=== PATIENT | female | born 1955 | race Caucasian/White ===

== ENCOUNTER 2019-04-06 | Outpatient (CLI) | payer SELFPAY | END 2019-04-06 18:04 | disposition EMS.NT ==

== ENCOUNTER 2019-12-12 12:27 | Outpatient (CLI) | payer SELFPAY | END 2019-12-12 12:28 | disposition critical access hospital (66) | LOC: EMS 12:27 | PROVIDERS: ATTEND Surgery | DX: R53.1 Weakness (principal); R19.7 Diarrhea, unspecified; R60.0 Localized edema | CPT/HCPCS: A0425; A0429 ==

== ENCOUNTER 2019-12-12 12:58 | Inpatient (IN) | payer OTHER ==
--- NOTE | 2019-12-12 12:55 | ED Physician Documentation ---
History of Present Illness - Stated complaint Stated Complaint: WEAKNESS - Chief complaint Chief Complaint: Neuro - History obtained from History obtained from: Patient (64 yo F who reports no pmh and no current medication brought in by EMS for weakness. She states she was taking a bath and stood up and felt too weak to stand. She slid back into the tub, but did not fall. She has also noticed some swelling in her lower extremities over the last week or two. She reports she has not been eating well recently and has felt an immense amount of stress due to current divorce proceedings. She denies any cough or URI sx, chest pain, dyspnea, abd pain, n/v/d, fever or chills. No sick contacts. Denies drug use, occasional alcohol, last used last night (1 beer per report). Reports typically "has cocktails, 1 or 2, before dinner." Never had et oh withdrawal. Pt states she has not seen a doctor or been to an ED in "20 years, since I broke my ankle." No known diagnoses.) Review of Systems Constitutional: reports: Fatigue. denies: Fever, Chills, Myalgias, Weight Loss, Sweats Eyes: reports: Reviewed and negative Ears: reports: Reviewed and negative Nose: reports: Reviewed and negative Throat: reports: Reviewed and negative Cardiac: reports: Pedal edema. denies: Chest pain / pressure, Palpitations, Calf pain Respiratory: reports: Reviewed and negative GI: reports: Other (Poor appetite). denies: Abdominal Pain, Abdominal Swelling, Nausea, Vomiting, Constipation, Diarrhea, Hematemesis, Bloody / black stool : denies: Dysuria, Frequency, Hesitancy Skin: reports: Reviewed and negative Musculoskeletal: reports: Extremity swelling. denies: Neck pain, Back pain, Extremity pain, Joint pain, Joint swelling Neurologic: reports: Generalized weakness. denies: Focal weakness, Numbness, Difficulty speaking, Near syncope, Syncope, Seizure, Confused, Altered mental status, Headache, Head injury, LOC Psychiatric: reports: Depressed. denies: Suicidal, Homicidal, Hallucinations, Delusions, Anxiety, Insomnia PD PAST MEDICAL HISTORY - Past Medical History Past Medical History: No Cardiovascular: None Respiratory: None Neuro: None Endocrine/Autoimmune: None GI: None FITNESS LEADER: None - Allergies Allergies/Adverse Reactions: Allergies Allergy/AdvReac Type Severity Reaction Status Date / Time morphine Allergy Hallucinati Verified 12/12/19 13:04 ons PD ED PE NORMAL - Vitals Vital signs reviewed: Yes - General General: Alert and oriented X 3, No acute distress, Well developed/nourished - HEENT HEENT: Atraumatic, PERRL, EOMI, Ears normal, Other (very poor dentition, dry mucous membranes, poor oral care. ) - Neck Neck: Supple, no meningeal sign, No JVD - Cardiac Cardiac: Other (tachycardic, 2/6 systolic murmur ) - Respiratory Respiratory: No respiratory distress, Clear bilaterally - Abdomen Abdomen: Normal bowel sounds, Other (hepatomegaly, abd ascites, soft and non- tender) - Female Female : Deferred - Derm Derm: Warm and dry, No rash, Other (Mild jaudice on face). No: Normal color - Extremities Extremities: No deformity, No tenderness to palpate, Normal ROM s pain, No calf tenderness / cord, Other (1+ non pitting edema bilateral lower legs) - Neuro Neuro: Alert and oriented X 3, No motor deficit, Normal speech Eye Opening: Spontaneous Motor: Obeys Commands Verbal: Oriented GCS Score: 15 - Psych Psych: Normal mood Results - Vitals Vitals: Vital Signs - 24 hr 12/12/19 12/12/19 12/12/19 13:04 13:36 15:00 Temperature 37.4 C Heart Rate 116 H 114 H 117 H Respiratory 14 15 20 Rate Blood Pressure 129/80 116/65 101/68 O2 Saturation 98 99 99 Oxygen O2 Source Room air - Labs Labs: Laboratory Tests 12/12/19 12/12/19 12/12/19 13:20 13:20 13:20 WBC 10.9 H RBC 2.19 L Hgb 8.3 L Hct 25.0 L MCV 114.2 H MCH 37.9 H MCHC 33.2 RDW 15.5 H Plt Count 102 L MPV 11.1 H Neut # (Auto) 8.7 H Lymph # (Auto) 0.5 L Rankin # (Auto) 1.5 H Eos # (Auto) 0.0 Baso # (Auto) 0.0 Absolute Nucleated RBC 0.00 Band Neuts % (Manual) Not Reportable Abnorm Lymph % (Manual) Not Reportable Nucleated RBC % 0.0 Neutrophils # (Manual) Not Reportable Lymphocytes # (Manual) Not Reportable Monocytes # (Manual) Not Reportable Eosinophils # (Manual) Not Reportable Basophils # (Manual) Not Reportable Differential Comment MANUAL=AUTO DIFF Manual Slide Review Indicated WBC Morphology NORMAL APPEARANCE Platelet Estimate DECREASED (<130,000) Platelet Morphology NORMAL APPEARANCE RBC Morph Micro Appear 1+ PAPPENHEIMER BODY PT 18.1 H INR 1.6 H Sodium Potassium Chloride Carbon Dioxide Anion Gap BUN Creatinine Estimated GFR (MDRD) Glucose Calcium Total Bilirubin Direct Bilirubin 5.2 H AST ALT Alkaline Phosphatase Ammonia Troponin I High Sens Total Protein Albumin Globulin Albumin/Globulin Ratio Ethyl Alcohol Slides for Path Review Indicated 12/12/19 12/12/19 12/12/19 13:42 13:42 13:42 WBC RBC Hgb Hct MCV MCH MCHC RDW Plt Count MPV Neut # (Auto) Lymph # (Auto) Rankin # (Auto) Eos # (Auto) Baso # (Auto) Absolute Nucleated RBC Band Neuts % (Manual) Abnorm Lymph % (Manual) Nucleated RBC % Neutrophils # (Manual) Lymphocytes # (Manual) Monocytes # (Manual) Eosinophils # (Manual) Basophils # (Manual) Differential Comment Manual Slide Review WBC Morphology Platelet Estimate Platelet Morphology RBC Morph Micro Appear PT INR Sodium 120 L* Potassium 3.6 Chloride 86 L Carbon Dioxide 20 L Anion Gap 14.0 H BUN 11 Creatinine 0.5 Estimated GFR (MDRD) 125 Glucose 111 H Calcium 7.9 L Total Bilirubin 11.1 H Direct Bilirubin AST 82 H ALT 39 Alkaline Phosphatase 113 Ammonia Troponin I High Sens 11.4 Total Protein 7.1 Albumin 2.1 L Globulin 5.0 H Albumin/Globulin Ratio 0.4 L Ethyl Alcohol < 5.0 Slides for Path Review 12/12/19 16:00 WBC RBC Hgb Hct MCV MCH MCHC RDW Plt Count MPV Neut # (Auto) Lymph # (Auto) Rankin # (Auto) Eos # (Auto) Baso # (Auto) Absolute Nucleated RBC Band Neuts % (Manual) Abnorm Lymph % (Manual) Nucleated RBC % Neutrophils # (Manual) Lymphocytes # (Manual) Monocytes # (Manual) Eosinophils # (Manual) Basophils # (Manual) Differential Comment Manual Slide Review WBC Morphology Platelet Estimate Platelet Morphology RBC Morph Micro Appear PT INR Sodium Potassium Chloride Carbon Dioxide Anion Gap BUN Creatinine Estimated GFR (MDRD) Glucose Calcium Total Bilirubin Direct Bilirubin AST ALT Alkaline Phosphatase Ammonia 29.0 Troponin I High Sens Total Protein Albumin Globulin Albumin/Globulin Ratio Ethyl Alcohol Slides for Path Review PD MEDICAL DECISION MAKING - ED course Complexity details: reviewed results, re-evaluated patient, considered differential, d/w patient ED course: 64 yo F with pmh of etoh use presents with generalized fatigue and weakness. On exam, she is jaundiced w/ hepatomegaly and lower ext edema. Pt denies any past liver dz history, though notes she hasn't seen a physician in 20+ years. She is hyponatremic at 120 and has a MELD score of 29. She has macrocytic anemia and low platelets, all suggestive of chronic etoh use though pt denies a problem. Her abdomen is soft and not painful and I do not suspect intraabdominal infection. She has an elevated tbili and direct bili but alk phos normal and there is no pain or vomiting therefore acute biliary obstruction less likely. I gave her 500ml NS bolus as she appears intravascularly dry and is tachycardic, nl BUN. She is alert and appropriate, no signs of encephalopathy, ammonia 29. She denies withdrawal sx including anxiety, palpitations, hallucinations, tremors. Denies hx/o DTs or etoh withdrawal. I discussed this patient w/ Dr. Arthur and observation admission recommend. Pt kindly accepted by Dr. Puri for obs for symptomatic hyponatremia and new dx liver failure. Departure - Departure Disposition: ED Place in Observation Condition: Good
[2019-12-12 13:32] LABS: BASOPHILS % (AUTO) 0.3 %; EOSINOPHILS % (AUTO) 0.1 %; HGB - HEMOGLOBIN 8.3 g/dL (12.0-16.0); LYMPHOCYTES # (AUTO) 0.5 10^3/uL (1.5-3.5); LYMPHOCYTES % (AUTO) 4.4 %; MEAN CORPUSCULAR HEMOGLOBIN 37.9 pg (27.0-31.0); MEAN CORPUSCULAR HGB CONC 33.2 g/dL (32.0-36.0); MEAN CORPUSCULAR VOLUME 114.2 fL (81.0-99.0); MEAN PLATELET VOLUME 11.1 fL (7.9-10.8); MONOCYTES # (AUTO) 1.5 10^3/uL (0.0-1.0); MONOCYTES % (AUTO) 13.9 %; NEUTROPHILS # (AUTO) 8.7 10^3/uL (1.5-6.6); NEUTROPHILS % (AUTO) 80.1 %; PLT - PLATELET COUNT 102 10^3/uL (130-450); RED BLOOD COUNT 2.19 10^6/uL (4.20-5.40); RED CELL DISTRIBUTION WIDTH 15.5 % (12.0-15.0); WHITE BLOOD COUNT 10.9 x10^3/uL (4.8-10.8)
--- NOTE | 2019-12-12 13:58 | XRAY Report ---
Reason: chest pain Procedure Date: 12/12/2019 Accession Number: [id number] / [id number] Procedure: XR - Chest 1 View X-Ray CPT Code: 27699 Final Report FULL RESULT: EXAM: CHEST RADIOGRAPHY EXAM DATE: 12/12/2019 01:23 PM. CLINICAL HISTORY: Chest pain and weakness. Fatigue. COMPARISON: None. TECHNIQUE: 1 view. FINDINGS: Lungs/Pleura: No focal opacities evident. No pleural effusion. No pneumothorax. Mediastinum: Heart size is normal. Aorta is mildly tortuous. Other: Post traumatic changes involving the right coracoclavicular and right AC joints. IMPRESSION: 1. No acute disease in the chest. RADIA
[2019-12-12 14:12] LABS: PLATELET ESTIMATE, MANUAL DECREASED (<130,000) (NORMAL); PLATELET MORPHOLOGY NORMAL APPEARANCE (NORMAL)
[2019-12-12 14:14] LABS: DIFFERENTIAL COMMENT MANUAL=AUTO DIFF
[2019-12-12 14:38] LABS: ALBUMIN 2.1 g/dL (3.2-5.5); ALBUMIN/GLOBULIN RATIO 0.4 (1.0-2.2); BILIRUBIN,TOTAL 11.1 mg/dL (0.2-1.0); CALCIUM 7.9 mg/dL (8.5-10.3); CREATININE 0.5 mg/dL (0.4-1.0); TOTAL PROTEIN 7.1 g/dL (6.7-8.2)
[2019-12-12] MEDS ORDERED: SODIUM CHLORIDE 0.9% 500 ML IV ONE (14:42)
[2019-12-12 15:14] LABS: INR 1.6 (0.8-1.2); PT - PROTHROMBIN TIME 18.1 secs (9.9-12.6)
[2019-12-12] MEDS ORDERED: ONDANSETRON ODT 4 MG TABLET TL PRN ×2 (17:46→18:09)
[2019-12-12] MEDS ORDERED: IBUPROFEN 400 MG TABLET PO PRN (17:46)
[2019-12-12] MEDS ORDERED: SODIUM CHLORIDE FLUSH 0.9% 10 ML SYRINGE IVP PRN (17:46)
[2019-12-12] MEDS ORDERED: LORazepam 0.5 MG TABLET PO PRN (17:53)
--- NOTE | 2019-12-12 18:01 | HISTORY & PHYSICAL EXAMINATION ---
Chief Complaint - Chief Complaint Chief Complaint: Fatigue History of Present Illness - Admitted From Admitted From:: Emergency department - History Obtained From Records Reviewed: Emergency department records History obtained from: Patient and ED physician Exam Limitations: None - History of Present Illness HPI Comment/Other: Patient is a 64-year-old female who denies any previous medical history who reports that earlier today when she was staying at her friend's house, she went to take a bath and then could not get herself out. When asked for clarification, she describes that she felt too weak to get herself out of the bathtub.Because her friend with whom she is currently staying recently had surgery on her arm, she was unable to assist her so paramedics were called to the house to help her get out of the bathtub. Paramedics arrived to help do this and as evaluated her found her to be profoundly weak and brought her to the emergency room for further evaluation. This prompted a routine evaluation including basic labs demonstrating a significant hyponatremia of 120, along with significantly abnormal LFTs with hyperbilirubinemia of 11 and exam findings consistent with end-stage liver disease. Although the patient was not exhibiting any manifestations of acute liver failure requiring admission, because of the profound weakness and the hyponatremia, patient was placed in observation status overnight for further work-up. History - Past Medical History Cardiovascular: reports: None Respiratory: reports: None Neuro: reports: None Endocrine/Autoimmune: reports: None GI: reports: None BLEACHER LARD: reports: None - Past Surgical History General: reports: Appendectomy - Family & Social History Family History: Father: [place], Sister: Cancer (Ovarian) Living arrangement: Other (Patient is going through a divorce so was homeless but currently living with a friend) Living Situation: Other Social History Notes: Currently going through a difficult divorce - Substance History Abuse: Recurrent use of substance despite neg consequences: Alcohol - POLST Patient has POLST: No POLST Status: Full Code Meds/Allgy - Allergies Allergies/Adverse Reactions: Allergies Allergy/AdvReac Type Severity Reaction Status Date / Time morphine Allergy Hallucinati Verified 12/12/19 13:04 ons Review of Systems - Constitutional Constitutional: reports: Fatigue, Malaise, Weakness, Poor appetite. denies: Fever, Chills - Eyes Eyes: denies: Blurred vision - Ears, Nose & Throat Ears, Nose & Throat: denies: Ear pain, Hearing loss, Hearing aids - Cardiovascular Cariovascular: denies: Irregular heart rate, Palpitations, Chest pain - Gastrointestinal Gastrointestinal: reports: Bloating, Poor appetite, Other (Abdominal distention). denies: Abdominal pain, Change in bowel habits, Nausea, Vomiting - Genitourinary Genitourinary: denies: Dysuria - Neurological Neurological: reports: General weakness. denies: Focal weakness, Headache, Numbness - All Other Systems All Other Systems: reports: Reviewed and negative Prior Level of Functionality: Ambulatory, functionally independent but currently living with a friend Exam - Vital Signs Reviewed Vital Signs: Yes Vital Signs: Vital Signs x48h Temp Pulse Pulse Resp BP BP Pulse Ox 12/12/19 17:33 36.8 C 111 H 18 109/59 L 98 12/12/19 17:00 111 H 18 106/58 L 99 12/12/19 15:00 117 H 20 101/68 99 12/12/19 13:36 114 H 15 116/65 99 12/12/19 13:04 37.4 C 116 H 14 129/80 98 - Physical Exam General Appearance: positive: No acute distress Eyes Bilateral: positive: Other (Bilateral scleral icterus) ENT: positive: Dry mucous membranes Neck: positive: Nml inspection Respiratory: positive: Chest non-tender, No respiratory distress, Breath sounds nml Cardiovascular: positive: Regular rate & rhythm, No murmur, No gallop Peripheral Pulses: positive: 2+ Abdomen: positive: Hepatomegaly, Other (Abdominal distention without fluid wave). negative: Tenderness, Guarding, Rebound, Splenomegaly, Mass Skin: positive: Other (Multiple areas of ecchymosis over the bilateral upper extremities) Extremities: positive: Non-tender, Pedal edema (Bilateral pedal edema extending to the proximal tibias) Neurologic/Psychiatric: positive: Oriented x3, CN's nml (2-12), Motor nml Conclusion/Plan - Problem List (1) Hyponatremia Conclusion/Plan: Likely related to alcoholism, Possibly exacerbated by Intravascular Fluid depletion secondary to liver failure. Received a 500 mL bolus of normal saline in the emergency room, will continue normal saline at 100 mL/h with BMP checks every 4 hours. Pending sodium levels, will try to avoid overcorrection minimizing to about 6 mEq per 24-hour. And DC IV fluids if the rate of correction exceeds this. Otherwise if by tomorrow morning, no significant improvement, consider adding sodium tablets.Could expand work-up to include SIADH, but this is doubtful given the clinical picture of near certainty new diagnosis of end-stage liver disease (2) Elevated transaminase measurement Conclusion/Plan: Given patient's history of alcoholism, likely she has undiagnosed liver cirrhosis.This can primarily be worked up as an outpatient. (3) Jaundice Conclusion/Plan: As above, secondary to likely end-stage liver disease (4) Alcohol abuse Conclusion/Plan: Patient denies any history of withdrawal even when she has quit drinking. She admits to at least 4-6 cocktails per day. We will watch for signs of with drawal, and have added Ativan as needed for anxiety in the meantime.Continue to corporate counselor to quit (5) Macrocytic anemia Conclusion/Plan: Secondary to alcohol abuse, With thrombocytopenia. Monitor for signs of bleeding. - Lab Results Lab results reviewed: Yes Mahin Bones: 12/12/19 13:20 12/12/19 13:42 - Diagnostic Imaging Results Diagnostic Imaging Results: positive: Final report reviewed Core Measures - Anticipated LOS I expect patient to be DC'd or transferred within 96 hours.: Yes - DVT/VTE - Prophylaxis VTE/DVT Device ordered at admit?: Yes VTE/DVT Prophylaxis med ordered at admit?: No Not Ordered - Medical Reason: Contraindicated (Thrombocytopenia)
[2019-12-12] MEDS: PANTOPRAZOLE 40 MG TABLET PO SCH (18:52)
[2019-12-12] MEDS: SODIUM CHLORIDE 0.9% 1,000 ML IV SCH (18:52)
[2019-12-12 21:20] LABS: CALCIUM 7.7 mg/dL (8.5-10.3); CREATININE 0.4 mg/dL (0.4-1.0)
[2019-12-12] MEDS: THIAMINE 100 MG TABLET PO SCH (21:59)
[2019-12-12] MEDS: FOLIC ACID 1 MG TABLET PO SCH (22:00)
[2019-12-12 22:03] LABS: GLUCOSE, URINE (UA) NEGATIVE (NEGATIVE); KETONES,URINE (UA) TRACE mg/dL (NEGATIVE); LEUKOCYTE ESTERASE, URINE MODERATE (NEGATIVE); NITRITE,URINE POSITIVE (NEGATIVE); OCCULT BLOOD,URINE NEGATIVE (NEGATIVE); PH,URINE 5.5 PH (5.0-7.5); PROTEIN,URINE TRACE mg/dL (NEGATIVE); UROBILINOGEN,URINE >=8.0 E.U./dL (NORMAL)
[2019-12-12 22:09] LABS: BILIRUBIN,URINE LARGE (NEGATIVE); CLARITY,URINE HAZY (CLEAR); ICTOTEST,URINE POSITIVE
[2019-12-12 22:13] LABS: RBC,URINE 0-5 /HPF (0-5)
[2019-12-12 22:14] LABS: BACTERIA,URINE Many /HPF (None Seen); MUCUS,URINE Few Strands; SQUAMOUS EPITHELIAL CELL,UR FEW Squamous (<= Few)
[2019-12-13 01:53] LABS: CALCIUM 7.7 mg/dL (8.5-10.3); CREATININE 0.4 mg/dL (0.4-1.0)
[2019-12-13] MEDS: SODIUM CHLORIDE FLUSH 0.9% 10 ML SYRINGE IVP SCH ×4 (03:34→23:32)
[2019-12-13] MEDS: SODIUM CHLORIDE 0.9% 1,000 ML IV SCH ×3 (04:32→23:32)
[2019-12-13 05:49] LABS: HGB - HEMOGLOBIN 8.1 g/dL (12.0-16.0); MEAN CORPUSCULAR HEMOGLOBIN 39.5 pg (27.0-31.0); MEAN CORPUSCULAR HGB CONC 34.9 g/dL (32.0-36.0); MEAN CORPUSCULAR VOLUME 113.2 fL (81.0-99.0); MEAN PLATELET VOLUME 11.1 fL (7.9-10.8); RED BLOOD COUNT 2.05 10^6/uL (4.20-5.40); RED CELL DISTRIBUTION WIDTH 15.6 % (12.0-15.0); WHITE BLOOD COUNT 8.3 x10^3/uL (4.8-10.8)
[2019-12-13 06:06] LABS: ALBUMIN 1.9 g/dL (3.2-5.5); BILIRUBIN,DIRECT 3.9 mg/dL (0.1-0.5); BILIRUBIN,TOTAL 8.2 mg/dL (0.2-1.0); CALCIUM 7.6 mg/dL (8.5-10.3); CREATININE 0.3 mg/dL (0.4-1.0); TOTAL PROTEIN 5.7 g/dL (6.7-8.2)
[2019-12-13] MEDS: PANTOPRAZOLE 40 MG TABLET PO SCH (08:09)
[2019-12-13] MEDS: FOLIC ACID 1 MG TABLET PO SCH (08:09)
[2019-12-13] MEDS: cefTRIAXone 1 GM in SODIUM CHLORIDE 0.9% MINIBAG 100 ML IV SCH (11:55)
[2019-12-13] MEDS ORDERED: cefTRIAXone 1 GM VIAL ONE (11:56)
--- NOTE | 2019-12-13 14:40 | PHARMACY PROGRESS NOTE ---
- Best Possible Medication History Admit Date and Time: 12/12/19 1638 Processed by: Pharmacy Medication History completed: Yes Secondary Source(s): Physician records As the person ultimately responsible for medication therapy, providers are able to order a medication from an existing home medication list in [facility] via the "Reconcile Routine" prior to Confirmation of that medication by academic support director. Such practice is discouraged except when the physician, in their clinical judgment, deems that a medical need exists for a medication without regard to previous use.
--- NOTE | 2019-12-13 15:38 | PROVIDER PROGRESS NOTE ---
Subjective - Prog Note Date Prog Note Date: 12/13/19 Prog Note Time: 15:38 - Subjective Pt reports feeling: Improved Subjective: Patient does feel better, but continues to feel weak. She is not sure that she can get up and walk on her own accord. Current Medications - Current Medications Current Medications: Active Medications Folic Acid () 1 mg PO DAILY [facility] Last Admin: 12/13/19 08:09 Dose: 1 mg Sodium Chloride (Normal Saline 0.9%) 1,000 mls @ 100 mls/hr IV .Q10H [facility] Last Admin: 12/13/19 14:52 Dose: 100 mls/hr Ceftriaxone Sodium 1 gm/ (Sodium Chloride) 100 mls @ 200 mls/hr IV DAILY [facility] Last Infusion: 12/13/19 12:25 Dose: Infused Ibuprofen (Motrin) 400 mg PO Q4HR PRN PRN Reason: Pain 1 to 4 Lorazepam (Ativan) 0.5 mg PO Q6H PRN PRN Reason: Anxiety Ondansetron HCl (Zofran Odt) 4 mg TL BID PRN PRN Reason: Nausea / Vomiting Pantoprazole Sodium (Protonix) 40 mg PO QDAC [facility] Last Admin: 12/13/19 08:09 Dose: 40 mg Sodium Chloride (Normal Saline Flush 0.9%) 10 ml IVP PRN PRN PRN Reason: NEEDED PER PROVIDER ORDERS Sodium Chloride (Normal Saline Flush 0.9%) 10 ml IVP 0100,0900,1700 [facility] Last Admin: 12/13/19 07:59 Dose: Not Given Thiamine HCl (Vitamin B-1) 100 mg PO DAILY [facility] Last Admin: 12/12/19 21:59 Dose: 100 mg No Known Home Medications 12/13/19 Objective - Vital Signs/Intake & Output Reviewed Vital Signs: Yes Vital Signs: Vital Signs x48h Temp Pulse Resp BP Pulse Ox 12/13/19 12:19 36.6 C 110 H 20 113/62 98 Intake & Output: Intake & Output 12/10/19 12/11/19 12/12/19 12/13/19 23:59 23:59 23:59 23:59 Intake Total 500 2286.667 Output Total 250 15 Balance 250 2271.667 - Objective General Appearance: positive: No acute distress, Alert Eyes Bilateral: positive: Normal inspection, PERRL Respiratory: positive: Chest non-tender, No respiratory distress Cardiovascular: positive: Regular rate & rhythm, No murmur, No gallop Abdomen: positive: Non-tender, No organomegaly, Nml bowel sounds Extremities: positive: Pedal edema Neurologic/Psychiatric: positive: Oriented x3, CN's nml (2-12) - Lab Results Fish Bones: 12/13/19 05:22 12/13/19 05:22 Other Labs: Lab Results x24hrs 12/13/19 12/13/19 12/13/19 Range/Units 05:22 05:22 01:30 WBC 8.3 (4.8-10.8) x10^3/uL RBC 2.05 L (4.20-5.40) 10^6/uL Hgb 8.1 L (12.0-16.0) g/dL Hct 23.2 L (37.0-47.0) % MCV 113.2 H (81.0-99.0) fL MCH 39.5 H (27.0-31.0) pg MCHC 34.9 (32.0-36.0) g/dL RDW 15.6 H (12.0-15.0) % Plt Count 101 L (130-450) 10^3/uL MPV 11.1 H (7.9-10.8) fL Sodium 125 L 123 L (135-145) mmol/L Potassium 4.2 3.5 (3.5-5.0) mmol/L Chloride 94 L 90 L (101-111) mmol/L Carbon Dioxide 24 23 (21-32) mmol/L Anion Gap 7.0 10.0 (6-13) BUN 11 12 (6-20) mg/dL Creatinine 0.3 L 0.4 (0.4-1.0) mg/dL Estimated GFR (MDRD) 225 162 (>89) Glucose 97 108 H (70-100) mg/dL Calcium 7.6 L 7.7 L (8.5-10.3) mg/dL Total Bilirubin 8.2 H (0.2-1.0) mg/dL Direct Bilirubin 3.9 H (0.1-0.5) mg/dL AST 84 H (10-42) IU/L ALT 35 (10-60) IU/L Alkaline Phosphatase 93 (42-121) IU/L Ammonia (7-35) umol/L Total Protein 5.7 L (6.7-8.2) g/dL Albumin 1.9 L (3.2-5.5) g/dL Globulin 3.8 (2.1-4.2) g/dL Urine Color Urine Clarity (CLEAR) Urine pH (5.0-7.5) PH Ur Specific Hixson (1.002-1.030) Urine Protein (NEGATIVE) mg/dL Urine Glucose (UA) (NEGATIVE) mg/dL Urine Ketones (NEGATIVE) mg/dL Urine Occult Blood (NEGATIVE) Urine Nitrite (NEGATIVE) Urine Bilirubin (NEGATIVE) Urine Urobilinogen (NORMAL) E.U./dL Ur Leukocyte Esterase (NEGATIVE) Urine RBC (0-5) /HPF Urine WBC (0-5) /HPF Ur Squamous Epith Cells (<= Few) Urine Bacteria (None Seen) /HPF Urine Casts /LPF Urine Mucus Ur Microscopic Review Urine Culture Comments 12/12/19 12/12/19 12/12/19 Range/Units 21:50 21:05 16:00 WBC (4.8-10.8) x10^3/uL RBC (4.20-5.40) 10^6/uL Hgb (12.0-16.0) g/dL Hct (37.0-47.0) % MCV (81.0-99.0) fL MCH (27.0-31.0) pg MCHC (32.0-36.0) g/dL RDW (12.0-15.0) % Plt Count (130-450) 10^3/uL MPV (7.9-10.8) fL Sodium 122 L (135-145) mmol/L Potassium 3.5 (3.5-5.0) mmol/L Chloride 89 L (101-111) mmol/L Carbon Dioxide 24 (21-32) mmol/L Anion Gap 9.0 (6-13) BUN 11 (6-20) mg/dL Creatinine 0.4 (0.4-1.0) mg/dL Estimated GFR (MDRD) 162 (>89) Glucose 112 H (70-100) mg/dL Calcium 7.7 L (8.5-10.3) mg/dL Total Bilirubin (0.2-1.0) mg/dL Direct Bilirubin (0.1-0.5) mg/dL AST (10-42) IU/L ALT (10-60) IU/L Alkaline Phosphatase (42-121) IU/L Ammonia 29.0 (7-35) umol/L Total Protein (6.7-8.2) g/dL Albumin (3.2-5.5) g/dL Globulin (2.1-4.2) g/dL Urine Color BROWN Urine Clarity HAZY (CLEAR) Urine pH 5.5 (5.0-7.5) PH Ur Specific Hixson 1.020 (1.002-1.030) Urine Protein TRACE (NEGATIVE) mg/dL Urine Glucose (UA) NEGATIVE (NEGATIVE) mg/dL Urine Ketones TRACE (NEGATIVE) mg/dL Urine Occult Blood NEGATIVE (NEGATIVE) Urine Nitrite POSITIVE H (NEGATIVE) Urine Bilirubin LARGE H (NEGATIVE) Urine Urobilinogen >=8.0 H (NORMAL) E.U./dL Ur Leukocyte Esterase MODERATE H (NEGATIVE) Urine RBC 0-5 (0-5) /HPF Urine WBC 11-25 H (0-5) /HPF Ur Squamous Epith Cells FEW Squamous (<= Few) Urine Bacteria Many H (None Seen) /HPF Urine Casts 0-2 WBC Casts /LPF Urine Mucus Few Strands Ur Microscopic Review INDICATED Urine Culture Comments INDICATED - Diagnostic Imaging Diagnostic Imaging Results: positive: Final report reviewed Assessment/Plan - Problem List (1) Hyponatremia Impression: Sodium level is much improved, and at this point would consider this consistent with her likely chronic level. We will continue to monitor daily, but no longer need to follow every 4 hours. (2) Elevated transaminase measurement Impression: Some improvement, possibly related to dilutional effect versus improved perfusion to liver given patient's presenting dehydration and intravascular volume depletion. We will continue to monitor closely. No indication for glucocorticoids at this time. (3) Jaundice Impression: Secondary to above, improving somewhat continue to monitor (4) Alcohol abuse Impression: No indication of withdrawal, continue to monitor closely and certified travel counselor to quit. (5) Macrocytic anemia Impression: Stable, labs essentially unchanged.
[2019-12-13] MEDS ORDERED: SODIUM CHLORIDE 0.9% 500 ML IV ONE (22:41)
[2019-12-14 05:39] LABS: HGB - HEMOGLOBIN 8.3 g/dL (12.0-16.0); MEAN CORPUSCULAR HEMOGLOBIN 38.4 pg (27.0-31.0); MEAN CORPUSCULAR HGB CONC 33.3 g/dL (32.0-36.0); MEAN CORPUSCULAR VOLUME 115.3 fL (81.0-99.0); MEAN PLATELET VOLUME 10.2 fL (7.9-10.8); RED BLOOD COUNT 2.16 10^6/uL (4.20-5.40); RED CELL DISTRIBUTION WIDTH 16.5 % (12.0-15.0); WHITE BLOOD COUNT 8.3 x10^3/uL (4.8-10.8)
[2019-12-14 05:44] LABS: CALCIUM 7.6 mg/dL (8.5-10.3); CREATININE 0.5 mg/dL (0.4-1.0)
[2019-12-14] MEDS: PANTOPRAZOLE 40 MG TABLET PO SCH (06:06)
[2019-12-14] MEDS ORDERED: POTASSIUM CHLORIDE 20 MEQ TABLET PO ONE (06:55)
[2019-12-14] MEDS: SODIUM CHLORIDE 0.9% 1,000 ML IV SCH ×2 (09:18→20:15)
[2019-12-14] MEDS: FOLIC ACID 1 MG TABLET PO SCH (09:19)
[2019-12-14] MEDS: cefTRIAXone 1 GM in SODIUM CHLORIDE 0.9% MINIBAG 100 ML IV SCH (09:19)
[2019-12-14] MEDS: THIAMINE 100 MG TABLET PO SCH (09:19)
[2019-12-14] MEDS: SODIUM CHLORIDE FLUSH 0.9% 10 ML SYRINGE IVP SCH ×2 (09:19→16:14)
--- NOTE | 2019-12-14 15:40 | PROVIDER PROGRESS NOTE ---
Subjective - Prog Note Date Prog Note Date: 12/14/19 Prog Note Time: 15:38 - Subjective Pt reports feeling: Improved (Pain is better, but still fealing weak and stomach feels bloated) Current Medications - Current Medications Current Medications: Active Medications Ciprofloxacin (Cipro) 500 mg PO BID [facility] Folic Acid () 1 mg PO DAILY [facility] Last Admin: 12/14/19 09:19 Dose: 1 mg Sodium Chloride (Normal Saline 0.9%) 1,000 mls @ 100 mls/hr IV .Q10H [facility] Last Admin: 12/14/19 09:18 Dose: 100 mls/hr Ibuprofen (Motrin) 400 mg PO Q4HR PRN PRN Reason: Pain 1 to 4 Lorazepam (Ativan) 0.5 mg PO Q6H PRN PRN Reason: Anxiety Mineral Oil (Cavilon) 1 applic TOP PRN PRN PRN Reason: Skin Care Ondansetron HCl (Zofran Odt) 4 mg TL BID PRN PRN Reason: Nausea / Vomiting Pantoprazole Sodium (Protonix) 40 mg PO QDAC [facility] Last Admin: 12/14/19 06:06 Dose: 40 mg Sodium Chloride (Normal Saline Flush 0.9%) 10 ml IVP PRN PRN PRN Reason: NEEDED PER PROVIDER ORDERS Sodium Chloride (Normal Saline Flush 0.9%) 10 ml IVP 0100,0900,1700 [facility] Last Admin: 12/14/19 09:19 Dose: Not Given Thiamine HCl (Vitamin B-1) 100 mg PO DAILY [facility] Last Admin: 12/14/19 09:19 Dose: 100 mg No Known Home Medications 12/13/19 Objective - Vital Signs/Intake & Output Reviewed Vital Signs: Yes Vital Signs: Vital Signs x48h Temp Pulse Pulse Resp BP BP Pulse Ox 12/14/19 15:35 36.9 C 103 H 20 109/61 100 12/14/19 12:19 36.5 C 104 H 20 114/59 L 99 12/14/19 10:15 107 H 110/57 L Intake & Output: Intake & Output 12/11/19 12/12/19 12/13/19 12/14/19 23:59 23:59 23:59 23:59 Intake Total 500 3653.333 1496.667 Output Total 250 190 150 Balance 250 3463.333 1346.667 - Objective General Appearance: positive: No acute distress Eyes Bilateral: positive: Normal inspection ENT: positive: ENT inspection nml Neck: positive: Nml inspection Respiratory: positive: Chest non-tender, No respiratory distress, Breath sounds nml Cardiovascular: positive: Regular rate & rhythm, No murmur, No gallop Abdomen: positive: No organomegaly, Nml bowel sounds (Mild distention, mild generalized tenderness worse in the periumbilical region), Tenderness Skin: positive: Color nml, No rash Extremities: positive: Non-tender, No pedal edema, Pedal edema Neurologic/Psychiatric: positive: Oriented x3, CN's nml (2-12), Motor nml - Lab Results Fish Bones: 12/14/19 05:05 12/14/19 05:05 Other Labs: Lab Results x24hrs 12/14/19 12/14/19 Range/Units 05:05 05:05 WBC 8.3 (4.8-10.8) x10^3/uL RBC 2.16 L (4.20-5.40) 10^6/uL Hgb 8.3 L (12.0-16.0) g/dL Hct 24.9 L (37.0-47.0) % MCV 115.3 H (81.0-99.0) fL MCH 38.4 H (27.0-31.0) pg MCHC 33.3 (32.0-36.0) g/dL RDW 16.5 H (12.0-15.0) % Plt Count 124 L (130-450) 10^3/uL MPV 10.2 (7.9-10.8) fL Sodium 127 L (135-145) mmol/L Potassium 3.3 L (3.5-5.0) mmol/L Chloride 96 L (101-111) mmol/L Carbon Dioxide 22 (21-32) mmol/L Anion Gap 9.0 (6-13) BUN 10 (6-20) mg/dL Creatinine 0.5 (0.4-1.0) mg/dL Estimated GFR (MDRD) 125 (>89) Glucose 107 H (70-100) mg/dL Calcium 7.6 L (8.5-10.3) mg/dL - Diagnostic Imaging Diagnostic Imaging Results: positive: Final report reviewed Assessment/Plan - Problem List (1) Complicated UTI (urinary tract infection) Impression: Culture and sensitivities resulted today confirming E. coli, fortunately which is pansensitive. Will DC Rocephin and transition to oral Cipro today. Given her complex living situation, as of yet undiagnosed and unmanaged liver failure, generalized weakness and recent hyponatremia, will keep patient in-house for 24 hours while transitioning to oral antibiotics to confirm appropriate response and plan for possible discharge on 12/15/2019 (2) Hyponatremia Impression: Improving, Continue to monitor (3) Elevated transaminase measurement Impression: Likely alcoholic liver cirrhosis, patient will need to establish with PCP and GI after discharge (4) Jaundice Impression: Somewhat improved, Secondary to above (5) Alcohol abuse Impression: Counseled to quit (6) Macrocytic anemia Impression: Secondary to above, No signs of bleeding, continue to monitor
[2019-12-14] MEDS: CIPROFLOXACIN 250 MG TABLET PO SCH (20:15)
[2019-12-15] MEDS: SODIUM CHLORIDE FLUSH 0.9% 10 ML SYRINGE IVP SCH ×4 (00:35→23:43)
[2019-12-15 04:56] LABS: HGB - HEMOGLOBIN 8.3 g/dL (12.0-16.0); MEAN CORPUSCULAR HEMOGLOBIN 39.5 pg (27.0-31.0); MEAN CORPUSCULAR HGB CONC 33.6 g/dL (32.0-36.0); MEAN CORPUSCULAR VOLUME 117.6 fL (81.0-99.0); RED BLOOD COUNT 2.1 10^6/uL (4.20-5.40); RED CELL DISTRIBUTION WIDTH 16.9 % (12.0-15.0); WHITE BLOOD COUNT 7.4 x10^3/uL (4.8-10.8)
[2019-12-15 05:10] LABS: ALBUMIN 1.9 g/dL (3.2-5.5); BILIRUBIN,DIRECT 3.1 mg/dL (0.1-0.5); BILIRUBIN,TOTAL 6.6 mg/dL (0.2-1.0); CALCIUM 7.7 mg/dL (8.5-10.3); CREATININE 0.5 mg/dL (0.4-1.0)
[2019-12-15] MEDS: SODIUM CHLORIDE 0.9% 1,000 ML IV SCH ×2 (06:14→15:42)
[2019-12-15] MEDS: PANTOPRAZOLE 40 MG TABLET PO SCH (06:14)
[2019-12-15] MEDS: CIPROFLOXACIN 250 MG TABLET PO SCH ×2 (08:38→20:29)
[2019-12-15] MEDS: THIAMINE 100 MG TABLET PO SCH (08:38)
[2019-12-15] MEDS: FOLIC ACID 1 MG TABLET PO SCH (08:38)
[2019-12-15 09:37] LABS: FOLATE 12.13 ng/mL (5.90 - >24.8)
[2019-12-15] MEDS: CALCIUM CARBONATE CHEW 500 MG TABLET PO SCH ×2 (11:53→20:29)
--- NOTE | 2019-12-15 15:55 | PROVIDER PROGRESS NOTE ---
Subjective - Prog Note Date Prog Note Date: 12/15/19 Prog Note Time: 15:53 - Subjective Pt reports feeling: No change, Worse (Patient complains her abdominal distention is getting worse and she feels more pain with tightness) Current Medications - Current Medications Current Medications: Active Medications Calcium Carbonate/Glycine (Tums) 500 mg PO BID [facility] Last Admin: 12/15/19 11:53 Dose: 500 mg Ciprofloxacin (Cipro) 500 mg PO BID [facility] Last Admin: 12/15/19 08:38 Dose: 500 mg Folic Acid () 1 mg PO DAILY [facility] Last Admin: 12/15/19 08:38 Dose: 1 mg Sodium Chloride (Normal Saline 0.9%) 1,000 mls @ 100 mls/hr IV .Q10H [facility] Last Admin: 12/15/19 15:42 Dose: 100 mls/hr Ibuprofen (Motrin) 400 mg PO Q4HR PRN PRN Reason: Pain 1 to 4 Lorazepam (Ativan) 0.5 mg PO Q6H PRN PRN Reason: Anxiety Mineral Oil (Cavilon) 1 applic TOP PRN PRN PRN Reason: Skin Care Ondansetron HCl (Zofran Odt) 4 mg TL BID PRN PRN Reason: Nausea / Vomiting Pantoprazole Sodium (Protonix) 40 mg PO QDAC [facility] Last Admin: 12/15/19 06:14 Dose: 40 mg Sodium Chloride (Normal Saline Flush 0.9%) 10 ml IVP PRN PRN PRN Reason: NEEDED PER PROVIDER ORDERS Sodium Chloride (Normal Saline Flush 0.9%) 10 ml IVP 0100,0900,1700 [facility] Last Admin: 12/15/19 08:38 Dose: Not Given Thiamine HCl (Vitamin B-1) 100 mg PO DAILY [facility] Last Admin: 12/15/19 08:38 Dose: 100 mg No Known Home Medications 12/13/19 Objective - Vital Signs/Intake & Output Reviewed Vital Signs: Yes Vital Signs: Vital Signs x48h Temp Pulse Resp BP Pulse Ox 12/15/19 15:43 36.7 C 100 18 115/58 L 97 12/15/19 11:42 36.8 C 114 H 18 116/69 100 12/15/19 11:27 118 H 126/85 H 97 Intake & Output: Intake & Output 04/07/12/13/19 12/14/19 12/15/19 23:59 23:59 23:59 23:59 Intake Total 500 3653.333 3371.667 2063.333 Output Total 250 190 450 200 Balance 250 3463.333 2921.667 1863.333 - Objective General Appearance: positive: No acute distress Eyes Bilateral: positive: Normal inspection. negative: No scleral icterus ENT: positive: ENT inspection nml Neck: positive: Nml inspection, Thyroid nml, No JVD Respiratory: positive: Chest non-tender Abdomen: positive: Nml bowel sounds, Tenderness, Other (Distended, probable ascites, moderately tense, Not tympanic). negative: Rebound Skin: positive: Other (Jaundice) Neurologic/Psychiatric: positive: Oriented x3, CN's nml (2-12) - Lab Results Fish Bones: 12/15/19 04:30 12/15/19 04:30 Other Labs: Lab Results x24hrs 12/15/19 12/15/19 12/15/19 Range/Units 04:30 04:30 04:30 WBC 7.4 (4.8-10.8) x10^3/uL RBC 2.10 L (4.20-5.40) 10^6/uL Hgb 8.3 L (12.0-16.0) g/dL Hct 24.7 L (37.0-47.0) % MCV 117.6 H (81.0-99.0) fL MCH 39.5 H (27.0-31.0) pg MCHC 33.6 (32.0-36.0) g/dL RDW 16.9 H (12.0-15.0) % Plt Count 127 L (130-450) 10^3/uL MPV 10.0 (7.9-10.8) fL Hematology Spec Commnt Sodium 131 L (135-145) mmol/L Potassium 3.9 (3.5-5.0) mmol/L Chloride 101 (101-111) mmol/L Carbon Dioxide 23 (21-32) mmol/L Anion Gap 7.0 (6-13) BUN 8 (6-20) mg/dL Creatinine 0.5 (0.4-1.0) mg/dL Estimated GFR (MDRD) 125 (>89) Glucose 112 H (70-100) mg/dL Calcium 7.7 L (8.5-10.3) mg/dL Total Bilirubin 6.6 H (0.2-1.0) mg/dL Direct Bilirubin 3.1 H (0.1-0.5) mg/dL AST 73 H (10-42) IU/L ALT 35 (10-60) IU/L Alkaline Phosphatase 107 (42-121) IU/L Total Protein 6.0 L (6.7-8.2) g/dL Albumin 1.9 L (3.2-5.5) g/dL Globulin 4.1 (2.1-4.2) g/dL Vitamin B12 1039 H (180-914) pg/mL Folate 12.13 (5.90 - >24.8) ng/mL Slides for Path Review 12/12/19 Range/Units 14:15 WBC (4.8-10.8) x10^3/uL RBC (4.20-5.40) 10^6/uL Hgb (12.0-16.0) g/dL Hct (37.0-47.0) % MCV (81.0-99.0) fL MCH (27.0-31.0) pg MCHC (32.0-36.0) g/dL RDW (12.0-15.0) % Plt Count (130-450) 10^3/uL MPV (7.9-10.8) fL Hematology Spec Commnt 12-12-2019/1320 Sodium (135-145) mmol/L Potassium (3.5-5.0) mmol/L Chloride (101-111) mmol/L Carbon Dioxide (21-32) mmol/L Anion Gap (6-13) BUN (6-20) mg/dL Creatinine (0.4-1.0) mg/dL Estimated GFR (MDRD) (>89) Glucose (70-100) mg/dL Calcium (8.5-10.3) mg/dL Total Bilirubin (0.2-1.0) mg/dL Direct Bilirubin (0.1-0.5) mg/dL AST (10-42) IU/L ALT (10-60) IU/L Alkaline Phosphatase (42-121) IU/L Total Protein (6.7-8.2) g/dL Albumin (3.2-5.5) g/dL Globulin (2.1-4.2) g/dL Vitamin B12 (180-914) pg/mL Folate (5.90 - >24.8) ng/mL Slides for Path Review SEE SEPARATE REPORT Assessment/Plan - Problem List (1) Ascites Impression: Patient presents with clinical features consistent with advanced liver disease without a previous diagnosis. Patient's low blood pressure has any hesitant to start patient on spironolactone or other diuresis. Given patient's worsening abdominal distention and pain, will order a diagnostic liver Ultrasound, looking for ascites and for a pocket amenable to paracentesis. Have discussed with general surgery, Dr. Reaves has been kind enough to offer possible paracentesis today or tomorrow based on OR scheduling and ultrasound availability. After discharge, patient will need to establish with primary care and a GI if not hepatology referral.Otherwise, she may ultimately require palliative versus hospice as Qualifiers: Ascites type: due to alcoholic cirrhosis Qualified Code(s): K70.31 - Alcoholic cirrhosis of liver with ascites (2) Complicated UTI (urinary tract infection) Impression: Improved. Tolerating oral abx. No fever. WBC normal. Cont oral abx x 7 days. (3) Hyponatremia Impression: Improved to 131. Cont to monitor. (4) Elevated transaminase measurement Impression: Improved. MELD Score 23 (5) Jaundice Impression: Not changed. See above (6) Alcohol abuse Impression: Counseled to quit. (7) Macrocytic anemia Impression: Stable. 2/2 to above
--- NOTE | 2019-12-15 19:08 | Ultrasound Report ---
Reason: Evaluate for ascites, and liver morphology Procedure Date: 12/15/2019 Accession Number: [id number] / [id number] Procedure: US - Abdomen Limited CPT Code: Addended Final Report FULL RESULT: EXAM: ABDOMEN ULTRASOUND LIMITED, RUQ EXAM DATE: 12/15/2019 04:20 PM. CLINICAL HISTORY: Evaluate for ascites, and liver morphology. COMPARISON: None. TECHNIQUE: Real-time scanning was performed with static images obtained. FINDINGS: Liver: Enlarged, echogenic, nodular capsular surface 20.7 cm. Main portal vein flow: Hepatopetal. Gallbladder: Gallbladder sludge No stones, wall thickening, or sonographic Roberts's sign. Biliary System: CBD measures 5 mm. No intrahepatic or extrahepatic ductal dilatation. Right kidney: 12.9 cm. Unremarkable Other: Moderate ascites in all 4 quadrants. Spleen: Possible splenic varices IMPRESSION: 1. Cirrhotic enlarged liver. 2. Moderate four-quadrant ascites. 3. Possible splenic varices [facility] ADDENDUM: 12/15/19 19:58 Portal vein flow was hepatofugal
[2019-12-16] MEDS: PANTOPRAZOLE 40 MG TABLET PO SCH (06:14)
[2019-12-16] MEDS: THIAMINE 100 MG TABLET PO SCH (08:12)
[2019-12-16] MEDS: CALCIUM CARBONATE CHEW 500 MG TABLET PO SCH ×2 (08:12→20:49)
[2019-12-16] MEDS: SODIUM CHLORIDE FLUSH 0.9% 10 ML SYRINGE IVP SCH ×2 (08:12→16:47)
[2019-12-16] MEDS: CIPROFLOXACIN 250 MG TABLET PO SCH ×2 (08:12→20:49)
[2019-12-16] MEDS: FOLIC ACID 1 MG TABLET PO SCH (08:12)
--- NOTE | 2019-12-16 14:45 | PROVIDER PROGRESS NOTE ---
Subjective - Prog Note Date Prog Note Date: 12/16/19 Prog Note Time: 14:43 - Subjective Pt reports feeling: No change (Pt was woken, denies complaints) Current Medications - Current Medications Current Medications: Active Medications Calcium Carbonate/Glycine (Tums) 500 mg PO BID [facility] Last Admin: 12/16/19 08:12 Dose: 500 mg Ciprofloxacin (Cipro) 500 mg PO BID [facility] Last Admin: 12/16/19 08:12 Dose: 500 mg Folic Acid () 1 mg PO DAILY [facility] Last Admin: 12/16/19 08:12 Dose: 1 mg Ibuprofen (Motrin) 400 mg PO Q4HR PRN PRN Reason: Pain 1 to 4 Lorazepam (Ativan) 0.5 mg PO Q6H PRN PRN Reason: Anxiety Mineral Oil (Cavilon) 1 applic TOP PRN PRN PRN Reason: Skin Care Ondansetron HCl (Zofran Odt) 4 mg TL BID PRN PRN Reason: Nausea / Vomiting Pantoprazole Sodium (Protonix) 40 mg PO QDAC [facility] Last Admin: 12/16/19 06:14 Dose: 40 mg Sodium Chloride (Normal Saline Flush 0.9%) 10 ml IVP PRN PRN PRN Reason: NEEDED PER PROVIDER ORDERS Sodium Chloride (Normal Saline Flush 0.9%) 10 ml IVP 0100,0900,1700 [facility] Last Admin: 12/16/19 08:12 Dose: 10 ml Thiamine HCl (Vitamin B-1) 100 mg PO DAILY [facility] Last Admin: 12/16/19 08:12 Dose: 100 mg No Known Home Medications 12/13/19 Objective - Vital Signs/Intake & Output Vital Signs: Vital Signs x48h Temp Pulse Resp BP BP Pulse Ox 12/16/19 12:00 36.8 C 103 H 20 112/65 99 12/16/19 08:00 36.5 C 103 H 20 109/61 100 Intake & Output: Intake & Output 12/13/19 12/14/19 12/15/19 12/16/19 23:59 23:59 23:59 23:59 Intake Total 3653.333 3371.667 2365.003 180 Output Total 190 450 420 200 Balance 3463.333 2921.667 1945.003 -20 - Objective General Appearance: positive: No acute distress, Other (Sleeping - but awakened easily) Eyes Bilateral: negative: No scleral icterus (Bilateral scleral icterus) Neck: positive: Nml inspection Respiratory: positive: No respiratory distress Abdomen: negative: No distention Skin: positive: Other (Jaundice) Neurologic/Psychiatric: positive: Oriented x3, CN's nml (2-12) - Lab Results Fish Bones: 12/15/19 04:30 12/15/19 04:30 - Diagnostic Imaging Diagnostic Imaging Results: positive: Final report reviewed, Read independently Assessment/Plan - Problem List (1) Ascites Impression: Patient is clinically relatively stable however her abdominal pain and distention does seem to worsen slightly every day. has been kind enough to offer paracentesis for this patient however technical testing engineer not in- house today, and given that patient does not have a great discharge plan today, will keep overnight and when technical testing engineer is in-house tomorrow morning, we will proceed with paracentesis monitor her through the day and anticipate discharge at lunchtime assuming her blood pressure tolerates this time she does not demonstrate any signs of bleeding. Qualifiers: Ascites type: due to alcoholic cirrhosis Qualified Code(s): K70.31 - Alcoholic cirrhosis of liver with ascites (2) Complicated UTI (urinary tract infection) Impression: Doing well on oral antibiotics.Continue Cipro. (3) Hyponatremia Impression: Much improved, currently 131 (4) Elevated transaminase measurement Impression: Trending down, AST now 73, ALT normal at 35. Bilirubin improved from 8.2-6.6 (5) Jaundice Impression: Stable, Secondary to alcoholic cirrhosis likely secondary to alcoholism (6) Alcohol abuse Impression: No signs of withdrawal, continue to monitor Counseled to quit (7) Macrocytic anemia Impression: Secondary to alcoholism, stable, continue to monitor (8) Thrombocytopenia Impression: Secondary to alcoholic liver cirrhosis
[2019-12-16] MEDS: MIN OIL/DIMETHICON/COCONUT OIL 92 GM TUBE TOP PRN (19:36)
[2019-12-17] MEDS: SODIUM CHLORIDE FLUSH 0.9% 10 ML SYRINGE IVP SCH ×4 (00:02→23:44)
[2019-12-17 05:22] LABS: HGB - HEMOGLOBIN 7.9 g/dL (12.0-16.0); MEAN CORPUSCULAR HGB CONC 32.2 g/dL (32.0-36.0); MEAN CORPUSCULAR VOLUME 117.8 fL (81.0-99.0); MEAN PLATELET VOLUME 10.1 fL (7.9-10.8); RED BLOOD COUNT 2.08 10^6/uL (4.20-5.40); RED CELL DISTRIBUTION WIDTH 17.4 % (12.0-15.0)
[2019-12-17 05:28] LABS: INR 1.8 (0.8-1.2); PT - PROTHROMBIN TIME 20.2 secs (9.9-12.6)
[2019-12-17 05:36] LABS: ALBUMIN 1.9 g/dL (3.2-5.5); ALBUMIN/GLOBULIN RATIO 0.5 (1.0-2.2); BILIRUBIN,TOTAL 6.3 mg/dL (0.2-1.0); CALCIUM 7.9 mg/dL (8.5-10.3); CREATININE 0.5 mg/dL (0.4-1.0); TOTAL PROTEIN 5.7 g/dL (6.7-8.2)
[2019-12-17] MEDS: PANTOPRAZOLE 40 MG TABLET PO SCH (05:56)
[2019-12-17] MEDS: THIAMINE 100 MG TABLET PO SCH (10:36)
[2019-12-17] MEDS: polyethylene glycoL 3350 17 GM PACKET PO SCH (10:37)
[2019-12-17] MEDS: CALCIUM CARBONATE CHEW 500 MG TABLET PO SCH ×2 (10:37→21:11)
[2019-12-17] MEDS: FOLIC ACID 1 MG TABLET PO SCH (10:37)
[2019-12-17] MEDS: CIPROFLOXACIN 250 MG TABLET PO SCH ×2 (10:37→21:11)
--- NOTE | 2019-12-17 10:53 | Ultrasound Report ---
Reason: ascites for paracentesis Procedure Date: 12/17/2019 Accession Number: [id number] / [id number] Procedure: US - Abdomen Limited CPT Code: Final Report FULL RESULT: EXAM: ABDOMEN ULTRASOUND LIMITED EXAM DATE: 12/17/2019 10:20 AM. CLINICAL HISTORY: Ascites for paracentesis. COMPARISON: ABDOMEN LIMITED 12/15/2019 3:56 PM. TECHNIQUE: Real-time scanning was performed with static images obtained. IMPRESSION: 1. Large volume 4 quadrant ascites. 2. The technologist indicates that right lower quadrant paracentesis was performed with 4.1 L of straw-colored ascites drained. [facility]
--- NOTE | 2019-12-17 12:06 | OPERATIVE REPORT ---
Operative Report - General Admit Date: 12/16/19 Procedure Date: 12/17/19 Pre-Op Diagnosis: Ascites Procedure Performed: Paracentesis Post Op Diagnosis: same - Procedure Note Primary Surgeon: LEYLA Ling MD Anesthesia Technique: Local Estimated Blood Loss (mL): 0 Indications: 64yo F with cirrhosis and increasing ascites during her stay here. US confirms adequate volume and windows to drain. We reviewed the benefits of the procedure as well as risks and alternatives. She wishes to proceed. Findings: 4.1 L clear yellow fluid drained Complications: none - Other Other Information/Narrative: Patient lays supine on procedure room bed. RLQ was assessed to be the best window with US and marked. Area cleaned with chloroprep and draped. US is used to inject local into site then advance catheter over needle until fluid withdrawn. Needle removed and tubing set to drain into vacuum-sealed containers. Clear yellow fluid drained until no further fluid present, total was 4.1 L. Pt tolerated well. Catheter removed and bandage placed. She tolerated the procedure well and will remain in house for monitoring BP before discharge.
--- NOTE | 2019-12-17 13:47 | Discharge Plan ---
Discharge Plan Problem Reviewed?: Yes Disposition: Home, Self Care Condition: Fair Prescriptions: Ciprofloxacin [Cipro] 500 mg PO BID 5 Days #10 tablet Pantoprazole [Protonix] 40 mg PO QDAC #30 tablet Diet: Regular Activity Restrictions: No Restrictions Shower Restrictions: No Driving Restrictions: Yes Assistance Devices: Walker Instruction Topics: Ciprofloxacin tablets, Hyponatremia Dc Additional Instructions or Follow Up instructions: Please call to establish with a PCP because you'll need some help managing your liver disease. You also will likely have fluid collect in your belly again and can either have that drained, or try to get started on diuretics as long as somone can help you monitor your blood pressure. It is imperitive that you do not drink alcohol. At all. For the rest of your live. Even a little bit can tip your liver over the edge and can cost you your life, or at the very least worsen your quality of life. No Smoking: If you smoke, Please STOP! Call for help. Follow-up with: Thanh Sam MD [Primary Care Provider] -
--- NOTE | 2019-12-17 14:54 | PROVIDER PROGRESS NOTE ---
Subjective - Prog Note Date Prog Note Date: 12/17/19 Prog Note Time: 14:52 - Subjective Pt reports feeling: Improved (After paracentesis, patient reports improvement in abdominal discomfort) Current Medications - Current Medications Current Medications: Active Medications Calcium Carbonate/Glycine (Tums) 500 mg PO BID [facility] Last Admin: 12/17/19 10:37 Dose: 500 mg Ciprofloxacin (Cipro) 500 mg PO BID [facility] Last Admin: 12/17/19 10:37 Dose: 500 mg Folic Acid () 1 mg PO DAILY [facility] Last Admin: 12/17/19 10:37 Dose: 1 mg Ibuprofen (Motrin) 400 mg PO Q4HR PRN PRN Reason: Pain 1 to 4 Lorazepam (Ativan) 0.5 mg PO Q6H PRN PRN Reason: Anxiety Mineral Oil (Cavilon) 1 applic TOP PRN PRN PRN Reason: Skin Care Last Admin: 12/16/19 19:36 Dose: 1 applic Ondansetron HCl (Zofran Odt) 4 mg TL BID PRN PRN Reason: Nausea / Vomiting Pantoprazole Sodium (Protonix) 40 mg PO QDAC [facility] Last Admin: 12/17/19 05:56 Dose: 40 mg Polyethylene Glycol (Miralax) 17 gm PO DAILY [facility] Last Admin: 12/17/19 10:37 Dose: Not Given Sodium Chloride (Normal Saline Flush 0.9%) 10 ml IVP PRN PRN PRN Reason: NEEDED PER PROVIDER ORDERS Sodium Chloride (Normal Saline Flush 0.9%) 10 ml IVP 0100,0900,1700 [facility] Last Admin: 12/17/19 09:00 Dose: Not Given Thiamine HCl (Vitamin B-1) 100 mg PO DAILY [facility] Last Admin: 12/17/19 10:36 Dose: 100 mg Objective - Vital Signs/Intake & Output Reviewed Vital Signs: Yes Vital Signs: Vital Signs x48h Temp Pulse Pulse Resp BP BP Pulse Ox 12/17/19 10:31 104 H 107/52 L 12/17/19 10:18 86 12/17/19 10:04 98 105/51 L 12/17/19 09:52 98 18 102/54 L 12/17/19 07:33 36.7 C 95 16 105/64 98 Pulse Ox 12/17/19 10:31 12/17/19 10:18 93 12/17/19 10:04 12/17/19 09:52 12/17/19 07:33 Intake & Output: Intake & Output 12/14/19 12/15/19 12/16/19 12/17/19 23:59 23:59 23:59 23:59 Intake Total 3371.667 2365.480 667 6854 Output Total 450 067 142 8137 Balance 2921.667 1945.003 80 -3335 - Objective General Appearance: positive: No acute distress Eyes Bilateral: positive: Normal inspection Abdomen: positive: Other (Abdominal distention with ascites, improved after paracentesis) Skin: positive: Other (Jaundice) Extremities: positive: No pedal edema Neurologic/Psychiatric: positive: Oriented x3 - Lab Results Fish Bones: 12/17/19 04:50 12/17/19 04:50 Other Labs: Lab Results x24hrs 12/17/19 12/17/19 12/17/19 Range/Units 04:50 04:50 04:50 WBC 8.0 (4.8-10.8) x10^3/uL RBC 2.08 L (4.20-5.40) 10^6/uL Hgb 7.9 L (12.0-16.0) g/dL Hct 24.5 L (37.0-47.0) % MCV 117.8 H (81.0-99.0) fL MCH 38.0 H (27.0-31.0) pg MCHC 32.2 (32.0-36.0) g/dL RDW 17.4 H (12.0-15.0) % Plt Count 152 (130-450) 10^3/uL MPV 10.1 (7.9-10.8) fL PT 20.2 H (9.9-12.6) secs INR 1.8 H (0.8-1.2) Sodium 130 L (135-145) mmol/L Potassium 3.8 (3.5-5.0) mmol/L Chloride 102 (101-111) mmol/L Carbon Dioxide 22 (21-32) mmol/L Anion Gap 6.0 (6-13) BUN 9 (6-20) mg/dL Creatinine 0.5 (0.4-1.0) mg/dL Estimated GFR (MDRD) 125 (>89) Glucose 101 H (70-100) mg/dL Calcium 7.9 L (8.5-10.3) mg/dL Total Bilirubin 6.3 H (0.2-1.0) mg/dL AST 70 H (10-42) IU/L ALT 34 (10-60) IU/L Alkaline Phosphatase 97 (42-121) IU/L Total Protein 5.7 L (6.7-8.2) g/dL Albumin 1.9 L (3.2-5.5) g/dL Globulin 3.8 (2.1-4.2) g/dL Albumin/Globulin Ratio 0.5 L (1.0-2.2) Assessment/Plan - Problem List (1) Ascites Impression: Patient is status post paracentesis earlier this afternoon, during which 4 L of clear straw-colored fluid was removed. Patient tolerated the procedure well. Appreciate Dr. Reaves consultation and assistance with this case. I did discuss with the patient given her low blood pressure, I am hesitant to discharge her on spironolactone or other diuretics, but would advise follow-up with PCP to consider this as an adjuvant otherwise patient may need to end up getting an outpatient paracentesis again in the next 2 weeks or so. Qualifiers: Ascites type: due to alcoholic cirrhosis Qualified Code(s): K70.31 - Alcoholic cirrhosis of liver with ascites (2) Complicated UTI (urinary tract infection) Impression: Doing well on oral antibiotics (3) Hyponatremia Impression: Resolved (4) Elevated transaminase measurement Impression: Secondary to chronic liver disease, Bilirubin stable at 6.3 (5) Jaundice Impression: Stable, secondary to end-stage liver disease (6) Alcohol abuse Impression: No signs of withdrawal, continue to monitor and advised cessation (7) Macrocytic anemia Impression: Stable (8) Thrombocytopenia Impression: Slightly improved today to 152
[2019-12-17] MEDS: MIN OIL/DIMETHICON/COCONUT OIL 92 GM TUBE TOP PRN (19:03)
[2019-12-18 05:21] LABS: MEAN CORPUSCULAR HEMOGLOBIN 39.4 pg (27.0-31.0); MEAN CORPUSCULAR HGB CONC 32.8 g/dL (32.0-36.0); MEAN CORPUSCULAR VOLUME 120.2 fL (81.0-99.0); RED BLOOD COUNT 2.03 10^6/uL (4.20-5.40); RED CELL DISTRIBUTION WIDTH 17.3 % (12.0-15.0); WHITE BLOOD COUNT 7.9 x10^3/uL (4.8-10.8)
[2019-12-18] MEDS: PANTOPRAZOLE 40 MG TABLET PO SCH (06:04)
[2019-12-18] MEDS: THIAMINE 100 MG TABLET PO SCH (08:49)
[2019-12-18] MEDS: CIPROFLOXACIN 250 MG TABLET PO SCH (08:49)
[2019-12-18] MEDS: CALCIUM CARBONATE CHEW 500 MG TABLET PO SCH (08:49)
[2019-12-18] MEDS: polyethylene glycoL 3350 17 GM PACKET PO SCH (08:50)
[2019-12-18] MEDS: SODIUM CHLORIDE FLUSH 0.9% 10 ML SYRINGE IVP SCH (08:50)
[2019-12-18] MEDS: FOLIC ACID 1 MG TABLET PO SCH (08:50)
--- NOTE | 2019-12-18 11:01 | DISCHARGE SUMMARY ---
"Discharge Summary Admit Date: 12/12/19 Discharge Date: 12/18/19 Discharging Provider: Henry Puri MD Condition at Discharge: Fair Discharge Disposition: 01 Home, Self Care - DIAGNOSES Admission Diagnoses: Hyponatremia Elevated transaminase measurement Jaundice Alcohol abuse Macrocytic anemia Discharge Diagnoses with Status of Each Condition: Ascites - Improved, status post 4 L Paracentesis Complicated UTI - Resolved Hyponatremia - Resolved, sodium levels within chronic hyponatremic range Chronic liver disease - Stable, prognosis is guarded Alcohol abuse - Stable, no signs of withdrawal Macrocytic anemia - Stable Thrombocytopenia - Stable, slowly improved - HPI History of Present Illness: Patient is a 64-year-old female who denies any previous medical history who reports that earlier today when she was staying at her friend's house, she went to take a bath and then could not get herself out. When asked for clarification, she describes that she felt too weak to get herself out of the bathtub.Because her friend with whom she is currently staying recently had surgery on her arm, she was unable to assist her so paramedics were called to the house to help her get out of the bathtub. Paramedics arrived to help do this and as evaluated her found her to be profoundly weak and brought her to the emergency room for further evaluation. This prompted a routine evaluation including basic labs demonstrating a significant hyponatremia of 120, along with significantly abnormal LFTs with hyperbilirubinemia of 11 and exam findings consistent with end-stage liver disease. Although the patient was not exhibiting any manifestations of acute liver failure requiring admission, because of the profound weakness and the hyponatremia, patient was placed in observation status overnight for further work-up. - CONSULTS | PROCEDURES Consultations: Dr. Ling, General surgery Procedures: Paracentesis4 L straw-colored fluid removed successfully without complication - HOSPITAL COURSE Hospital Course: Patient was primarily admitted for symptomatic hyponatremia. This improved with IV fluids, nearing normal levels by 12/15/2019. Also, her urinary tract infection was treated empirically with IV Rocephin, and on 12/14/2019 culture and sensitivity results allowed us to transition this to oral Cipro.In addition to her hyponatremia and UTI, she did present somewhat weak, but was improving and was evaluated by physical therapy and found to be okay to discharge with a front wheeled walker. She did also complain of abdominal discomfort which progressively worsened, consistent with third spacing secondary to hypoalbuminemia secondary to chronic liver disease resulting in ascites. An ultrasound was done showing chronic liver cirrhosis along with moderate amounts of ascites and general surgery was consulted after which a paracentesis was performed withdrawing 4 L of clear straw-colored fluid without evidence of SBP. At this point, patient was deemed to be medically stable for discharge and was discharged home on 12/18/2019. Patient is apparently planning to relocate to [place] within the next 2 weeks. For this reason, in addition to the fact that she had remained hypotensive throughout her hospital stay, was felt best to avoid starting her on diuretics such as Parona lactone or Lasix which would have otherwise helped her with her chronic ascites, but given no one could monitor her blood pressures this was dec ided against, she was advised to seek help with medical attention, perhaps returning to the emergency room if her ascites became debilitating prior to relocating to [place] at which point she may benefit from another therapeutic paracentesis. Also, she was referred to palliative care, but is unclear how much of this will actually occur prior to her relocating. - ALLERGIES Allergies/Adverse Reactions: Allergies Allergy/AdvReac Type Severity Reaction Status Date / Time morphine Allergy Hallucinati Verified 12/12/19 13:04 ons - MEDICATIONS Home Medications: Ambulatory Orders Medication Instructions Recorded Confirmed Calcium Carbonate [Tums (Calcium 500 mg PO BID tablet 12/17/19 Carbonate 500mg)] Ciprofloxacin [Cipro] 500 mg PO BID 5 Days #10 tablet 12/17/19 Folic Acid 1 mg PO DAILY tablet 12/17/19 Pantoprazole [Protonix] 40 mg PO QDAC #30 tablet 12/17/19 - PHYSICAL EXAM AT DISCHARGE General Appearance: positive: No acute distress, Lethargic Eyes Bilateral: negative: No scleral icterus (Bilateral Scleral Icterus) Neck: positive: Nml inspection Respiratory: positive: Chest non-tender, No respiratory distress, Breath sounds nml Cardiovascular: positive: Regular rate & rhythm, No murmur Abdomen: positive: Non-tender, No organomegaly, Nml bowel sounds. negative: No distention Skin: positive: Color nml Extremities: negative: Pedal edema Neurologic/Psychiatric: positive: Oriented x3, CN's nml (2-12) - LABS Result Diagrams: 12/18/19 04:52 12/17/19 04:50 Other Lab Results: Laboratory Results - last 24 hr 12/18/19 04:52 WBC 7.9 RBC 2.03 L Hgb 8.0 L Hct 24.4 L MCV 120.2 H MCH 39.4 H MCHC 32.8 RDW 17.3 H Plt Count 169 MPV 10.0 Laboratory Tests 12/12/19 12/12/19 12/12/19 13:20 13:20 13:20 WBC 10.9 H RBC 2.19 L Hgb 8.3 L Hct 25.0 L MCV 114.2 H MCH 37.9 H MCHC 33.2 RDW 15.5 H Plt Count 102 L MPV 11.1 H Neut # (Auto) 8.7 H Lymph # (Auto) 0.5 L Hill # (Auto) 1.5 H Eos # (Auto) 0.0 Baso # (Auto) 0.0 Absolute Nucleated RBC 0.00 Band Neuts % (Manual) Not Reportable Abnorm Lymph % (Manual) Not Reportable Nucleated RBC % 0.0 Neutrophils # (Manual) Not Reportable Lymphocytes # (Manual) Not Reportable Monocytes # (Manual) Not Reportable Eosinophils # (Manual) Not Reportable Basophils # (Manual) Not Reportable Differential Comment MANUAL=AUTO DIFF Manual Slide Review Indicated WBC Morphology NORMAL APPEARANCE Platelet Estimate DECREASED (<130,000) Platelet Morphology NORMAL APPEARANCE RBC Morph Micro Appear 1+ PAPPENHEIMER BODY Hematology Spec Commnt PT 18.1 H INR 1.6 H Sodium Potassium Chloride Carbon Dioxide Anion Gap BUN Creatinine Estimated GFR (MDRD) Glucose Calcium Total Bilirubin Direct Bilirubin 5.2 H AST ALT Alkaline Phosphatase Ammonia Troponin I High Sens Total Protein Albumin Globulin Albumin/Globulin Ratio Vitamin B12 Folate Urine Color Urine Clarity Urine pH Ur Specific [place] Urine Protein Urine Glucose (UA) Urine Ketones Urine Occult Blood Urine Nitrite Urine Bilirubin Urine Urobilinogen Ur Leukocyte Esterase Urine RBC Urine WBC Ur Squamous Epith Cells Urine Bacteria Urine Casts Urine Mucus Ur Microscopic Review Urine Culture Comments Ethyl Alcohol Slides for Path Review Indicated 12/12/19 12/12/19 12/12/19 13:42 13:42 13:42 WBC RBC Hgb Hct MCV MCH MCHC RDW Plt Count MPV Neut # (Auto) Lymph # (Auto) Hill # (Auto) Eos # (Auto) Baso # (Auto) Absolute Nucleated RBC Band Neuts % (Manual) Abnorm Lymph % (Manual) Nucleated RBC % Neutrophils # (Manual) Lymphocytes # (Manual) Monocytes # (Manual) Eosinophils # (Manual) Basophils # (Manual) Differential Comment Manual Slide Review WBC Morphology Platelet Estimate Platelet Morphology RBC Morph Micro Appear Hematology Spec Commnt PT INR Sodium 120 L* Potassium 3.6 Chloride 86 L Carbon Dioxide 20 L Anion Gap 14.0 H BUN 11 Creatinine 0.5 Estimated GFR (MDRD) 125 Glucose 111 H Calcium 7.9 L Total Bilirubin 11.1 H Direct Bilirubin AST 82 H ALT 39 Alkaline Phosphatase 113 Ammonia Troponin I High Sens 11.4 Total Protein 7.1 Albumin 2.1 L Globulin 5.0 H Albumin/Globulin Ratio 0.4 L Vitamin B12 Folate Urine Color Urine Clarity Urine pH Ur Specific [place] Urine Protein Urine Glucose (UA) Urine Ketones Urine Occult Blood Urine Nitrite Urine Bilirubin Urine Urobilinogen Ur Leukocyte Esterase Urine RBC Urine WBC Ur Squamous Epith Cells Urine Bacteria Urine Casts Urine Mucus Ur Microscopic Review Urine Culture Comments Ethyl Alcohol < 5.0 Slides for Path Review 12/12/19 12/12/19 12/12/19 14:15 16:00 21:05 WBC RBC Hgb Hct MCV MCH MCHC RDW Plt Count MPV Neut # (Auto) Lymph # (Auto) Hill # (Auto) Eos # (Auto) Baso # (Auto) Absolute Nucleated RBC Band Neuts % (Manual) Abnorm Lymph % (Manual) Nucleated RBC % Neutrophils # (Manual) Lymphocytes # (Manual) Monocytes # (Manual) Eosinophils # (Manual) Basophils # (Manual) Differential Comment Manual Slide Review WBC Morphology Platelet Estimate Platelet Morphology RBC Morph Micro Appear Hematology Spec Commnt 12-12-2019 PT INR Sodium 122 L Potassium 3.5 Chloride 89 L Carbon Dioxide 24 Anion Gap 9.0 BUN 11 Creatinine 0.4 Estimated GFR (MDRD) 162 Glucose 112 H Calcium 7.7 L Total Bilirubin Direct Bilirubin AST ALT Alkaline Phosphatase Ammonia 29.0 Troponin I High Sens Total Protein Albumin Globulin Albumin/Globulin Ratio Vitamin B12 Folate Urine Color Urine Clarity Urine pH Ur Specific [place] Urine Protein Urine Glucose (UA) Urine Ketones Urine Occult Blood Urine Nitrite Urine Bilirubin Urine Urobilinogen Ur Leukocyte Esterase Urine RBC Urine WBC Ur Squamous Epith Cells Urine Bacteria Urine Casts Urine Mucus Ur Microscopic Review Urine Culture Comments Ethyl Alcohol Slides for Path Review SEE SEPARATE REPORT 12/12/19 12/13/19 12/13/19 21:50 01:30 05:22 WBC 8.3 RBC 2.05 L Hgb 8.1 L Hct 23.2 L MCV 113.2 H MCH 39.5 H MCHC 34.9 RDW 15.6 H Plt Count 101 L MPV 11.1 H Neut # (Auto) Lymph # (Auto) Hill # (Auto) Eos # (Auto) Baso # (Auto) Absolute Nucleated RBC Band Neuts % (Manual) Abnorm Lymph % (Manual) Nucleated RBC % Neutrophils # (Manual) Lymphocytes # (Manual) Monocytes # (Manual) Eosinophils # (Manual) Basophils # (Manual) Differential Comment Manual Slide Review WBC Morphology Platelet Estimate Platelet Morphology RBC Morph Micro Appear Hematology Spec Commnt PT INR Sodium 123 L Potassium 3.5 Chloride 90 L Carbon Dioxide 23 Anion Gap 10.0 BUN 12 Creatinine 0.4 Estimated GFR (MDRD) 162 Glucose 108 H Calcium 7.7 L Total Bilirubin Direct Bilirubin AST ALT Alkaline Phosphatase Ammonia Troponin I High Sens Total Protein Albumin Globulin Albumin/Globulin Ratio Vitamin B12 Folate Urine Color BROWN Urine Clarity HAZY Urine pH 5.5 Ur Specific [place] 1.020 Urine Protein TRACE Urine Glucose (UA) NEGATIVE Urine Ketones TRACE Urine Occult Blood NEGATIVE Urine Nitrite POSITIVE H Urine Bilirubin LARGE H Urine Urobilinogen >=8.0 H Ur Leukocyte Esterase MODERATE H Urine RBC 0-5 Urine WBC 11-25 H Ur Squamous Epith Cells FEW Squamous Urine Bacteria Many H Urine Casts 0-2 WBC Casts Urine Mucus Few Strands Ur Microscopic Review INDICATED Urine Culture Comments INDICATED Ethyl Alcohol Slides for Path Review 12/13/19 12/14/19 12/14/19 05:22 05:05 05:05 WBC 8.3 RBC 2.16 L Hgb 8.3 L Hct 24.9 L MCV 115.3 H MCH 38.4 H MCHC 33.3 RDW 16.5 H Plt Count 124 L MPV 10.2 Neut # (Auto) Lymph # (Auto) Hill # (Auto) Eos # (Auto) Baso # (Auto) Absolute Nucleated RBC Band Neuts % (Manual) Abnorm Lymph % (Manual) Nucleated RBC % Neutrophils # (Manual) Lymphocytes # (Manual) Monocytes # (Manual) Eosinophils # (Manual) Basophils # (Manual) Differential Comment Manual Slide Review WBC Morphology Platelet Estimate Platelet Morphology RBC Morph Micro Appear Hematology Spec Commnt PT INR Sodium 125 L 127 L Potassium 4.2 3.3 L Chloride 94 L 96 L Carbon Dioxide 24 22 Anion Gap 7.0 9.0 BUN 11 10 Creatinine 0.3 L 0.5 Estimated GFR (MDRD) 225 125 Glucose 97 107 H Calcium 7.6 L 7.6 L Total Bilirubin 8.2 H Direct Bilirubin 3.9 H AST 84 H ALT 35 Alkaline Phosphatase 93 Ammonia Troponin I High Sens Total Protein 5.7 L Albumin 1.9 L Globulin 3.8 Albumin/Globulin Ratio Vitamin B12 Folate Urine Color Urine Clarity Urine pH Ur Specific [place] Urine Protein Urine Glucose (UA) Urine Ketones Urine Occult Blood Urine Nitrite Urine Bilirubin Urine Urobilinogen Ur Leukocyte Esterase Urine RBC Urine WBC Ur Squamous Epith Cells Urine Bacteria Urine Casts Urine Mucus Ur Microscopic Review Urine Culture Comments Ethyl Alcohol Slides for Path Review 12/15/19 12/15/19 12/15/19 04:30 04:30 04:30 WBC 7.4 RBC 2.10 L Hgb 8.3 L Hct 24.7 L MCV 117.6 H MCH 39.5 H MCHC 33.6 RDW 16.9 H Plt Count 127 L MPV 10.0 Neut # (Auto) Lymph # (Auto) Hill # (Auto) Eos # (Auto) Baso # (Auto) Absolute Nucleated RBC Band Neuts % (Manual) Abnorm Lymph % (Manual) Nucleated RBC % Neutrophils # (Manual) Lymphocytes # (Manual) Monocytes # (Manual) Eosinophils # (Manual) Basophils # (Manual) Differential Comment Manual Slide Review WBC Morphology Platelet Estimate Platelet Morphology RBC Morph Micro Appear Hematology Spec Commnt PT INR Sodium 131 L Potassium 3.9 Chloride 101 Carbon Dioxide 23 Anion Gap 7.0 BUN 8 Creatinine 0.5 Estimated GFR (MDRD) 125 Glucose 112 H Calcium 7.7 L Total Bilirubin 6.6 H Direct Bilirubin 3.1 H AST 73 H ALT 35 Alkaline Phosphatase 107 Ammonia Troponin I High Sens Total Protein 6.0 L Albumin 1.9 L Globulin 4.1 Albumin/Globulin Ratio Vitamin B12 1039 H Folate 12.13 Urine Color Urine Clarity Urine pH Ur Specific [place] Urine Protein Urine Glucose (UA) Urine Ketones Urine Occult Blood Urine Nitrite Urine Bilirubin Urine Urobilinogen Ur Leukocyte Esterase Urine RBC Urine WBC Ur Squamous Epith Cells Urine Bacteria Urine Casts Urine Mucus Ur Microscopic Review Urine Culture Comments Ethyl Alcohol Slides for Path Review 12/17/19 12/17/19 12/17/19 04:50 04:50 04:50 WBC 8.0 RBC 2.08 L Hgb 7.9 L Hct 24.5 L MCV 117.8 H MCH 38.0 H MCHC 32.2 RDW 17.4 H Plt Count 152 MPV 10.1 Neut # (Auto) Lymph # (Auto) Hill # (Auto) Eos # (Auto) Baso # (Auto) Absolute Nucleated RBC Band Neuts % (Manual) Abnorm Lymph % (Manual) Nucleated RBC % Neutrophils # (Manual) Lymphocytes # (Manual) Monocytes # (Manual) Eosinophils # (Manual) Basophils # (Manual) Differential Comment Manual Slide Review WBC Morphology Platelet Estimate Platelet Morphology RBC Morph Micro Appear Hematology Spec Commnt PT 20.2 H INR 1.8 H Sodium 130 L Potassium 3.8 Chloride 102 Carbon Dioxide 22 Anion Gap 6.0 BUN 9 Creatinine 0.5 Estimated GFR (MDRD) 125 Glucose 101 H Calcium 7.9 L Total Bilirubin 6.3 H Direct Bilirubin AST 70 H ALT 34 Alkaline Phosphatase 97 Ammonia Troponin I High Sens Total Protein 5.7 L Albumin 1.9 L Globulin 3.8 Albumin/Globulin Ratio 0.5 L Vitamin B12 Folate Urine Color Urine Clarity Urine pH Ur Specific [place] Urine Protein Urine Glucose (UA) Urine Ketones Urine Occult Blood Urine Nitrite Urine Bilirubin Urine Urobilinogen Ur Leukocyte Esterase Urine RBC Urine WBC Ur Squamous Epith Cells Urine Bacteria Urine Casts Urine Mucus Ur Microscopic Review Urine Culture Comments Ethyl Alcohol Slides for Path Review 12/18/19 04:52 WBC 7.9 RBC 2.03 L Hgb 8.0 L Hct 24.4 L MCV 120.2 H MCH 39.4 H MCHC 32.8 RDW 17.3 H Plt Count 169 MPV 10.0 Neut # (Auto) Lymph # (Auto) Hill # (Auto) Eos # (Auto) Baso # (Auto) Absolute Nucleated RBC Band Neuts % (Manual) Abnorm Lymph % (Manual) Nucleated RBC % Neutrophils # (Manual) Lymphocytes # (Manual) Monocytes # (Manual) Eosinophils # (Manual) Basophils # (Manual) Differential Comment Manual Slide Review WBC Morphology Platelet Estimate Platelet Morphology RBC Morph Micro Appear Hematology Spec Commnt PT INR Sodium Potassium Chloride Carbon Dioxide Anion Gap BUN Creatinine Estimated GFR (MDRD) Glucose Calcium Total Bilirubin Direct Bilirubin AST ALT Alkaline Phosphatase Ammonia Troponin I High Sens Total Protein Albumin Globulin Albumin/Globulin Ratio Vitamin B12 Folate Urine Color Urine Clarity Urine pH Ur Specific [place] Urine Protein Urine Glucose (UA) Urine Ketones Urine Occult Blood Urine Nitrite Urine Bilirubin Urine Urobilinogen Ur Leukocyte Esterase Urine RBC Urine WBC Ur Squamous Epith Cells Urine Bacteria Urine Casts Urine Mucus Ur Microscopic Review Urine Culture Comments Ethyl Alcohol Slides for Path Review - FOLLOW UP Follow Up: Establish with PCP, F/U with palliative care - TIME SPENT Time Spent in Discharge (Minutes): 46"
[2019-12-18 15:52] VITALS: BP 110/59
== END 2019-12-18 16:30 | disposition home or self-care (01) | DRG 433 ==
LOC: EDUNIT# → ED 12:58 → MS2 16:38 → OBSVTOIN 12-16 14:32
PROVIDERS: ADMIT Family Medicine Sports Medicine; ATTEND Family Medicine Sports Medicine
PROC: 0W9G3ZZ Drainage of Peritoneal Cavity, Percutaneous Approach (ICD-10-PCS; principal; 2019-12-16)
DX: K70.31 Alcoholic cirrhosis of liver with ascites (principal); N39.0 Urinary tract infection, site not specified; E87.1 Hypo-osmolality and hyponatremia; F10.188 Alcohol abuse with other alcohol-induced disorder; B96.20 Unspecified Escherichia coli [E. coli] as the cause of diseases classified elsewhere; I95.9 Hypotension, unspecified; D69.59 Other secondary thrombocytopenia; D53.9 Nutritional anemia, unspecified; Z63.5 Disruption of family by separation and divorce; Z51.5 Encounter for palliative care
CPT/HCPCS: 36415; 51701; 71045; 76705; 80048; 80053; 80076; 80320; 81001; 82140; 82248; 82607; 82746; 84484; 85025; 85027; 85610; 87086; 87181; 93005; 96361; 96365; 96366; 97161; 97162; 97530; 99284; 99285; A6250; A9270; G0378; 81003

== ENCOUNTER 2020-01-11 13:11 | Outpatient (CLI) | payer MEDICAID | END 2020-01-11 23:59 | disposition critical access hospital (66) | LOC: EMS 13:11 | PROVIDERS: ATTEND Surgery | DX: R53.1 Weakness (principal); R60.0 Localized edema | CPT/HCPCS: A0425; A0427 ==

== ENCOUNTER 2020-01-11 13:35 | Inpatient (IN) | payer MEDICAID ==
[2020-01-11] MEDS ORDERED: FOLIC ACID INJ 1 MG, THIAMINE INJ 100 MG, MAGNESIUM SULFATE 2 GM, MULTIVITAMIN 10 ML in... IV STA ×5 (13:59)
--- NOTE | 2020-01-11 14:03 | ED Physician Documentation ---
History of Present Illness - Stated complaint Stated Complaint: ABD PAIN - Chief complaint Chief Complaint: Abd Pain - History obtained from History obtained from: Patient, EMS - History of Present Illness Timing: Today - Additonal information Additional information: 64-year-old female with recently diagnosed end-stage liver disease from alcohol has been living in a hotel as she is going through a divorce. Today she was in her hotel she slid down out of her bed and was unable to get back up. She called medics to help her get back into bed and they brought her to the hospital concerned with her level of weakness. This is a similar presentation to when she was admitted into the hospital 1 month ago. She spent a week in the hospital then had a paracentesis and had her sodium increased from 120 up to 131. She felt much improved at the time of discharge. She states that she has been mostly alcohol free since her admission. She indicates that she did not know she had liver disease prior to this. She was planning to relocate to [place] in a 2-week timeframe and this did not occur. The patient indicates that this will not happen rapidly. She does not have a primary care on the [place]. She was not started on diuretic at the time of discharge as there was no specific follow-up. Review of Systems Constitutional: reports: Fatigue. denies: Fever Eyes: denies: Decreased vision Ears: denies: Ear pain Nose: denies: Rhinorrhea / runny nose, Congestion Throat: reports: Other (dry lips). denies: Sore throat Cardiac: denies: Chest pain / pressure, Palpitations Respiratory: denies: Dyspnea, Cough GI: reports: Abdominal Pain, Abdominal Swelling. denies: Nausea, Vomiting, Constipation, Diarrhea : denies: Dysuria, Frequency Skin: denies: Rash Neurologic: reports: Generalized weakness. denies: Focal weakness, Numbness PD PAST MEDICAL HISTORY - Past Medical History Cardiovascular: None Respiratory: None Neuro: None Endocrine/Autoimmune: None GI: None MARKETING PROJECT COORDINATOR: None : Incontinence Psych: None Musculoskeletal: None Derm: None - Past Surgical History General: Appendectomy - Present Medications Home Medications: Ambulatory Orders Medication Instructions Recorded Confirmed No Known Home Medications 01/11/20 01/11/20 - Allergies Allergies/Adverse Reactions: Allergies Allergy/AdvReac Type Severity Reaction Status Date / Time morphine Allergy Hallucinati Verified 05/07/20 13:59 ons - Social History Does the pt smoke?: No Smoking Status: Former smoker Does the pt drink ETOH?: Yes Does the pt have substance abuse?: No - POLST Patient has POLST: No POLST Status: Full Code PD ED PE NORMAL - Vitals Vital signs reviewed: Yes (tachy ) - General General: No acute distress, Well developed/nourished, Other (Unkempt 64 y/o female with dry cracked lips and tongue is alert and interactive. She has the oder of hepatic statosis. ) - HEENT HEENT: Atraumatic, PERRL, EOMI, Other (dry/parched lips and tongue) - Neck Neck: Supple, no meningeal sign, No bony TTP - Cardiac Cardiac: No murmur, Other (tachy to 100) - Respiratory Respiratory: No respiratory distress, Other (end insp carckle at Right base) - Abdomen Abdomen: Soft, Non tender, Other (distended consistent with ascites without tenseness to the skin. ) - Back Back: No CVA TTP, No spinal TTP - Derm Derm: Normal color, Warm and dry, No rash - Extremities Extremities: No deformity, Normal ROM s pain, No calf tenderness / cord, Other (bilateral pitting edema ) - Neuro Neuro: hat cutter 2-12 intact, No motor deficit, No sensory deficit, Normal speech Eye Opening: Spontaneous Motor: Obeys Commands Verbal: Oriented GCS Score: 15 - Psych Psych: Normal mood, Other (blunted affect) Results - Vitals Vitals: Vital Signs - 24 hr 01/11/20 01/11/20 13:37 14:35 Temperature 35.8 C L Heart Rate 102 H 97 Respiratory 22 16 Rate Blood Pressure 104/70 105/67 O2 Saturation 95 97 Oxygen O2 Source [] Room air O2 Source Room air - Labs Labs: Laboratory Tests 01/11/20 01/11/20 01/11/20 14:25 14:25 14:25 WBC 14.1 H RBC 2.18 L Hgb 8.5 L Hct 24.7 L MCV 113.3 H MCH 39.0 H MCHC 34.4 RDW 14.8 Plt Count 229 MPV 9.9 Neut # (Auto) 11.7 H Lymph # (Auto) 0.8 L [place] # (Auto) 1.4 H Eos # (Auto) 0.1 Baso # (Auto) 0.0 Absolute Nucleated RBC 0.00 Nucleated RBC % 0.0 Manual Slide Review Indicated Platelet Estimate NORMAL (130-450,000) Platelet Morphology NORMAL APPEARANCE RBC Morph Micro Appear 2+ MACROCYTOSIS PT 17.5 H INR 1.6 H Sodium 118 L* Potassium 4.8 Chloride 88 L Carbon Dioxide 21 Anion Gap 9.0 BUN 17 Creatinine 0.8 Estimated GFR (MDRD) 73 L Glucose 116 H Lactic Acid Calcium 8.2 L Magnesium 2.3 Total Bilirubin 7.3 H AST 63 H ALT 31 Alkaline Phosphatase 98 Ammonia Total Protein 6.5 L Albumin 2.3 L Globulin 4.2 Albumin/Globulin Ratio 0.5 L Lipase 42 Ethyl Alcohol < 5.0 01/11/20 01/11/20 14:25 15:26 WBC RBC Hgb Hct MCV MCH MCHC RDW Plt Count MPV Neut # (Auto) Lymph # (Auto) [place] # (Auto) Eos # (Auto) Baso # (Auto) Absolute Nucleated RBC Nucleated RBC % Manual Slide Review Platelet Estimate Platelet Morphology RBC Morph Micro Appear PT INR Sodium Potassium Chloride Carbon Dioxide Anion Gap BUN Creatinine Estimated GFR (MDRD) Glucose Lactic Acid 1.7 Calcium Magnesium Total Bilirubin AST ALT Alkaline Phosphatase Ammonia 54.1 H Total Protein Albumin Globulin Albumin/Globulin Ratio Lipase Ethyl Alcohol - Rads (name of study) chest Radiology: Prelim report reviewed, EMP read indepedently, See rad report PD MEDICAL DECISION MAKING - ED course Complexity details: reviewed old records, reviewed results, re-evaluated patient, considered differential, d/w patient, d/w 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 Vyas who refers to [facility] for admission) will admit for hyponatremia and weakness. ) ED course: 64-year-old female with history of end-stage liver disease who does not have a primary care doctor and has not started on diuretic for her ascites has presented to the emergency department today again with weakness this is profound and the patient's serum sodium is 118. A banana bag is started at 200 mL's per hour. Patient will need admission to the hospital for continued hydration to improve her sodium and she does not appear to have tense ascites or ascites that is in need of therapeutic paracentesis at this point. Departure - Departure Disposition: [facility] DC/Xfer Clinical Impression: Weakness, Hyponatremia
--- NOTE | 2020-01-11 14:21 | XRAY Report ---
Reason: chest pain Procedure Date: 01/11/2020 Accession Number: [id number] / [id number] Procedure: XR - Chest 1 View X-Ray CPT Code: 32887 Final Report FULL RESULT: EXAM: CHEST RADIOGRAPHY EXAM DATE: 01/11/2020 02:09 PM. CLINICAL HISTORY: Chest pain. COMPARISON: CHEST 1 VIEW 12/12/2019 1:23 PM. TECHNIQUE: 1 view. FINDINGS: Lungs/Pleura: No focal opacities evident. No pleural effusion. No pneumothorax. Mediastinum: Within exam limitations, the cardiomediastinal contour is normal. Other: None. IMPRESSION: Normal single view chest. RADIA
[2020-01-11 14:39] LABS: BASOPHILS % (AUTO) 0.2 %; EOSINOPHILS # (AUTO) 0.1 10^3/uL (0.0-0.7); EOSINOPHILS % (AUTO) 0.4 %; HGB - HEMOGLOBIN 8.5 g/dL (12.0-16.0); LYMPHOCYTES # (AUTO) 0.8 10^3/uL (1.5-3.5); LYMPHOCYTES % (AUTO) 5.5 %; MEAN CORPUSCULAR HGB CONC 34.4 g/dL (32.0-36.0); MEAN CORPUSCULAR VOLUME 113.3 fL (81.0-99.0); MEAN PLATELET VOLUME 9.9 fL (7.9-10.8); MONOCYTES # (AUTO) 1.4 10^3/uL (0.0-1.0); NEUTROPHILS # (AUTO) 11.7 10^3/uL (1.5-6.6); PLT - PLATELET COUNT 229 10^3/uL (130-450); RED BLOOD COUNT 2.18 10^6/uL (4.20-5.40); RED CELL DISTRIBUTION WIDTH 14.8 % (12.0-15.0); WHITE BLOOD COUNT 14.1 x10^3/uL (4.8-10.8)
[2020-01-11 14:44] LABS: INR 1.6 (0.8-1.2); PT - PROTHROMBIN TIME 17.5 secs (9.9-12.6)
[2020-01-11 14:52] LABS: ALBUMIN 2.3 g/dL (3.2-5.5); ALBUMIN/GLOBULIN RATIO 0.5 (1.0-2.2); ALKALINE PHOSPHATASE 98 IU/L (42-121); ALT ALANINE AMINOTRANSFERASE 31 IU/L (10-60); AST ASPARTATE AMINOTRANSFERASE 63 IU/L (10-42); BILIRUBIN,TOTAL 7.3 mg/dL (0.2-1.0); BUN - BLOOD UREA NITROGEN 17 mg/dL (6-20); CALCIUM 8.2 mg/dL (8.5-10.3); CARBON DIOXIDE - CO2 21 mmol/L (21-32); CHLORIDE 88 mmol/L (101-111); CREATININE 0.8 mg/dL (0.4-1.0); GLUCOSE 116 mg/dL (70-100); LIPASE 42 U/L (22-51); MAGNESIUM 2.3 mg/dL (1.7-2.8); TOTAL PROTEIN 6.5 g/dL (6.7-8.2)
[2020-01-11 14:54] LABS: PLATELET ESTIMATE, MANUAL NORMAL (130-450,000) (NORMAL); PLATELET MORPHOLOGY NORMAL APPEARANCE (NORMAL)
[2020-01-11 15:01] LABS: SODIUM 118 mmol/L (135-145)
[2020-01-11] MEDS ORDERED: ONDANSETRON 4 MG/2 ML VIAL IVP PRN (15:56)
--- NOTE | 2020-01-11 16:24 | HISTORY & PHYSICAL EXAMINATION ---
Chief Complaint - Chief Complaint Chief Complaint: weakness History of Present Illness - Admitted From Admitted From:: ER - History of Present Illness HPI Comment/Other: This is a 64-year-old female with a PMH significant for alcoholism with liver failure who was recently d/c from hospital, present ER complain of weakness and fall. she report she did not have injury, her fall was because of her profound weakness. Pt is homeless and has been living in a hotel as she is going through a divorce. she report on today she was in her hotel she slid down out of her bed and was unable to get back up. Then pt was brought to hospital because of her weakness. This is a similar situation as when she was admitted into the hospital about 1 month ago. Pt was found hyponatremia and then she had paracentesis done in the hospital. Today pt was found to have Na at 118 and elevated WBC at 14.1. she denies fever, chill, dysuria, shortness of breath, cough, chest pain. she report mild diffused abdominal pain as his usually. she denies nausea, vomiting or diarrhea, and GI bleeding. pt had Covid 19 in ER. Although the patient was not exhibiting any manifestations of acute liver failure requiring admission, because of the profound weakness and the hyponatremia, patient was placed for further work-up. discussed with pt about the care goal. she request full code now. she state she did not have DPOA. she had one children but she did not have communication with her child. she had a friend name is Dwayne Aleman but she did not have her phone number. History - Past Medical History Cardiovascular: reports: None Respiratory: reports: None Neuro: reports: None Endocrine/Autoimmune: reports: None GI: reports: None CABIN WORKER: reports: None : reports: Incontinence HEENT: reports: None Psych: reports: None Musculoskeletal: reports: None Derm: reports: None - Past Surgical History General: reports: Appendectomy - Family & Social History Family History: Father: [place], Sister: Cancer (Ovarian) Family History Comment/Other: one child but pt has no communication Social History Notes: Currently going through a difficult divorce. she denies cigarette smoking, drug abuse but continue alcohol drinking - POLST Patient has POLST: No POLST Status: Full Code Meds/Allgy - Home Medications Home Medications: Ambulatory Orders Medication Instructions Recorded Confirmed No Known Home Medications 01/11/20 01/11/20 - Allergies Allergies/Adverse Reactions: Allergies Allergy/AdvReac Type Severity Reaction Status Date / Time morphine Allergy Hallucinati Verified 01/11/20 13:59 ons Review of Systems - Constitutional Constitutional: reports: Fatigue, Weakness, Poor appetite. denies: Fever, Chills, Malaise, Diaphoresis, Night sweats - Eyes Eyes: denies: Pain, Irritation, Amaurosis, Blurred vision, Spots in vision, Field loss, Vision loss, Dipolpia - Ears, Nose & Throat Ears, Nose & Throat: denies: Ear pain, Hearing loss, Tinnitus, Vertigo, Nasal pain, Nasal discharge, Nosebleeds, Nasal obstruction, Postnasal drainage, Mouth lesions, Bleeding gums - Cardiovascular Cariovascular: denies: Irregular heart rate, Palpitations, Chest pain, Edema, Lightheadedness, Syncope, Exertional dyspnea, Decr. exercise tolerance - Respiratory Respiratory: denies: Cough, Sputum production, Wheezing, Snoring, Hemoptysis, Orthopnea, SOB at rest, SOB with exertion - Gastrointestinal Gastrointestinal: reports: Abdominal pain. denies: Constipation, Diarrhea, Change in bowel habits, Rectal bleeding, Black stools, Bloody stools, Nausea, Vomiting - Genitourinary Genitourinary: denies: Dysuria, Frequency, Urgency, Hematuria, Incontinence, Flank pain, Nocturia - Musculoskeletal Musculoskeletal: denies: Muscle pain, Back pain, Muscle aches, Stiffness, Limited range of motion, Muscle weakness, Gout - Integumentary Integumentary: denies: Rash, Lesions, Dryness, Lumps, Pigment changes - Neurological Neurological: reports: General weakness. denies: Focal weakness, Headache, Dizziness, Numbness, Memory problems, Pre-existing deficit, Abnormal gait, Seizures, Incoordination, Slurred speech - Psychiatric Psychiatric: denies: Depression, Anxiety, Suicidal, Delusions, Hallucinations, Homicidal - Endocrine Endocrine: denies: Polyuria, Polydypsia, Polyphagia - Hematologic/Lymphatic Hematologic/Lymphatic: reports: Anemia. denies: Bruising, Petechiae, Blood clots, Lymphadenopathy, Bleeding tendencies Exam - Vital Signs Vital Signs: Vital Signs x48h Temp Pulse Resp BP Pulse Ox 01/11/20 16:00 104 H 16 103/65 98 01/11/20 14:35 97 16 105/67 97 01/11/20 13:37 35.8 C L 102 H 22 104/70 95 - Physical Exam General Appearance: positive: Alert, Mild distress. negative: Lethargic Eyes Bilateral: positive: Normal inspection, PERRL, No lid inflammation ENT: positive: ENT inspection nml, Pharynx nml, No signs of dehydration. negative: Purulent nasal drainage Neck: positive: Nml inspection, Thyroid nml, No JVD, Trachea midline. negative: Thyromegaly, Stiff neck, Tracheal deviation Respiratory: positive: Chest non-tender, No respiratory distress. negative: Wheezes, Rales Cardiovascular: positive: Regular rate & rhythm, No murmur, No gallop, Tachycardia. negative: Irregularly irregular, Bradycardia, Systolic murmur, Diastolic murmur Peripheral Pulses: positive: 2+ Abdomen: positive: Non-tender, Nml bowel sounds. negative: Tenderness, Guarding, Rebound Back: positive: Nml inspection. negative: CVA tenderness (R), CVA tenderness (L) Skin: positive: Warm, Dry, Other (jaudice). negative: Cyanosis, Diaphoresis Extremities: positive: Non-tender, Nml appearance. negative: Calf tenderness, Justin's sign/cords Neurologic/Psychiatric: positive: Oriented x3, Sensation nml, Mood/affect nml. negative: Weakness, Sensory loss, Facial droop, Slurred/abnml speech, Depressed mood/affect Conclusion/Plan - Problem List (1) Hyponatremia Conclusion/Plan: Likely related to alcoholism, Possibly exacerbated by Intravascular Fluid depletion secondary to liver failure. pt received banana bag with NS starting in ER. order BMP checks. Pending sodium levels, will try to avoid overcorrection minimizing to about 6 mEq per 24-hour. order Flud restriction. Otherwise if by tomorrow morning, no significant improvement, consider adding sodium tablets. (2) Elevated transaminase measurement and ammonia Conclusion/Plan: Given patient's history of alcoholism, continue alcohol abuse, it is likely secondary to liver failure and cirrhosis. pt is alert and oriented although she had elevated ammonia 54, continue neur check and lab monitor ammonia level, will consider add lactulose to pt if ammonia is not controlled. order albumin IV (3) Jaundice Conclusion/Plan: As above, secondary to likely end-stage liver disease. pt did not present respiratory distress with 100% sat on room air, and she had paracentesis about three weeks, her abdomen show mild to moderate extended but abdominal soft. will continue assess to determine if pt need paracentesis (4)profound weakness. Patient present profound weakness, likely secondary to her hepatic failure, cirrhosis, ascites and hyponatremia. will consult with PT/OT, correct his sodium (5) Alcohol abuse Conclusion/Plan: Patient denies any history of withdrawal even when she has quit drinking. She admits continue drinking peer per everyday. We will add CIWA and watch for signs of withdrawal, and then we added Ativan as needed. Continue to travel counselor to quit (6) Macrocytic anemia Conclusion/Plan: Secondary to alcohol abuse, With thrombocytopenia. Monitor for signs of bleeding, and lab monitor (7)elevated WBC pt's WBC is elevated to 24.1. UA analysis is pending. pt denies fever, chill, and dysuria. lactic acid is normal. abdomen examination did not show rebound, guarding or tenderness. recheck CBC to see if it is reaction, watch UA analysis, closely monitor vital sign. order CXR, followup - Lab Results Fish Bones: 01/11/20 14:25 01/11/20 14:25 Core Measures - Anticipated LOS I expect patient to be DC'd or transferred within 96 hours.: Yes - DVT/VTE - Prophylaxis VTE/DVT Device ordered at admit?: Yes VTE/DVT Prophylaxis med ordered at admit?: Yes
[2020-01-11] MEDS: SODIUM CHLORIDE FLUSH 0.9% 10 ML SYRINGE IVP SCH (17:08)
[2020-01-11] MEDS ORDERED: LORazepam 2 MG/ML VIAL IVP PRN (17:12)
[2020-01-11] MEDS ORDERED: MIN OIL/DIMETHICON/COCONUT OIL 92 GM TUBE TOP PRN (17:15)
[2020-01-11] MEDS ORDERED: ALBUMIN 25% 12.5 GM/50 ML VIAL IV ONE (18:00)
--- NOTE | 2020-01-11 18:07 | PHARMACY PROGRESS NOTE ---
- Best Possible Medication History Admit Date and Time: 01/11/20 1556 Processed by: Nursing Medication History completed: Yes As the person ultimately responsible for medication therapy, providers are able to order a medication from an existing home medication list in [facility] via the "Reconcile Routine" prior to Confirmation of that medication by support services specialist. Such practice is discouraged except when the physician, in their clinical judgment, deems that a medical need exists for a medication without regard to previous use.
[2020-01-11] MEDS ORDERED: FUROSEMIDE 40 MG/4 ML VIAL IVP STA (19:03)
[2020-01-11 19:31] LABS: BASOPHILS % (AUTO) 0.3 %; EOSINOPHILS # (AUTO) 0.1 10^3/uL (0.0-0.7); EOSINOPHILS % (AUTO) 0.6 %; HGB - HEMOGLOBIN 9.3 g/dL (12.0-16.0); LYMPHOCYTES # (AUTO) 1.2 10^3/uL (1.5-3.5); LYMPHOCYTES % (AUTO) 8.9 %; MEAN CORPUSCULAR HEMOGLOBIN 38.6 pg (27.0-31.0); MEAN CORPUSCULAR HGB CONC 33.6 g/dL (32.0-36.0); MEAN CORPUSCULAR VOLUME 114.9 fL (81.0-99.0); MEAN PLATELET VOLUME 9.7 fL (7.9-10.8); MONOCYTES # (AUTO) 1.2 10^3/uL (0.0-1.0); MONOCYTES % (AUTO) 9.3 %; NEUTROPHILS # (AUTO) 10.6 10^3/uL (1.5-6.6); NEUTROPHILS % (AUTO) 79.9 %; PLT - PLATELET COUNT 202 10^3/uL (130-450); RED BLOOD COUNT 2.41 10^6/uL (4.20-5.40); RED CELL DISTRIBUTION WIDTH 14.7 % (12.0-15.0); WHITE BLOOD COUNT 13.3 x10^3/uL (4.8-10.8)
--- NOTE | 2020-01-11 19:38 | XRAY Report ---
Reason: sob Procedure Date: 01/11/2020 Accession Number: [id number] / [id number] Procedure: XR - Chest 1 View X-Ray CPT Code: 65927 Final Report FULL RESULT: EXAM: CHEST RADIOGRAPHY EXAM DATE: 01/11/2020 06:52 PM. CLINICAL HISTORY: Shortness of breath COMPARISON: CHEST 1 VIEW 01/11/2020 1:51 PM. TECHNIQUE: 1 view. FINDINGS: The mediastinal and cardiac silhouettes are normal. Linear atelectasis has developed in the right lower lobe. The lungs are otherwise clear. There is no pleural effusion or pneumothorax. There is a chronic right AC joint separation and degenerative changes at the right coracoid. IMPRESSION: No focal consolidation. Right basilar atelectasis. RADIA
[2020-01-11 19:40] LABS: CALCIUM 8.4 mg/dL (8.5-10.3); CREATININE 0.8 mg/dL (0.4-1.0)
[2020-01-11 19:43] LABS: PLATELET ESTIMATE, MANUAL NORMAL (130-450,000) (NORMAL); PLATELET MORPHOLOGY NORMAL APPEARANCE (NORMAL)
[2020-01-11 19:44] LABS: RBC MORPHOLOGY (MULTIPLE) 3+ MACROCYTOSIS (NORMAL)
[2020-01-11] MEDS ORDERED: CIPROFLOXACIN 250 MG TABLET PO SCH (21:00)
[2020-01-11 23:10] LABS: MUDS CUTOFF CONCENTRATIONS CUTOFF CONC BELOW:
[2020-01-11 23:11] LABS: GLUCOSE, URINE (UA) NEGATIVE (NEGATIVE); KETONES,URINE (UA) TRACE mg/dL (NEGATIVE); LEUKOCYTE ESTERASE, URINE NEGATIVE (NEGATIVE); NITRITE,URINE NEGATIVE (NEGATIVE); OCCULT BLOOD,URINE NEGATIVE (NEGATIVE); PROTEIN,URINE TRACE mg/dL (NEGATIVE); UROBILINOGEN,URINE 4 E.U./dL (NORMAL)
[2020-01-11 23:12] LABS: BILIRUBIN,URINE NEGATIVE (NEGATIVE); CLARITY,URINE CLEAR (CLEAR); ICTOTEST,URINE NEGATIVE
[2020-01-11 23:25] LABS: AMPHETAMINE SCREEN,URINE NEGATIVE (NEGATIVE); BENZODIAZEPINES SCREEN, URINE NEGATIVE (NEGATIVE); COCAINE SCREEN URINE NEGATIVE (NEGATIVE); METHADONE SCREEN, URINE NEGATIVE (NEGATIVE); METHAMPHETAMINES SCREEN, URINE NEGATIVE (NEGATIVE); OPIATE SCREEN, URINE NEGATIVE (NEGATIVE); OXYCODONE SCREEN, URINE NEGATIVE (NEGATIVE); PROPOXYPHENE SCREEN, URINE NEGATIVE (NEGATIVE); TRICYCLIC ANTIDEPRESSANT,URINE NEGATIVE (NEGATIVE)
[2020-01-12] MEDS: SODIUM CHLORIDE FLUSH 0.9% 10 ML SYRINGE IVP SCH ×3 (04:10→17:37)
[2020-01-12 05:25] LABS: BASOPHILS % (AUTO) 0.3 %; EOSINOPHILS # (AUTO) 0.2 10^3/uL (0.0-0.7); EOSINOPHILS % (AUTO) 1.4 %; HGB - HEMOGLOBIN 7.6 g/dL (12.0-16.0); LYMPHOCYTES # (AUTO) 1.6 10^3/uL (1.5-3.5); LYMPHOCYTES % (AUTO) 12.7 %; MEAN CORPUSCULAR HEMOGLOBIN 37.6 pg (27.0-31.0); MEAN CORPUSCULAR HGB CONC 33.2 g/dL (32.0-36.0); MEAN CORPUSCULAR VOLUME 113.4 fL (81.0-99.0); MEAN PLATELET VOLUME 9.9 fL (7.9-10.8); MONOCYTES # (AUTO) 1.4 10^3/uL (0.0-1.0); MONOCYTES % (AUTO) 10.9 %; NEUTROPHILS # (AUTO) 9.2 10^3/uL (1.5-6.6); NEUTROPHILS % (AUTO) 73.8 %; PLT - PLATELET COUNT 193 10^3/uL (130-450); RED BLOOD COUNT 2.02 10^6/uL (4.20-5.40); RED CELL DISTRIBUTION WIDTH 14.8 % (12.0-15.0); WHITE BLOOD COUNT 12.5 x10^3/uL (4.8-10.8)
[2020-01-12 05:40] LABS: ALBUMIN 2.1 g/dL (3.2-5.5); ALBUMIN/GLOBULIN RATIO 0.6 (1.0-2.2); CALCIUM 7.9 mg/dL (8.5-10.3); CREATININE 0.9 mg/dL (0.4-1.0); TOTAL PROTEIN 5.7 g/dL (6.7-8.2)
[2020-01-12 05:46] LABS: PLATELET ESTIMATE, MANUAL NORMAL (130-450,000) (NORMAL); PLATELET MORPHOLOGY NORMAL APPEARANCE (NORMAL); RBC MORPHOLOGY (MULTIPLE) 3+ MACROCYTOSIS (NORMAL)
[2020-01-12] MEDS: PANTOPRAZOLE 40 MG TABLET PO SCH (06:58)
[2020-01-12] MEDS ORDERED: ALBUMIN 25% 12.5 GM/50 ML VIAL IV ONE (08:00)
[2020-01-12] MEDS: SODIUM CHLORIDE 0.9% 500 ML IV PRN (08:44)
[2020-01-12] MEDS ORDERED: FOLIC ACID INJ 1 MG, THIAMINE INJ 100 MG, MAGNESIUM SULFATE 2 GM, MULTIVITAMIN 10 ML in... IV ONE ×5 (09:00)
--- NOTE | 2020-01-12 09:47 | ANESTHESIA PROCEDURE NOTE ---
Anesth Central Line Template - Central Line Central Line Preparation: Consent Obtained, Time out completed, Ultrasound used, Sterile prep and drape Central line location: Right IJ Central line type: Triple lumen Central line catheter tip site resides: Atrium, right Central line aftercare: Chlorhexidine disc placed, Secured, Placement confirmed, No pneumothorax, No complications, Bundle checklist complete, Pt tolerated well, Other
--- NOTE | 2020-01-12 09:50 | PROCEDURE REPORT ---
Hospitalist Procedure Note - Procedure Note Procedure Note: central line placement requested by the Dr Pinzon. Tripple lumen 7 gabonese catheter placed. US guidance used. Sterile prep/sterility maintained throughout the procedure. Benefits and risks explained and informed consent obtained from the patient. Time out checklist completed/followed. About 18 cm in 2cm at the skin. Patient tolerated the procedure well. Sutured in, biopatch placed and secured with tegaderm.
--- NOTE | 2020-01-12 10:47 | XRAY Report ---
Reason: central line placement Procedure Date: 01/12/2020 Accession Number: [id number] / [id number] Procedure: XR - Chest for Line Placement CPT Code: Final Report FULL RESULT: EXAM: CHEST RADIOGRAPHY EXAM DATE: 01/12/2020 10:04 AM. CLINICAL HISTORY: Central line placement. COMPARISON: CHEST 1 VIEW 01/11/2020 6:30 PM. TECHNIQUE: 1 view. FINDINGS: Lungs/Pleura: Lung volumes are low. Right basilar opacity. No pneumothorax. Mediastinum: Heart size and mediastinal contour are stable. Other: New right IJ catheter with the tip in the lower SVC by the cavoatrial junction . IMPRESSION: 1. New right IJ catheter with the tip in the lower SVC by the cavoatrial junction. 2. No pneumothorax. RADIA
[2020-01-12] MEDS: FUROSEMIDE 20 MG/2 ML VIAL IVP SCH ×2 (12:37→16:37)
[2020-01-12 13:27] LABS: MAGNESIUM 2.5 mg/dL (1.7-2.8); PHOSPHORUS 3.9 mg/dL (2.5-4.6)
--- NOTE | 2020-01-12 16:48 | PROVIDER PROGRESS NOTE ---
Assessment/Plan - Problem List (1) Hypotension Assessment/Plan: This is likely related to diuresis, and third spacing of fluid into the abdomen with her ascites from liver failure. She was transferred into the ICU early this a.m. for Levophed IV support for syst BP of 70, ordered by the Credit Risk Management Director, and needed a central line placed for this which was done by mid-day. She currently has blood pressure of 97/55 with a MAP of 70 on 6 mCG/kilogram of Levophed. Will try to wean the Levophed to off keeping MAP 60. Her intravascular volume status appears normal currently and she does not have a lot of leg edema, only non-tense ascites fluid, therefore rapid diuresis is not necessary. Thereforew, will change iv bid Laix to to p.o. Lasix and continue p.o. Spironolactone for this. (2) Hyponatremia Assessment/Plan: Likely related to alcoholism, Possibly exacerbated by intravascular fluid depletion secondary to ascites. Pt received banana bag with NS starting in ER. Continue free water restriction. Follow BMP daily, will try to avoid overcorrection minimizing to about 6 mEq per 24-hour. (3) Ascites Qualifiers: Ascites type: due to alcoholic cirrhosis Qualified Code(s): K70.31 - Alcoh olic cirrhosis of liver with ascites Assessment/Plan: As in #1 (4) Alcohol abuse Assessment/Plan: SW consulted. The patient agreed to go to inpatient alcohol rehab when ready for [facility] from here. Patient denies any history of withdrawal even when she has quit drinking. She admits she continued drinking beer everyday. Continue CIWA and watch for signs of withdrawal, and Ativan iv as needed. Also vitamins, Thiamine ordered. (5) Macrocytic anemia Assessment/Plan: Secondary to alcohol abuse, she has anemia with thrombocytopenia and elevated INR from poor synthesis. Monitor for signs of bleeding, and daily CMP, CBC, ammonia and INR. (6) Elevated transaminase measurement Assessment/Plan: Given patient's history of alcoholism, continued alcohol abuse, it is likely secondary to liver failure and cirrhosis. She is alert and oriented although she had elevated ammonia 54 then 62. Will start Lactulose. Continue neuro check and monitor daily CMP, CBC, INR and ammonia level (7) Weakness Assessment/Plan: Patient's presentation was c/o profound weakness, likely secondary to her low BP, hepatic failure, cirrhosis, ascites and hyponatremia. PT/OT was ordered but will be cancelled while she is hypotensive in the ICU on pressors. (8) Elevated WBC count Assessment/Plan: Her WBC was elevated at 14.1. She denied fever, chill, and dysuria, pain. lactic acid is normal. abdomen examination did not show rebound, guarding or tenderness. Blood cx neg to date and U/.A was unremarkable. The daily WBC has dropped 13>> 12 without empiric antibx. Therefore suspect it was demargination. Follow CBC daily - Current Meds Current Meds: Current Medications Generic Name Dose Route Start Last Admin Trade Name Freq PRN Reason Stop Dose Admin Folic Acid 1 mg/ Thiamine HCl 1,015.2 mls @ 100 mls/hr 01/12/20 09:00 01/12/20 16:10 100 mg/ Magnesium Sulfate 2 gm IV 01/12/20 19:09 100 mls/hr / Multivitamins 10 ml/ Sodium ONCE ONE Infusion Chloride Norepinephrine Bitartrate 8 mg 250 mls @ 15 mls/hr 01/12/20 08:00 01/12/20 16:35 / Dextrose IV 4 mcg/min .[id number] TANO 7.5 mls/hr Titration Protocol 8 MCG/MIN Sodium Chloride 500 mls @ 0 mls/hr 01/12/20 08:09 01/12/20 09:44 Normal Saline 0.9% IV 0 mls/hr Q24H PRN Infusion TKO RATE TKO Pantoprazole Sodium 40 mg 01/12/20 07:00 01/12/20 06:58 Protonix PO 40 mg QDAC TANO Administration Sodium Chloride 10 ml 01/11/20 17:00 01/12/20 10:56 Normal Saline Flush 0.9% IVP 10 ml 0100,0900,1700 TANO Administration - Lab Result Fish Bone Diagrams: 01/12/20 04:45 01/12/20 04:45 - Additional Planning My Orders: My Active Orders 01/12/20 08:15 Ortiz Insertion [RC] QSHIFT 01/12/20 11:03 Miscellaenous Nursing Order [RC] QSHIFT 01/12/20 16:36 Miscellaenous Nursing Order [RC] ONCE 01/13/20 09:00 FUROSEMIDE INJ 20mg VIAL [LASIX INJ 20mg VIAL] 20 mg IVP DAILY Subjective - Subjective Patient Reports: Feeling Better, Other ("I feel tired") Objective Vital Signs: Vital Signs - 24 hr 01/11/20 01/11/20 01/11/20 19:39 20:02 20:29 Temperature 36.3 C L Heart Rate Heart Rate [ Monitoring electrodes] Heart Rate [ 101 H Radial] Respiratory 17 Rate Blood Pressure 93/57 L 95/57 L 95/50 L [Right Brachial artery] O2 Saturation 99 01/12/20 01/12/20 01/12/20 00:27 04:10 08:02 Temperature 36.5 C 36.5 C 36.9 C Heart Rate Heart Rate [ 102 H Monitoring electrodes] Heart Rate [ 103 H 103 H Radial] Respiratory 16 16 17 Rate Blood Pressure 96/50 L 90/47 L 87/48 L [Right Brachial artery] O2 Saturation 97 97 98 01/12/20 01/12/20 01/12/20 08:33 09:00 10:00 Temperature 36.7 C Heart Rate Heart Rate [ 102 H 101 H 107 H Monitoring electrodes] Heart Rate [ Radial] Respiratory 16 18 19 Rate Blood Pressure 86/50 L 97/53 L 99/60 [Right Brachial artery] O2 Saturation 100 100 100 01/12/20 01/12/20 01/12/20 10:48 12:40 12:45 Temperature 36.9 C Heart Rate 102 H Heart Rate [ 100 99 Monitoring electrodes] Heart Rate [ Radial] Respiratory 20 Rate Blood Pressure 100/60 101/61 [Right Brachial artery] O2 Saturation 100 01/12/20 01/12/20 01/12/20 13:00 13:15 13:30 Temperature 36.7 C Heart Rate Heart Rate [ 99 99 99 Monitoring electrodes] Heart Rate [ Radial] Respiratory 12 Rate Blood Pressure 105/64 98/65 108/58 L [Right Brachial artery] O2 Saturation 99 01/12/20 01/12/20 01/12/20 14:00 15:00 15:43 Temperature 36.6 C 36.6 C 37 C Heart Rate Heart Rate [ 99 99 Monitoring electrodes] Heart Rate [ Radial] Respiratory 13 13 Rate Blood Pressure 98/64 94/52 L [Right Brachial artery] O2 Saturation 98 98 01/12/20 16:00 Temperature 37 C Heart Rate Heart Rate [ 101 H Monitoring electrodes] Heart Rate [ Radial] Respiratory 15 Rate Blood Pressure 99/55 L [Right Brachial artery] O2 Saturation 100 Oxygen O2 Source [With Activity] Room air O2 Source Room air I&O (Last 24 Hrs): Intake and Output Totals x24h 01/10/20 01/11/20 01/12/20 23:59 23:59 23:59 Intake Total 1065.2 953.626 Output Total 80 265 Balance 985.2 688.626 General: Alert, Oriented x3 HEENT: Other (Dry oral mucosa, Icteric, Temporal wasting.) Neck: Supple Neuro: Alert, Other (Somewhat slowed speech, no tremor.) Cardiovascular: Regular rate Respiratory: No respiratory distress Abdomen: Other (Distended) Extremities: Other (1+ edema) Skin: No rashes (Icteric) - Results Results: Laboratory Results WBC 12.5 x10^3/uL (4.8-10.8) H 01/12/20 04:45 RBC 2.02 10^6/uL (4.20-5.40) L 01/12/20 04:45 Hgb 7.6 g/dL (12.0-16.0) L 01/12/20 04:45 Hct 22.9 % (37.0-47.0) L 01/12/20 04:45 MCV 113.4 fL (81.0-99.0) H 01/12/20 04:45 MCH 37.6 pg (27.0-31.0) H 01/12/20 04:45 MCHC 33.2 g/dL (32.0-36.0) 01/12/20 04:45 RDW 14.8 % (12.0-15.0) 01/12/20 04:45 Plt Count 193 10^3/uL (130-450) 01/12/20 04:45 MPV 9.9 fL (7.9-10.8) 01/12/20 04:45 Neut # (Auto) 9.2 10^3/uL (1.5-6.6) H 01/12/20 04:45 Lymph # (Auto) 1.6 10^3/uL (1.5-3.5) 01/12/20 04:45 Mer[place]ether # (Auto) 1.4 10^3/uL (0.0-1.0) H 01/12/20 04:45 Eos # (Auto) 0.2 10^3/uL (0.0-0.7) 01/12/20 04:45 Baso # (Auto) 0.0 10^3/uL (0.0-0.1) 01/12/20 04:45 Absolute Nucleated RBC 0.00 x10^3/uL 01/12/20 04:45 Nucleated RBC % 0.0 /100WBC 01/12/20 04:45 Manual Slide Review Indicated 01/12/20 04:45 WBC Morphology NORMAL APPEARANCE (NORMAL) 01/11/20 19:25 Platelet Estimate NORMAL (130-450,000) (NORMAL) 01/12/20 04:45 Platelet Morphology NORMAL APPEARANCE (NORMAL) 01/12/20 04:45 RBC Morph Micro Appear 2+ HYPOCHROMASIA (NORMAL) 1+ POLYCHROMASIA (NORMAL) 2+ MACROCYTOSIS (NORMAL) 01/11/20 14:25 RBC Morph Micro Appear 3+ MACROCYTOSIS (NORMAL) 01/11/20 19:25 RBC Morph Micro Appear 3+ MACROCYTOSIS (NORMAL) 01/12/20 04:45 PT 17.5 secs (9.9-12.6) H 01/11/20 14:25 INR 1.6 (0.8-1.2) H 01/11/20 14:25 Sodium 119 mmol/L (135-145) L* 01/12/20 04:45 Potassium 4.5 mmol/L (3.5-5.0) 01/12/20 04:45 Chloride 90 mmol/L (101-111) L 01/12/20 04:45 Carbon Dioxide 19 mmol/L (21-32) L 01/12/20 04:45 Anion Gap 10.0 (6-13) 01/12/20 04:45 BUN 19 mg/dL (6-20) 01/12/20 04:45 Creatinine 0.9 mg/dL (0.4-1.0) 01/12/20 04:45 Estimated GFR (MDRD) 63 (>89) L 01/12/20 04:45 Glucose 125 mg/dL (70-100) H 01/12/20 04:45 Lactic Acid 1.7 mmol/L (0.5-2.2) 01/11/20 14:25 Calcium 7.9 mg/dL (8.5-10.3) L 01/12/20 04:45 Phosphorus 3.9 mg/dL (2.5-4.6) 01/12/20 04:45 Magnesium 2.5 mg/dL (1.7-2.8) 01/12/20 04:45 Total Bilirubin 6.0 mg/dL (0.2-1.0) H 01/12/20 04:45 AST 57 IU/L (10-42) H 01/12/20 04:45 ALT 28 IU/L (10-60) 01/12/20 04:45 Alkaline Phosphatase 97 IU/L (42-121) 01/12/20 04:45 Ammonia 62.5 umol/L (7-35) H 01/12/20 04:45 Total Protein 5.7 g/dL (6.7-8.2) L 01/12/20 04:45 Albumin 2.1 g/dL (3.2-5.5) L 01/12/20 04:45 Globulin 3.6 g/dL (2.1-4.2) 01/12/20 04:45 Albumin/Globulin Ratio 0.6 (1.0-2.2) L 01/12/20 04:45 Lipase 42 U/L (22-51) 01/11/20 14:25 Urine Color ORANGE 01/11/20 23:00 Urine Clarity CLEAR (CLEAR) 01/11/20 23:00 Urine pH 5.0 PH (5.0-7.5) 01/11/20 23:00 Ur Specific [place] 1.025 (1.002-1.030) 01/11/20 23:00 Urine Protein TRACE mg/dL (NEGATIVE) 01/11/20 23:00 Urine Glucose (UA) NEGATIVE mg/dL (NEGATIVE) 01/11/20 23:00 Urine Ketones TRACE mg/dL (NEGATIVE) 01/11/20 23:00 Urine Occult Blood NEGATIVE (NEGATIVE) 01/11/20 23:00 Urine Nitrite NEGATIVE (NEGATIVE) 01/11/20 23:00 Urine Bilirubin NEGATIVE (NEGATIVE) 01/11/20 23:00 Urine Urobilinogen 4 E.U./dL (NORMAL) H 01/11/20 23:00 Ur Leukocyte Esterase NEGATIVE (NEGATIVE) 01/11/20 23:00 Ur Microscopic Review NOT INDICATED 01/11/20 23:00 Urine Culture Comments NOT INDICATED 01/11/20 23:00 Nasal Screen MRSA (PCR) NEGATIVE (NEGATIVE) 01/12/20 08:15 Urine Opiates Screen NEGATIVE (NEGATIVE) 01/11/20 23:00 Ur Oxycodone Screen NEGATIVE (NEGATIVE) 01/11/20 23:00 Urine Methadone Screen NEGATIVE (NEGATIVE) 01/11/20 23:00 Ur Propoxyphene Screen NEGATIVE (NEGATIVE) 01/11/20 23:00 Ur Barbiturates Screen NEGATIVE (NEGATIVE) 01/11/20 23:00 Ur Tricyclics Screen NEGATIVE (NEGATIVE) 01/11/20 23:00 Ur Phencyclidine Scrn NEGATIVE (NEGATIVE) 01/11/20 23:00 Ur Amphetamine Screen NEGATIVE (NEGATIVE) 01/11/20 23:00 U Methamphetamines Scrn NEGATIVE (NEGATIVE) 01/11/20 23:00 U Benzodiazepines Scrn NEGATIVE (NEGATIVE) 01/11/20 23:00 Urine Cocaine Screen NEGATIVE (NEGATIVE) 01/11/20 23:00 U Cannabinoids Screen NEGATIVE (NEGATIVE) 01/11/20 23:00 Ethyl Alcohol < 5.0 mg/dL 01/11/20 14:25 Coronavirus (PCR) NEGATIVE 01/11/20 14:45 - Procedures Procedures: Procedures DRAINAGE OF PERITONEAL CAVITY, PERCUTANEOUS APPROACH (12/16/19)
[2020-01-12] MEDS ORDERED: LORazepam 1 MG TABLET PO PRN (17:09)
[2020-01-12] MEDS: cefTRIAXone 2 GM in SODIUM CHLORIDE 0.9% MINIBAG 100 ML IV SCH (22:29)
[2020-01-13] MEDS: SODIUM CHLORIDE FLUSH 0.9% 10 ML SYRINGE IVP SCH ×4 (02:03→19:48)
[2020-01-13] MEDS: ACETAMINOPHEN 325 MG TABLET PO PRN (04:13)
[2020-01-13] MEDS: SODIUM CHLORIDE FLUSH 0.9% 10 ML SYRINGE IVP PRN ×3 (04:31→20:34)
[2020-01-13 05:17] LABS: BASOPHILS % (AUTO) 0.2 %; EOSINOPHILS # (AUTO) 0.2 10^3/uL (0.0-0.7); EOSINOPHILS % (AUTO) 1.4 %; HGB - HEMOGLOBIN 7.2 g/dL (12.0-16.0); LYMPHOCYTES # (AUTO) 1.7 10^3/uL (1.5-3.5); LYMPHOCYTES % (AUTO) 14.4 %; MEAN CORPUSCULAR HEMOGLOBIN 37.7 pg (27.0-31.0); MEAN CORPUSCULAR HGB CONC 34.1 g/dL (32.0-36.0); MEAN CORPUSCULAR VOLUME 110.5 fL (81.0-99.0); MEAN PLATELET VOLUME 9.5 fL (7.9-10.8); MONOCYTES # (AUTO) 1.3 10^3/uL (0.0-1.0); MONOCYTES % (AUTO) 10.9 %; NEUTROPHILS # (AUTO) 8.7 10^3/uL (1.5-6.6); NEUTROPHILS % (AUTO) 72.5 %; PLT - PLATELET COUNT 185 10^3/uL (130-450); RED BLOOD COUNT 1.91 10^6/uL (4.20-5.40)
[2020-01-13 05:29] LABS: ALBUMIN 2.1 g/dL (3.2-5.5); ALBUMIN/GLOBULIN RATIO 0.6 (1.0-2.2); BILIRUBIN,TOTAL 6.1 mg/dL (0.2-1.0); CREATININE 1.2 mg/dL (0.4-1.0); TOTAL PROTEIN 5.6 g/dL (6.7-8.2)
[2020-01-13 05:30] LABS: INR 1.6 (0.8-1.2); PT - PROTHROMBIN TIME 17.3 secs (9.9-12.6)
[2020-01-13 05:44] LABS: PLATELET ESTIMATE, MANUAL NORMAL (130-450,000) (NORMAL); PLATELET MORPHOLOGY NORMAL APPEARANCE (NORMAL)
[2020-01-13] MEDS: PANTOPRAZOLE 40 MG TABLET PO SCH (06:29)
[2020-01-13] MEDS: ALBUMIN 25% 12.5 GM/50 ML VIAL IV SCH ×3 (08:10→19:48)
[2020-01-13] MEDS: cefTRIAXone 2 GM in SODIUM CHLORIDE 0.9% MINIBAG 100 ML IV SCH (09:00)
[2020-01-13] MEDS: FUROSEMIDE 20 MG/2 ML VIAL IVP SCH (09:01)
--- NOTE | 2020-01-13 16:20 | PROVIDER PROGRESS NOTE ---
Assessment/Plan - Problem List (1) Hypotension Assessment/Plan: She remains on Levophed, the dose was decreased when she had V. tach when it was for started. Continue with gentle saline plus she had some albumin IV and fusions this admission. (2) Hyponatremia Assessment/Plan: Continue with gentle IV saline replacement. She cannot get aggressive replacement because of third spacing into her ascites (3) Ascites Qualifiers: Ascites type: due to alcoholic cirrhosis Qualified Code(s): K70.31 - A lcoholic cirrhosis of liver with ascites Assessment/Plan: Continue with her diuretic for daily management. (4) Alcohol abuse Assessment/Plan: Patient is interested in transfer to inpatient alcohol rehab when medically stable, SW following (5) Macrocytic anemia Assessment/Plan: Related to alcohol abuse. Thiamine and vitamins ordered. Follow CBC daily. (6) Elevated transaminase measurement Assessment/Plan: Related to alcohol abuse. There slowly improving since admission (7) Weakness Assessment/Plan: Limit alcohol abuse and weakness from being bedbound in the ICU. T cannot be started yet because of her significant hypotension, requiring a Levophed drip. (8) Elevated WBC count Assessment/Plan: There are no signs of infection, no fever, or signs of SBP. - Current Meds Current Meds: Current Medications Generic Name Dose Route Start Last Admin Trade Name Freq PRN Reason Stop Dose Admin Acetaminophen 650 mg 01/11/20 15:56 01/13/20 04:13 Tylenol PO 650 mg Q4HR PRN Administration Pain 1 to 4 Furosemide 20 mg 01/13/20 09:00 01/13/20 09:01 Lasix Inj 20mg Vial IVP 20 mg DAILY TANO Administration Ceftriaxone Sodium 2 gm/ 100 mls @ 200 mls/hr 01/12/20 22:48 01/13/20 09:30 Sodium Chloride IV Infused DAILY TANO Infusion Norepinephrine Bitartrate 8 mg 250 mls @ 15 mls/hr 01/12/20 08:00 01/13/20 16:00 / Dextrose IV 2 mcg/min .[id number] TANO 3.75 mls/hr Titration Protocol 8 MCG/MIN Sodium Chloride 500 mls @ 0 mls/hr 01/12/20 08:09 01/13/20 16:00 Normal Saline 0.9% IV 10 mls/hr Q24H PRN Infusion TKO RATE TKO Albumin Human 12.5 gm in 50 mls @ 50 mls/hr 01/13/20 08:00 01/13/20 14:40 Albuminar-25 IV 01/14/20 02:59 Infused Q6H TANO Infusion Pantoprazole Sodium 40 mg 01/12/20 07:00 01/13/20 06:29 Protonix PO 40 mg QDAC TANO Administration Sodium Chloride 10 ml 01/11/20 15:56 01/13/20 04:31 Normal Saline Flush 0.9% IVP 10 ml PRN PRN Administration NEEDED PER PROVIDER ORDERS Sodium Chloride 10 ml 01/11/20 17:00 01/13/20 09:01 Normal Saline Flush 0.9% IVP 10 ml [id number] TANO Administration Sodium Chloride 20 ml 01/13/20 04:03 01/13/20 04:31 Normal Saline Flush 0.9% IVP 20 ml PRN PRN Administration After Blood Draw - Lab Result Fish Bone Diagrams: 01/15/20 05:05 01/15/20 05:05 - Additional Planning My Orders: My Active Orders 01/12/20 16:36 Miscellaenous Nursing Order [RC] ONCE 01/12/20 17:09 CIWA - AR Score Card [RC] Q4H Q4H Neuro Check [RC] QSHIFT QSHIFT LORazepam [Ativan] 0.5 mg PO Q3H PRN 01/13/20 04:03 Heparin Flush 30 - 50 unit IVP PRN PRN Sodium Chloride Flush 0.9% [Normal Saline Flush 0.9%] 20 ml IVP PRN PRN 01/13/20 09:00 FUROSEMIDE INJ 20mg VIAL [LASIX INJ 20mg VIAL] 20 mg IVP DAILY 01/14/20 05:00 PT WITH INR [COAG] DAILYLAB 01/14/20 09:00 INR [WHOLE BLOOD PT/INR] [COAG] DAILY 01/15/20 05:00 PT WITH INR [COAG] DAILYLAB 01/15/20 09:00 INR [WHOLE BLOOD PT/INR] [COAG] DAILY 01/16/20 09:00 INR [WHOLE BLOOD PT/INR] [COAG] DAILY Subjective - Subjective Patient Reports: No Complaints (Has good appetite. Feels overall fatigued and weak) Objective Vital Signs: Vital Signs - 24 hr 01/12/20 01/12/20 01/12/20 16:50 17:00 17:15 Temperature Heart Rate [ 100 99 99 Monitoring electrodes] Respiratory Rate Blood Pressure 93/70 97/62 117/76 [Right Brachial artery] O2 Saturation 01/12/20 01/12/20 01/12/20 17:30 17:45 18:00 Temperature Heart Rate [ 99 96 97 Monitoring electrodes] Respiratory 17 Rate Blood Pressure 106/80 94/60 105/46 L [Right Brachial artery] O2 Saturation 99 01/12/20 01/12/20 01/12/20 18:15 18:30 18:45 Temperature Heart Rate [ 96 94 94 Monitoring electrodes] Respiratory Rate Blood Pressure 92/59 L 96/71 91/60 [Right Brachial artery] O2 Saturation 01/12/20 01/12/20 01/12/20 19:00 20:00 21:00 Temperature 36.6 C Heart Rate [ 93 95 97 Monitoring electrodes] Respiratory 18 12 17 Rate Blood Pressure 93/55 L 93/60 93/63 [Right Brachial artery] O2 Saturation 100 99 100 01/12/20 01/12/20 01/13/20 22:00 23:00 00:00 Temperature 36.6 C Heart Rate [ 100 98 93 Monitoring electrodes] Respiratory 15 15 12 Rate Blood Pressure 90/53 L 100/58 L 100/59 L [Right Brachial artery] O2 Saturation 100 99 99 01/13/20 01/13/20 01/13/20 01:00 02:00 03:05 Temperature Heart Rate [ 98 103 H 95 Monitoring electrodes] Respiratory 16 13 12 Rate Blood Pressure 104/64 91/56 L 92/55 L [Right Brachial artery] O2 Saturation 100 99 99 01/13/20 01/13/20 01/13/20 04:00 05:00 06:00 Temperature 98.3 C H 97.4 C H Heart Rate [ 99 97 95 Monitoring electrodes] Respiratory 15 16 13 Rate Blood Pressure 99/60 87/54 L 97/64 [Right Brachial artery] O2 Saturation 98 99 99 01/13/20 01/13/20 01/13/20 07:02 08:00 09:00 Temperature 36.6 C 36.6 C Heart Rate [ 92 98 96 Monitoring electrodes] Respiratory 12 15 16 Rate Blood Pressure 92/58 L 91/58 L 85/57 L [Right Brachial artery] O2 Saturation 100 100 100 01/13/20 01/13/20 01/13/20 10:00 11:00 12:00 Temperature Heart Rate [ 93 95 88 Monitoring electrodes] Respiratory 14 12 10 L Rate Blood Pressure 93/50 L 86/58 L 88/59 L [Right Brachial artery] O2 Saturation 100 99 98 01/13/20 01/13/20 01/13/20 13:00 14:00 15:00 Temperature Heart Rate [ 93 90 98 Monitoring electrodes] Respiratory 19 12 18 Rate Blood Pressure 87/49 L 104/62 [Right Brachial artery] O2 Saturation 99 99 100 01/13/20 01/13/20 15:50 16:00 Temperature 36.4 C L 36.4 C L Heart Rate [ 94 99 Monitoring electrodes] Respiratory 11 L 22 Rate Blood Pressure 88/52 L 102/63 [Right Brachial artery] O2 Saturation 99 100 Oxygen O2 Source [With Activity] Room air O2 Source Room air I&O (Last 24 Hrs): Intake and Output Totals x24h 01/11/20 01/12/20 01/13/20 23:59 23:59 23:59 Intake Total 1065.2 1621.784 747.50 Output Total 80 375 355 Balance 985.2 1246.784 392.50 General: Alert, Oriented x3 HEENT: Mucous membr. moist/pink, Other (Poor dental hygiene) Neck: Supple Neuro: Alert, Non Focal Cardiovascular: Regular rate, No murmurs Respiratory: No respiratory distress, Breath sounds nml Abdomen: Other (Distended with ascites but soft and nontender, no good) Extremities: No edema (Trace leg edema) - Results Results: Laboratory Results WBC 12.0 x10^3/uL (4.8-10.8) H 01/13/20 04:27 RBC 1.91 10^6/uL (4.20-5.40) L 01/13/20 04:27 Hgb 7.2 g/dL (12.0-16.0) L 01/13/20 04:27 Hct 21.1 % (37.0-47.0) L 01/13/20 04:27 MCV 110.5 fL (81.0-99.0) H 01/13/20 04:27 MCH 37.7 pg (27.0-31.0) H 01/13/20 04:27 MCHC 34.1 g/dL (32.0-36.0) 01/13/20 04: RDW 15.0 % (12.0-15.0) 01/13/20 04:27 Plt Count 185 10^3/uL (130-450) 01/13/20 04:27 MPV 9.5 fL (7.9-10.8) 01/13/20 04:27 Neut # (Auto) 8.7 10^3/uL (1.5-6.6) H 01/13/20 04:27 Lymph # (Auto) 1.7 10^3/uL (1.5-3.5) 01/13/20 04:27 [place] # (Auto) 1.3 10^3/uL (0.0-1.0) H 01/13/20 04:27 Eos # (Auto) 0.2 10^3/uL (0.0-0.7) 01/13/20 04:27 Baso # (Auto) 0.0 10^3/uL (0.0-0.1) 01/13/20 04:27 Absolute Nucleated RBC 0.00 x10^3/uL 01/13/20 04: Nucleated RBC % 0.0 /100WBC 01/13/20 04:27 Manual Slide Review Indicated 01/13/20 04:27 WBC Morphology NORMAL APPEARANCE (NORMAL) 01/13/20 04:27 Platelet Estimate NORMAL (130-450,000) (NORMAL) 01/13/20 04:27 Platelet Morphology NORMAL APPEARANCE (NORMAL) 01/13/20 04:27 RBC Morph Micro Appear 3+ MACROCYTOSIS (NORMAL) 01/11/20 19:25 RBC Morph Micro Appear 3+ MACROCYTOSIS (NORMAL) 01/12/20 04:45 RBC Morph Micro Appear 1+ HYPOCHROMASIA (NORMAL) 3+ MACROCYTOSIS (NORMAL) 01/13/20 04:27 RBC Morph Micro Appear 1+ HYPOCHROMASIA (NORMAL) 3+ MACROCYTOSIS (NORMAL) 01/13/20 04:27 PT 17.3 secs (9.9-12.6) H 01/13/20 04:27 INR 1.6 (0.8-1.2) H 01/13/20 04:27 Whole Blood INR 1.4 (0.8-1.2) H 01/13/20 09:24 Sodium 120 mmol/L (135-145) L* 01/13/20 04:27 Potassium 4.6 mmol/L (3.5-5.0) 01/13/20 04:27 Chloride 92 mmol/L (101-111) L 01/13/20 04:27 Carbon Dioxide 19 mmol/L (21-32) L 01/13/20 04:27 Anion Gap 9.0 (6-13) 01/13/20 04:27 BUN 22 mg/dL (6-20) H 01/13/20 04:27 Creatinine 1.2 mg/dL (0.4-1.0) H 01/13/20 04:27 Estimated GFR (MDRD) 46 (>89) L 01/13/20 04:27 Glucose 116 mg/dL (70-100) H 01/13/20 04:27 Lactic Acid 1.7 mmol/L (0.5-2.2) 01/11/20 14:25 Calcium 8.0 mg/dL (8.5-10.3) L 01/13/20 04:27 Phosphorus 3.9 mg/dL (2.5-4.6) 01/12/20 04:45 Magnesium 2.5 mg/dL (1.7-2.8) 01/12/20 04:45 Total Bilirubin 6.1 mg/dL (0.2-1.0) H 01/13/20 04:27 AST 56 IU/L (10-42) H 01/13/20 04:27 ALT 28 IU/L (10-60) 01/13/20 04:27 Alkaline Phosphatase 87 IU/L (42-121) 01/13/20 04:27 Ammonia 46.1 umol/L (7-35) H 01/13/20 04:27 Total Protein 5.6 g/dL (6.7-8.2) L 01/13/20 04:27 Albumin 2.1 g/dL (3.2-5.5) L 01/13/20 04:27 Globulin 3.5 g/dL (2.1-4.2) 01/13/20 04:27 Albumin/Globulin Ratio 0.6 (1.0-2.2) L 01/13/20 04:27 Lipase 42 U/L (22-51) 01/11/20 14:25 Urine Color ORANGE 01/11/20 23:00 Urine Clarity CLEAR (CLEAR) 01/11/20 23:00 Urine pH 5.0 PH (5.0-7.5) 01/11/20 23:00 Ur Specific [place] 1.025 (1.002-1.030) 01/11/20 23:00 Urine Protein TRACE mg/dL (NEGATIVE) 01/11/20 23:00 Urine Glucose (UA) NEGATIVE mg/dL (NEGATIVE) 01/11/20 23:00 Urine Ketones TRACE mg/dL (NEGATIVE) 01/11/20 23:00 Urine Occult Blood NEGATIVE (NEGATIVE) 01/11/20 23:00 Urine Nitrite NEGATIVE (NEGATIVE) 01/11/20 23:00 Urine Bilirubin NEGATIVE (NEGATIVE) 01/11/20 23:00 Urine Urobilinogen 4 E.U./dL (NORMAL) H 01/11/20 23:00 Ur Leukocyte Esterase NEGATIVE (NEGATIVE) 01/11/20 23:00 Ur Microscopic Review NOT INDICATED 01/11/20 23:00 Urine Culture Comments NOT INDICATED 01/11/20 23:00 Nasal Screen MRSA (PCR) NEGATIVE (NEGATIVE) 01/12/20 08:15 Urine Opiates Screen NEGATIVE (NEGATIVE) 01/11/20 23:00 Ur Oxycodone Screen NEGATIVE (NEGATIVE) 01/11/20 23:00 Urine Methadone Screen NEGATIVE (NEGATIVE) 01/11/20 23:00 Ur Propoxyphene Screen NEGATIVE (NEGATIVE) 01/11/20 23:00 Ur Barbiturates Screen NEGATIVE (NEGATIVE) 01/11/20 23:00 Ur Tricyclics Screen NEGATIVE (NEGATIVE) 01/11/20 23:00 Ur Phencyclidine Scrn NEGATIVE (NEGATIVE) 01/11/20 23:00 Ur Amphetamine Screen NEGATIVE (NEGATIVE) 01/11/20 23:00 U Methamphetamines Scrn NEGATIVE (NEGATIVE) 01/11/20 23:00 U Benzodiazepines Scrn NEGATIVE (NEGATIVE) 01/11/20 23:00 Urine Cocaine Screen NEGATIVE (NEGATIVE) 01/11/20 23:00 U Cannabinoids Screen NEGATIVE (NEGATIVE) 01/11/20 23:00 Ethyl Alcohol < 5.0 mg/dL 01/11/20 14:25 Coronavirus (PCR) NEGATIVE 01/11/20 14:45 - Procedures Procedures: Procedures DRAINAGE OF PERITONEAL CAVITY, PERCUTANEOUS APPROACH (12/16/19)
[2020-01-14] MEDS: ALBUMIN 25% 12.5 GM/50 ML VIAL IV SCH (01:48)
[2020-01-14] MEDS: SODIUM CHLORIDE FLUSH 0.9% 10 ML SYRINGE IVP PRN ×4 (01:48→17:29)
[2020-01-14 05:50] LABS: BASOPHILS % (AUTO) 0.4 %; EOSINOPHILS # (AUTO) 0.2 10^3/uL (0.0-0.7); LYMPHOCYTES # (AUTO) 1.1 10^3/uL (1.5-3.5); LYMPHOCYTES % (AUTO) 10.1 %; MEAN CORPUSCULAR HEMOGLOBIN 38.3 pg (27.0-31.0); MEAN CORPUSCULAR HGB CONC 34.3 g/dL (32.0-36.0); MEAN CORPUSCULAR VOLUME 111.5 fL (81.0-99.0); MEAN PLATELET VOLUME 9.5 fL (7.9-10.8); MONOCYTES # (AUTO) 1.4 10^3/uL (0.0-1.0); NEUTROPHILS % (AUTO) 73.9 %; PLT - PLATELET COUNT 161 10^3/uL (130-450); RED BLOOD COUNT 1.83 10^6/uL (4.20-5.40); WHITE BLOOD COUNT 10.8 x10^3/uL (4.8-10.8)
[2020-01-14 05:52] LABS: ALBUMIN 2.8 g/dL (3.2-5.5); ALBUMIN/GLOBULIN RATIO 0.9 (1.0-2.2); CALCIUM 8.3 mg/dL (8.5-10.3); CREATININE 1.2 mg/dL (0.4-1.0); TOTAL PROTEIN 5.9 g/dL (6.7-8.2)
[2020-01-14 05:53] LABS: INR 1.7 (0.8-1.2); PT - PROTHROMBIN TIME 18.4 secs (9.9-12.6)
[2020-01-14] MEDS: PANTOPRAZOLE 40 MG TABLET PO SCH (06:23)
[2020-01-14 06:44] LABS: PLATELET ESTIMATE, MANUAL NORMAL (130-450,000) (NORMAL); PLATELET MORPHOLOGY NORMAL APPEARANCE (NORMAL)
[2020-01-14] MEDS: ACETAMINOPHEN 325 MG TABLET PO PRN (07:39)
[2020-01-14] MEDS ORDERED: traMADol 50 MG TABLET PO SCH (07:42)
[2020-01-14] MEDS ORDERED: HYDROCORTISONE SUCCINATE 100 MG/2 ML VIAL IVP SCH (08:00)
[2020-01-14] MEDS: cefTRIAXone 2 GM in SODIUM CHLORIDE 0.9% MINIBAG 100 ML IV SCH (09:00)
[2020-01-14] MEDS: SODIUM CHLORIDE FLUSH 0.9% 10 ML SYRINGE IVP SCH ×2 (09:01→17:01)
[2020-01-14] MEDS: FUROSEMIDE 20 MG/2 ML VIAL IVP SCH (09:01)
[2020-01-14] MEDS: HYDROCORTISONE SUCCINATE 100 MG/2 ML VIAL IVP SCH ×3 (11:21→22:28)
[2020-01-14] MEDS: MIDODRINE 2.5 MG TABLET PO SCH ×2 (13:55→22:28)
[2020-01-14] MEDS: SODIUM CHLORIDE 0.9% 500 ML IV PRN (14:20)
--- NOTE | 2020-01-14 15:46 | PROVIDER PROGRESS NOTE ---
Assessment/Plan - Problem List (1) Hypotension Assessment/Plan: She does not appear septic, euvolemic, this is not cardiogenic shock or septic shock. I suspect this is hypotension from liver failure, and then circulating metabolites like nitrous oxide that her liver cannot clear, are causing prolonged hypotension. Will empirically start Midodrin for blood pressure support and also give stress dose steroids with hydrocortisone 50 mg IV every 6 hours. This may help taper the Levophed to off. She would then be able to come out of the ICU. (2) Hyponatremia Assessment/Plan: She has slow improvement daily on very gentle IV saline. Cannot give aggressive saline replacement because she will get third spacing into her ascites (3) Ascites Qualifiers: Ascites type: due to alcoholic cirrhosis Qualified Code(s): K70.31 - Alcoholic cirrhosis of liver with ascites Assessment/Plan: Continue her diuretic for management, pain meds prn (4) Alcohol abuse Assessment/Plan: As per Hx. She did not go through alcohol withdrawal. SW is following (5) Macrocytic anemia Assessment/Plan: Related to alcohol abuse. Follow CBC daily (6) Elevated transaminase measurement Assessment/Plan: Slow improvement in LFTs since admission, related to alcohol abstinence (7) Weakness Assessment/Plan: Related to her alcohol abuse, poor nutrition and bedbound status in the ICU due to low BP. Not start physical therapy yet because of that low blood pressure (8) Elevated WBC count Assessment/Plan: This appears to be stable at a chronically elevated number. No signs of infection, no fever. - Current Meds Current Meds: Current Medications Generic Name Dose Route Start Last Admin Trade Name Ajq PRN Reason Stop Dose Admin Acetaminophen 650 mg 01/11/20 15:56 01/14/20 07:39 Tylenol PO 650 mg Q4HR PRN Administration Pain 1 to 4 Furosemide 20 mg 01/13/20 09:00 01/14/20 09:01 Lasix Inj 20mg Vial IVP 20 mg DAILY TANO Administration Hydrocortisone Sodium Succinate 50 mg 01/14/20 11:00 01/14/20 11:21 Solu-Cortef IVP 50 mg Q6H TANO Administration Ceftriaxone Sodium 2 gm/ 100 mls @ 200 mls/hr 01/12/20 22:48 01/14/20 09:30 Sodium Chloride IV Infused DAILY TANO Infusion Norepinephrine Bitartrate 8 mg 250 mls @ 15 mls/hr 01/12/20 08:00 01/14/20 15:00 / Dextrose IV 2 mcg/min .[id number] TANO 3.75 mls/hr Titration Protocol 8 MCG/MIN Sodium Chloride 500 mls @ 0 mls/hr 01/12/20 08:09 01/14/20 15:00 Normal Saline 0.9% IV 10 mls/hr Q24H PRN Infusion TKO RATE TKO Midodrine 5 mg 01/14/20 14:00 01/14/20 13:55 PO 5 mg TID TANO Administration Pantoprazole Sodium 40 mg 01/12/20 07:00 01/14/20 06:23 Protonix PO 40 mg QDAC TANO Administration Sodium Chloride 10 ml 01/11/20 15:56 01/14/20 04:23 Normal Saline Flush 0.9% IVP 10 ml PRN PRN Administration NEEDED PER PROVIDER ORDERS Sodium Chloride 10 ml 01/11/20 17:00 01/14/20 09:01 Normal Saline Flush 0.9% IVP 10 ml 0100,0900,1700 TANO Administration Sodium Chloride 20 ml 01/13/20 04:03 01/14/20 04:23 Normal Saline Flush 0.9% IVP 20 ml PRN PRN Administration After Blood Draw - Lab Result Fish Bone Diagrams: 01/15/20 05:05 01/15/20 05:05 - Additional Planning My Orders: My Active Orders 01/14/20 11:00 Hydrocortisone Succinate [Solu-CORTEF] 50 mg IVP Q6H 01/15/20 05:00 PT WITH INR [COAG] DAILYLAB 01/15/20 09:00 INR [WHOLE BLOOD PT/INR] [COAG] DAILY 01/16/20 09:00 INR [WHOLE BLOOD PT/INR] [COAG] DAILY Subjective - Subjective Patient Reports: No Complaints (She is in good spirits, cooperative, has good appetite. No pain complaints today), Pain (Having pain in both lower legs, like a cramp, improved by getting a dose of narcotics by the ICU nurse.) Objective Vital Signs: Vital Signs - 24 hr 01/13/20 01/13/20 01/13/20 15:50 16:00 16:50 Temperature 36.4 C L 36.4 C L Heart Rate [ 94 99 100 Monitoring electrodes] Respiratory 11 L 22 14 Rate Blood Pressure 88/52 L 102/63 91/52 L [Right Brachial artery] O2 Saturation 99 100 94 01/13/20 01/13/20 01/13/20 18:00 18:59 20:00 Temperature 36.6 C Heart Rate [ 101 H 100 102 H Monitoring electrodes] Respiratory 14 12 14 Rate Blood Pressure 95/64 97/64 92/52 L [Right Brachial artery] O2 Saturation 99 94 98 01/13/20 01/13/20 01/13/20 21:00 22:00 23:00 Temperature 36.4 C L Heart Rate [ 100 102 H 102 H Monitoring electrodes] Respiratory 11 L 14 16 Rate Blood Pressure 95/63 94/52 L 101/61 [Right Brachial artery] O2 Saturation 96 96 98 01/14/20 01/14/20 01/14/20 00:00 01:00 02:00 Temperature 36.6 C 36.6 C Heart Rate [ 98 107 H 103 H Monitoring electrodes] Respiratory 12 16 17 Rate Blood Pressure 99/54 L 107/64 89/61 L [Right Brachial artery] O2 Saturation 100 96 96 01/14/20 01/14/20 01/14/20 03:00 04:00 05:00 Temperature 36.9 C Heart Rate [ 103 H 100 96 Monitoring electrodes] Respiratory 14 11 L 14 Rate Blood Pressure 100/58 L 97/58 L 94/57 L [Right Brachial artery] O2 Saturation 96 96 96 01/14/20 01/14/20 01/14/20 06:00 07:00 08:00 Temperature 36.7 C 36.4 C L Heart Rate [ 104 H 98 103 H Monitoring electrodes] Respiratory 16 17 16 Rate Blood Pressure 100/55 L 95/53 L 96/60 [Right Brachial artery] O2 Saturation 95 97 95 01/14/20 01/14/20 01/14/20 09:00 10:00 11:00 Temperature Heart Rate [ 101 H 95 93 Monitoring electrodes] Respiratory 16 12 10 L Rate Blood Pressure 93/54 L 95/56 L 99/59 L [Right Brachial artery] O2 Saturation 96 01/14/20 01/14/20 01/14/20 12:00 13:00 14:00 Temperature 36.6 C Heart Rate [ 96 93 95 Monitoring electrodes] Respiratory 16 12 12 Rate Blood Pressure 97/67 90/58 L 89/60 L [Right Brachial artery] O2 Saturation 94 96 01/14/20 15:00 Temperature Heart Rate [ 98 Monitoring electrodes] Respiratory 14 Rate Blood Pressure 91/63 [Right Brachial artery] O2 Saturation 96 Oxygen O2 Source [With Activity] Room air O2 Source Room air I&O (Last 24 Hrs): Intake and Output Totals x24h 01/12/20 01/13/20 01/14/20 23:59 23:59 23:59 Intake Total 3921.756 9737.00 1054.584 Output Total 375 522 546 Balance 1246.784 628.00 508.584 General: Alert, Oriented x3 HEENT: Mucous membr. moist/pink, Other (Cachectic) Neck: Supple Neuro: Alert, Non Focal Cardiovascular: No murmurs Respiratory: No respiratory distress Abdomen: Other (Distended) Extremities: Other (trace edema) - Results Results: Laboratory Results WBC 10.8 x10^3/uL (4.8-10.8) 01/14/20 04:15 RBC 1.83 10^6/uL (4.20-5.40) L 01/14/20 04:15 Hgb 7.0 g/dL (12.0-16.0) L* 01/14/20 04:15 Hct 20.4 % (37.0-47.0) L 01/14/20 04:15 MCV 111.5 fL (81.0-99.0) H 01/14/20 04:15 MCH 38.3 pg (27.0-31.0) H 01/14/20 04:15 MCHC 34.3 g/dL (32.0-36.0) 01/14/20 04:15 RDW 15.0 % (12.0-15.0) 01/14/20 04:15 Plt Count 161 10^3/uL (130-450) 01/14/20 04:15 MPV 9.5 fL (7.9-10.8) 01/14/20 04:15 Neut # (Auto) 8.0 10^3/uL (1.5-6.6) H 01/14/20 04:15 Lymph # (Auto) 1.1 10^3/uL (1.5-3.5) L 01/14/20 04:15 [place] # (Auto) 1.4 10^3/uL (0.0-1.0) H 01/14/20 04:15 Eos # (Auto) 0.2 10^3/uL (0.0-0.7) 01/14/20 04:15 Baso # (Auto) 0.0 10^3/uL (0.0-0.1) 01/14/20 04:15 Absolute Nucleated RBC 0.00 x10^3/uL 01/14/20 04:15 Nucleated RBC % 0.0 /100WBC 01/14/20 04:15 Manual Slide Review Indicated 01/14/20 04:15 WBC Morphology NORMAL APPEARANCE (NORMAL) 01/14/20 04:15 Platelet Estimate NORMAL (130-450,000) (NORMAL) 01/14/20 04:15 Platelet Morphology NORMAL APPEARANCE (NORMAL) 01/14/20 04:15 RBC Morph Micro Appear 3+ MACROCYTOSIS (NORMAL) 01/12/20 04:45 RBC Morph Micro Appear 1+ HYPOCHROMASIA (NORMAL) 3+ MACROCYTOSIS (NORMAL) 01/13/20 04:27 RBC Morph Micro Appear 1+ HYPOCHROMASIA (NORMAL) 3+ MACROCYTOSIS (NORMAL) 01/13/20 04:27 RBC Morph Micro Appear 1+ HYPOCHROMASIA (NORMAL) 2+ MACROCYTOSIS (NORMAL) 01/14/20 04:15 RBC Morph Micro Appear 1+ HYPOCHROMASIA (NORMAL) 2+ MACROCYTOSIS (NORMAL) 01/14/20 04:15 PT 18.4 secs (9.9-12.6) H 01/14/20 04:15 INR 1.7 (0.8-1.2) H 01/14/20 04:15 Whole Blood INR 1.4 (0.8-1.2) H 01/14/20 09:06 Sodium 123 mmol/L (135-145) L 01/14/20 04:15 Potassium 4.4 mmol/L (3.5-5.0) 01/14/20 04:15 Chloride 94 mmol/L (101-111) L 01/14/20 04:15 Carbon Dioxide 18 mmol/L (21-32) L 01/14/20 04:15 Anion Gap 11.0 (6-13) 01/14/20 04:15 BUN 24 mg/dL (6-20) H 01/14/20 04:15 Creatinine 1.2 mg/dL (0.4-1.0) H 01/14/20 04:15 Estimated GFR (MDRD) 46 (>89) L 01/14/20 04:15 Glucose 117 mg/dL (70-100) H 01/14/20 04:15 Lactic Acid 1.7 mmol/L (0.5-2.2) 01/11/20 14:25 Calcium 8.3 mg/dL (8.5-10.3) L 01/14/20 04:15 Phosphorus 3.9 mg/dL (2.5-4.6) 01/12/20 04:45 Magnesium 2.7 mg/dL (1.7-2.8) 01/14/20 04:15 Total Bilirubin 5.0 mg/dL (0.2-1.0) H 01/14/20 04:15 AST 46 IU/L (10-42) H 01/14/20 04:15 ALT 24 IU/L (10-60) 01/14/20 04:15 Alkaline Phosphatase 89 IU/L (42-121) 01/14/20 04:15 Ammonia 46.1 umol/L (7-35) H 01/13/20 04:27 Total Protein 5.9 g/dL (6.7-8.2) L 01/14/20 04:15 Albumin 2.8 g/dL (3.2-5.5) L 01/14/20 04:15 Globulin 3.1 g/dL (2.1-4.2) 01/14/20 04:15 Albumin/Globulin Ratio 0.9 (1.0-2.2) L 01/14/20 04:15 Lipase 42 U/L (22-51) 01/11/20 14:25 Urine Color ORANGE 01/11/20 23:00 Urine Clarity CLEAR (CLEAR) 01/11/20 23:00 Urine pH 5.0 PH (5.0-7.5) 01/11/20 23:00 Ur Specific [place] 1.025 (1.002-1.030) 01/11/20 23:00 Urine Protein TRACE mg/dL (NEGATIVE) 01/11/20 23:00 Urine Glucose (UA) NEGATIVE mg/dL (NEGATIVE) 01/11/20 23:00 Urine Ketones TRACE mg/dL (NEGATIVE) 01/11/20 23:00 Urine Occult Blood NEGATIVE (NEGATIVE) 01/11/20 23:00 Urine Nitrite NEGATIVE (NEGATIVE) 01/11/20 23:00 Urine Bilirubin NEGATIVE (NEGATIVE) 01/11/20 23:00 Urine Urobilinogen 4 E.U./dL (NORMAL) H 01/11/20 23:00 Ur Leukocyte Esterase NEGATIVE (NEGATIVE) 01/11/20 23:00 Ur Microscopic Review NOT INDICATED 01/11/20 23:00 Urine Culture Comments NOT INDICATED 01/11/20 23:00 Nasal Screen MRSA (PCR) NEGATIVE (NEGATIVE) 01/12/20 08:15 Urine Opiates Screen NEGATIVE (NEGATIVE) 01/11/20 23:00 Ur Oxycodone Screen NEGATIVE (NEGATIVE) 01/11/20 23:00 Urine Methadone Screen NEGATIVE (NEGATIVE) 01/11/20 23:00 Ur Propoxyphene Screen NEGATIVE (NEGATIVE) 01/11/20 23:00 Ur Barbiturates Screen NEGATIVE (NEGATIVE) 01/11/20 23:00 Ur Tricyclics Screen NEGATIVE (NEGATIVE) 01/11/20 23:00 Ur Phencyclidine Scrn NEGATIVE (NEGATIVE) 01/11/20 23:00 Ur Amphetamine Screen NEGATIVE (NEGATIVE) 01/11/20 23:00 U Methamphetamines Scrn NEGATIVE (NEGATIVE) 01/11/20 23:00 U Benzodiazepines Scrn NEGATIVE (NEGATIVE) 01/11/20 23:00 Urine Cocaine Screen NEGATIVE (NEGATIVE) 01/11/20 23:00 U Cannabinoids Screen NEGATIVE (NEGATIVE) 01/11/20 23:00 Ethyl Alcohol < 5.0 mg/dL 01/11/20 14:25 Coronavirus (PCR) NEGATIVE 01/11/20 14:45 - Procedures Procedures: Procedures DRAINAGE OF PERITONEAL CAVITY, PERCUTANEOUS APPROACH (12/16/19)
[2020-01-15] MEDS: SODIUM CHLORIDE FLUSH 0.9% 10 ML SYRINGE IVP SCH ×3 (00:15→17:25)
[2020-01-15] MEDS: HYDROCORTISONE SUCCINATE 100 MG/2 ML VIAL IVP SCH ×4 (05:08→22:45)
[2020-01-15] MEDS: SODIUM CHLORIDE FLUSH 0.9% 10 ML SYRINGE IVP PRN ×4 (05:08→22:45)
[2020-01-15 05:39] LABS: BASOPHILS % (AUTO) 0.1 %; HGB - HEMOGLOBIN 7.1 g/dL (12.0-16.0); LYMPHOCYTES # (AUTO) 0.8 10^3/uL (1.5-3.5); MEAN CORPUSCULAR HEMOGLOBIN 37.2 pg (27.0-31.0); MEAN CORPUSCULAR HGB CONC 33.5 g/dL (32.0-36.0); MEAN PLATELET VOLUME 9.6 fL (7.9-10.8); MONOCYTES # (AUTO) 0.8 10^3/uL (0.0-1.0); MONOCYTES % (AUTO) 6.6 %; NEUTROPHILS # (AUTO) 9.8 10^3/uL (1.5-6.6); NEUTROPHILS % (AUTO) 85.8 %; PLT - PLATELET COUNT 158 10^3/uL (130-450); RED BLOOD COUNT 1.91 10^6/uL (4.20-5.40); RED CELL DISTRIBUTION WIDTH 14.7 % (12.0-15.0); WHITE BLOOD COUNT 11.4 x10^3/uL (4.8-10.8)
[2020-01-15 05:43] LABS: INR 1.6 (0.8-1.2); PT - PROTHROMBIN TIME 17.5 secs (9.9-12.6)
[2020-01-15 05:50] LABS: ALBUMIN 2.5 g/dL (3.2-5.5); ALBUMIN/GLOBULIN RATIO 0.7 (1.0-2.2); BILIRUBIN,TOTAL 3.9 mg/dL (0.2-1.0); CALCIUM 8.3 mg/dL (8.5-10.3); CREATININE 1.3 mg/dL (0.4-1.0); MAGNESIUM 2.4 mg/dL (1.7-2.8); PHOSPHORUS 4.5 mg/dL (2.5-4.6); TOTAL PROTEIN 6.1 g/dL (6.7-8.2)
[2020-01-15 06:00] LABS: PLATELET ESTIMATE, MANUAL NORMAL (130-450,000) (NORMAL); PLATELET MORPHOLOGY NORMAL APPEARANCE (NORMAL)
[2020-01-15] MEDS: MIDODRINE 2.5 MG TABLET PO SCH ×3 (06:37→21:01)
[2020-01-15] MEDS: PANTOPRAZOLE 40 MG TABLET PO SCH (06:37)
[2020-01-15] MEDS: cefTRIAXone 2 GM in SODIUM CHLORIDE 0.9% MINIBAG 100 ML IV SCH (09:08)
[2020-01-15] MEDS: polyethylene glycoL 3350 17 GM PACKET PO SCH (09:10)
[2020-01-15] MEDS: FUROSEMIDE 20 MG/2 ML VIAL IVP SCH (09:10)
[2020-01-15] MEDS: PRENATAL VITAMIN TABLET PO SCH (11:29)
[2020-01-15] MEDS: THIAMINE 100 MG TABLET PO SCH (11:29)
--- NOTE | 2020-01-15 20:18 | PROVIDER PROGRESS NOTE ---
Assessment/Plan - Problem List (1) Hypotension Assessment/Plan: She required several days of Levophed in the ICU, was then transition to getting Midrin plus started on empiric stress dose steroids with hydrocodone disown 50 mg IV every 6 hours. The Levophed has been off since midnight. We will transfer her out of the ICU and continue the other management, she will need to taper down off the steroid. (2) Hyponatremia Assessment/Plan: She has very slow improvement daily, this is because excessive saline infusion cannot be used in her due to her ascites. Continue with free water restriction and some iv hydration if needed. (3) Ascites Qualifiers: Ascites type: due to alcoholic cirrhosis Qualified Code(s): K70.31 - Alcoholic cirrhosis of liver with ascites Assessment/Plan: She did receive IV infusion of albumen and saline this admission, this is likely added to her ascites. Continue diuretics. Try to increase her mobilization. (4) Alcohol abuse Assessment/Plan: Patient admitted to [facility] and is interested in attending inpatient alcohol rehab when she is medically cleared. Social work is following along (5) Macrocytic anemia Assessment/Plan: Related to alcohol. Thiamine and vitamins are ordered. Follow H/H daily. Transfuse if Hgb <7. (6) Elevated transaminase measurement Assessment/Plan: Alcohol-related transaminitis. These values have decreased since she has had no alcohol intake since admission. (7) Weakness Assessment/Plan: Will start physical therapy and OT today. Prior to this her severe hypotension precluded ordering PT. (8) Elevated WBC count Assessment/Plan: She runs a white blood count of 10.5-12.5. There is been no fever. There are no signs of SBP. - Current Meds Current Meds: Current Medications Generic Name Dose Route Start Last Admin Trade Name Freq PRN Reason Stop Dose Admin Acetaminophen 650 mg 01/11/20 15:56 01/14/20 07:39 Tylenol PO 650 mg Q4HR PRN Administration Pain 1 to 4 Furosemide 20 mg 01/13/20 09:00 01/15/20 09:10 Lasix Inj 20mg Vial IVP 20 mg DAILY TANO Administration Hydrocortisone Sodium Succinate 50 mg 01/14/20 11:00 01/15/20 17:25 Solu-Cortef IVP 50 mg Q6H TANO Administration Ceftriaxone Sodium 2 gm/ 100 mls @ 200 mls/hr 01/12/20 22:48 01/15/20 09:38 Sodium Chloride IV Infused DAILY TANO Infusion Norepinephrine Bitartrate 8 mg 250 mls @ 15 mls/hr 01/12/20 08:00 01/15/20 05:13 / Dextrose IV Not Given .[id number] TANO Protocol 8 MCG/MIN Sodium Chloride 500 mls @ 0 mls/hr 01/12/20 08:09 01/14/20 19:00 Normal Saline 0.9% IV 10 mls/hr Q24H PRN Infusion TKO RATE TKO Midodrine 5 mg 01/14/20 14:00 01/15/20 14:35 PO 5 mg TID TANO Administration Pantoprazole Sodium 40 mg 01/12/20 07:00 01/15/20 06:37 Protonix PO 40 mg QDAC TANO Administration Polyethylene Glycol 17 gm 01/15/20 09:00 01/15/20 09:10 Miralax PO Not Given DAILY TANO Multivit/Folic Acid/Iron 1 tab 01/15/20 10:00 01/15/20 11:29 Trinatal Rx 1 PO 1 tab DAILYWM TANO Administration Sodium Chloride 10 ml 01/11/20 15:56 01/15/20 09:10 Normal Saline Flush 0.9% IVP 10 ml PRN PRN Administration NEEDED PER PROVIDER ORDERS Sodium Chloride 10 ml 01/11/20 17:00 01/15/20 17:25 Normal Saline Flush 0.9% IVP 10 ml 0100,0900,1700 TANO Administration Sodium Chloride 20 ml 01/13/20 04:03 01/15/20 05:08 Normal Saline Flush 0.9% IVP 20 ml PRN PRN Administration After Blood Draw Thiamine HCl 100 mg 01/15/20 10:00 01/15/20 11:29 Vitamin B-1 PO 100 mg DAILY TANO Administration - Lab Result Fish Bone Diagrams: 01/15/20 05:05 01/15/20 05:05 - Additional Planning My Orders: My Active Orders 01/15/20 Evaluate and Treat OT [OT] Routine Evaluate and Treat PT [PT] Routine 01/15/20 09:00 polyethylene glycoL 3350 [Miralax] 17 gm PO DAILY 01/15/20 10:00 Vitamin [Trinatal Rx 1] 1 tab PO DAILYWM Thiamine [Vitamin B-1] 100 mg PO DAILY 01/15/20 Dinner Soft Mechanical Diet [DIET] 01/16/20 05:00 MAGNESIUM [CHEM] DAILYLAB PHOSPHORUS [CHEM] DAILYLAB 01/16/20 09:00 INR [WHOLE BLOOD PT/INR] [COAG] DAILY 01/17/20 05:00 MAGNESIUM [CHEM] DAILYLAB PHOSPHORUS [CHEM] DAILYLAB Subjective - Subjective Patient Reports: Feeling Better (Some right lateral abdominal pain and she feels that her ascites is more tense today but she is in very good spirits, has an appetite, is happy to be getting out of the ICU and starting physical therapy.) Objective Vital Signs: Vital Signs - 24 hr 01/14/20 01/14/20 01/14/20 21:00 22:00 23:00 Temperature Heart Rate [ Brachial] Heart Rate [ 94 99 100 Monitoring electrodes] Heart Rate [ Supine] Respiratory 15 14 15 Rate Blood Pressure 100/68 113/73 96/61 [Right Brachial artery] Blood Pressure [Supine] O2 Saturation 94 97 O2 Saturation [ Supine] 01/15/20 01/15/20 01/15/20 00:00 01:00 02:00 Temperature 98.1 C H Heart Rate [ Brachial] Heart Rate [ 94 95 92 Monitoring electrodes] Heart Rate [ Supine] Respiratory 8 L 9 L 9 L Rate Blood Pressure 93/60 94/61 91/59 L [Right Brachial artery] Blood Pressure [Supine] O2 Saturation 95 94 94 O2 Saturation [ Supine] 01/15/20 01/15/20 01/15/20 03:00 04:00 05:00 Temperature 36.6 C Heart Rate [ Brachial] Heart Rate [ 95 96 93 Monitoring electrodes] Heart Rate [ Supine] Respiratory 13 15 14 Rate Blood Pressure 103/62 108/64 95/63 [Right Brachial artery] Blood Pressure [Supine] O2 Saturation 94 95 96 O2 Saturation [ Supine] 01/15/20 01/15/20 01/15/20 06:00 07:00 08:00 Temperature 36.2 C L Heart Rate [ Brachial] Heart Rate [ 92 94 91 Monitoring electrodes] Heart Rate [ Supine] Respiratory 11 L 9 L 9 L Rate Blood Pressure 95/62 96/62 97/65 [Right Brachial artery] Blood Pressure [Supine] O2 Saturation 96 96 96 O2 Saturation [ Supine] 01/15/20 01/15/20 01/15/20 09:00 11:45 12:00 Temperature Heart Rate [ Brachial] Heart Rate [ 95 102 H Monitoring electrodes] Heart Rate [ 93 Supine] Respiratory 13 17 Rate Blood Pressure 100/73 108/65 [Right Brachial artery] Blood Pressure 109/63 [Supine] O2 Saturation 94 96 O2 Saturation [ Supine] 01/15/20 01/15/20 01/15/20 14:30 15:51 19:49 Temperature 36.4 C L 36.4 C L Heart Rate [ 92 Brachial] Heart Rate [ 92 Monitoring electrodes] Heart Rate [ 98 Supine] Respiratory 17 16 Rate Blood Pressure 100/60 96/63 [Right Brachial artery] Blood Pressure 114/82 H [Supine] O2 Saturation 99 98 O2 Saturation [ 98 Supine] Oxygen O2 Source [With Activity] Room air O2 Source Room air I&O (Last 24 Hrs): Intake and Output Totals x24h 01/13/20 01/14/20 01/15/20 23:59 23:59 23:59 Intake Total 1150.00 1323.020 800.353 Output Total 486 689 5831 Balance 628.00 450.020 -356.647 General: Alert, Oriented x3 HEENT: Mucous membr. moist/pink, Other (Very poor dental hygiene) Neck: Supple Neuro: Alert, Non Focal Cardiovascular: Regular rate, No murmurs Respiratory: No respiratory distress, Breath sounds nml Abdomen: Other (Very distended with tense ascites) Extremities: Other (1+ leg edema) - Results Results: Laboratory Results WBC 11.4 x10^3/uL (4.8-10.8) H 01/15/20 05:05 RBC 1.91 10^6/uL (4.20-5.40) L 01/15/20 05:05 Hgb 7.1 g/dL (12.0-16.0) L 01/15/20 05:05 Hct 21.2 % (37.0-47.0) L 01/15/20 05:05 MCV 111.0 fL (81.0-99.0) H 01/15/20 05:05 MCH 37.2 pg (27.0-31.0) H 01/15/20 05:05 MCHC 33.5 g/dL (32.0-36.0) 01/15/20 05:05 RDW 14.7 % (12.0-15.0) 01/15/20 05:05 Plt Count 158 10^3/uL (130-450) 01/15/20 05:05 MPV 9.6 fL (7.9-10.8) 01/15/20 05:05 Neut # (Auto) 9.8 10^3/uL (1.5-6.6) H 01/15/20 05:05 Lymph # (Auto) 0.8 10^3/uL (1.5-3.5) L 01/15/20 05:05 [place] # (Auto) 0.8 10^3/uL (0.0-1.0) 01/15/20 05:05 Eos # (Auto) 0.0 10^3/uL (0.0-0.7) 01/15/20 05:05 Baso # (Auto) 0.0 10^3/uL (0.0-0.1) 01/15/20 05:05 Absolute Nucleated RBC 0.00 x10^3/uL 01/15/20 05:05 Nucleated RBC % 0.0 /100WBC 01/15/20 05:05 Manual Slide Review Indicated 01/15/20 05:05 WBC Morphology NORMAL APPEARANCE (NORMAL) 01/14/20 04:15 Platelet Estimate NORMAL (130-450,000) (NORMAL) 01/15/20 05:05 Platelet Morphology NORMAL APPEARANCE (NORMAL) 01/15/20 05:05 RBC Morph Micro Appear 1+ HYPOCHROMASIA (NORMAL) 3+ MACROCYTOSIS (NORMAL) 01/13/20 04:27 RBC Morph Micro Appear 1+ HYPOCHROMASIA (NORMAL) 3+ MACROCYTOSIS (NORMAL) 01/13/20 04:27 RBC Morph Micro Appear 1+ HYPOCHROMASIA (NORMAL) 2+ MACROCYTOSIS (NORMAL) 01/14/20 04:15 RBC Morph Micro Appear 1+ HYPOCHROMASIA (NORMAL) 2+ MACROCYTOSIS (NORMAL) 01/14/20 04:15 RBC Morph Micro Appear 2+ MACROCYTOSIS (NORMAL) 1+ HYPOCHROMASIA (NORMAL) 01/15/20 05:05 RBC Morph Micro Appear 2+ MACROCYTOSIS (NORMAL) 1+ HYPOCHROMASIA (NORMAL) 01/15/20 05:05 PT 17.5 secs (9.9-12.6) H 01/15/20 05:05 INR 1.6 (0.8-1.2) H 01/15/20 05:05 Whole Blood INR 1.3 (0.8-1.2) H 01/15/20 09:05 Sodium 123 mmol/L (135-145) L 01/15/20 05:05 Potassium 4.2 mmol/L (3.5-5.0) 01/15/20 05:05 Chloride 94 mmol/L (101-111) L 01/15/20 05:05 Carbon Dioxide 19 mmol/L (21-32) L 01/15/20 05:05 Anion Gap 10.0 (6-13) 01/15/20 05:05 BUN 27 mg/dL (6-20) H 01/15/20 05:05 Creatinine 1.3 mg/dL (0.4-1.0) H 01/15/20 05:05 Estimated GFR (MDRD) 42 (>89) L 01/15/20 05:05 Glucose 160 mg/dL (70-100) H 01/15/20 05:05 Lactic Acid 1.7 mmol/L (0.5-2.2) 01/11/20 14:25 Calcium 8.3 mg/dL (8.5-10.3) L 01/15/20 05:05 Phosphorus 4.5 mg/dL (2.5-4.6) 01/15/20 05:05 Magnesium 2.4 mg/dL (1.7-2.8) 01/15/20 05:05 Total Bilirubin 3.9 mg/dL (0.2-1.0) H 01/15/20 05:05 AST 40 IU/L (10-42) 01/15/20 05:05 ALT 25 IU/L (10-60) 01/15/20 05:05 Alkaline Phosphatase 88 IU/L (42-121) 01/15/20 05:05 Ammonia 46.1 umol/L (7-35) H 01/13/20 04:27 Total Protein 6.1 g/dL (6.7-8.2) L 01/15/20 05:05 Albumin 2.5 g/dL (3.2-5.5) L 01/15/20 05:05 Globulin 3.6 g/dL (2.1-4.2) 01/15/20 05:05 Albumin/Globulin Ratio 0.7 (1.0-2.2) L 01/15/20 05:05 Lipase 42 U/L (22-51) 01/11/20 14:25 Urine Color ORANGE 01/11/20 23:00 Urine Clarity CLEAR (CLEAR) 01/11/20 23:00 Urine pH 5.0 PH (5.0-7.5) 01/11/20 23:00 Ur Specific [place] 1.025 (1.002-1.030) 01/11/20 23:00 Urine Protein TRACE mg/dL (NEGATIVE) 01/11/20 23:00 Urine Glucose (UA) NEGATIVE mg/dL (NEGATIVE) 01/11/20 23:00 Urine Ketones TRACE mg/dL (NEGATIVE) 01/11/20 23:00 Urine Occult Blood NEGATIVE (NEGATIVE) 01/11/20 23:00 Urine Nitrite NEGATIVE (NEGATIVE) 01/11/20 23:00 Urine Bilirubin NEGATIVE (NEGATIVE) 01/11/20 23:00 Urine Urobilinogen 4 E.U./dL (NORMAL) H 01/11/20 23:00 Ur Leukocyte Esterase NEGATIVE (NEGATIVE) 01/11/20 23:00 Ur Microscopic Review NOT INDICATED 01/11/20 23:00 Urine Culture Comments NOT INDICATED 01/11/20 23:00 Nasal Screen MRSA (PCR) NEGATIVE (NEGATIVE) 01/12/20 08:15 Urine Opiates Screen NEGATIVE (NEGATIVE) 01/11/20 23:00 Ur Oxycodone Screen NEGATIVE (NEGATIVE) 01/11/20 23:00 Urine Methadone Screen NEGATIVE (NEGATIVE) 01/11/20 23:00 Ur Propoxyphene Screen NEGATIVE (NEGATIVE) 01/11/20 23:00 Ur Barbiturates Screen NEGATIVE (NEGATIVE) 01/11/20 23:00 Ur Tricyclics Screen NEGATIVE (NEGATIVE) 01/11/20 23:00 Ur Phencyclidine Scrn NEGATIVE (NEGATIVE) 01/11/20 23:00 Ur Amphetamine Screen NEGATIVE (NEGATIVE) 01/11/20 23:00 U Methamphetamines Scrn NEGATIVE (NEGATIVE) 01/11/20 23:00 U Benzodiazepines Scrn NEGATIVE (NEGATIVE) 01/11/20 23:00 Urine Cocaine Screen NEGATIVE (NEGATIVE) 01/11/20 23:00 U Cannabinoids Screen NEGATIVE (NEGATIVE) 01/11/20 23:00 Ethyl Alcohol < 5.0 mg/dL 01/11/20 14:25 Coronavirus (PCR) NEGATIVE 01/11/20 14:45 - Procedures Procedures: Procedures DRAINAGE OF PERITONEAL CAVITY, PERCUTANEOUS APPROACH (12/16/19)
[2020-01-16 05:53] LABS: BASOPHILS % (AUTO) 0.2 %; HGB - HEMOGLOBIN 7.5 g/dL (12.0-16.0); LYMPHOCYTES # (AUTO) 0.8 10^3/uL (1.5-3.5); LYMPHOCYTES % (AUTO) 5.9 %; MEAN CORPUSCULAR HEMOGLOBIN 38.5 pg (27.0-31.0); MEAN CORPUSCULAR HGB CONC 34.4 g/dL (32.0-36.0); MEAN CORPUSCULAR VOLUME 111.8 fL (81.0-99.0); MEAN PLATELET VOLUME 9.7 fL (7.9-10.8); MONOCYTES # (AUTO) 1.3 10^3/uL (0.0-1.0); NEUTROPHILS # (AUTO) 10.8 10^3/uL (1.5-6.6); PLT - PLATELET COUNT 163 10^3/uL (130-450); RED BLOOD COUNT 1.95 10^6/uL (4.20-5.40); RED CELL DISTRIBUTION WIDTH 14.6 % (12.0-15.0); WHITE BLOOD COUNT 12.9 x10^3/uL (4.8-10.8)
[2020-01-16 06:07] LABS: ALBUMIN 2.3 g/dL (3.2-5.5); ALBUMIN/GLOBULIN RATIO 0.6 (1.0-2.2); BILIRUBIN,TOTAL 3.2 mg/dL (0.2-1.0); CALCIUM 8.7 mg/dL (8.5-10.3); CREATININE 1.1 mg/dL (0.4-1.0); MAGNESIUM 2.2 mg/dL (1.7-2.8)
[2020-01-16] MEDS: MIDODRINE 2.5 MG TABLET PO SCH ×3 (06:09→21:53)
[2020-01-16] MEDS: SODIUM CHLORIDE FLUSH 0.9% 10 ML SYRINGE IVP SCH ×3 (06:09→17:18)
[2020-01-16] MEDS: PANTOPRAZOLE 40 MG TABLET PO SCH (06:09)
[2020-01-16] MEDS: SODIUM CHLORIDE FLUSH 0.9% 10 ML SYRINGE IVP PRN ×2 (06:10)
[2020-01-16] MEDS: HYDROCORTISONE SUCCINATE 100 MG/2 ML VIAL IVP SCH ×2 (06:15→17:18)
[2020-01-16 06:20] LABS: PLATELET ESTIMATE, MANUAL NORMAL (130-450,000) (NORMAL); PLATELET MORPHOLOGY NORMAL APPEARANCE (NORMAL)
--- NOTE | 2020-01-16 08:32 | PROVIDER PROGRESS NOTE ---
Subjective - Prog Note Date Prog Note Date: 01/16/20 - Subjective Subjective: She reports feeling better today. Still has occasional right-sided abdominal pain. She is able to tolerate a diet. Reports no nausea or vomiting. Denies any chest pain or dyspnea. Current Medications - Current Medications Current Medications: Active Medications Acetaminophen (Tylenol) 650 mg PO Q4HR PRN PRN Reason: Pain 1 to 4 Last Admin: 01/14/20 07:39 Dose: 650 mg Heparin Sodium (Beef Lung) () 30 - 50 unit IVP PRN PRN PRN Reason: Central Line Protocol (<24 hr) Last Admin: 01/16/20 06:10 Dose: 50 unit Hydrocortisone Sodium Succinate (Solu-Cortef) 50 mg IVP Q12H [facility] Ceftriaxone Sodium 2 gm/ (Sodium Chloride) 100 mls @ 200 mls/hr IV DAILY [facility] Last Infusion: 01/16/20 09:21 Dose: Infused Lorazepam (Ativan) 0.5 mg PO Q3H PRN; Protocol PRN Reason: CIWA > 8 Midodrine () 5 mg PO TID [facility] Last Admin: 01/16/20 13:29 Dose: 5 mg Mineral Oil (Cavilon) 1 applic TOP PRN PRN PRN Reason: Skin Care Ondansetron HCl (Zofran Inj) 4 mg IVP Q6HR PRN PRN Reason: Nausea / Vomiting Pantoprazole Sodium (Protonix) 40 mg PO QDAC [facility] Last Admin: 01/16/20 06:09 Dose: 40 mg Polyethylene Glycol (Miralax) 17 gm PO DAILY [facility] Last Admin: 01/16/20 08:52 Dose: 17 gm Multivit/Folic Acid/Iron (Trinatal Rx 1) 1 tab PO DAILYWM [facility] Last Admin: 01/16/20 09:00 Dose: 1 tab Sodium Chloride (Normal Saline Flush 0.9%) 10 ml IVP PRN PRN PRN Reason: NEEDED PER PROVIDER ORDERS Last Admin: 01/16/20 06:10 Dose: 10 ml Sodium Chloride (Normal Saline Flush 0.9%) 10 ml IVP 0100,0900,1700 [facility] Last Admin: 01/16/20 09:00 Dose: 10 ml Sodium Chloride (Normal Saline Flush 0.9%) 20 ml IVP PRN PRN PRN Reason: After Blood Draw Last Admin: 01/16/20 06:10 Dose: 20 ml Thiamine HCl (Vitamin B-1) 100 mg PO DAILY TANO Last Admin: 01/16/20 08:59 Dose: 100 mg No Known Home Medications 01/11/20 Objective - Vital Signs/Intake & Output Reviewed Vital Signs: Yes Vital Signs: Vital Signs x48h Temp Pulse Resp BP Pulse Ox 01/16/20 03:02 36.3 C L 95 16 105/58 L 99 Intake & Output: Intake & Output 01/13/20 01/14/20 01/15/20 01/16/20 23:59 23:59 23:59 23:59 Intake Total 1150.00 0343.269 7453.353 50 Output Total 030 204 2326 350 Balance 628.00 450.020 -336.647 -300 - Objective General Appearance: positive: No acute distress, Alert, Mild distress ENT: positive: ENT inspection nml Neck: positive: Nml inspection Respiratory: positive: No respiratory distress. negative: Wheezes, Rales, Rhonchi Cardiovascular: positive: Regular rate & rhythm, No murmur. negative: Tachycardia Abdomen: positive: Non-tender, Nml bowel sounds, Other (Her abdomen is distended.). negative: No organomegaly, No distention, Tenderness, Guarding, Rebound Skin: positive: Warm, Dry Extremities: positive: Pedal edema (She has trace to +1 pitting edema in her bilateral lower extremities) Neurologic/Psychiatric: positive: Oriented x3, Other (She has no focal motor deficits.) - Lab Results Fish Bones: 01/16/20 05:01/16/20 05:20 Other Labs: Lab Results x24hrs 01/16/20 01/16/20 01/15/20 Range/Units 05: 05:20 09:05 WBC 12.9 H (4.8-10.8) x10^3/uL RBC 1.95 L (4.20-5.40) 10^6/uL Hgb 7.5 L (12.0-16.0) g/dL Hct 21.8 L (37.0-47.0) % MCV 111.8 H (81.0-99.0) fL MCH 38.5 H (27.0-31.0) pg MCHC 34.4 (32.0-36.0) g/dL RDW 14.6 (12.0-15.0) % Plt Count 163 (130-450) 10^3/uL MPV 9.7 (7.9-10.8) fL Neut # (Auto) 10.8 H (1.5-6.6) 10^3/uL Lymph # (Auto) 0.8 L (1.5-3.5) 10^3/uL [place] # (Auto) 1.3 H (0.0-1.0) 10^3/uL Eos # (Auto) 0.0 (0.0-0.7) 10^3/uL Baso # (Auto) 0.0 (0.0-0.1) 10^3/uL Absolute Nucleated RBC 0.00 x10^3/uL Nucleated RBC % 0.0 /100WBC Manual Slide Review Indicated WBC Morphology NORMAL APPEARANCE (NORMAL) Platelet Estimate NORMAL (130-450,000) (NORMAL) Platelet Morphology NORMAL APPEARANCE (NORMAL) RBC Morph Micro Appear 1+ MICROCYTOSIS (NORMAL) Whole Blood INR 1.3 H (0.8-1.2) Sodium 126 L (135-145) mmol/L Potassium 4.4 (3.5-5.0) mmol/L Chloride 95 L (101-111) mmol/L Carbon Dioxide 22 (21-32) mmol/L Anion Gap 9.0 (6-13) BUN 30 H (6-20) mg/dL Creatinine 1.1 H (0.4-1.0) mg/dL Estimated GFR (MDRD) 50 L (>89) Glucose 127 H (70-100) mg/dL Calcium 8.7 (8.5-10.3) mg/dL Phosphorus 4.0 (2.5-4.6) mg/dL Magnesium 2.2 (1.7-2.8) mg/dL Total Bilirubin 3.2 H (0.2-1.0) mg/dL AST 44 H (10-42) IU/L ALT 28 (10-60) IU/L Alkaline Phosphatase 98 (42-121) IU/L Total Protein 6.0 L (6.7-8.2) g/dL Albumin 2.3 L (3.2-5.5) g/dL Globulin 3.7 (2.1-4.2) g/dL Albumin/Globulin Ratio 0.6 L (1.0-2.2) Assessment/Plan - Problem List (1) Hypotension Impression: She was hypotensive requiring norepinephrine in the intensive care unit. It was felt that this may be secondary to decreased clearance of vasodilators given her cirrhosis. She has been started on midodrine and stress dose steroids. Her blood pressure has remained stable today with systolic in the 100's. We will wean his stress dose steroids 50 mg every 12 today and hope to discontinue tomorrow. We will continue with midodrine and decrease the dose as tolerated. (2) Hyponatremia Impression: Sodium was decreased at 118 on admission is improved to 126 today. This is likely hypervolemic hyponatremia secondary to her cirrhosis. Continue with oral diuretics. (3) Alcohol abuse Impression: She has not gone through withdrawal during this hospitalization. Continue thiamine and folate. She is open to rehab on discharge and social work has been consulted for (4) Elevated WBC count Impression: Her white count has been elevated during this hospitalization and I suspect this may be due to hemoconcentration as her platelet count is also elevated compared to baseline. She received IV fluids but due to her cirrhosis, she has third spacing. She has been on ceftriaxone empirically for SBP prophylaxis but clinically there is no signs of SBP. We will continue to trend her white count but given her anemia, she may also need to be transfused 1 unit of packed red blood cells and this may be a colloid she requires to maintain intravascular volume. We will continue to monitor for signs of infection (5) Liver cirrhosis, alcoholic Impression: Secondary to alcohol use. Her LFTs are improving. She does have ascites on exam but I do not believe paracentesis is warranted at the moment. We will continue to trend her LFTs. She would benefit from gastroenterology follow-up on discharge. Qualifiers: Ascites presence: with ascites Qualified Code(s): K70.31 - Alcoholic c irrhosis of liver with ascites (6) Weakness Impression: Likely multifactorial and secondary to anemia and deconditioning. He has been consulted and appreciate their recommendations. We will continue to trend her hemoglobin and she may ultimately need to be transfused which may improve her weakness. (7) Macrocytic anemia Impression: Secondary to her alcohol use. Hemoglobin was as low as 7.0 but she has not requ ired transfusion. Today it is 7.5. We will obtain a type and screen and continue to monitor her hemoglobin. She may ultimately need 1 unit of packed red blood cells this anemia is likely contributing to her weakness and she may benefit from colloid as she appears intravascularly depleted given the hemoconcentration.
[2020-01-16] MEDS: cefTRIAXone 2 GM in SODIUM CHLORIDE 0.9% MINIBAG 100 ML IV SCH (08:51)
[2020-01-16] MEDS: polyethylene glycoL 3350 17 GM PACKET PO SCH (08:52)
[2020-01-16] MEDS: THIAMINE 100 MG TABLET PO SCH (08:59)
[2020-01-16] MEDS: PRENATAL VITAMIN TABLET PO SCH (09:00)
[2020-01-16] MEDS ORDERED: SENNA 8.6 MG TABLET PO PRN (21:37)
[2020-01-17] MEDS: SODIUM CHLORIDE FLUSH 0.9% 10 ML SYRINGE IVP SCH ×3 (01:47→19:03)
[2020-01-17] MEDS: HYDROCORTISONE SUCCINATE 100 MG/2 ML VIAL IVP SCH ×2 (05:50→18:07)
[2020-01-17] MEDS: MIDODRINE 2.5 MG TABLET PO SCH ×3 (05:51→22:21)
[2020-01-17] MEDS: PANTOPRAZOLE 40 MG TABLET PO SCH (05:51)
[2020-01-17] MEDS: SODIUM CHLORIDE FLUSH 0.9% 10 ML SYRINGE IVP PRN (05:52)
[2020-01-17 06:01] LABS: BASOPHILS % (AUTO) 0.2 %; HGB - HEMOGLOBIN 7.6 g/dL (12.0-16.0); LYMPHOCYTES % (AUTO) 10.9 %; MEAN CORPUSCULAR HEMOGLOBIN 36.9 pg (27.0-31.0); MEAN CORPUSCULAR HGB CONC 33.5 g/dL (32.0-36.0); MEAN CORPUSCULAR VOLUME 110.2 fL (81.0-99.0); MEAN PLATELET VOLUME 9.9 fL (7.9-10.8); MONOCYTES % (AUTO) 14.3 %; NEUTROPHILS % (AUTO) 73.8 %; PLT - PLATELET COUNT 173 10^3/uL (130-450); RED BLOOD COUNT 2.06 10^6/uL (4.20-5.40); RED CELL DISTRIBUTION WIDTH 14.5 % (12.0-15.0); WHITE BLOOD COUNT 12.3 x10^3/uL (4.8-10.8)
[2020-01-17 06:09] LABS: ALBUMIN 2.3 g/dL (3.2-5.5); ALBUMIN/GLOBULIN RATIO 0.6 (1.0-2.2); BILIRUBIN,TOTAL 3.4 mg/dL (0.2-1.0); CREATININE 1.1 mg/dL (0.4-1.0); MAGNESIUM 2.1 mg/dL (1.7-2.8); PHOSPHORUS 3.7 mg/dL (2.5-4.6); TOTAL PROTEIN 5.9 g/dL (6.7-8.2)
[2020-01-17 06:29] LABS: ABNORMAL LYMPHS % (MANUAL) 0 %
[2020-01-17 06:58] LABS: BAND NEUTROPHILS % (MANUAL) 1 %; LYMPHOCYTES # (MANUAL) 1.5 10^3/uL (1.5-3.5); LYMPHOCYTES % (MANUAL) 5 %; MONOCYTES # (MANUAL) 0.7 10^3/uL (0.0-1.0); RBC MORPHOLOGY (MULTIPLE) 1+ ANISOCYTOSIS (NORMAL)
[2020-01-17 06:59] LABS: DIFFERENTIAL COMMENT MANUAL DIFFERENTIAL
[2020-01-17] MEDS ORDERED: FUROSEMIDE 40 MG TABLET PO SCH (09:00)
[2020-01-17] MEDS: THIAMINE 100 MG TABLET PO SCH (10:14)
[2020-01-17] MEDS: DOCUSATE SODIUM 250 MG CAPSULE PO SCH (10:14)
[2020-01-17] MEDS: PRENATAL VITAMIN TABLET PO SCH (10:14)
[2020-01-17] MEDS: SENNA 8.6 MG TABLET PO SCH (10:15)
[2020-01-17] MEDS: polyethylene glycoL 3350 17 GM PACKET PO SCH (10:15)
--- NOTE | 2020-01-17 13:37 | PROVIDER PROGRESS NOTE ---
Subjective - Prog Note Date Prog Note Date: 01/17/20 - Subjective Subjective: She continues to report feeling weak and fatigued. She states her abdomen is distended. She has occasional abdominal pain. She was able to work a physical therapy today and get out of bed into a chair. Current Medications - Current Medications Current Medications: Active Medications Acetaminophen (Tylenol) 650 mg PO Q4HR PRN PRN Reason: Pain 1 to 4 Last Admin: 01/14/20 07:39 Dose: 650 mg Docusate Sodium (Colace 250mg Capsule) 250 - 500 mg PO DAILY [facility] Last Admin: 01/17/20 10:14 Dose: 500 mg Heparin Sodium (Beef Lung) () 30 - 50 unit IVP PRN PRN PRN Reason: Central Line Protocol (<24 hr) Last Admin: 01/16/20 06:10 Dose: 50 unit Hydrocortisone Sodium Succinate (Solu-Cortef) 50 mg IVP Q12H [facility] Last Admin: 01/17/20 05:50 Dose: 50 mg Lorazepam (Ativan) 0.5 mg PO Q3H PRN; Protocol PRN Reason: CIWA > 8 Midodrine () 5 mg PO TID [facility] Last Admin: 01/17/20 05:51 Dose: 5 mg Mineral Oil (Cavilon) 1 applic TOP PRN PRN PRN Reason: Skin Care Ondansetron HCl (Zofran Inj) 4 mg IVP Q6HR PRN PRN Reason: Nausea / Vomiting Pantoprazole Sodium (Protonix) 40 mg PO QDAC [facility] Last Admin: 01/17/20 05:51 Dose: 40 mg Polyethylene Glycol (Miralax) 17 gm PO DAILY [facility] Last Admin: 01/17/20 10:15 Dose: 17 gm Multivit/Folic Acid/Iron (Trinatal Rx 1) 1 tab PO DAILYWM [facility] Last Admin: 01/17/20 10:14 Dose: 1 tab Senna (Senokot) 8.6 mg PO DAILY PRN PRN Reason: Constipation Last Admin: 01/16/20 21:53 Dose: 8.6 mg Senna (Senokot) 8.6 - 17.2 mg PO DAILY [facility] Last Admin: 01/17/20 10:15 Dose: 17.2 mg Sodium Chloride (Normal Saline Flush 0.9%) 10 ml IVP PRN PRN PRN Reason: NEEDED PER PROVIDER ORDERS Last Admin: 01/17/20 05:52 Dose: 10 ml Sodium Chloride (Normal Saline Flush 0.9%) 10 ml IVP 0100,0900,1700 [facility] Last Admin: 01/17/20 10:15 Dose: 10 ml Sodium Chloride (Normal Saline Flush 0.9%) 20 ml IVP PRN PRN PRN Reason: After Blood Draw Last Admin: 01/16/20 06:10 Dose: 20 ml Thiamine HCl (Vitamin B-1) 100 mg PO DAILY [facility] Last Admin: 01/17/20 10:14 Dose: 100 mg No Known Home Medications 01/11/20 Objective - Vital Signs/Intake & Output Reviewed Vital Signs: Yes Vital Signs: Vital Signs x48h Temp Pulse Pulse Resp BP BP Pulse Ox 01/17/20 12:29 36.5 C 105 H 16 114/73 01/17/20 12:00 36.5 C 107 H 16 112/75 01/17/20 09:00 36.4 C L 93 18 97/55 L 100 Intake & Output: Intake & Output 01/14/20 01/15/20 01/16/20 01/17/20 23:59 23:59 23:59 23:59 Intake Total 5078.309 0530.353 9853.584 3436 Output Total 873 1457 350 425 Balance 450.020 -336.647 743.333 575 - Objective General Appearance: positive: Alert Eyes Bilateral: positive: Normal inspection ENT: positive: ENT inspection nml Neck: positive: Nml inspection Respiratory: positive: No respiratory distress. negative: Wheezes, Rales Cardiovascular: positive: No murmur, Tachycardia. negative: Irregularly irregular, Systolic murmur Abdomen: positive: Nml bowel sounds, Tenderness (Diffusely tender). negative: No distention Skin: positive: Warm, Dry, Pallor Extremities: positive: Pedal edema (+1 edema in bilateral lower extremities) Neurologic/Psychiatric: positive: Oriented x3. negative: Disoriented to person, Disoriented to place, Disoriented to time - Lab Results Fish Bones: 01/17/20 05:40 01/17/20 05:40 Other Labs: Lab Results x24hrs 01/17/20 01/17/20 01/17/20 Range/Units 05:40 05:40 05:40 WBC 12.3 H (4.8-10.8) x10^3/uL RBC 2.06 L (4.20-5.40) 10^6/uL Hgb 7.6 L (12.0-16.0) g/dL Hct 22.7 L (37.0-47.0) % MCV 110.2 H (81.0-99.0) fL MCH 36.9 H (27.0-31.0) pg MCHC 33.5 (32.0-36.0) g/dL RDW 14.5 (12.0-15.0) % Plt Count 173 (130-450) 10^3/uL MPV 9.9 (7.9-10.8) fL Neut # (Auto) Not Reportable Lymph # (Auto) Not Reportable [place] # (Auto) Not Reportable Eos # (Auto) Not Reportable Baso # (Auto) Not Reportable Absolute Nucleated RBC Not Reportable Total Counted 100 Band Neuts % (Manual) 1 (0 - 10) % Reactive Lymphs % (Man) 7 % Abnorm Lymph % (Manual) 0 % Nucleated RBC % Not Reportable Neutrophils # (Manual) 10.1 H (1.5-6.6) 10^3/uL Lymphocytes # (Manual) 1.5 (1.5-3.5) 10^3/uL Monocytes # (Manual) 0.7 (0.0-1.0) 10^3/uL Eosinophils # (Manual) 0.0 (0-0.7) 10^3/uL Basophils # (Manual) 0.0 (0-0.1) 10^3/uL Differential Comment MANUAL DIFFERENTIAL RBC Morph Micro Appear 1+ ANISOCYTOSIS (NORMAL) Sodium 126 L (135-145) mmol/L Potassium 4.7 (3.5-5.0) mmol/L Chloride 96 L (101-111) mmol/L Carbon Dioxide 23 (21-32) mmol/L Anion Gap 7.0 (6-13) BUN 31 H (6-20) mg/dL Creatinine 1.1 H (0.4-1.0) mg/dL Estimated GFR (MDRD) 50 L (>89) Glucose 119 H (70-100) mg/dL Calcium 9.0 (8.5-10.3) mg/dL Phosphorus 3.7 (2.5-4.6) mg/dL Magnesium 2.1 (1.7-2.8) mg/dL Total Bilirubin 3.4 H (0.2-1.0) mg/dL AST 56 H (10-42) IU/L ALT 34 (10-60) IU/L Alkaline Phosphatase 108 (42-121) IU/L Total Protein 5.9 L (6.7-8.2) g/dL Albumin 2.3 L (3.2-5.5) g/dL Globulin 3.6 (2.1-4.2) g/dL Albumin/Globulin Ratio 0.6 L (1.0-2.2) Blood Type A NEGATIVE Antibody Screen NEGATIVE Crossmatch IS Only See Detail Assessment/Plan - Problem List (1) Hypotension Impression: This was believed to be secondary to her liver cirrhosis and poor clearance of the vasodilators. She required norepinephrine and midodrine. She was also started on stress dose steroids have since been weaned off with today being the first day off of steroids. We will continue her on midodrine and monitor her blood pressure off of steroids which has been stable with systolics ranging from the high 90s to 110s. Shee has not shown signs of hypoperfusion. (2) Elevated WBC count Impression: Suspect have a white count is secondary to intravascular depletion and hemoconcentration rather than infection. She has received 5 days of ceftriaxone empirically for SBP prophylaxis and this has been discontinued. She has remained afebrile and there are no obvious signs of infection this time. We will monitor her white blood count after transfusion of 1 packed red blood cell. (3) Hyponatremia Impression: This is secondary to her liver disease. Her sodium was 118 on admission is improved to 126 but has been stable now for 2 days. We will continue with fluid restriction. We will hold diuretics given her hypotension and that she is requiring midodrine. (4) Weakness Impression: This is likely multifactorial due to her being deconditioned and her anemia. She is in working with physical therapy is now out of bed into a chair today. Given her anemia, we will transfuse her 1 packed unit of red blood cells. (5) Macrocytic anemia Impression: Likely secondary to her alcohol use and acute illness. Although hemoglobin has been slowly increasing. I suspect she is intravascularly depleted and her hemoglobin is falsely elevated due to hemoconcentration as her white count and platelets are also elevated compared to baseline. We will give her 1 unit of packed red blood cells today and recheck a hemoglobin in the morning. We will check her stool for occult blood. (6) Liver cirrhosis, alcoholic Impression: Secondary to alcohol use and her LFTs are stable. Qualifiers: Ascites presence: with ascites Qualified Code(s): K70.31 - Alcoholic cirrhosis of liver with ascites (7) Alcohol abuse Impression: She did not go through withdrawal during this hospitalization. (8) Ascites Impression: Is likely the cause of her diffuse abdominal pain. She did have a paracentesis during her last admission. Given her abdominal distention, will obtain an u ltrasound and if there is enough fluid for paracentesis then will consult surgery. Qualifiers: Ascites type: due to alcoholic cirrhosis Qualified Code(s): K70.31 - Alcoholic cirrhosis of liver with ascites
[2020-01-17] MEDS: ACETAMINOPHEN 325 MG TABLET PO PRN (13:55)
--- NOTE | 2020-01-17 18:28 | Ultrasound Report ---
Reason: Cirrhosis, distention. Eval for ascites. Procedure Date: 01/17/2020 Accession Number: [id number] / [id number] Procedure: US - Abdomen Limited CPT Code: Final Report FULL RESULT: EXAM: ABDOMEN ULTRASOUND LIMITED, RUQ EXAM DATE: 01/17/2020 04:44 PM. CLINICAL HISTORY: Cirrhosis, distention. Eval for ascites. COMPARISON: ABDOMEN LIMITED 12/17/2019 9:25 AM. TECHNIQUE: Real-time scanning was performed with static images obtained. FINDINGS: There is large amount of ascites in all 4 quadrants of the abdomen. Cirrhotic liver. IMPRESSION: Large amount of ascites. RADIA
[2020-01-17] MEDS ORDERED: LIDOCAINE 2% URO-JET 5 ML SYRINGE UR ONE (21:54)
[2020-01-18] MEDS: SODIUM CHLORIDE FLUSH 0.9% 10 ML SYRINGE IVP PRN ×3 (00:59→18:01)
[2020-01-18] MEDS: SODIUM CHLORIDE FLUSH 0.9% 10 ML SYRINGE IVP SCH ×3 (00:59→16:04)
[2020-01-18 05:55] LABS: EOSINOPHILS % (AUTO) 0.3 %; HGB - HEMOGLOBIN 8.5 g/dL (12.0-16.0); LYMPHOCYTES % (AUTO) 14.5 %; MEAN CORPUSCULAR HEMOGLOBIN 36.6 pg (27.0-31.0); MEAN CORPUSCULAR HGB CONC 33.9 g/dL (32.0-36.0); MEAN CORPUSCULAR VOLUME 108.2 fL (81.0-99.0); MEAN PLATELET VOLUME 10.1 fL (7.9-10.8); NEUTROPHILS % (AUTO) 67.3 %; PLT - PLATELET COUNT 168 10^3/uL (130-450); RED BLOOD COUNT 2.32 10^6/uL (4.20-5.40); RED CELL DISTRIBUTION WIDTH 17.4 % (12.0-15.0); WHITE BLOOD COUNT 10.6 x10^3/uL (4.8-10.8)
[2020-01-18 06:00] LABS: ABNORMAL LYMPHS % (MANUAL) 0 %; BAND NEUTROPHILS % (MANUAL) 0 %
[2020-01-18 06:05] LABS: CALCIUM 9.1 mg/dL (8.5-10.3); MAGNESIUM 2.1 mg/dL (1.7-2.8); PHOSPHORUS 3.5 mg/dL (2.5-4.6)
[2020-01-18 06:14] LABS: DIFFERENTIAL COMMENT MANUAL DIFFERENTIAL; LYMPHOCYTES # (MANUAL) 1.1 10^3/uL (1.5-3.5); LYMPHOCYTES % (MANUAL) 10 %; METAMYELOCYTES % (MANUAL) 2 %; MONOCYTES # (MANUAL) 0.8 10^3/uL (0.0-1.0); MYELOCYTES % (MANUAL) 1 %; PLATELET ESTIMATE, MANUAL NORMAL (130-450,000) (NORMAL); RBC MORPHOLOGY (MULTIPLE) NORMAL APPEARANCE (NORMAL)
[2020-01-18 06:15] LABS: INR 1.7 (0.8-1.2); PT - PROTHROMBIN TIME 18.4 secs (9.9-12.6)
[2020-01-18] MEDS: MIDODRINE 2.5 MG TABLET PO SCH ×3 (06:17→21:20)
[2020-01-18] MEDS: PANTOPRAZOLE 40 MG TABLET PO SCH (06:17)
[2020-01-18] MEDS: PRENATAL VITAMIN TABLET PO SCH (08:24)
[2020-01-18] MEDS: SENNA 8.6 MG TABLET PO SCH (08:24)
[2020-01-18] MEDS: DOCUSATE SODIUM 250 MG CAPSULE PO SCH (08:24)
[2020-01-18] MEDS: polyethylene glycoL 3350 17 GM PACKET PO SCH (08:24)
[2020-01-18] MEDS: THIAMINE 100 MG TABLET PO SCH (08:24)
--- NOTE | 2020-01-18 13:43 | PROVIDER PROGRESS NOTE ---
Subjective - Prog Note Date Prog Note Date: 01/18/20 - Subjective Subjective: She reports no abdominal pain today but complains of abdominal distention. Still complains of generalized weakness. She received 1 unit of packed red blood cell yesterday. Reports no chest pain or dyspnea. Current Medications - Current Medications Current Medications: Active Medications Acetaminophen (Tylenol) 650 mg PO Q4HR PRN PRN Reason: Pain 1 to 4 Last Admin: 01/17/20 13:55 Dose: 650 mg Docusate Sodium (Colace 250mg Capsule) 250 - 500 mg PO DAILY [facility] Last Admin: 01/18/20 08:24 Dose: Not Given Heparin Sodium (Beef Lung) () 30 - 50 unit IVP PRN PRN PRN Reason: Central Line Protocol (<24 hr) Last Admin: 01/17/20 18:46 Dose: 90 unit Midodrine () 5 mg PO TID [facility] Last Admin: 01/18/20 06:17 Dose: 5 mg Mineral Oil (Cavilon) 1 applic TOP PRN PRN PRN Reason: Skin Care Ondansetron HCl (Zofran Inj) 4 mg IVP Q6HR PRN PRN Reason: Nausea / Vomiting Pantoprazole Sodium (Protonix) 40 mg PO QDAC [facility] Last Admin: 01/18/20 06:17 Dose: 40 mg Polyethylene Glycol (Miralax) 17 gm PO DAILY [facility] Last Admin: 01/18/20 08:24 Dose: Not Given Multivit/Folic Acid/Iron (Trinatal Rx 1) 1 tab PO DAILYWM [facility] Last Admin: 01/18/20 08:24 Dose: 1 tab Senna (Senokot) 8.6 mg PO DAILY PRN PRN Reason: Constipation Last Admin: 01/16/20 21:53 Dose: 8.6 mg Senna (Senokot) 8.6 - 17.2 mg PO DAILY [facility] Last Admin: 01/18/20 08:24 Dose: Not Given Sodium Chloride (Normal Saline Flush 0.9%) 10 ml IVP PRN PRN PRN Reason: NEEDED PER PROVIDER ORDERS Last Admin: 01/18/20 01:06 Dose: 10 ml Sodium Chloride (Normal Saline Flush 0.9%) 10 ml IVP 0100,0900,1700 [facility] Last Admin: 01/18/20 08:24 Dose: 10 ml Sodium Chloride (Normal Saline Flush 0.9%) 20 ml IVP PRN PRN PRN Reason: After Blood Draw Last Admin: 01/16/20 06:10 Dose: 20 ml Thiamine HCl (Vitamin B-1) 100 mg PO DAILY [facility] Last Admin: 01/18/20 08:24 Dose: 100 mg No Known Home Medications 01/11/20 Objective - Vital Signs/Intake & Output Reviewed Vital Signs: Yes Vital Signs: Vital Signs x48h Temp Pulse Resp BP Pulse Ox 01/18/20 13:00 36.7 C 104 H 18 104/60 97 01/18/20 07:40 36.6 C 96 20 112/61 97 01/18/20 06:16 98 102/55 L Intake & Output: Intake & Output 01/15/20 01/16/20 01/17/20 01/18/20 23:59 23:59 23:59 23:59 Intake Total 7308.395 1017.333 1432 320 Output Total 1457 350 779 650 Balance -336.647 743.333 653 -330 - Objective General Appearance: positive: No acute distress, Alert Eyes Bilateral: positive: Normal inspection ENT: positive: ENT inspection nml Neck: positive: Nml inspection Respiratory: positive: No respiratory distress. negative: Wheezes, Rales Cardiovascular: positive: No murmur, Tachycardia. negative: Irregularly irregular, Bradycardia, Systolic murmur Abdomen: positive: Nml bowel sounds, Other (Her abdomen is distended with a fluid shift noted.). negative: Non-tender, No distention, Tenderness, Guarding, Rebound Skin: positive: Warm, Dry Extremities: positive: Pedal edema (+1 pitting edema in the bilateral lower extremities.) Neurologic/Psychiatric: positive: Oriented x3. negative: Disoriented to person, Disoriented to place, Disoriented to time - Lab Results Fish Bones: 01/18/20 05:35 01/18/20 05:35 Other Labs: Lab Results x24hrs 01/18/20 01/18/20 01/18/20 Range/Units 05:35 05:35 05:35 WBC 10.6 (4.8-10.8) x10^3/uL RBC 2.32 L (4.20-5.40) 10^6/uL Hgb 8.5 L (12.0-16.0) g/dL Hct 25.1 L (37.0-47.0) % MCV 108.2 H (81.0-99.0) fL MCH 36.6 H (27.0-31.0) pg MCHC 33.9 (32.0-36.0) g/dL RDW 17.4 H (12.0-15.0) % Plt Count 168 (130-450) 10^3/uL MPV 10.1 (7.9-10.8) fL Neut # (Auto) Not Reportable Lymph # (Auto) Not Reportable [place] # (Auto) Not Reportable Eos # (Auto) Not Reportable Baso # (Auto) Not Reportable Absolute Nucleated RBC Not Reportable Total Counted 100 Band Neuts % (Manual) 0 (0 - 10) % Abnorm Lymph % (Manual) 0 % Metamyelocytes % 2 H ( - 0) % Myelocytes % 1 H ( - 0) % Nucleated RBC % Not Reportable Neutrophils # (Manual) 8.4 H (1.5-6.6) 10^3/uL Lymphocytes # (Manual) 1.1 L (1.5-3.5) 10^3/uL Monocytes # (Manual) 0.8 (0.0-1.0) 10^3/uL Eosinophils # (Manual) 0.0 (0-0.7) 10^3/uL Basophils # (Manual) 0.0 (0-0.1) 10^3/uL Differential Comment MANUAL DIFFERENTIAL Platelet Estimate NORMAL (130-450,000) (NORMAL) RBC Morph Micro Appear NORMAL APPEARANCE (NORMAL) PT 18.4 H (9.9-12.6) secs INR 1.7 H (0.8-1.2) Sodium 127 L (135-145) mmol/L Potassium 4.8 (3.5-5.0) mmol/L Chloride 97 L (101-111) mmol/L Carbon Dioxide 25 (21-32) mmol/L Anion Gap 5.0 L (6-13) BUN 37 H (6-20) mg/dL Creatinine 1.0 (0.4-1.0) mg/dL Estimated GFR (MDRD) 56 L (>89) Glucose 103 H (70-100) mg/dL Calcium 9.1 (8.5-10.3) mg/dL Phosphorus 3.5 (2.5-4.6) mg/dL Magnesium 2.1 (1.7-2.8) mg/dL Blood Type Antibody Screen Crossmatch IS Only 01/17/20 Range/Units 05:40 WBC (4.8-10.8) x10^3/uL RBC (4.20-5.40) 10^6/uL Hgb (12.0-16.0) g/dL Hct (37.0-47.0) % MCV (81.0-99.0) fL MCH (27.0-31.0) pg MCHC (32.0-36.0) g/dL RDW (12.0-15.0) % Plt Count (130-450) 10^3/uL MPV (7.9-10.8) fL Neut # (Auto) Lymph # (Auto) [place] # (Auto) Eos # (Auto) Baso # (Auto) Absolute Nucleated RBC Total Counted Band Neuts % (Manual) (0 - 10) % Abnorm Lymph % (Manual) % Metamyelocytes % ( - 0) % Myelocytes % ( - 0) % Nucleated RBC % Neutrophils # (Manual) (1.5-6.6) 10^3/uL Lymphocytes # (Manual) (1.5-3.5) 10^3/uL Monocytes # (Manual) (0.0-1.0) 10^3/uL Eosinophils # (Manual) (0-0.7) 10^3/uL Basophils # (Manual) (0-0.1) 10^3/uL Differential Comment Platelet Estimate (NORMAL) RBC Morph Micro Appear (NORMAL) PT (9.9-12.6) secs INR (0.8-1.2) Sodium (135-145) mmol/L Potassium (3.5-5.0) mmol/L Chloride (101-111) mmol/L Carbon Dioxide (21-32) mmol/L Anion Gap (6-13) BUN (6-20) mg/dL Creatinine (0.4-1.0) mg/dL Estimated GFR (MDRD) (>89) Glucose (70-100) mg/dL Calcium (8.5-10.3) mg/dL Phosphorus (2.5-4.6) mg/dL Magnesium (1.7-2.8) mg/dL Blood Type A NEGATIVE Antibody Screen NEGATIVE Crossmatch IS Only See Detail ABX Reporting Has patient been on IV antibiotics over the past 48 hours?: No Assessment/Plan - Problem List (1) Hypotension Impression: Her blood pressure has been stable on 5 mg of Midodrine 3 times daily and off of stress dose steroids. It is felt her hypotension is related due to poor clearance of vasodilator metabolites by the liver. She will need midodrine on discharge. Unfortunately, given her hypotension will not be able to diurese her with furosemide or Aldactone which she would benefit from given her cirrhosis and ascites. We will monitor her blood pressure after her paracentesis this afternoon and will hope to discharge her tomorrow. (2) Elevated WBC count Impression: Her white count is normal today. Currently no signs of infection and she has remained afebrile and she received 5 days of ceftriaxone for SBP prophylaxis. (3) Hyponatremia Impression: This is likely secondary to her cirrhosis. Her sodium has been slowly increasing each day and is now at 127. She would benefit from further diuresis but this is limited given her hypotension. Her sodium is just about at baseline. (4) Weakness Impression: This is secondary to physical deconditioning. It was thought that her anemia may be contributing factor and she was transfused 1 unit of packed red blood cells yesterday. She has been able to work with physical therapy and will need a fpc facility on discharge. (5) Macrocytic anemia Impression: This is secondary to her alcohol use. She was transfused 1 unit of packed red blood cell yesterday and she had an appropriate response. Her hemoglobin today is 8.5. There is no evidence of bleeding at this time. Her baseline hemoglobin appears to be approximately 8-8.5. (6) Liver cirrhosis, alcoholic Impression: She has liver cirrhosis secondary to alcohol use. Her meld score is 25 and her estimated 3-month mortality is 20%. I did discuss this with her today and she would like to be a full code. Her goal is to live as long as possible. She will need referral to gastroenterology. Qualifiers: Ascites presence: with ascites Qualified Code(s): K70.31 - Alcoholic cirrhosis of liver with ascites (7) Ascites Impression: This is secondary to her liver cirrhosis. She has a large amount of ascites on ultrasound yesterday. Given she has quite a distended abdomen, will perform a paracentesis today. I have consulted general surgery and this will be performed in the afternoon. She will likely require albumin depending on the volume of th e paracentesis. Given her hypotension, we will monitor her overnight and plan to discharge her tomorrow. We will send the ascitic fluid for studies. Qualifiers: Ascites type: due to alcoholic cirrhosis Qualified Code(s): K70.31 - Alcoholic cirrhosis of liver with ascites (8) Alcohol abuse Impression: She did not go through alcohol withdrawal during this hospitalization. We did discuss the importance of alcohol cessation given her cirrhosis.
--- NOTE | 2020-01-18 15:05 | OPERATIVE REPORT ---
Operative Report - General Admit Date: 01/11/20 Procedure Date: 01/18/20 Planned Procedure: Therapeutic, large volume, paracentesis Pre-Op Diagnosis: Cirrhosis with symptomatic ascites Procedure Performed: Therapeutic, large volume, paracentesis Post Op Diagnosis: Cirrhosis with symptomatic ascites - Procedure Note Primary Surgeon: Selam Anesthesia Technique: Local Estimated Blood Loss (mL): 1 Findings: Aspiration of 4200 mls of clear yellow peritoneal fluid Complications: None apparent - Other Other Information/Narrative: After obtaining informed consent, the patient was brought to the ultrasound suit e and placed in the supine position on the examination table. Verbal and written consent were obtained for the procedure. The ultrasound was used to identify a clear window of opportunity in the right lower quadrant for placement of a paracentesis catheter. This area was marked. Using the provided kit, the area over the torrey was prepped and draped in the standard surgical fashion. The skin was anesthetized with 8 mL of 1% lidocaine. A 2 mm jaymie was created in the skin over the abdominal wall at this site. The catheter was directed into the abdominal wall while aspirating to detect entrance into the peritoneal cavity. The catheter was then advanced without the needle and the needle was completely removed. The port catheter was then hooked to vacuum bottles. Clear to straw- colored fluid was then aspirated from the peritoneal cavity. In all, 84.2 L of clear fluid was removed. Once there was no longer free flow of fluid, the patient coughed and we were able to get slightly more change of position provided another 250 mL or so of additional fluid. The catheter was then disconnected from suction, it was removed under direct vision. The wound was cleaned once again. A pressure dressing was applied. All sponge, needle, and instrument counts were correct at the conclusion of the case. The patient tolerated the procedure very well.
[2020-01-18] MEDS ORDERED: ALBUMIN 25% 12.5 GM/50 ML VIAL IV STA (15:29)
[2020-01-18 15:42] LABS: CC,BF RBC 1000 /mm^3
[2020-01-18 15:43] LABS: BF CLARITY CLEAR; BF COLOR YELLOW; BF SOURCE PERITONEAL
[2020-01-19] MEDS: SODIUM CHLORIDE FLUSH 0.9% 10 ML SYRINGE IVP SCH ×3 (00:32→21:36)
[2020-01-19] MEDS: SODIUM CHLORIDE FLUSH 0.9% 10 ML SYRINGE IVP PRN (00:32)
[2020-01-19 06:09] LABS: BASOPHILS % (AUTO) 0.1 %; EOSINOPHILS # (AUTO) 0.1 10^3/uL (0.0-0.7); HGB - HEMOGLOBIN 8.2 g/dL (12.0-16.0); LYMPHOCYTES # (AUTO) 1.3 10^3/uL (1.5-3.5); MEAN CORPUSCULAR HEMOGLOBIN 35.2 pg (27.0-31.0); MEAN CORPUSCULAR HGB CONC 32.5 g/dL (32.0-36.0); MEAN CORPUSCULAR VOLUME 108.2 fL (81.0-99.0); MEAN PLATELET VOLUME 9.8 fL (7.9-10.8); MONOCYTES # (AUTO) 1.2 10^3/uL (0.0-1.0); MONOCYTES % (AUTO) 12.3 %; NEUTROPHILS # (AUTO) 7.3 10^3/uL (1.5-6.6); NEUTROPHILS % (AUTO) 72.9 %; PLT - PLATELET COUNT 159 10^3/uL (130-450); RED BLOOD COUNT 2.33 10^6/uL (4.20-5.40); RED CELL DISTRIBUTION WIDTH 17.2 % (12.0-15.0)
[2020-01-19] MEDS: MIDODRINE 2.5 MG TABLET PO SCH (06:09)
[2020-01-19] MEDS: PANTOPRAZOLE 40 MG TABLET PO SCH (06:10)
[2020-01-19 06:22] LABS: MAGNESIUM 2.1 mg/dL (1.7-2.8); PHOSPHORUS 3.4 mg/dL (2.5-4.6)
--- NOTE | 2020-01-19 09:30 | PROVIDER PROGRESS NOTE ---
Subjective - Prog Note Date Prog Note Date: 01/19/20 - Subjective Subjective: She currently complains of no pain. She continues to report feeling weak.She denies chest pain or dyspnea. Current Medications - Current Medications Current Medications: Active Medications Acetaminophen (Tylenol) 650 mg PO Q4HR PRN PRN Reason: Pain 1 to 4 Last Admin: 01/17/20 13:55 Dose: 650 mg Docusate Sodium (Colace 250mg Capsule) 250 - 500 mg PO DAILY [facility] Last Admin: 01/19/20 09:46 Dose: Not Given Heparin Sodium (Beef Lung) () 30 - 50 unit IVP PRN PRN PRN Reason: Central Line Protocol (<24 hr) Last Admin: 01/19/20 00:34 Dose: 50 unit Midodrine () 5 mg PO TID [facility] Last Admin: 01/19/20 06:09 Dose: 5 mg Mineral Oil (Cavilon) 1 applic TOP PRN PRN PRN Reason: Skin Care Ondansetron HCl (Zofran Inj) 4 mg IVP Q6HR PRN PRN Reason: Nausea / Vomiting Pantoprazole Sodium (Protonix) 40 mg PO QDAC [facility] Last Admin: 01/19/20 06:10 Dose: 40 mg Polyethylene Glycol (Miralax) 17 gm PO DAILY [facility] Last Admin: 01/19/20 09:46 Dose: Not Given Multivit/Folic Acid/Iron (Trinatal Rx 1) 1 tab PO DAILYWM [facility] Last Admin: 01/19/20 09:46 Dose: 1 tab Senna (Senokot) 8.6 mg PO DAILY PRN PRN Reason: Constipation Last Admin: 01/16/20 21:53 Dose: 8.6 mg Senna (Senokot) 8.6 - 17.2 mg PO DAILY [facility] Last Admin: 01/19/20 09:46 Dose: Not Given Sodium Chloride (Normal Saline Flush 0.9%) 10 ml IVP PRN PRN PRN Reason: NEEDED PER PROVIDER ORDERS Last Admin: 01/18/20 18:01 Dose: 10 ml Sodium Chloride (Normal Saline Flush 0.9%) 10 ml IVP 0100,0900,1700 [facility] Last Admin: 01/19/20 09:46 Dose: 10 ml Sodium Chloride (Normal Saline Flush 0.9%) 20 ml IVP PRN PRN PRN Reason: After Blood Draw Last Admin: 01/19/20 00:32 Dose: 20 ml Thiamine HCl (Vitamin B-1) 100 mg PO DAILY [facility] Last Admin: 01/19/20 09:46 Dose: 100 mg No Known Home Medications 01/11/20 Objective - Vital Signs/Intake & Output Reviewed Vital Signs: Yes Vital Signs: Vital Signs x48h Temp Pulse Resp BP Pulse Ox 01/19/20 07:58 36.7 C 102 H 16 107/64 98 01/19/20 06:08 104 H 106/56 L 01/19/20 04:00 36.7 C 103 H 16 106/58 L 97 Intake & Output: Intake & Output 01/16/20 01/17/20 01/18/20 01/19/20 23:59 23:59 23:59 23:59 Intake Total 9942.570 9480 690 240 Output Total 007 522 4225 Balance 743.333 653 -420 240 - Objective General Appearance: positive: No acute distress Eyes Bilateral: positive: Normal inspection Respiratory: positive: No respiratory distress Cardiovascular: positive: No murmur, Tachycardia. negative: Bradycardia Abdomen: positive: Non-tender, Other (Abdomen is less distended.). negative: Tenderness (3) Skin: positive: Warm, Dry, Other (Areas of ecchymoses.) Extremities: positive: Pedal edema (She has +2 pitting edema in her bilateral lower extremities.) Neurologic/Psychiatric: positive: Oriented x3 - Lab Results Fish Bones: 01/19/20 05:01/19/20 11:35 Other Labs: Lab Results x24hrs 01/19/20 01/19/20 01/18/20 Range/Units 05: 05: 15:00 WBC 10.0 (4.8-10.8) x10^3/uL RBC 2.33 L (4.20-5.40) 10^6/uL Hgb 8.2 L (12.0-16.0) g/dL Hct 25.2 L (37.0-47.0) % MCV 108.2 H (81.0-99.0) fL MCH 35.2 H (27.0-31.0) pg MCHC 32.5 (32.0-36.0) g/dL RDW 17.2 H (12.0-15.0) % Plt Count 159 (130-450) 10^3/uL MPV 9.8 (7.9-10.8) fL Neut # (Auto) 7.3 H (1.5-6.6) 10^3/uL Lymph # (Auto) 1.3 L (1.5-3.5) 10^3/uL [place] # (Auto) 1.2 H (0.0-1.0) 10^3/uL Eos # (Auto) 0.1 (0.0-0.7) 10^3/uL Baso # (Auto) 0.0 (0.0-0.1) 10^3/uL Absolute Nucleated RBC 0.00 x10^3/uL Nucleated RBC % 0.0 /100WBC Sodium 128 L (135-145) mmol/L Potassium 5.1 H (3.5-5.0) mmol/L Chloride 97 L (101-111) mmol/L Carbon Dioxide 25 (21-32) mmol/L Anion Gap 6.0 (6-13) BUN 36 H (6-20) mg/dL Creatinine 1.0 (0.4-1.0) mg/dL Estimated GFR (MDRD) 56 L (>89) Glucose 107 H (70-100) mg/dL Calcium 9.0 (8.5-10.3) mg/dL Phosphorus 3.4 (2.5-4.6) mg/dL Magnesium 2.1 (1.7-2.8) mg/dL Lactate Dehydrogenase (91-225) IU/L Total Protein 6.0 L (6.7-8.2) g/dL Fluid Source Fluid Color Fluid Clarity Fluid WBC /mm^3 Fluid RBC /mm^3 Fluid Neutrophils % % Fluid Lymphocytes % % Fluid Monocytes % % Fluid Macrophages % % Fld Mesothelial Cell % % 01/18/20 01/18/20 Range/Units 15:00 14:45 WBC (4.8-10.8) x10^3/uL RBC (4.20-5.40) 10^6/uL Hgb (12.0-16.0) g/dL Hct (37.0-47.0) % MCV (81.0-99.0) fL MCH (27.0-31.0) pg MCHC (32.0-36.0) g/dL RDW (12.0-15.0) % Plt Count (130-450) 10^3/uL MPV (7.9-10.8) fL Neut # (Auto) (1.5-6.6) 10^3/uL Lymph # (Auto) (1.5-3.5) 10^3/uL [place] # (Auto) (0.0-1.0) 10^3/uL Eos # (Auto) (0.0-0.7) 10^3/uL Baso # (Auto) (0.0-0.1) 10^3/uL Absolute Nucleated RBC x10^3/uL Nucleated RBC % /100WBC Sodium (135-145) mmol/L Potassium (3.5-5.0) mmol/L Chloride (101-111) mmol/L Carbon Dioxide (21-32) mmol/L Anion Gap (6-13) BUN (6-20) mg/dL Creatinine (0.4-1.0) mg/dL Estimated GFR (MDRD) (>89) Glucose (70-100) mg/dL Calcium (8.5-10.3) mg/dL Phosphorus (2.5-4.6) mg/dL Magnesium (1.7-2.8) mg/dL Lactate Dehydrogenase 89 L (91-225) IU/L Total Protein (6.7-8.2) g/dL Fluid Source PERITONEAL Fluid Color YELLOW Fluid Clarity CLEAR Fluid WBC 47 /mm^3 Fluid RBC 1000 /mm^3 Fluid Neutrophils % 17.0 % Fluid Lymphocytes % 35.0 % Fluid Monocytes % 15.0 % Fluid Macrophages % 29.0 % Fld Mesothelial Cell % 4.0 % ABX Reporting Has patient been on IV antibiotics over the past 48 hours?: No Assessment/Plan - Problem List (1) Hypotension Impression: Her blood pressure has been stable with systolics in the 100s to 110s. We will trial her off of midodrine and see if her blood pressure tolerates it. If she comes hypotensive again and she will need midodrine. (2) Weakness Impression: This is likely multifactorial from her deconditioning and underlying liver cirrhosis. Will require a alf facility on discharge and is pending placement. She will continue to work with physical therapy while hospitalized. (3) Liver cirrhosis, alcoholic Impression: Her meld score is 25 she is a 20% 3-month mortality risk. We did discuss her poor prognosis but she would like to be a full code. I will ask palliative care to meet with her today. Qualifiers: Ascites presence: with ascites Qualified Code(s): K70.31 - Alcoholic cirrhosis of liver with ascites (4) MJ (acute kidney injury) Impression: Creatinine is elevated at 1.0 and review of records show during her last hospitalization her creatinine was 0.5. There may be a component of hepatorenal syndrome. Urinalysis on admission did not show any granular casts. Her creatinine has been stable during his hospitalization. We will check a urine sodium checked and she benefit from albumin but given her liver cirrhosis, she is at risk for kidney failure due to hepatorenal syndrome. (5) Tachycardia Impression: She has been persistently tachycardic during this hospitalization with heart rates in the 90s to low 100s. Review of prior hospitalization, showed she was also tachycardic at that time. Suspect this is likely due to her deconditioning. We will check an echocardiogram. We will also check a TSH. (6) Hyponatremia Impression: This is secondary to her liver cirrhosis and has been slowly improving. Her serum is 128 today. She would ideally be diuresed but given her hypotension, this has been difficult. (7) Ascites Impression: She had paracentesis yesterday and 4.2 L were removed. Stain showed no organisms and her WBC count was 47 with only 17% neutrophils. She had already received 5 days of ceftriaxone for SBP prophylaxis. She will likely need at least monthly paracentesis on outpatient basis given her cirrhosis and ascites. Qualifiers: Ascites type: due to alcoholic cirrhosis Qualified Code(s): K70.31 - Alcoholic cirrhosis of liver with ascites (8) Macrocytic anemia Impression: Secondary to alcohol abuse. Hemoglobin stable in the eights. She did receive 1 unit of packed red blood cells during this hospitalization. No evidence of bleeding at this time. (9) Alcohol abuse Impression: Do not go through withdrawal during this hospitalization. We discussed the importance of alcohol cessation given her cirrhosis.
[2020-01-19] MEDS: DOCUSATE SODIUM 250 MG CAPSULE PO SCH (09:46)
[2020-01-19] MEDS: polyethylene glycoL 3350 17 GM PACKET PO SCH (09:46)
[2020-01-19] MEDS: THIAMINE 100 MG TABLET PO SCH (09:46)
[2020-01-19] MEDS: PRENATAL VITAMIN TABLET PO SCH (09:46)
[2020-01-19] MEDS: SENNA 8.6 MG TABLET PO SCH (09:46)
--- NOTE | 2020-01-19 11:38 | ADVANCE CARE PLANNING NOTE ---
Advance Care Planning - Planning Encounter Date: 01/19/20 Time: 11:15 Purpose: Clarify goals of care. Parties in Attendance: Myself and the patient. Decisional Capacity of the Patient: The patient has the capacity to make her own medical decisions. - Diagnosis for Encounter (1) Liver cirrhosis, alcoholic Qualifiers: Ascites presence: with ascites Qualified Code(s): K70.31 - Alcoholic cirrhosis of liver with ascites Summary: She has liver cirrhosis secondary to alcohol abuse. She was drinking alcohol up to this admission. Meld score 25 which puts her at 3-month mortality risk of 20%. She has ascites secondary to cirrhosis and has required 2 paracentesis. Se has also had elevated ammonia levels. She is hyponatremic and has an elevated INR. She also has microcytic anemia secondary to her liver use. - Encounter Subjective/Patient's Story: Patient reports that she moved around a lot when she was a child as her father is in the . She lived in many different states. She has been 3 times. The first time was at the age of 19 and the second time was at the age of 20. He a third time at the age of 25. Her 's name was Ruben and they were for 30 years. The patient states she had her son, Madi, when she was not . He lives in [place] and is and recently had a child. [place] 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 She from [facility] after 30 years of marriage as he had an affair. She has not kept in touch with him. She also has not kept in touch very much with her son, Madi. She states she has not seen him in quite a few years and has not talked to him recently. She states she has a brother in [place] and a sister in [place] who she has not keep in touch with as they were never very close. She states that she has been living in a hotel prior to this admission. She reports that she had been drinking alcohol since it was legal to do so. She drank a lot of beer in the past and lately has been drinking wine. 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 Objective/Medical Story: Patient has been admitted twice now for generalized weakness and found to be hyponatremic. She was diagnosed with cirrhosis during hospitalization last month. Her cirrhosis secondary to her alcohol use. Her meld score is 25. She understands her prognosis is poor and that she may from this. She understands the complications from liver failure including ascites which she has and has required paracentesis for. She also understands she may develop esophageal varices and gastrointestinal bleeding. We also discussed that liver failure may also lead to kidney failure and her kidney numbers are slightly increased compared to her baseline from just last month. He understands the only treatment is transplant and unfortunately due to her alcohol use, she would not be a candidate at this time. Goals of Care: When I asked her what the most important thing to her is, she states that her son, Madi is the most important thing. When I asked her what the most important thing to her regarding her health is, she stated that it is to get better. She wants to do everything she can to get better and to live as long as possible. She understands that she may from her liver disease but she wants CPR. 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 I asked if she would be interested in meeting palliative care and she said absolutely. Plan: At this time, patient has made it clear that she would like to be a full code and continue with aggressive medical therapy. She is agreeable to going to a skilled nurse facility to increase her strength. She is agreeable to seeing palliative care, we will place a consult. She will need outpatient follow-up with gastroenterology on discharge. Code Status: Attempt Resuscitation Time spent on advance care plannin
[2020-01-19 11:51] LABS: CALCIUM 8.8 mg/dL (8.5-10.3)
[2020-01-20] MEDS: SODIUM CHLORIDE FLUSH 0.9% 10 ML SYRINGE IVP SCH ×3 (01:51→16:37)
[2020-01-20] MEDS: PANTOPRAZOLE 40 MG TABLET PO SCH (06:03)
[2020-01-20 07:11] LABS: BASOPHILS % (AUTO) 0.1 %; EOSINOPHILS # (AUTO) 0.1 10^3/uL (0.0-0.7); EOSINOPHILS % (AUTO) 1.5 %; HGB - HEMOGLOBIN 7.7 g/dL (12.0-16.0); LYMPHOCYTES # (AUTO) 1.4 10^3/uL (1.5-3.5); LYMPHOCYTES % (AUTO) 14.6 %; MEAN CORPUSCULAR HGB CONC 32.5 g/dL (32.0-36.0); MEAN CORPUSCULAR VOLUME 107.7 fL (81.0-99.0); MEAN PLATELET VOLUME 9.6 fL (7.9-10.8); MONOCYTES # (AUTO) 1.2 10^3/uL (0.0-1.0); MONOCYTES % (AUTO) 12.4 %; NEUTROPHILS # (AUTO) 6.7 10^3/uL (1.5-6.6); NEUTROPHILS % (AUTO) 70.9 %; PLT - PLATELET COUNT 160 10^3/uL (130-450); WHITE BLOOD COUNT 9.5 x10^3/uL (4.8-10.8)
[2020-01-20 07:23] LABS: CALCIUM 8.9 mg/dL (8.5-10.3); CREATININE 0.9 mg/dL (0.4-1.0); MAGNESIUM 2.1 mg/dL (1.7-2.8); PHOSPHORUS 3.9 mg/dL (2.5-4.6)
[2020-01-20] MEDS: THIAMINE 100 MG TABLET PO SCH (08:07)
[2020-01-20] MEDS: PRENATAL VITAMIN TABLET PO SCH (08:07)
[2020-01-20] MEDS: polyethylene glycoL 3350 17 GM PACKET PO SCH (08:09)
[2020-01-20] MEDS: DOCUSATE SODIUM 250 MG CAPSULE PO SCH (08:09)
[2020-01-20] MEDS: SENNA 8.6 MG TABLET PO SCH (08:09)
[2020-01-20] MEDS ORDERED: LACTATED RINGERS 500 ML IV ONE (11:28)
[2020-01-20 12:20] LABS: HEPATITIS A IGM NON-REACTIVE (NON-REACTIVE); HEPATITIS B SURFACE ANTIGEN NON-REACTIVE (NON-REACTIVE); HEPATITIS C ANTIBODY NON-REACTIVE (NON-REACTIVE)
--- NOTE | 2020-01-20 16:28 | PROVIDER PROGRESS NOTE ---
Subjective - Prog Note Date Prog Note Date: 01/20/20 - Subjective Subjective: Currently denies any pain. She has been trying to stay hydrated. She was able to work with physical therapy today and get to the side of the bed. Current Medications - Current Medications Current Medications: Active Medications Acetaminophen (Tylenol) 650 mg PO Q4HR PRN PRN Reason: Pain 1 to 4 Last Admin: 01/17/20 13:55 Dose: 650 mg Docusate Sodium (Colace 250mg Capsule) 250 - 500 mg PO DAILY [facility] Last Admin: 01/20/20 08:09 Dose: Not Given Heparin Sodium (Beef Lung) () 30 - 50 unit IVP PRN PRN PRN Reason: Central Line Protocol (<24 hr) Last Admin: 01/19/20 00:34 Dose: 50 unit Heparin Sodium (Porcine) () 5,000 unit SUBQ BID [facility] Mineral Oil (Cavilon) 1 applic TOP PRN PRN PRN Reason: Skin Care Ondansetron HCl (Zofran Inj) 4 mg IVP Q6HR PRN PRN Reason: Nausea / Vomiting Pantoprazole Sodium (Protonix) 40 mg PO QDAC [facility] Last Admin: 01/20/20 06:03 Dose: 40 mg Polyethylene Glycol (Miralax) 17 gm PO DAILY [facility] Last Admin: 01/20/20 08:09 Dose: Not Given Multivit/Folic Acid/Iron (Trinatal Rx 1) 1 tab PO DAILYWM [facility] Last Admin: 01/20/20 08:07 Dose: 1 tab Senna (Senokot) 8.6 mg PO DAILY PRN PRN Reason: Constipation Last Admin: 01/16/20 21:53 Dose: 8.6 mg Senna (Senokot) 8.6 - 17.2 mg PO DAILY [facility] Last Admin: 01/20/20 08:09 Dose: Not Given Sodium Chloride (Normal Saline Flush 0.9%) 10 ml IVP PRN PRN PRN Reason: NEEDED PER PROVIDER ORDERS Last Admin: 01/18/20 18:01 Dose: 10 ml Sodium Chloride (Normal Saline Flush 0.9%) 10 ml IVP 0100,0900,1700 [facility] Last Admin: 01/20/20 08:09 Dose: 10 ml Sodium Chloride (Normal Saline Flush 0.9%) 20 ml IVP PRN PRN PRN Reason: After Blood Draw Last Admin: 01/19/20 00:32 Dose: 20 ml Thiamine HCl (Vitamin B-1) 100 mg PO DAILY [facility] Last Admin: 01/20/20 08:07 Dose: 100 mg No Known Home Medications 01/11/20 Objective - Vital Signs/Intake & Output Reviewed Vital Signs: Yes Vital Signs: Vital Signs x48h Temp Pulse Resp BP Pulse Ox 01/20/20 15:54 37.1 C 110 H 16 112/65 98 01/20/20 12:04 37.0 C 110 H 17 110/63 98 01/20/20 10:00 36.7 C 105 H 16 110/63 96 01/20/20 08:40 37.1 C 111 H 16 111/64 97 Intake & Output: Intake & Output 01/17/20 01/18/20 01/19/20 01/20/20 23:59 23:59 23:59 23:59 Intake Total 1432 568 917 0268 Output Total 779 1110 100 Balance 653 -420 490 940 - Objective General Appearance: positive: No acute distress, Alert, Other (Appears comfortable in bed.) Eyes Bilateral: positive: Normal inspection ENT: positive: ENT inspection nml Neck: positive: Nml inspection Cardiovascular: positive: Tachycardia Neurologic/Psychiatric: positive: Oriented x3. negative: Disoriented to person, Disoriented to place, Disoriented to time - Lab Results Fish Bones: 01/20/20 06:48 01/20/20 06:48 Other Labs: Lab Results x24hrs 01/20/20 01/20/20 01/20/20 Range/Units 06:48 06:48 06:48 WBC 9.5 (4.8-10.8) x10^3/uL RBC 2.20 L (4.20-5.40) 10^6/uL Hgb 7.7 L (12.0-16.0) g/dL Hct 23.7 L (37.0-47.0) % MCV 107.7 H (81.0-99.0) fL MCH 35.0 H (27.0-31.0) pg MCHC 32.5 (32.0-36.0) g/dL RDW 17.0 H (12.0-15.0) % Plt Count 160 (130-450) 10^3/uL MPV 9.6 (7.9-10.8) fL Neut # (Auto) 6.7 H (1.5-6.6) 10^3/uL Lymph # (Auto) 1.4 L (1.5-3.5) 10^3/uL [place] # (Auto) 1.2 H (0.0-1.0) 10^3/uL Eos # (Auto) 0.1 (0.0-0.7) 10^3/uL Baso # (Auto) 0.0 (0.0-0.1) 10^3/uL Absolute Nucleated RBC 0.00 x10^3/uL Nucleated RBC % 0.0 /100WBC Sodium 131 L (135-145) mmol/L Potassium 5.0 (3.5-5.0) mmol/L Chloride 99 L (101-111) mmol/L Carbon Dioxide 26 (21-32) mmol/L Anion Gap 6.0 (6-13) BUN 33 H (6-20) mg/dL Creatinine 0.9 (0.4-1.0) mg/dL Estimated GFR (MDRD) 63 L (>89) Glucose 98 (70-100) mg/dL Calcium 8.9 (8.5-10.3) mg/dL Phosphorus 3.9 (2.5-4.6) mg/dL Magnesium 2.1 (1.7-2.8) mg/dL TSH 3.96 (0.34-5.60) uIU/mL Hepatitis A IgM Ab (NON-REACTIVE) Hep Bs Antigen (NON-REACTIVE) Hep B Core IgM Ab (NON-REACTIVE) Hepatitis C Antibody (NON-REACTIVE) Hep C Ab Signal/Cutoff (<1.00) Ref Lab Test Result 01/19/20 01/18/20 01/18/20 Range/Units 05:29 14:45 14:45 WBC (4.8-10.8) x10^3/uL RBC (4.20-5.40) 10^6/uL Hgb (12.0-16.0) g/dL Hct (37.0-47.0) % MCV (81.0-99.0) fL MCH (27.0-31.0) pg MCHC (32.0-36.0) g/dL RDW (12.0-15.0) % Plt Count (130-450) 10^3/uL MPV (7.9-10.8) fL Neut # (Auto) (1.5-6.6) 10^3/uL Lymph # (Auto) (1.5-3.5) 10^3/uL [place] # (Auto) (0.0-1.0) 10^3/uL Eos # (Auto) (0.0-0.7) 10^3/uL Baso # (Auto) (0.0-0.1) 10^3/uL Absolute Nucleated RBC x10^3/uL Nucleated RBC % /100WBC Sodium (135-145) mmol/L Potassium (3.5-5.0) mmol/L Chloride (101-111) mmol/L Carbon Dioxide (21-32) mmol/L Anion Gap (6-13) BUN (6-20) mg/dL Creatinine (0.4-1.0) mg/dL Estimated GFR (MDRD) (>89) Glucose (70-100) mg/dL Calcium (8.5-10.3) mg/dL Phosphorus (2.5-4.6) mg/dL Magnesium (1.7-2.8) mg/dL TSH (0.34-5.60) uIU/mL Hepatitis A IgM Ab NON-REACTIVE (NON-REACTIVE) Hep Bs Antigen NON-REACTIVE (NON-REACTIVE) Hep B Core IgM Ab NON-REACTIVE (NON-REACTIVE) Hepatitis C Antibody NON-REACTIVE (NON-REACTIVE) Hep C Ab Signal/Cutoff 0.00 (<1.00) Ref Lab Test Result REPORT REPORT 01/18/20 Range/Units 14:45 WBC (4.8-10.8) x10^3/uL RBC (4.20-5.40) 10^6/uL Hgb (12.0-16.0) g/dL Hct (37.0-47.0) % MCV (81.0-99.0) fL MCH (27.0-31.0) pg MCHC (32.0-36.0) g/dL RDW (12.0-15.0) % Plt Count (130-450) 10^3/uL MPV (7.9-10.8) fL Neut # (Auto) (1.5-6.6) 10^3/uL Lymph # (Auto) (1.5-3.5) 10^3/uL [place] # (Auto) (0.0-1.0) 10^3/uL Eos # (Auto) (0.0-0.7) 10^3/uL Baso # (Auto) (0.0-0.1) 10^3/uL Absolute Nucleated RBC x10^3/uL Nucleated RBC % /100WBC Sodium (135-145) mmol/L Potassium (3.5-5.0) mmol/L Chloride (101-111) mmol/L Carbon Dioxide (21-32) mmol/L Anion Gap (6-13) BUN (6-20) mg/dL Creatinine (0.4-1.0) mg/dL Estimated GFR (MDRD) (>89) Glucose (70-100) mg/dL Calcium (8.5-10.3) mg/dL Phosphorus (2.5-4.6) mg/dL Magnesium (1.7-2.8) mg/dL TSH (0.34-5.60) uIU/mL Hepatitis A IgM Ab (NON-REACTIVE) Hep Bs Antigen (NON-REACTIVE) Hep B Core IgM Ab (NON-REACTIVE) Hepatitis C Antibody (NON-REACTIVE) Hep C Ab Signal/Cutoff (<1.00) Ref Lab Test Result REPORT ABX Reporting Has patient been on IV antibiotics over the past 48 hours?: No Assessment/Plan - Problem List (1) Hypotension Impression: Blood pressures remained stable with systolic in the 110s off of midodrine. Echocardiogram yesterday showed that she is likely intravascularly depleted as her EF is greater than 75%. Although she is edematous on exam. We will trial 500 cc bolus of lactated Ringer's over 2 hours. (2) Weakness Impression: She is pending placement to a [facility] facility. (3) Liver cirrhosis, alcoholic Impression: Secondary to her alcohol abuse. She has required paracentesis during this admission. Her meld score is 25. Qualifiers: Ascites presence: with ascites Qualified Code(s): K70.31 - Alcoholic cirrhosis of liver with ascites (4) MJ (acute kidney injury) Impression: Renal function has been stable with a creatinine of 0.9-1. Her baseline creatinine 0.5. We will give her a small bolus today. Monitor her renal function. (5) Tachycardia Impression: She remains tachycardic and suspect this may be due to intravascular depletion. We will give her a small bolus today over 2 hours and reassess her heart rate. Her TSH within normal limits. Her echocardiogram showed hyperdynamic EF >75%. (6) Hyponatremia Impression: Secondary to her liver cirrhosis. Has improved to 131 today. We will continue to monitor. (7) Ascites Impression: She has required a pracentesis during this hospitalization. Qualifiers: Ascites type: due to alcoholic cirrhosis Qualified Code(s): K70.31 - Alcoholic cirrhosis of liver with ascites (8) Macrocytic anemia Impression: Secondary to her alcohol abuse. Her hemoglobin is slowly trending down. We will continue to monitor. She has received 1 unit of packed red blood cells d uring this hospitalization (9) Alcohol abuse Impression: She is willing to quit. Social work has been consulted to assist with this.
[2020-01-20] MEDS: HEPARIN 5,000 UNIT/ML VIAL SUBQ SCH (21:01)
[2020-01-21] MEDS: ACETAMINOPHEN 325 MG TABLET PO PRN ×2 (00:59→05:37)
[2020-01-21] MEDS: SODIUM CHLORIDE FLUSH 0.9% 10 ML SYRINGE IVP PRN (01:04)
[2020-01-21] MEDS: SODIUM CHLORIDE FLUSH 0.9% 10 ML SYRINGE IVP SCH ×3 (01:04→20:19)
[2020-01-21] MEDS: PANTOPRAZOLE 40 MG TABLET PO SCH (05:37)
[2020-01-21] MEDS: THIAMINE 100 MG TABLET PO SCH (08:16)
[2020-01-21] MEDS: HEPARIN 5,000 UNIT/ML VIAL SUBQ SCH ×2 (08:16→20:19)
[2020-01-21] MEDS: PRENATAL VITAMIN TABLET PO SCH (08:16)
[2020-01-21] MEDS: SENNA 8.6 MG TABLET PO SCH (08:21)
[2020-01-21] MEDS: polyethylene glycoL 3350 17 GM PACKET PO SCH (08:21)
[2020-01-21] MEDS: DOCUSATE SODIUM 250 MG CAPSULE PO SCH (08:21)
--- NOTE | 2020-01-21 09:30 | PROVIDER PROGRESS NOTE ---
Subjective - Prog Note Date Prog Note Date: 01/21/20 - Subjective Subjective: Does complain of occasional right-sided abdominal pain but otherwise reports feeling well. Reports no dyspnea or chest pain. Current Medications - Current Medications Current Medications: Active Medications Acetaminophen (Tylenol) 650 mg PO Q4HR PRN PRN Reason: Pain 1 to 4 Last Admin: 01/21/20 05:37 Dose: 650 mg Docusate Sodium (Colace 250mg Capsule) 250 - 500 mg PO DAILY [facility] Last Admin: 01/21/20 08:21 Dose: Not Given Heparin Sodium (Beef Lung) () 30 - 50 unit IVP PRN PRN PRN Reason: Central Line Protocol (<24 hr) Last Admin: 01/21/20 08:19 Dose: 50 unit Heparin Sodium (Porcine) () 5,000 unit SUBQ BID [facility] Last Admin: 01/21/20 08:16 Dose: 5,000 unit Mineral Oil (Cavilon) 1 applic TOP PRN PRN PRN Reason: Skin Care Ondansetron HCl (Zofran Inj) 4 mg IVP Q6HR PRN PRN Reason: Nausea / Vomiting Oxycodone HCl (Roxicodone) 5 mg PO Q4HR PRN PRN Reason: PAIN Pantoprazole Sodium (Protonix) 40 mg PO QDAC [facility] Last Admin: 01/21/20 05:37 Dose: 40 mg Polyethylene Glycol (Miralax) 17 gm PO DAILY [facility] Last Admin: 01/21/20 08:21 Dose: Not Given Multivit/Folic Acid/Iron (Trinatal Rx 1) 1 tab PO DAILYWM [facility] Last Admin: 01/21/20 08:16 Dose: 1 tab Senna (Senokot) 8.6 mg PO DAILY PRN PRN Reason: Constipation Last Admin: 01/16/20 21:53 Dose: 8.6 mg Senna (Senokot) 8.6 - 17.2 mg PO DAILY [facility] Last Admin: 01/21/20 08:21 Dose: Not Given Sodium Chloride (Normal Saline Flush 0.9%) 10 ml IVP PRN PRN PRN Reason: NEEDED PER PROVIDER ORDERS Last Admin: 01/21/20 01:04 Dose: 10 ml Sodium Chloride (Normal Saline Flush 0.9%) 10 ml IVP 0100,0900,1700 [facility] Last Admin: 01/21/20 08:19 Dose: 10 ml Sodium Chloride (Normal Saline Flush 0.9%) 20 ml IVP PRN PRN PRN Reason: After Blood Draw Last Admin: 01/19/20 00:32 Dose: 20 ml Thiamine HCl (Vitamin B-1) 100 mg PO DAILY [facility] Last Admin: 01/21/20 08:16 Dose: 100 mg No Known Home Medications 01/11/20 Objective - Vital Signs/Intake & Output Reviewed Vital Signs: Yes Vital Signs: Vital Signs x48h Temp Pulse Resp BP Pulse Ox 01/21/20 07:20 36.5 C 96 16 103/50 L 97 01/21/20 05:00 36.5 C 98 16 105/61 99 Intake & Output: Intake & Output 01/18/20 01/19/20 01/20/20 01/21/20 23:59 23:59 23:59 23:59 Intake Total 006 289 1628 200 Output Total 1110 400 100 Balance -420 490 860 100 - Objective General Appearance: positive: No acute distress, Alert Eyes Bilateral: positive: Normal inspection ENT: positive: ENT inspection nml Neck: positive: Nml inspection Respiratory: positive: No respiratory distress Cardiovascular: positive: No murmur, Tachycardia. negative: Bradycardia, Systolic murmur Abdomen: positive: Tenderness (Mild tenderness in the right side.), Other (Distended abdomen.). negative: Non-tender, No distention Skin: positive: Warm, Dry Neurologic/Psychiatric: positive: Oriented x3. negative: Disoriented to person, Disoriented to place, Disoriented to time - Lab Results Fish Bones: 01/21/20 09:27 01/21/20 09:27 Other Labs: Lab Results x24hrs 01/19/20 01/18/20 01/18/20 Range/Units 05:29 14:45 14:45 Hepatitis A IgM Ab NON-REACTIVE (NON-REACTIVE) Hep Bs Antigen NON-REACTIVE (NON-REACTIVE) Hep B Core IgM Ab NON-REACTIVE (NON-REACTIVE) Hepatitis C Antibody NON-REACTIVE (NON-REACTIVE) Hep C Ab Signal/Cutoff 0.00 (<1.00) Ref Lab Test Result REPORT REPORT 01/18/20 01/18/20 Range/Units 14:45 14:45 Hepatitis A IgM Ab (NON-REACTIVE) Hep Bs Antigen (NON-REACTIVE) Hep B Core IgM Ab (NON-REACTIVE) Hepatitis C Antibody (NON-REACTIVE) Hep C Ab Signal/Cutoff (<1.00) Ref Lab Test Result REPORT REPORT Assessment/Plan - Problem List (1) Hypotension Impression: Blood pressure remains stable off of midodrine. She appeared to responded well yesterday to a small bolus and so we will administer another 500 cc bolus today. (2) Weakness Impression: Multifactorial and predominantly due to deconditioning and her underlying liver disease. She continues to work with physical therapy and is pending placement to a skilled nurse facility. (3) Liver cirrhosis, alcoholic Impression: Stable. Her meld score is 25. Palliative care has been consulted and will evaluate the patient tomorrow if she remains hospitalized. Qualifiers: Ascites presence: with ascites Qualified Code(s): K70.31 - Alcoholic cirrhosis of liver with ascites (4) MJ (acute kidney injury) Impression: No function is slightly improved with a creatinine of 0.9 today. This is likely her new baseline. Given she responded well to IV fluids, will administer a 500 cc bolus and monitor her renal function. She is at risk for hepatorenal syndrome given her cirrhosis. (5) Tachycardia Impression: Her heart rate is down to the 90s today and suspect is likely due to the fluid she received as her echocardiogram showed she was intravascular depleted. We will give her another small bolus today and monitor her heart rate. (6) Hyponatremia Impression: Her hyponatremia stable with a sodium of 131. This is secondary to her cirrhosis. (7) Ascites Impression: We will need to monitor her for worsening ascites given we are giving her small amounts of IV fluids. She may require another paracentesis Qualifiers: Ascites type: due to alcoholic cirrhosis Qualified Code(s): K70.31 - Alcoholic cirrhosis of liver with ascites (8) Macrocytic anemia Impression: Hemoglobin is stable and this is secondary to her liver disease. Continue to monitor. Stool occult was negative. (9) Alcohol abuse Impression: Did not go through withdrawal during his hospitalization. Continue thiamine and folate.
[2020-01-21 09:35] LABS: HGB - HEMOGLOBIN 8.2 g/dL (12.0-16.0); MEAN CORPUSCULAR HEMOGLOBIN 36.4 pg (27.0-31.0); MEAN CORPUSCULAR HGB CONC 32.4 g/dL (32.0-36.0); MEAN CORPUSCULAR VOLUME 112.4 fL (81.0-99.0); MEAN PLATELET VOLUME 9.1 fL (7.9-10.8); RED BLOOD COUNT 2.25 10^6/uL (4.20-5.40); RED CELL DISTRIBUTION WIDTH 16.8 % (12.0-15.0); WHITE BLOOD COUNT 8.3 x10^3/uL (4.8-10.8)
[2020-01-21 09:43] LABS: CALCIUM 8.5 mg/dL (8.5-10.3); CREATININE 0.9 mg/dL (0.4-1.0)
[2020-01-21] MEDS ORDERED: LACTATED RINGERS 500 ML IV ONE (12:02)
[2020-01-22] MEDS: SODIUM CHLORIDE FLUSH 0.9% 10 ML SYRINGE IVP SCH ×3 (03:59→16:44)
[2020-01-22] MEDS: SODIUM CHLORIDE FLUSH 0.9% 10 ML SYRINGE IVP PRN ×3 (04:00→05:21)
[2020-01-22] MEDS: PANTOPRAZOLE 40 MG TABLET PO SCH (05:24)
[2020-01-22 05:34] LABS: HGB - HEMOGLOBIN 7.7 g/dL (12.0-16.0); MEAN CORPUSCULAR HEMOGLOBIN 35.2 pg (27.0-31.0); MEAN CORPUSCULAR HGB CONC 31.8 g/dL (32.0-36.0); MEAN CORPUSCULAR VOLUME 110.5 fL (81.0-99.0); MEAN PLATELET VOLUME 9.3 fL (7.9-10.8); RED BLOOD COUNT 2.19 10^6/uL (4.20-5.40); RED CELL DISTRIBUTION WIDTH 16.7 % (12.0-15.0); WHITE BLOOD COUNT 8.7 x10^3/uL (4.8-10.8)
[2020-01-22 05:42] LABS: CALCIUM 8.4 mg/dL (8.5-10.3); CREATININE 0.9 mg/dL (0.4-1.0)
[2020-01-22] MEDS: SENNA 8.6 MG TABLET PO SCH (09:01)
[2020-01-22] MEDS: PRENATAL VITAMIN TABLET PO SCH (09:01)
[2020-01-22] MEDS: HEPARIN 5,000 UNIT/ML VIAL SUBQ SCH ×2 (09:02→20:39)
[2020-01-22] MEDS: THIAMINE 100 MG TABLET PO SCH (09:02)
[2020-01-22] MEDS: DOCUSATE SODIUM 250 MG CAPSULE PO SCH (09:02)
--- NOTE | 2020-01-22 09:40 | PROVIDER PROGRESS NOTE ---
Subjective - Prog Note Date Prog Note Date: 01/22/20 - Subjective Subjective: She is sitting in a chair and watching TV. Denies chest pain or dyspnea. She does complain of occasional abdominal pain. Current Medications - Current Medications Current Medications: Active Medications Acetaminophen (Tylenol) 650 mg PO Q4HR PRN PRN Reason: Pain 1 to 4 Last Admin: 01/21/20 05:37 Dose: 650 mg Docusate Sodium (Colace 250mg Capsule) 250 - 500 mg PO DAILY [facility] Last Admin: 01/22/20 09:02 Dose: 250 mg Heparin Sodium (Beef Lung) () 30 - 50 unit IVP PRN PRN PRN Reason: Central Line Protocol (<24 hr) Last Admin: 01/21/20 08:19 Dose: 50 unit Heparin Sodium (Porcine) () 5,000 unit SUBQ BID [facility] Last Admin: 01/22/20 09:02 Dose: 5,000 unit Mineral Oil (Cavilon) 1 applic TOP PRN PRN PRN Reason: Skin Care Ondansetron HCl (Zofran Inj) 4 mg IVP Q6HR PRN PRN Reason: Nausea / Vomiting Last Admin: 01/22/20 03:59 Dose: 4 mg Oxycodone HCl (Roxicodone) 5 mg PO Q4HR PRN PRN Reason: PAIN Last Admin: 01/22/20 11:51 Dose: 5 mg Pantoprazole Sodium (Protonix) 40 mg PO QDAC [facility] Last Admin: 01/22/20 05:24 Dose: 40 mg Polyethylene Glycol (Miralax) 17 gm PO DAILY [facility] Last Admin: 01/22/20 10:11 Dose: Not Given Multivit/Folic Acid/Iron (Trinatal Rx 1) 1 tab PO DAILYWM [facility] Last Admin: 01/22/20 09:01 Dose: 1 tab Senna (Senokot) 8.6 mg PO DAILY PRN PRN Reason: Constipation Last Admin: 01/16/20 21:53 Dose: 8.6 mg Senna (Senokot) 8.6 - 17.2 mg PO DAILY [facility] Last Admin: 01/22/20 09:01 Dose: 8.6 mg Sodium Chloride (Normal Saline Flush 0.9%) 10 ml IVP PRN PRN PRN Reason: NEEDED PER PROVIDER ORDERS Last Admin: 01/22/20 05:21 Dose: 10 ml Sodium Chloride (Normal Saline Flush 0.9%) 10 ml IVP 0100,0900,1700 [facility] Last Admin: 01/22/20 10:11 Dose: 10 ml Sodium Chloride (Normal Saline Flush 0.9%) 20 ml IVP PRN PRN PRN Reason: After Blood Draw Last Admin: 01/22/20 05:21 Dose: 20 ml Thiamine HCl (Vitamin B-1) 100 mg PO DAILY [facility] Last Admin: 01/22/20 09:02 Dose: 100 mg No Known Home Medications 01/11/20 Objective - Vital Signs/Intake & Output Reviewed Vital Signs: Yes Vital Signs: Vital Signs x48h Temp Pulse Resp BP Pulse Ox 01/22/20 08:18 36.8 C 96 14 112/66 98 01/22/20 04:44 36.7 C 100 18 106/70 100 Intake & Output: Intake & Output 01/19/20 01/20/20 01/21/20 01/22/20 23:59 23:59 23:59 23:59 Intake Total 490 1260 1690 110 Output Total 400 400 200 Balance 628 755 0606 -90 - Objective General Appearance: positive: No acute distress, Alert Eyes Bilateral: positive: Normal inspection ENT: positive: ENT inspection nml Neck: positive: Nml inspection Respiratory: positive: No respiratory distress Cardiovascular: positive: Tachycardia Skin: positive: Warm, Dry Extremities: positive: Pedal edema (She has +1 to +2 pitting edema in her calfs. No edema in her ankles) - Lab Results Fish Bones: 01/22/20 05:15 01/22/20 05:15 Other Labs: Lab Results x24hrs 01/22/20 01/22/20 01/21/20 Range/Units 05:15 05:15 09:27 WBC 8.7 (4.8-10.8) x10^3/uL RBC 2.19 L (4.20-5.40) 10^6/uL Hgb 7.7 L (12.0-16.0) g/dL Hct 24.2 L (37.0-47.0) % MCV 110.5 H (81.0-99.0) fL MCH 35.2 H (27.0-31.0) pg MCHC 31.8 L (32.0-36.0) g/dL RDW 16.7 H (12.0-15.0) % Plt Count 182 (130-450) 10^3/uL MPV 9.3 (7.9-10.8) fL Sodium 130 L 131 L (135-145) mmol/L Potassium 4.8 4.6 (3.5-5.0) mmol/L Chloride 98 L 99 L (101-111) mmol/L Carbon Dioxide 25 28 (21-32) mmol/L Anion Gap 7.0 4.0 L (6-13) BUN 25 H 27 H (6-20) mg/dL Creatinine 0.9 0.9 (0.4-1.0) mg/dL Estimated GFR (MDRD) 63 L 63 L (>89) Glucose 121 H 132 H (70-100) mg/dL Calcium 8.4 L 8.5 (8.5-10.3) mg/dL ABX Reporting Has patient been on IV antibiotics over the past 48 hours?: No Assessment/Plan - Problem List (1) Weakness Impression: This likely multifactorial due to her deconditioning and underlying liver cirrhosis as well as anemia. Continue with physical therapy while she is hospitalized. She is pending placement to a senior living facility. (2) Liver cirrhosis, alcoholic Impression: She has cirrhosis secondary to alcohol use. Her meld score is approximately 25. We did discuss goals of care and she wants to be a full code. Palliative care has been consulted to assist with goals of care. Qualifiers: Ascites presence: with ascites Qualified Code(s): K70.31 - Alcoholic cirrhosis of liver with ascites (3) MJ (acute kidney injury) Impression: Stable. Her creatinine remains at 0.9. Her baseline during her last hospitalization was 0.5. Continue to monitor. (4) Tachycardia Impression: This has improved slightly and her heart rates have varied from the 80's to 90's. This is likely due to intravascular depletion and she responded well to IV fluids. We will continue to monitor. (5) Hyponatremia Impression: Secondary to liver cirrhosis and this is stable. (6) Ascites Impression: This secondary to her alcoholic liver cirrhosis. She has required paracentesis during his hospitalization. Her abdomen remains distended but I am not sure she would benefit from paresthesias at this time. We will continue to monitor closely. Qualifiers: Ascites type: due to alcoholic cirrhosis Qualified Code(s): K70.31 - Alcoholic cirrhosis of liver with ascites (7) Macrocytic anemia Impression: Stable and secondary to her alcohol abuse. Stool occult was negative for bleeding. Continue to monitor. (8) Alcohol abuse Impression: She has not gone through withdrawal during his hospitalization. Continue thiamine and folate.
[2020-01-22] MEDS: polyethylene glycoL 3350 17 GM PACKET PO SCH (10:11)
[2020-01-22] MEDS: oxyCODONE 5 MG TABLET PO PRN ×2 (11:51→20:38)
--- NOTE | 2020-01-22 15:33 | CONSULTATION NOTE ---
Palliative Care Consultation - Referral Referring Provider: Matthew Horvath MD Time of Visit: 8028-1536 Referral setting: Hospitalized patient Referral Reason: Liver Failure/Goals of Care - Information Sources Records reviewed: Previous records reviewed History/Review of Systems obtained from: Patient, Other Exam limitations: Clinical condition (concern with patient's recall/accuracy of information; Patient has provided many different versions of information to providers) - History of Present Illness Brief History of Present Illness: This is a 64-year-old woman who presents as a result of weakness and fall. She has known cirrhotic liver failure, with ascites, and continues to drink after last hospitalization. Patient reports she does understand the seriousness of her illness, that she is at high risk for ongoing continued decline, she reports this is not consistent with her goals. She reports she is never been this sick before, and she does feel like she can improve as she is "just stubborn". She perceived this as a shanae to get over, she does understand she "did it to myself", she is pleased to be feeling better. She does understand the goal, and reports this aligns with her wishes, which is to discharge to a SNF to further progress her activities, and improve her functional status so she can manage more independently. Patient presents today with high symptom burden, increasing abdominal ascites and pressure, resulting in breathlessness, increased pain and discomfort, decreased intake with early satiety, and recurrent nausea. She has dark brown urine, poor activity tolerance, and states her goals are to live with her sister in a [place] for more assistance, but has difficulty identifying the steps to get there, aware will need to work hard and stop drinking if to improve. Medical/Surgical History - Past Medical History Cardiovascular: reports: None Respiratory: reports: Shortness of breath Neuro: Fainting Endocrine/Autoimmune: reports: None GI: reports: Cirrhosis (with ascites) CHASSIS ENGINEER: reports: None : reports: Incontinence HEENT: reports: Chronic vision loss Psych: reports: Depression, Anxiety Musculoskeletal: reports: Fatigue Derm: reports: None MRSA Hx?: No - Past Surgical History General: reports: Appendectomy Social History - Living Situation Living arrangement: Homeless Support System: Patient does not provide a very good timeline for what she is been doing, she has most recently been living in a hotel on discharge from hospital 12/17. She reports her friend Ana has been bringing her food and money, that she has access to her bank account. She is very defensive, saying that she is waiting for her brother and sister to come pick her up, and they are planning to provide her assistance. She shared that her divorce was over 5 years ago, and they are no longer in touch, but that he does have their dog. She reports she has not seen her son for over 2 years, and he lives in [facility] and works for [employer] 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 She has not seen her for couple years, but reports has talked to her in the last couple days. She shares she has a brother Madi, who also works in a [employer], and would be willing to come get her, he is supposed to be calling [employer] as well. She reports her dad was in the [employer], they moved all over, he when she was in high school. She was very close to her mother Josie, whom she shares of breast cancer. It sounds like she lived with her as she 2 years ago and they "took care of each other". She reports her older sister of cancer shortly after of this but did not know of what kind. She is very vague, as far as what she has been doing, she has not been working, but does have access to some money her mother left her. She is clear that she is continued to drink, and at this point in time is planning to stop Family History - Family History Family History: Mother: , Cancer (breast), Father: , Sister: , Cancer Medications/Allergies - Medications Active Medication List: Active Medications Acetaminophen (Tylenol) 650 mg PO Q4HR PRN PRN Reason: Pain 1 to 4 Last Admin: 01/21/20 05:37 Dose: 650 mg Docusate Sodium (Colace 250mg Capsule) 250 - 500 mg PO DAILY [facility] Last Admin: 01/22/20 09:02 Dose: 250 mg Heparin Sodium (Beef Lung) () 30 - 50 unit IVP PRN PRN PRN Reason: Central Line Protocol (<24 hr) Last Admin: 01/21/20 08:19 Dose: 50 unit Heparin Sodium (Porcine) () 5,000 unit SUBQ BID [facility] Last Admin: 01/22/20 09:02 Dose: 5,000 unit Mineral Oil (Cavilon) 1 applic TOP PRN PRN PRN Reason: Skin Care Ondansetron HCl (Zofran Inj) 4 mg IVP Q6HR PRN PRN Reason: Nausea / Vomiting Last Admin: 01/22/20 03:59 Dose: 4 mg Oxycodone HCl (Roxicodone) 5 mg PO Q4HR PRN PRN Reason: PAIN Last Admin: 01/22/20 11:51 Dose: 5 mg Pantoprazole Sodium (Protonix) 40 mg PO QDAC [facility] Last Admin: 01/22/20 05:24 Dose: 40 mg Polyethylene Glycol (Miralax) 17 gm PO DAILY [facility] Last Admin: 01/22/20 10:11 Dose: Not Given Multivit/Folic Acid/Iron (Trinatal Rx 1) 1 tab PO DAILYWM [facility] Last Admin: 01/22/20 09:01 Dose: 1 tab Senna (Senokot) 8.6 mg PO DAILY PRN PRN Reason: Constipation Last Admin: 01/16/20 21:53 Dose: 8.6 mg Senna (Senokot) 8.6 - 17.2 mg PO DAILY [facility] Last Admin: 01/22/20 09:01 Dose: 8.6 mg Sodium Chloride (Normal Saline Flush 0.9%) 10 ml IVP PRN PRN PRN Reason: NEEDED PER PROVIDER ORDERS Last Admin: 01/22/20 05:21 Dose: 10 ml Sodium Chloride (Normal Saline Flush 0.9%) 10 ml IVP 0100,0900,1700 [facility] Last Admin: 01/22/20 10:11 Dose: 10 ml Sodium Chloride (Normal Saline Flush 0.9%) 20 ml IVP PRN PRN PRN Reason: After Blood Draw Last Admin: 01/22/20 05:21 Dose: 20 ml Thiamine HCl (Vitamin B-1) 100 mg PO DAILY [facility] Last Admin: 01/22/20 09:02 Dose: 100 mg No Known Home Medications 01/11/20 - Allergies Allergies/Adverse Reactions: Allergies Allergy/AdvReac Type Severity Reaction Status Date / Time morphine Allergy Hallucinati Verified 01/11/20 13:59 ons Review of Systems - Constitutional Constitutional: reports: Fatigue (worsening), Weakness (mostly bedbound; has been working with PT), Poor appetite - Eyes Eyes: reports: Vision loss, Corrective lenses - Ears, Nose & Throat Ears, Nose & Throat: reports: Dental decay - Cardiovascular Cardiovascular: reports: Lightheadedness, Exertional dyspnea, Decr. exercise tolerance - Respiratory Respiratory: reports: SOB with exertion - Gastrointestinal Gastrointestinal: reports: Abdominal distention, Diarrhea (improved), Nausea, Vomiting (intermittent), Bloating, Poor appetite, Early satiety - Genitourinary Genitourinary: reports: Other (has WICK; brown urine collecting) - Musculoskeletal Musculoskeletal: reports: Back pain, Muscle aches, Stiffness, Limited range of motion, Muscle weakness, Transfer issues (sit to stand lift for chair at this time) - Integumentary Integumentary: reports: Dryness - Neurological Neurological: reports: General weakness, Numbness, Memory problems - Psychiatric Psychiatric: reports: Depression, Anxiety - Hematologic/Lymphatic Hematologic/Lymphatic: reports: Anemia (worsening 7.7) - All Other Systems All Other Systems: reports: Reviewed and negative Physical Exam - Vital Signs Vital Signs: Vital Signs x48h Temp Pulse Resp BP Pulse Ox 01/22/20 08:18 36.8 C 96 14 112/66 98 - Physical Exam General Appearance: positive: Mild distress, Lethargic Eyes Bilateral: positive: No scleral icterus ENT: positive: Dry mucous membranes, Other (poor dentition) Neck: positive: Trachea midline Cardiovascular: positive: Tachycardia Respiratory: positive: Diminished in bases, Other (increase respiratory effort; ascites making difficult to take a deep breath) Abdomen: positive: Tenderness, Distended, Taut Skin: positive: Pallor, Dryness Extremities: positive: No pedal edema Neurologic/Psychiatric: positive: Disoriented to time, Weakness, Depressed mood/affect, Flat affect Palliative Care - POLST Patient has POLST: No POLST Status: Full Code (reconfirmed see PC discussion) Pain: Pain worsening, Location (low back and abdominal pressure) Tiredness/Fatigue: Severe (7-10) Drowsiness/Sedation: Severe (7-10) Nausea: Moderate (4-6), With vomiting Anorexia: Severe (7-10) Dyspnea: Moderate (4-6) Depression: Severe (7-10) Anxiety: Severe (7-10) Feelings of wellbeing/Perceived Quality of Life: Poor, Worsening Sleep: Variable sleep pattern Performance Status: Patient reports she was ambulatory and able to manage in a small room at the hotel. She is unable to recall our illicit her previous level of functioning was prior to her first hospitalization. Notes have her living with her friend Madeleine, whom she does speak of finally.She was able to participate some in PT today, did do a transfer the chair and was up for an hour. She seemed somewhat surprised, at her lack of ability to sustain any activity. 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 - Palliative Care Discussion: Patient does appear to have some insight though not realistic view of her current situation as far as her liver failure. 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 She reports "I do not worry about myself". We did discuss the seriousness of her illness that could lead to an end-of-life event, and she took this somewhat in stride. She did become quite tearful when talking about her mother who 2 years ago, she "was her rock" and they took care of each other. We revisited the question about what was realistic if she were to have end-of-life event, to stop breathing and her heart, she would want CPR. She does understand that this would most likely be of little effectiveness, and is quite nonchalant saying "than the get some practice". Her short-term goals are to quit drinking, and to participate in therapy and does understand the goal is to transition her to a SNF. She is in agreement at this point with that plan We did discuss in the context of it is more important we knew who her Ramsey HERNANDEZ was going to be, social work worked on this some and she identified and I have reconfirmed she wants her sister Janette Hernandez [phone] to be primary. She thought she had signed some paperwork, but on follow-up it appears they were waiting to confirm this with her sister, who has not called back. I have called and left a message as well. 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 She also asked me to update her friend Madeleine Aleman, the phone number I have is [phone], which shows multiple times on her phone, I tried multiple times through the day with no one picking up. Results - Lab Results Lab results reviewed: Yes Fish Bones: 01/22/20 05:15 01/22/20 05:15 Lab and Imaging Results: Lab Results x24hrs 01/22/20 01/22/20 Range/Units 05:15 05:15 WBC 8.7 (4.8-10.8) x10^3/uL RBC 2.19 L (4.20-5.40) 10^6/uL Hgb 7.7 L (12.0-16.0) g/dL Hct 24.2 L (37.0-47.0) % MCV 110.5 H (81.0-99.0) fL MCH 35.2 H (27.0-31.0) pg MCHC 31.8 L (32.0-36.0) g/dL RDW 16.7 H (12.0-15.0) % Plt Count 182 (130-450) 10^3/uL MPV 9.3 (7.9-10.8) fL Sodium 130 L (135-145) mmol/L Potassium 4.8 (3.5-5.0) mmol/L Chloride 98 L (101-111) mmol/L Carbon Dioxide 25 (21-32) mmol/L Anion Gap 7.0 (6-13) BUN 25 H (6-20) mg/dL Creatinine 0.9 (0.4-1.0) mg/dL Estimated GFR (MDRD) 63 L (>89) Glucose 121 H (70-100) mg/dL Calcium 8.4 L (8.5-10.3) mg/dL Impression and Recommendations - Palliative Care Impression: This is a 64-year-old woman who has had now her second admission for weakness, and hyponatremia. She has known cirrhotic liver failure with ascites, and is continued with functional decline, and high symptom burden. It is difficult to get a clear picture of what her underlying social support is or is not, patient does not appear to have much insight into the seriousness of her condition and the implications for her future wellbeing. Palliative care will continue to provide support, and work with patient's ongoing short-term and long-term goals as well as provide anticipatory guidance. Recommendations/Counseling Done: 1. Cirrhosis of liver with ascites. Patient is reaccumulating fluid, her abdomen is somewhat taut, she reports this does influence shortness of breath and her ability to eat. She may need a paracentesis prior to discharge or transition. She denies any acute pain, and is unable to really share what the threshold has been for interventions. Patient's current MELD NA score is 23, which puts her at 7 to 10% 90 day mortality. Her child Aguilar score is 13, which puts her life expectancy at 1 to 3 years. Of note the patient continues to deteriorate, she presents with high symptom burden, and no improvement in her functional status looking at a PPS, she most likely has days to weeks. Patient is expressing wishes to stop drinking, and to focus on improving her underlying functional status. 2. Advanced care planning. Patient has very little insight into the severity of her illness, though she does understand she is at high risk for an end-of-life event. Did work counselor and confirm patient still wants attempted resuscitation status, we did discuss in the context of this though I am concerned she needs a D POA. The social science analyst had started that process this weekend, was unable to confirm or make contact with sister from whom she has picked as her primary D POA. At this point in time it would default to her son, which we do not have contact information for other than his name is Madi. She is not very forthcoming unclear if this is patient's hesitancy to involve family, or if she does not have contact numbers. She did ask I contact Ana her friend and give her an update, unfortunately she does not answer the phone. She also gave me permission to have a conversation with her sister regarding her current status and the seriousness of her illness.Message left for call back. Time Spent: 90 minutes with greater than 50% of this done in counseling, establishing r apport, coordination of care with hospital team. We will continue work with patient, hopefully make contact with family, and continue provide anticipatory guidance.
[2020-01-23] MEDS: SODIUM CHLORIDE FLUSH 0.9% 10 ML SYRINGE IVP SCH ×3 (00:24→22:43)
[2020-01-23] MEDS: PANTOPRAZOLE 40 MG TABLET PO SCH (05:52)
[2020-01-23] MEDS: THIAMINE 100 MG TABLET PO SCH (08:29)
[2020-01-23] MEDS: PRENATAL VITAMIN TABLET PO SCH (08:29)
[2020-01-23] MEDS: HEPARIN 5,000 UNIT/ML VIAL SUBQ SCH ×2 (08:29→22:44)
[2020-01-23] MEDS: polyethylene glycoL 3350 17 GM PACKET PO SCH (08:34)
[2020-01-23] MEDS: DOCUSATE SODIUM 250 MG CAPSULE PO SCH (08:34)
[2020-01-23] MEDS: SENNA 8.6 MG TABLET PO SCH (08:35)
--- NOTE | 2020-01-23 13:08 | PROVIDER PROGRESS NOTE ---
Assessment/Plan - Problem List (1) Weakness Assessment/Plan: He is extremely deconditioned, secondary to being in the ICU and bed ridden, secondary to her alcohol abuse and minimal activity. She is participating with PT, cooperates, is making slow progress. A discharge to SNF is planned however after that there has to be a final disposition (before this she was in a hotel room). (2) Tachycardia Assessment/Plan: She is tachy with activity, related to deconditioning and low intravascular volume resulting from hypoalbuminemia. Will recheck serum Alb, last was done 01/16. Will DC the CVP line after the Alb resulted, if no iv Albumen dosing will be needed (3) Liver cirrhosis, alcoholic Assessment/Plan: Related to alcohol abuse. (4) Hyponatremia Assessment/Plan: Chronic and related to her alcoholic liver cirrhosis. She is on a 2000 cc/d total, fluid restriction order Follow BMP intermittently. (5) Ascites Qualifiers: Ascites type: due to alcoholic cirrhosis Qualified Code(s): K70.31 - Alcoholic cirrhosis of liver with ascites Assessment/Plan: From liver cirrhosis and malnutrition with hypoalbuminemia She needed paracentesis several days ago. Since being more awake and having p.o. intake, her ascites is more tense however she is not uncomfortable with it, not dyspneic. Will hold off on another paracentesis now. (6) Macrocytic anemia Assessment/Plan: Related to alcohol abuse and associated low vitamin levels. She is on replacements. (7) Alcohol abuse Assessment/Plan: At admission she admitted to abusing alcohol and stated whenever she stopped she did not go through withdrawal, and in fact she did not have withdrawal during this admission (8) Hypotension Assessment/Plan: Resolved and Midodrine weaned to off - Current Meds Current Meds: Current Medications Generic Name Dose Route Start Last Admin Trade Name Freq PRN Reason Stop Dose Admin Acetaminophen 650 mg 01/11/20 15:56 01/21/20 05:37 Tylenol PO 650 mg Q4HR PRN Administration Pain 1 to 4 Docusate Sodium 250 - 500 mg 01/17/20 09:00 01/23/20 08:34 Colace 250mg Capsule PO Not Given DAILY TANO Heparin Sodium (Beef Lung) 30 - 50 unit 01/13/20 04:03 01/21/20 08:19 IVP 50 unit PRN PRN Administration Central Line Protocol (<24 hr) Heparin Sodium (Porcine) 5,000 unit 01/20/20 21:00 01/23/20 08:29 SUBQ 5,000 unit BID TANO Administration Ondansetron HCl 4 mg 01/11/20 15:56 01/22/20 03:59 Zofran Inj IVP 4 mg Q6HR PRN Administration Nausea / Vomiting Oxycodone HCl 5 mg 01/21/20 11:22 01/22/20 20:38 Roxicodone PO 5 mg Q4HR PRN Administration PAIN Pantoprazole Sodium 40 mg 01/12/20 07:00 01/23/20 05:52 Protonix PO 40 mg QDAC TANO Administration Polyethylene Glycol 17 gm 01/15/20 09:00 01/23/20 08:34 Miralax PO 17 gm DAILY TANO Administration Multivit/Folic Acid/Iron 1 tab 01/15/20 10:00 01/23/20 08:29 Trinatal Rx 1 PO 1 tab DAILYWM TANO Administration Senna 8.6 mg 01/16/20 21:37 01/16/20 21:53 Senokot PO 8.6 mg DAILY PRN Administration Constipation Senna 8.6 - 17.2 mg 01/17/20 09:00 01/23/20 08:35 Senokot PO Not Given DAILY TANO Sodium Chloride 10 ml 01/11/20 15:56 01/22/20 05:21 Normal Saline Flush 0.9% IVP 10 ml PRN PRN Administration NEEDED PER PROVIDER ORDERS Sodium Chloride 10 ml 01/11/20 17:00 01/23/20 08:35 Normal Saline Flush 0.9% IVP 10 ml 0100,0900,1700 TANO Administration Sodium Chloride 20 ml 01/13/20 04:03 01/22/20 05:21 Normal Saline Flush 0.9% IVP 20 ml PRN PRN Administration After Blood Draw Thiamine HCl 100 mg 01/15/20 10:00 01/23/20 08:29 Vitamin B-1 PO 100 mg DAILY TANO Administration - Lab Result Fish Bone Diagrams: 01/22/20 05:15 01/22/20 05:15 - Additional Planning My Orders: My Active Orders 01/24/20 05:00 BMP - BASIC METABOLIC PANEL [CHEM] DAILYLAB CBC - COMP BLD CT W/AUTO DIFF [HEME] DAILYLAB Subjective - Subjective Patient Reports: Other ("I'm trying as hard as I can to get stronger". She did take a few steps OOB to chair) Objective Vital Signs: Vital Signs - 24 hr 01/22/20 01/23/20 01/23/20 16:15 00:21 05:22 Temperature 36.7 C 36.9 C 37 C Heart Rate [ 86 100 97 Brachial] Respiratory 16 20 16 Rate Blood Pressure 115/68 104/62 103/53 L [Right Brachial artery] O2 Saturation 97 97 99 01/23/20 07:20 Temperature 36.9 C Heart Rate [ 103 H Brachial] Respiratory 16 Rate Blood Pressure 103/56 L [Right Brachial artery] O2 Saturation 97 Oxygen O2 Source [With Activity] Room air O2 Source Room air I&O (Last 24 Hrs): Intake and Output Totals x24h 01/21/20 01/22/20 01/23/20 23:59 23:59 23:59 Intake Total 1690 1530 220 Output Total 400 1100 150 Balance 1290 430 70 General: Alert, Oriented x3 HEENT: Mucous membr. moist/pink, Other (Poor dentition) Neck: Supple, No JVD Neuro: Alert, Non Focal Cardiovascular: Regular rate Respiratory: No respiratory distress Abdomen: Other (Distended, tense ascites, non-tender, very faint bpwel sounds) Extremities: Other (1+ ankle edema) - Results Results: Laboratory Results WBC 8.7 x10^3/uL (4.8-10.8) 01/22/20 05:15 RBC 2.19 10^6/uL (4.20-5.40) L 01/22/20 05:15 Hgb 7.7 g/dL (12.0-16.0) L 01/22/20 05:15 Hct 24.2 % (37.0-47.0) L 01/22/20 05:15 MCV 110.5 fL (81.0-99.0) H 01/22/20 05:15 MCH 35.2 pg (27.0-31.0) H 01/22/20 05:15 MCHC 31.8 g/dL (32.0-36.0) L 01/22/20 05:15 RDW 16.7 % (12.0-15.0) H 01/22/20 05:15 Plt Count 182 10^3/uL (130-450) 01/22/20 05:15 MPV 9.3 fL (7.9-10.8) 01/22/20 05:15 Neut # (Auto) 6.7 10^3/uL (1.5-6.6) H 01/20/20 06:48 Lymph # (Auto) 1.4 10^3/uL (1.5-3.5) L 01/20/20 06:48 Davie # (Auto) 1.2 10^3/uL (0.0-1.0) H 01/20/20 06:48 Eos # (Auto) 0.1 10^3/uL (0.0-0.7) 01/20/20 06:48 Baso # (Auto) 0.0 10^3/uL (0.0-0.1) 01/20/20 06:48 Absolute Nucleated RBC 0.00 x10^3/uL 01/20/20 06:48 Total Counted 100 01/18/20 05:35 Band Neuts % (Manual) 0 % (0-10) 01/18/20 05:35 Reactive Lymphs % (Man) 7 % 01/17/20 05:40 Abnorm Lymph % (Manual) 0 % 01/18/20 05:35 Metamyelocytes % 2 % (-0) H 01/18/20 05:35 Myelocytes % 1 % (-0) H 01/18/20 05:35 Nucleated RBC % 0.0 /100WBC 01/20/20 06:48 Neutrophils # (Manual) 8.4 10^3/uL (1.5-6.6) H 01/18/20 05:35 Lymphocytes # (Manual) 1.1 10^3/uL (1.5-3.5) L 01/18/20 05:35 Monocytes # (Manual) 0.8 10^3/uL (0.0-1.0) 01/18/20 05:35 Eosinophils # (Manual) 0.0 10^3/uL (0-0.7) 01/18/20 05:35 Basophils # (Manual) 0.0 10^3/uL (0-0.1) 01/18/20 05:35 Differential Comment MANUAL DIFFERENTIAL 01/18/20 05:35 Manual Slide Review Indicated 01/16/20 05:20 WBC Morphology NORMAL APPEARANCE (NORMAL) 01/16/20 05:20 Platelet Estimate NORMAL (130-450,000) (NORMAL) 01/18/20 05:35 Platelet Morphology NORMAL APPEARANCE (NORMAL) 01/16/20 05:20 RBC Morph Micro Appear 1+ HYPOCHROMASIA (NORMAL) 2+ MACROCYTOSIS (NORMAL) 01/14/20 04:15 RBC Morph Micro Appear 2+ MACROCYTOSIS (NORMAL) 1+ HYPOCHROMASIA (NORMAL) 01/15/20 05:05 RBC Morph Micro Appear 2+ MACROCYTOSIS (NORMAL) 1+ HYPOCHROMASIA (NORMAL) 01/15/20 05:05 RBC Morph Micro Appear 2+ HYPOCHROMASIA (NORMAL) 1+ MICROCYTOSIS (NORMAL) 01/16/20 05:20 RBC Morph Micro Appear 2+ HYPOCHROMASIA (NORMAL) 1+ MICROCYTOSIS (NORMAL) 01/16/20 05:20 RBC Morph Micro Appear 1+ ANISOCYTOSIS (NORMAL) 01/17/20 05:40 RBC Morph Micro Appear NORMAL APPEARANCE (NORMAL) 01/18/20 05:35 PT 18.4 secs (9.9-12.6) H 01/18/20 05:35 INR 1.7 (0.8-1.2) H 01/18/20 05:35 Whole Blood INR 1.4 (0.8-1.2) H 01/16/20 09:25 Sodium 130 mmol/L (135-145) L 01/22/20 05:15 Potassium 4.8 mmol/L (3.5-5.0) 01/22/20 05:15 Chloride 98 mmol/L (101-111) L 01/22/20 05:15 Carbon Dioxide 25 mmol/L (21-32) 01/22/20 05:15 Anion Gap 7.0 (6-13) 01/22/20 05:15 BUN 25 mg/dL (6-20) H 01/22/20 05:15 Creatinine 0.9 mg/dL (0.4-1.0) 01/22/20 05:15 Estimated GFR (MDRD) 63 (>89) L 01/22/20 05:15 Glucose 121 mg/dL (70-100) H 01/22/20 05:15 Lactic Acid 1.7 mmol/L (0.5-2.2) 01/11/20 14:25 Calcium 8.4 mg/dL (8.5-10.3) L 01/22/20 05:15 Phosphorus 3.9 mg/dL (2.5-4.6) 01/20/20 06:48 Magnesium 2.1 mg/dL (1.7-2.8) 01/20/20 06:48 Total Bilirubin 3.4 mg/dL (0.2-1.0) H 01/17/20 05:40 AST 56 IU/L (10-42) H 01/17/20 05:40 ALT 34 IU/L (10-60) 01/17/20 05:40 Alkaline Phosphatase 108 IU/L (42-121) 01/17/20 05:40 Ammonia 39.2 umol/L (7-35) H 01/19/20 11:35 Lactate Dehydrogenase 89 IU/L (91-225) L 01/18/20 15:00 Total Protein 6.0 g/dL (6.7-8.2) L 01/18/20 15:00 Albumin 2.3 g/dL (3.2-5.5) L 01/17/20 05:40 Globulin 3.6 g/dL (2.1-4.2) 01/17/20 05:40 Albumin/Globulin Ratio 0.6 (1.0-2.2) L 01/17/20 05:40 Lipase 42 U/L (22-51) 01/11/20 14:25 TSH 3.96 uIU/mL (0.34-5.60) 01/20/20 06:48 Urine Color ORANGE 01/11/20 23:00 Urine Clarity CLEAR (CLEAR) 01/11/20 23:00 Urine pH 5.0 PH (5.0-7.5) 01/11/20 23:00 Ur Specific Lowber 1.025 (1.002-1.030) 01/11/20 23:00 Urine Protein TRACE mg/dL (NEGATIVE) 01/11/20 23:00 Urine Glucose (UA) NEGATIVE mg/dL (NEGATIVE) 01/11/20 23:00 Urine Ketones TRACE mg/dL (NEGATIVE) 01/11/20 23:00 Urine Occult Blood NEGATIVE (NEGATIVE) 01/11/20 23:00 Urine Nitrite NEGATIVE (NEGATIVE) 01/11/20 23:00 Urine Bilirubin NEGATIVE (NEGATIVE) 01/11/20 23:00 Urine Urobilinogen 4 E.U./dL (NORMAL) H 01/11/20 23:00 Ur Leukocyte Esterase NEGATIVE (NEGATIVE) 01/11/20 23:00 Ur Microscopic Review NOT INDICATED 01/11/20 23:00 Urine Culture Comments NOT INDICATED 01/11/20 23:00 Fluid Source PERITONEAL 01/18/20 14:45 Fluid Color YELLOW 01/18/20 14:45 Fluid Clarity CLEAR 01/18/20 14:45 Fluid WBC 47 /mm^3 01/18/20 14:45 Fluid RBC 1000 /mm^3 01/18/20 14:45 Fluid Neutrophils % 17.0 % 01/18/20 14:45 Fluid Lymphocytes % 35.0 % 01/18/20 14:45 Fluid Monocytes % 15.0 % 01/18/20 14:45 Fluid Macrophages % 29.0 % 01/18/20 14:45 Fld Mesothelial Cell % 4.0 % 01/18/20 14:45 Nasal Screen MRSA (PCR) NEGATIVE (NEGATIVE) 01/12/20 08:15 Urine Opiates Screen NEGATIVE (NEGATIVE) 01/11/20 23:00 Ur Oxycodone Screen NEGATIVE (NEGATIVE) 01/11/20 23:00 Urine Methadone Screen NEGATIVE (NEGATIVE) 01/11/20 23:00 Ur Propoxyphene Screen NEGATIVE (NEGATIVE) 01/11/20 23:00 Ur Barbiturates Screen NEGATIVE (NEGATIVE) 01/11/20 23:00 Ur Tricyclics Screen NEGATIVE (NEGATIVE) 01/11/20 23:00 Ur Phencyclidine Scrn NEGATIVE (NEGATIVE) 01/11/20 23:00 Ur Amphetamine Screen NEGATIVE (NEGATIVE) 01/11/20 23:00 U Methamphetamines Scrn NEGATIVE (NEGATIVE) 01/11/20 23:00 U Benzodiazepines Scrn NEGATIVE (NEGATIVE) 01/11/20 23:00 Urine Cocaine Screen NEGATIVE (NEGATIVE) 01/11/20 23:00 U Cannabinoids Screen NEGATIVE (NEGATIVE) 01/11/20 23:00 Ethyl Alcohol < 5.0 mg/dL 01/11/20 14:25 Coronavirus (PCR) NEGATIVE 01/11/20 14:45 Hepatitis A IgM Ab NON-REACTIVE (NON-REACTIVE) 01/19/20 05:29 Hep Bs Antigen NON-REACTIVE (NON-REACTIVE) 01/19/20 05:29 Hep B Core IgM Ab NON-REACTIVE (NON-REACTIVE) 01/19/20 05:29 Hepatitis C Antibody NON-REACTIVE (NON-REACTIVE) 01/19/20 05:29 Hep C Ab Signal/Cutoff 0.00 (<1.00) 01/19/20 05:29 Ref Lab Test Result REPORT 01/18/20 14:45 Blood Type A NEGATIVE 01/17/20 05:40 Antibody Screen NEGATIVE 01/17/20 05:40 Crossmatch IS Only See Detail 01/17/20 05:40 - Procedures Procedures: Procedures DRAINAGE OF PERITONEAL CAVITY, PERCUTANEOUS APPROACH (12/16/19)
--- NOTE | 2020-01-23 17:01 | CONSULTATION NOTE ---
Palliative Care Follow Up - Referral Referring Provider: Matthew Horvath MD Time of Visit: [id number] Referral setting: Assisted living (patient with mild confusion/more alert and participatory today) Referral Reason: Cirrhosis of the liver/goals of care - Information Sources Records reviewed: Previous records reviewed History/Review of Systems obtained from: Patient, Family (spoke with sister Janette) Exam limitations: Clinical condition - History of Present Illness Update Brief HPI Update: Please see HPI from palliative care visit 01/21 for more complete history. This is a 64-year-old woman who has known cirrhotic liver failure with ascites, deconditioning, and failure to thrive. Was able to speak with her sister today, Janette, She has been very worried, she reports she heard from her a couple days ago. Patient had given me permission to talk to her about her condition, and transition planning. Gave her update on patient's tenuous situation, goal for safe discharge plan, and need for long-term planning and support. She reports patient has been doing poorly for couple years, since her mother had , and her divorce was actually within the last year. She had planned to take her home last year, but patient had declined last-minute. This was confirmed when I spoke to the patient, she reports she was very fearful of airplanes and flying. She is somewhat more resolute today, recognizing she does need to be closer to family when she and I met after conversation with her sister.She says that she herself the sister, had a stroke and would not be able to take on her care, she will reach out to her brother and see if there is any other support family might be able to provide. She does confirm though that she would be more than willing to be D POA, she does understand patient's poor insi ght into the seriousness of her illness, Janette is a RN, and aware of implications of patient's decline. When I met with patient, added to VIT spoken to her sister, and need to complete the POA paperwork. She was quite pleased that there have been made contact, she will try and call her after her phone is charged today. She does recognize the limitations as far as what her family might be able to provide, but does feel at some point with her goal to get stronger, she would like to be closer to them for long-term support. When asked how she was doing without drinking, she feels like she is doing okay. She is having trouble piecing together the last year, as we were trying to discuss about her belongings, and accessing her for things to be able to transition to another setting. She is quite tearful, she does admit to some difficulty remembering, and most likely feeling quite overwhelmed by the whole situation. Patient is up sitting in the chair, she is got rapid respirations, about 20-24 unlabored. This remained fairly consistent through our conversation, though she blamed it on the effort of getting to the chair. She is trying very hard, she does recognize that she is going to have to participate and is wanting to get stronger. Her short-term goal is to be able to travel and be able to transition closer to family though this may be more of a long-term goal. She is quite tacky, she denies any pain, her belly is much more firm today, she may need paracentesis prior to transitioning to next setting. She reports she has early satiety, continues with nausea, but this is improving. She denies any diarrhea, but does have escalating anxiety, and mild persistent symptoms of depression. Social History - Living Situation Living arrangement: Homeless Support System: Patient does have her friend Madeleine whom she identifies as someone of support, though she herself has a difficult life. Sister did express concerns that Madeleine had access to patient's bank account, as patient did have a settlement from her divorce. She is worried that that may have been taken advantage of. Will follow up with social work if warrants APS referral. Medications/Allergies - Medications Active Medication List: Active Medications Acetaminophen (Tylenol) 650 mg PO Q4HR PRN PRN Reason: Pain 1 to 4 Last Admin: 01/21/20 05:37 Dose: 650 mg Docusate Sodium (Colace 250mg Capsule) 250 - 500 mg PO DAILY [facility] Last Admin: 01/23/20 08:34 Dose: Not Given Heparin Sodium (Beef Lung) () 30 - 50 unit IVP PRN PRN PRN Reason: Central Line Protocol (<24 hr) Last Admin: 01/21/20 08:19 Dose: 50 unit Heparin Sodium (Porcine) () 5,000 unit SUBQ BID TANO Last Admin: 01/23/20 08:29 Dose: 5,000 unit Mineral Oil (Cavilon) 1 applic TOP PRN PRN PRN Reason: Skin Care Ondansetron HCl (Zofran Inj) 4 mg IVP Q6HR PRN PRN Reason: Nausea / Vomiting Last Admin: 01/22/20 03:59 Dose: 4 mg Oxycodone HCl (Roxicodone) 5 mg PO Q4HR PRN PRN Reason: PAIN Last Admin: 01/22/20 20:38 Dose: 5 mg Pantoprazole Sodium (Protonix) 40 mg PO QDAC [facility] Last Admin: 01/23/20 05:52 Dose: 40 mg Polyethylene Glycol (Miralax) 17 gm PO DAILY [facility] Last Admin: 01/23/20 08:34 Dose: 17 gm Multivit/Folic Acid/Iron (Trinatal Rx 1) 1 tab PO DAILYWM [facility] Last Admin: 01/23/20 08:29 Dose: 1 tab Senna (Senokot) 8.6 mg PO DAILY PRN PRN Reason: Constipation Last Admin: 01/16/20 21:53 Dose: 8.6 mg Senna (Senokot) 8.6 - 17.2 mg PO DAILY [facility] Last Admin: 01/23/20 08:35 Dose: Not Given Sodium Chloride (Normal Saline Flush 0.9%) 10 ml IVP PRN PRN PRN Reason: NEEDED PER PROVIDER ORDERS Last Admin: 01/22/20 05:21 Dose: 10 ml Sodium Chloride (Normal Saline Flush 0.9%) 10 ml IVP 0100,0900,1700 [facility] Last Admin: 01/23/20 08:35 Dose: 10 ml Sodium Chloride (Normal Saline Flush 0.9%) 20 ml IVP PRN PRN PRN Reason: After Blood Draw Last Admin: 01/22/20 05:21 Dose: 20 ml Thiamine HCl (Vitamin B-1) 100 mg PO DAILY [facility] Last Admin: 01/23/20 08:29 Dose: 100 mg No Known Home Medications 01/11/20 - Allergies Allergies/Adverse Reactions: Allergies Allergy/AdvReac Type Severity Reaction Status Date / Time morphine Allergy Hallucinati Verified 01/11/20 13:59 ons Review of Systems - Constitutional Constitutional: reports: Fatigue, Weakness, Poor appetite. denies: Fever, Chill s - Eyes Eyes: reports: Vision loss, Corrective lenses - Ears, Nose & Throat Ears, Nose & Throat: reports: Dental decay, Dry mouth - Cardiovascular Cardiovascular: reports: Exertional dyspnea, Decr. exercise tolerance - Respiratory Respiratory: reports: SOB at rest, SOB with exertion. denies: Cough - Gastrointestinal Gastrointestinal: reports: Abdominal distention, Nausea, Bloating, Early satiety. denies: Vomiting, Reflux/heartburn - Musculoskeletal Musculoskeletal: reports: Back pain, Muscle aches, Stiffness, Limited range of motion, Muscle weakness, Other (working with PT) - Integumentary Integumentary: reports: Pruritis, Dryness - Neurological Neurological: reports: General weakness, Numbness, Memory problems - Psychiatric Psychiatric: reports: Depression, Anxiety - Hematologic/Lymphatic Hematologic/Lymphatic: reports: Anemia - All Other Systems All Other Systems: reports: Reviewed and negative Physical Exam - Vital Signs Vital Signs: Vital Signs x48h Temp Pulse Resp BP Pulse Ox 01/23/20 15:41 36.9 C 107 H 18 106/67 99 - Physical Exam General Appearance: positive: Alert, Mild distress Eyes Bilateral: positive: Normal inspection, No scleral icterus ENT: positive: Dry mucous membranes, Other (poor dentition) Neck: positive: Trachea midline Cardiovascular: positive: Tachycardia Respiratory: positive: Other (respiratory effort with any conversation or activity) Abdomen: positive: Tenderness, Distended, Taut Skin: positive: Dryness Extremities: positive: Pedal edema Neurologic/Psychiatric: positive: Oriented x3, Weakness, Depressed mood/affect, Flat affect, Other (more alert and engaged though tearful with conversation) Palliative Care - POLST Patient has POLST: No POLST Status: Full Code Pain: Pain unchanged, Location (abdominal dull pressure only) Tiredness/Fatigue: Moderate (4-6) Drowsiness/Sedation: Moderate (4-6) Nausea: Moderate (4-6) Anorexia: Moderate (4-6) Dyspnea: Moderate (4-6) Depression: Moderate (4-6) Anxiety: Moderate (4-6) Feelings of wellbeing/Perceived Quality of Life: Poor, Improved Sleep: Variable sleep pattern - Palliative Care Discussion: Met with patient, she continues to express regrets that her decline, and started to feel more distressed about transitioning. She is somewhat confused in the context of the last few weeks to months, does not feel at this point in time she is having difficulty not drinking. She does admit to feeling overwhelmed though and with high anxiety. Reviewed D DAVID, with her sister as first and brother is second, she feels comfortable with both of them making decisions for her. She continues to recognize the seriousness of her illness, but is hoping to get better and move closer to family. Long extensive discussion with Janette, Guarding the fragility of her situation. We also discussed patient currently has chosen to be full code, she does understand that this is most likely not a good decision if she were to continue to decline. We did discuss in the context of this, her prognosis is limited, and she will continue to worsen if she returns to drinking, she is in a tenuous situation. She does understand that patient may not have decision-making capacity if she continues to deteriorate or with her immunocompromise, presents with the sequela of an infection. She is at a place that she does feel she could speak for her on her behalf, and is willing to be a decision maker for her. She is able to share just the extent of trauma and significant family dysfunction that has impacted Humberto over the last several years and in her life story. Results - Lab Results Lab results reviewed: Yes Fish Bones: 01/22/20 05:15 01/22/20 05:15 Impression and Recommendations - Palliative Care Impression: This a 64-year-old woman who has known cirrhotic liver failure with ascites, severely deconditioned, and high symptom burden. She has a complex social si tuation, but her short-term goals are to improve her underlying health status, and long-term goals to move closer to her family. Palliative care providing support for goals of care and psychosocial support regarding symptom management. Recommendations/Counseling Done: 1. Deconditioning. This is multifactorial, this acute on chronic. Patient expressing short-term goals to want to get stronger, and regain some independence. She is quite weak, and is going to need SNF support to make progress. 2. Cirrhotic liver disease with ascites. Patient remains quite fragile, her ascites is worsening, may need paracentesis prior to transitioning to new setting for symptom management. Patient is expressing commitment to stop drinking, she may need ongoing support regarding this an alternative setting. Patient does express understanding regarding the seriousness of her illness, she is quite fragile and at high risk for decline. She will benefit from a more supportive environment, with abstinence from alcohol, and focus on wellbeing. Would recommend if transition to [place], to continue with palliative care support. 3. Advance care planning. D POA form filled out with appropriate addresses numbers, reviewed with patient in agreement. Counseling provided to Janette her sister, for decision making if patient presents without decision-making capacity in the near future. Anticipatory guidance was provided as well as concerns for prognostic indicators. Did provide form to [employer], to follow-up with cornelius. Time Spent: 60 minutes with greater than 50% of this done in counseling regarding anticipatory guidance with patient and sister separately, coordination of care with hospital team for transition planning.
[2020-01-23] MEDS: oxyCODONE 5 MG TABLET PO PRN (20:56)
[2020-01-24] MEDS: SODIUM CHLORIDE FLUSH 0.9% 10 ML SYRINGE IVP PRN ×2 (05:14→05:15)
[2020-01-24] MEDS: SODIUM CHLORIDE FLUSH 0.9% 10 ML SYRINGE IVP SCH ×4 (05:15→23:31)
[2020-01-24 05:23] LABS: BASOPHILS % (AUTO) 0.2 %; EOSINOPHILS # (AUTO) 0.3 10^3/uL (0.0-0.7); EOSINOPHILS % (AUTO) 2.8 %; HGB - HEMOGLOBIN 7.5 g/dL (12.0-16.0); LYMPHOCYTES # (AUTO) 1.6 10^3/uL (1.5-3.5); LYMPHOCYTES % (AUTO) 17.3 %; MEAN CORPUSCULAR HGB CONC 31.9 g/dL (32.0-36.0); MEAN CORPUSCULAR VOLUME 109.8 fL (81.0-99.0); MEAN PLATELET VOLUME 9.4 fL (7.9-10.8); MONOCYTES # (AUTO) 1.2 10^3/uL (0.0-1.0); MONOCYTES % (AUTO) 13.2 %; NEUTROPHILS # (AUTO) 6.2 10^3/uL (1.5-6.6); NEUTROPHILS % (AUTO) 65.9 %; PLT - PLATELET COUNT 202 10^3/uL (130-450); RED BLOOD COUNT 2.14 10^6/uL (4.20-5.40); RED CELL DISTRIBUTION WIDTH 16.2 % (12.0-15.0); WHITE BLOOD COUNT 9.4 x10^3/uL (4.8-10.8)
[2020-01-24 05:38] LABS: ALBUMIN 2.3 g/dL (3.2-5.5); BILIRUBIN,DIRECT 1.3 mg/dL (0.1-0.5); BILIRUBIN,TOTAL 3.8 mg/dL (0.2-1.0); CALCIUM 8.3 mg/dL (8.5-10.3); CREATININE 0.8 mg/dL (0.4-1.0); TOTAL PROTEIN 5.8 g/dL (6.7-8.2)
[2020-01-24] MEDS: PANTOPRAZOLE 40 MG TABLET PO SCH (06:09)
[2020-01-24] MEDS: polyethylene glycoL 3350 17 GM PACKET PO SCH (10:04)
[2020-01-24] MEDS: THIAMINE 100 MG TABLET PO SCH (10:05)
[2020-01-24] MEDS: PRENATAL VITAMIN TABLET PO SCH (10:05)
[2020-01-24] MEDS: DOCUSATE SODIUM 250 MG CAPSULE PO SCH (10:05)
[2020-01-24] MEDS: SENNA 8.6 MG TABLET PO SCH (10:05)
[2020-01-24] MEDS: HEPARIN 5,000 UNIT/ML VIAL SUBQ SCH ×2 (10:06→20:37)
[2020-01-24] MEDS: ACETAMINOPHEN 325 MG TABLET PO PRN (18:08)
--- NOTE | 2020-01-24 18:10 | PROVIDER PROGRESS NOTE ---
Assessment/Plan - Problem List (1) Weakness Assessment/Plan: Continue with PT, slow progress being made (2) Liver cirrhosis, alcoholic Qualifiers: Ascites presence: with ascites Qualified Code(s): K70.31 - Alcoholic cirrhosis of liver with ascites Assessment/Plan: Continue to follow weight, I's and Os and intermittent diuretic (3) Hyponatremia Assessment/Plan: Chronic and stable (4) Ascites Qualifiers: Ascites type: due to alcoholic cirrhosis Qualified Code(s): K70.31 - Alcoholic cirrhosis of liver with ascites Assessment/Plan: Continue to follow weight and I's and O's Paracentesis repeat if SOB or tender from abd wall being tense (5) Macrocytic anemia Assessment/Plan: Chronic (6) Alcohol abuse Assessment/Plan: Hx of this, none since here 13 days. (7) Hypotension Assessment/Plan: She now runs a "soft" BP but Midodrine was weaned to off. - Current Meds Current Meds: Current Medications Generic Name Dose Route Start Last Admin Trade Name Freq PRN Reason Stop Dose Admin Acetaminophen 650 mg 01/11/20 15:56 01/21/20 05:37 Tylenol PO 650 mg Q4HR PRN Administration Pain 1 to 4 Docusate Sodium 250 - 500 mg 01/17/20 09:00 01/24/20 10:05 Colace 250mg Capsule PO 250 mg DAILY TANO Administration Heparin Sodium (Beef Lung) 30 - 50 unit 01/13/20 04:03 01/21/20 08:19 IVP 50 unit PRN PRN Administration Central Line Protocol (<24 hr) Heparin Sodium (Porcine) 5,000 unit 01/20/20 21:00 01/24/20 10:06 SUBQ 5,000 unit BID TANO Administration Ondansetron HCl 4 mg 01/11/20 15:56 01/22/20 03:59 Zofran Inj IVP 4 mg Q6HR PRN Administration Nausea / Vomiting Oxycodone HCl 5 mg 01/21/20 11:22 01/23/20 20:56 Roxicodone PO 5 mg Q4HR PRN Administration PAIN Pantoprazole Sodium 40 mg 01/12/20 07:00 01/24/20 06:09 Protonix PO 40 mg QDAC TANO Administration Polyethylene Glycol 17 gm 01/15/20 09:00 01/24/20 10:04 Miralax PO 17 gm DAILY TANO Administration Multivit/Folic Acid/Iron 1 tab 01/15/20 10:00 01/24/20 10:05 Trinatal Rx 1 PO 1 tab DAILYWM TANO Administration Senna 8.6 mg 01/16/20 21:37 01/16/20 21:53 Senokot PO 8.6 mg DAILY PRN Administration Constipation Senna 8.6 - 17.2 mg 01/17/20 09:00 01/24/20 10:05 Senokot PO 8.6 mg DAILY TANO Administration Sodium Chloride 10 ml 01/11/20 15:56 01/24/20 05:15 Normal Saline Flush 0.9% IVP 10 ml PRN PRN Administration NEEDED PER PROVIDER ORDERS Sodium Chloride 10 ml 01/11/20 17:00 01/24/20 16:38 Normal Saline Flush 0.9% IVP Not Given 0100,0900,1700 TANO Sodium Chloride 20 ml 01/13/20 04:03 01/24/20 05:14 Normal Saline Flush 0.9% IVP 20 ml PRN PRN Administration After Blood Draw Thiamine HCl 100 mg 01/15/20 10:00 01/24/20 10:05 Vitamin B-1 PO 100 mg DAILY TANO Administration - Lab Result Fish Bone Diagrams: 01/24/20 05:05 01/24/20 05:05 - Additional Planning My Orders: My Active Orders 01/25/20 05:00 BMP - BASIC METABOLIC PANEL [CHEM] DAILYLAB 01/25/20 09:00 HEMOGLOBIN AND HEMATOCRIT [HEME] DAILY Subjective - Subjective Patient Reports: Other (WEak, but cooperating with PT.) Objective Vital Signs: Vital Signs - 24 hr 01/23/20 01/24/20 01/24/20 23:37 07:41 18:00 Temperature 36.9 C 36.8 C 37.1 C Heart Rate [ 102 H 102 H 101 H Brachial] Respiratory 18 16 18 Rate Blood Pressure 101/59 L 99/62 102/59 L [Right Brachial artery] O2 Saturation 97 96 100 Oxygen O2 Source [With Activity] Room air O2 Source Room air I&O (Last 24 Hrs): Intake and Output Totals x24h 01/22/20 01/23/20 01/24/20 23:59 23:59 23:59 Intake Total 1530 590 400 Output Total 1100 200 350 Balance 430 390 50 General: Alert HEENT: Mucous membr. moist/pink, Other (Icteric, unchanged) Neck: Supple Neuro: Non Focal Cardiovascular: Regular rate Respiratory: No respiratory distress Abdomen: Other (Distended and tense) Extremities: Other (Trace ankle edema) - Results Results: Laboratory Results WBC 9.4 x10^3/uL (4.8-10.8) 01/24/20 05:05 RBC 2.14 10^6/uL (4.20-5.40) L 01/24/20 05:05 Hgb 7.5 g/dL (12.0-16.0) L 01/24/20 05:05 Hct 23.5 % (37.0-47.0) L 01/24/20 05:05 MCV 109.8 fL (81.0-99.0) H 01/24/20 05:05 MCH 35.0 pg (27.0-31.0) H 01/24/20 05:05 MCHC 31.9 g/dL (32.0-36.0) L 01/24/20 05:05 RDW 16.2 % (12.0-15.0) H 01/24/20 05:05 Plt Count 202 10^3/uL (130-450) 01/24/20 05:05 MPV 9.4 fL (7.9-10.8) 01/24/20 05:05 Neut # (Auto) 6.2 10^3/uL (1.5-6.6) 01/24/20 05:05 Lymph # (Auto) 1.6 10^3/uL (1.5-3.5) 01/24/20 05:05 [place] # (Auto) 1.2 10^3/uL (0.0-1.0) H 01/24/20 05:05 Eos # (Auto) 0.3 10^3/uL (0.0-0.7) 01/24/20 05:05 Baso # (Auto) 0.0 10^3/uL (0.0-0.1) 01/24/20 05:05 Absolute Nucleated RBC 0.00 x10^3/uL 01/24/20 05:05 Total Counted 100 01/18/20 05:35 Band Neuts % (Manual) 0 % (0-10) 01/18/20 05:35 Reactive Lymphs % (Man) 7 % 01/17/20 05:40 Abnorm Lymph % (Manual) 0 % 01/18/20 05:35 Metamyelocytes % 2 % (-0) H 01/18/20 05:35 Myelocytes % 1 % (-0) H 01/18/20 05:35 Nucleated RBC % 0.0 /100WBC 01/24/20 05:05 Neutrophils # (Manual) 8.4 10^3/uL (1.5-6.6) H 01/18/20 05:35 Lymphocytes # (Manual) 1.1 10^3/uL (1.5-3.5) L 01/18/20 05:35 Monocytes # (Manual) 0.8 10^3/uL (0.0-1.0) 01/18/20 05:35 Eosinophils # (Manual) 0.0 10^3/uL (0-0.7) 01/18/20 05:35 Basophils # (Manual) 0.0 10^3/uL (0-0.1) 01/18/20 05:35 Differential Comment MANUAL DIFFERENTIAL 01/18/20 05:35 Manual Slide Review Indicated 01/16/20 05:20 WBC Morphology NORMAL APPEARANCE (NORMAL) 01/16/20 05:20 Platelet Estimate NORMAL (130-450,000) (NORMAL) 01/18/20 05:35 Platelet Morphology NORMAL APPEARANCE (NORMAL) 01/16/20 05:20 RBC Morph Micro Appear 1+ HYPOCHROMASIA (NORMAL) 2+ MACROCYTOSIS (NORMAL) 01/14/20 04:15 RBC Morph Micro Appear 2+ MACROCYTOSIS (NORMAL) 1+ HYPOCHROMASIA (NORMAL) 01/15/20 05:05 RBC Morph Micro Appear 2+ MACROCYTOSIS (NORMAL) 1+ HYPOCHROMASIA (NORMAL) 01/15/20 05:05 RBC Morph Micro Appear 2+ HYPOCHROMASIA (NORMAL) 1+ MICROCYTOSIS (NORMAL) 01/16/20 05:20 RBC Morph Micro Appear 2+ HYPOCHROMASIA (NORMAL) 1+ MICROCYTOSIS (NORMAL) 01/16/20 05:20 RBC Morph Micro Appear 1+ ANISOCYTOSIS (NORMAL) 01/17/20 05:40 RBC Morph Micro Appear NORMAL APPEARANCE (NORMAL) 01/18/20 05:35 PT 18.4 secs (9.9-12.6) H 01/18/20 05:35 INR 1.7 (0.8-1.2) H 01/18/20 05:35 Whole Blood INR 1.4 (0.8-1.2) H 01/16/20 09:25 Sodium 130 mmol/L (135-145) L 01/24/20 05:05 Potassium 5.3 mmol/L (3.5-5.0) H 01/24/20 05:05 Chloride 98 mmol/L (101-111) L 01/24/20 05:05 Carbon Dioxide 26 mmol/L (21-32) 01/24/20 05:05 Anion Gap 6.0 (6-13) 01/24/20 05:05 BUN 23 mg/dL (6-20) H 01/24/20 05:05 Creatinine 0.8 mg/dL (0.4-1.0) 01/24/20 05:05 Estimated GFR (MDRD) 73 (>89) L 01/24/20 05:05 Glucose 95 mg/dL (70-100) 01/24/20 05:05 Lactic Acid 1.7 mmol/L (0.5-2.2) 01/11/20 14:25 Calcium 8.3 mg/dL (8.5-10.3) L 01/24/20 05:05 Phosphorus 3.9 mg/dL (2.5-4.6) 01/20/20 06:48 Magnesium 2.1 mg/dL (1.7-2.8) 01/20/20 06:48 Total Bilirubin 3.8 mg/dL (0.2-1.0) H 01/24/20 05:05 Direct Bilirubin 1.3 mg/dL (0.1-0.5) H 01/24/20 05:05 AST 37 IU/L (10-42) 01/24/20 05:05 ALT 26 IU/L (10-60) 01/24/20 05:05 Alkaline Phosphatase 102 IU/L (42-121) 01/24/20 05:05 Ammonia 39.2 umol/L (7-35) H 01/19/20 11:35 Lactate Dehydrogenase 89 IU/L (91-225) L 01/18/20 15:00 Total Protein 5.8 g/dL (6.7-8.2) L 01/24/20 05:05 Albumin 2.3 g/dL (3.2-5.5) L 01/24/20 05:05 Globulin 3.5 g/dL (2.1-4.2) 01/24/20 05:05 Albumin/Globulin Ratio 0.6 (1.0-2.2) L 01/17/20 05:40 Lipase 42 U/L (22-51) 01/11/20 14:25 TSH 3.96 uIU/mL (0.34-5.60) 01/20/20 06:48 Urine Color ORANGE 01/11/20 23:00 Urine Clarity CLEAR (CLEAR) 01/11/20 23:00 Urine pH 5.0 PH (5.0-7.5) 01/11/20 23:00 Ur Specific [place] 1.025 (1.002-1.030) 01/11/20 23:00 Urine Protein TRACE mg/dL (NEGATIVE) 01/11/20 23:00 Urine Glucose (UA) NEGATIVE mg/dL (NEGATIVE) 01/11/20 23:00 Urine Ketones TRACE mg/dL (NEGATIVE) 01/11/20 23:00 Urine Occult Blood NEGATIVE (NEGATIVE) 01/11/20 23:00 Urine Nitrite NEGATIVE (NEGATIVE) 01/11/20 23:00 Urine Bilirubin NEGATIVE (NEGATIVE) 01/11/20 23:00 Urine Urobilinogen 4 E.U./dL (NORMAL) H 01/11/20 23:00 Ur Leukocyte Esterase NEGATIVE (NEGATIVE) 01/11/20 23:00 Ur Microscopic Review NOT INDICATED 01/11/20 23:00 Urine Culture Comments NOT INDICATED 01/11/20 23:00 Fluid Source PERITONEAL 01/18/20 14:45 Fluid Color YELLOW 01/18/20 14:45 Fluid Clarity CLEAR 01/18/20 14:45 Fluid WBC 47 /mm^3 01/18/20 14:45 Fluid RBC 1000 /mm^3 01/18/20 14:45 Fluid Neutrophils % 17.0 % 01/18/20 14:45 Fluid Lymphocytes % 35.0 % 01/18/20 14:45 Fluid Monocytes % 15.0 % 01/18/20 14:45 Fluid Macrophages % 29.0 % 01/18/20 14:45 Fld Mesothelial Cell % 4.0 % 01/18/20 14:45 Nasal Screen MRSA (PCR) NEGATIVE (NEGATIVE) 01/12/20 08:15 Urine Opiates Screen NEGATIVE (NEGATIVE) 01/11/20 23:00 Ur Oxycodone Screen NEGATIVE (NEGATIVE) 01/11/20 23:00 Urine Methadone Screen NEGATIVE (NEGATIVE) 01/11/20 23:00 Ur Propoxyphene Screen NEGATIVE (NEGATIVE) 01/11/20 23:00 Ur Barbiturates Screen NEGATIVE (NEGATIVE) 01/11/20 23:00 Ur Tricyclics Screen NEGATIVE (NEGATIVE) 01/11/20 23:00 Ur Phencyclidine Scrn NEGATIVE (NEGATIVE) 01/11/20 23:00 Ur Amphetamine Screen NEGATIVE (NEGATIVE) 01/11/20 23:00 U Methamphetamines Scrn NEGATIVE (NEGATIVE) 01/11/20 23:00 U Benzodiazepines Scrn NEGATIVE (NEGATIVE) 01/11/20 23:00 Urine Cocaine Screen NEGATIVE (NEGATIVE) 01/11/20 23:00 U Cannabinoids Screen NEGATIVE (NEGATIVE) 01/11/20 23:00 Ethyl Alcohol < 5.0 mg/dL 01/11/20 14:25 Coronavirus (PCR) NEGATIVE 01/11/20 14:45 Hepatitis A IgM Ab NON-REACTIVE (NON-REACTIVE) 01/19/20 05:29 Hep Bs Antigen NON-REACTIVE (NON-REACTIVE) 01/19/20 05:29 Hep B Core IgM Ab NON-REACTIVE (NON-REACTIVE) 01/19/20 05:29 Hepatitis C Antibody NON-REACTIVE (NON-REACTIVE) 01/19/20 05:29 Hep C Ab Signal/Cutoff 0.00 (<1.00) 01/19/20 05:29 Ref Lab Test Result REPORT 01/18/20 14:45 Blood Type A NEGATIVE 01/17/20 05:40 Antibody Screen NEGATIVE 01/17/20 05:40 Crossmatch IS Only See Detail 01/17/20 05:40 - Procedures Procedures: Procedures DRAINAGE OF PERITONEAL CAVITY, PERCUTANEOUS APPROACH (12/16/19)
[2020-01-24] MEDS: oxyCODONE 5 MG TABLET PO PRN (20:36)
[2020-01-25 05:34] LABS: CALCIUM 8.2 mg/dL (8.5-10.3); CREATININE 0.9 mg/dL (0.4-1.0)
[2020-01-25] MEDS: PANTOPRAZOLE 40 MG TABLET PO SCH (06:31)
[2020-01-25] MEDS: PRENATAL VITAMIN TABLET PO SCH (11:20)
[2020-01-25] MEDS: THIAMINE 100 MG TABLET PO SCH (11:20)
[2020-01-25] MEDS: HEPARIN 5,000 UNIT/ML VIAL SUBQ SCH ×2 (11:20→21:51)
[2020-01-25] MEDS: SODIUM CHLORIDE FLUSH 0.9% 10 ML SYRINGE IVP SCH ×2 (11:21→16:41)
[2020-01-25] MEDS: SENNA 8.6 MG TABLET PO SCH (11:21)
[2020-01-25] MEDS: polyethylene glycoL 3350 17 GM PACKET PO SCH (11:21)
[2020-01-25] MEDS: DOCUSATE SODIUM 250 MG CAPSULE PO SCH (11:21)
--- NOTE | 2020-01-25 12:12 | PROVIDER PROGRESS NOTE ---
Assessment/Plan - Problem List (1) Weakness Assessment/Plan: She is working and making slow progress with PT and OT. The plan is to go to a SNF, but after that she has no safe disposition (because she was homeless and living in a hotel, before this admission). (2) Liver cirrhosis, alcoholic Qualifiers: Ascites presence: with ascites Qualified Code(s): K70.31 - Alcoholic cirrhosis of liver with ascites Assessment/Plan: As per Hx. Her prognosis is poor. Despite that, the pt wants to be a full code. Diamond Berry NP of Palliative Care is involved. (3) Hyponatremia Assessment/Plan: She has a slow drop in serum sodium. Will give a dose of Lasix today, continue total daily free water and fluid restrictions. Follow BMP daily (4) Ascites Qualifiers: Ascites type: due to alcoholic cirrhosis Qualified Code(s): K70.31 - Alcoholic cirrhosis of liver with ascites Assessment/Plan: She is more uncomfortable today. Will give a Lasix dose x1 today. Will also start low dose of daily Spironolactone. (5) Macrocytic anemia Assessment/Plan: Due to liver cirrhosis and alcohol abuse. Following CBC often but not daily. Will transfuse if Hgb <7, so she can have some energy to participate in PT at a SNF. (6) Alcohol abuse Assessment/Plan: As per Hx (7) Hypotension Assessment/Plan: She runs a "soft" BP, thus Lasix is not dosed daily. - Current Meds Current Meds: Current Medications Generic Name Dose Route Start Last Admin Trade Name Freq PRN Reason Stop Dose Admin Acetaminophen 650 mg 01/11/20 15:56 01/24/20 18:08 Tylenol PO 650 mg Q4HR PRN Administration Pain 1 to 4 Docusate Sodium 250 - 500 mg 01/17/20 09:00 01/25/20 11:21 Colace 250mg Capsule PO Not Given DAILY TANO Heparin Sodium (Beef Lung) 30 - 50 unit 01/13/20 04:03 01/21/20 08:19 IVP 50 unit PRN PRN Administration Central Line Protocol (<24 hr) Heparin Sodium (Porcine) 5,000 unit 01/20/20 21:00 01/25/20 11:20 SUBQ 5,000 unit BID TANO Administration Ondansetron HCl 4 mg 01/11/20 15:56 01/22/20 03:59 Zofran Inj IVP 4 mg Q6HR PRN Administration Nausea / Vomiting Oxycodone HCl 5 mg 01/21/20 11:22 01/24/20 20:36 Roxicodone PO 5 mg Q4HR PRN Administration PAIN Pantoprazole Sodium 40 mg 01/12/20 07:00 01/25/20 06:31 Protonix PO 40 mg QDAC TANO Administration Polyethylene Glycol 17 gm 01/15/20 09:00 01/25/20 11:21 Miralax PO Not Given DAILY TANO Multivit/Folic Acid/Iron 1 tab 01/15/20 10:00 01/25/20 11:20 Trinatal Rx 1 PO 1 tab DAILYWM TANO Administration Senna 8.6 mg 01/16/20 21:37 01/16/20 21:53 Senokot PO 8.6 mg DAILY PRN Administration Constipation Senna 8.6 - 17.2 mg 01/17/20 09:00 01/25/20 11:21 Senokot PO Not Given DAILY TANO Sodium Chloride 10 ml 01/11/20 15:56 01/24/20 05:15 Normal Saline Flush 0.9% IVP 10 ml PRN PRN Administration NEEDED PER PROVIDER ORDERS Sodium Chloride 10 ml 01/11/20 17:00 01/25/20 11:21 Normal Saline Flush 0.9% IVP Not Given 0100,0900,1700 TANO Sodium Chloride 20 ml 01/13/20 04:03 01/24/20 05:14 Normal Saline Flush 0.9% IVP 20 ml PRN PRN Administration After Blood Draw Thiamine HCl 100 mg 01/15/20 10:00 01/25/20 11:20 Vitamin B-1 PO 100 mg DAILY TANO Administration - Lab Result Fish Bone Diagrams: 01/24/20 05:05 01/25/20 05:00 - Additional Planning My Orders: My Active Orders 01/26/20 05:00 BMP - BASIC METABOLIC PANEL [CHEM] DAILYLAB HEMOGLOBIN AND HEMATOCRIT [HEME] Routine Subjective - Subjective Patient Reports: Other (Has epigastric pain when seated too much forward, with hiccups.) Objective Vital Signs: Vital Signs - 24 hr 01/24/20 01/25/20 01/25/20 18:00 00:55 07:57 Temperature 37.1 C 36.8 C 36.7 C Heart Rate [ 101 H 98 100 Brachial] Respiratory 18 18 16 Rate Blood Pressure 102/59 L 99/53 L 103/65 [Right Brachial artery] O2 Saturation 100 97 100 Oxygen O2 Source [With Activity] Room air O2 Source Room air I&O (Last 24 Hrs): Intake and Output Totals x24h 01/23/20 01/24/20 01/25/20 23:59 23:59 23:59 Intake Total 590 950 100 Output Total 200 550 Balance 390 400 100 General: Alert, Oriented x3 HEENT: Mucous membr. moist/pink, Other (Poor dentition. Icteric.) Neck: Supple Neuro: Alert, Non Focal Cardiovascular: Regular rate Respiratory: No respiratory distress Abdomen: Other (Distended and medium tense) Extremities: Other (2+ edema) - Results Results: Laboratory Results WBC 9.4 x10^3/uL (4.8-10.8) 01/24/20 05:05 RBC 2.14 10^6/uL (4.20-5.40) L 01/24/20 05:05 Hgb 7.5 g/dL (12.0-16.0) L 01/24/20 05:05 Hct 23.5 % (37.0-47.0) L 01/24/20 05:05 MCV 109.8 fL (81.0-99.0) H 01/24/20 05:05 MCH 35.0 pg (27.0-31.0) H 01/24/20 05:05 MCHC 31.9 g/dL (32.0-36.0) L 01/24/20 05:05 RDW 16.2 % (12.0-15.0) H 01/24/20 05:05 Plt Count 202 10^3/uL (130-450) 01/24/20 05:05 MPV 9.4 fL (7.9-10.8) 01/24/20 05:05 Neut # (Auto) 6.2 10^3/uL (1.5-6.6) 01/24/20 05:05 Lymph # (Auto) 1.6 10^3/uL (1.5-3.5) 01/24/20 05:05 [place] # (Auto) 1.2 10^3/uL (0.0-1.0) H 01/24/20 05:05 Eos # (Auto) 0.3 10^3/uL (0.0-0.7) 01/24/20 05:05 Baso # (Auto) 0.0 10^3/uL (0.0-0.1) 01/24/20 05:05 Absolute Nucleated RBC 0.00 x10^3/uL 01/24/20 05:05 Total Counted 100 01/18/20 05:35 Band Neuts % (Manual) 0 % (0-10) 01/18/20 05:35 Reactive Lymphs % (Man) 7 % 01/17/20 05:40 Abnorm Lymph % (Manual) 0 % 01/18/20 05:35 Metamyelocytes % 2 % (-0) H 01/18/20 05:35 Myelocytes % 1 % (-0) H 01/18/20 05:35 Nucleated RBC % 0.0 /100WBC 01/24/20 05:05 Neutrophils # (Manual) 8.4 10^3/uL (1.5-6.6) H 01/18/20 05:35 Lymphocytes # (Manual) 1.1 10^3/uL (1.5-3.5) L 01/18/20 05:35 Monocytes # (Manual) 0.8 10^3/uL (0.0-1.0) 01/18/20 05:35 Eosinophils # (Manual) 0.0 10^3/uL (0-0.7) 01/18/20 05:35 Basophils # (Manual) 0.0 10^3/uL (0-0.1) 01/18/20 05:35 Differential Comment MANUAL DIFFERENTIAL 01/18/20 05:35 Manual Slide Review Indicated 01/16/20 05:20 WBC Morphology NORMAL APPEARANCE (NORMAL) 01/16/20 05:20 Platelet Estimate NORMAL (130-450,000) (NORMAL) 01/18/20 05:35 Platelet Morphology NORMAL APPEARANCE (NORMAL) 01/16/20 05:20 RBC Morph Micro Appear 1+ HYPOCHROMASIA (NORMAL) 2+ MACROCYTOSIS (NORMAL) 01/14/20 04:15 RBC Morph Micro Appear 2+ MACROCYTOSIS (NORMAL) 1+ HYPOCHROMASIA (NORMAL) 01/15/20 05:05 RBC Morph Micro Appear 2+ MACROCYTOSIS (NORMAL) 1+ HYPOCHROMASIA (NORMAL) 01/15/20 05:05 RBC Morph Micro Appear 2+ HYPOCHROMASIA (NORMAL) 1+ MICROCYTOSIS (NORMAL) 01/16/20 05:20 RBC Morph Micro Appear 2+ HYPOCHROMASIA (NORMAL) 1+ MICROCYTOSIS (NORMAL) 01/16/20 05:20 RBC Morph Micro Appear 1+ ANISOCYTOSIS (NORMAL) 01/17/20 05:40 RBC Morph Micro Appear NORMAL APPEARANCE (NORMAL) 01/18/20 05:35 PT 18.4 secs (9.9-12.6) H 01/18/20 05:35 INR 1.7 (0.8-1.2) H 01/18/20 05:35 Whole Blood INR 1.4 (0.8-1.2) H 01/16/20 09:25 Sodium 128 mmol/L (135-145) L 01/25/20 05:00 Potassium 4.9 mmol/L (3.5-5.0) 01/25/20 05:00 Chloride 96 mmol/L (101-111) L 01/25/20 05:00 Carbon Dioxide 26 mmol/L (21-32) 01/25/20 05:00 Anion Gap 6.0 (6-13) 01/25/20 05:00 BUN 21 mg/dL (6-20) H 01/25/20 05:00 Creatinine 0.9 mg/dL (0.4-1.0) 01/25/20 05:00 Estimated GFR (MDRD) 63 (>89) L 01/25/20 05:00 Glucose 113 mg/dL (70-100) H 01/25/20 05:00 Lactic Acid 1.7 mmol/L (0.5-2.2) 01/11/20 14:25 Calcium 8.2 mg/dL (8.5-10.3) L 01/25/20 05:00 Phosphorus 3.9 mg/dL (2.5-4.6) 01/20/20 06:48 Magnesium 2.1 mg/dL (1.7-2.8) 01/20/20 06:48 Total Bilirubin 3.8 mg/dL (0.2-1.0) H 01/24/20 05:05 Direct Bilirubin 1.3 mg/dL (0.1-0.5) H 01/24/20 05:05 AST 37 IU/L (10-42) 01/24/20 05:05 ALT 26 IU/L (10-60) 01/24/20 05:05 Alkaline Phosphatase 102 IU/L (42-121) 01/24/20 05:05 Ammonia 39.2 umol/L (7-35) H 01/19/20 11:35 Lactate Dehydrogenase 89 IU/L (91-225) L 01/18/20 15:00 Total Protein 5.8 g/dL (6.7-8.2) L 01/24/20 05:05 Albumin 2.3 g/dL (3.2-5.5) L 01/24/20 05:05 Globulin 3.5 g/dL (2.1-4.2) 01/24/20 05:05 Albumin/Globulin Ratio 0.6 (1.0-2.2) L 01/17/20 05:40 Lipase 42 U/L (22-51) 01/11/20 14:25 TSH 3.96 uIU/mL (0.34-5.60) 01/20/20 06:48 Urine Color ORANGE 01/11/20 23:00 Urine Clarity CLEAR (CLEAR) 01/11/20 23:00 Urine pH 5.0 PH (5.0-7.5) 01/11/20 23:00 Ur Specific [place] 1.025 (1.002-1.030) 01/11/20 23:00 Urine Protein TRACE mg/dL (NEGATIVE) 01/11/20 23:00 Urine Glucose (UA) NEGATIVE mg/dL (NEGATIVE) 01/11/20 23:00 Urine Ketones TRACE mg/dL (NEGATIVE) 01/11/20 23:00 Urine Occult Blood NEGATIVE (NEGATIVE) 01/11/20 23:00 Urine Nitrite NEGATIVE (NEGATIVE) 01/11/20 23:00 Urine Bilirubin NEGATIVE (NEGATIVE) 01/11/20 23:00 Urine Urobilinogen 4 E.U./dL (NORMAL) H 01/11/20 23:00 Ur Leukocyte Esterase NEGATIVE (NEGATIVE) 01/11/20 23:00 Ur Microscopic Review NOT INDICATED 01/11/20 23:00 Urine Culture Comments NOT INDICATED 01/11/20 23:00 Fluid Source PERITONEAL 01/18/20 14:45 Fluid Color YELLOW 01/18/20 14:45 Fluid Clarity CLEAR 01/18/20 14:45 Fluid WBC 47 /mm^3 01/18/20 14:45 Fluid RBC 1000 /mm^3 01/18/20 14:45 Fluid Neutrophils % 17.0 % 01/18/20 14:45 Fluid Lymphocytes % 35.0 % 01/18/20 14:45 Fluid Monocytes % 15.0 % 01/18/20 14:45 Fluid Macrophages % 29.0 % 01/18/20 14:45 Fld Mesothelial Cell % 4.0 % 01/18/20 14:45 Nasal Screen MRSA (PCR) NEGATIVE (NEGATIVE) 01/12/20 08:15 Urine Opiates Screen NEGATIVE (NEGATIVE) 01/11/20 23:00 Ur Oxycodone Screen NEGATIVE (NEGATIVE) 01/11/20 23:00 Urine Methadone Screen NEGATIVE (NEGATIVE) 01/11/20 23:00 Ur Propoxyphene Screen NEGATIVE (NEGATIVE) 01/11/20 23:00 Ur Barbiturates Screen NEGATIVE (NEGATIVE) 01/11/20 23:00 Ur Tricyclics Screen NEGATIVE (NEGATIVE) 01/11/20 23:00 Ur Phencyclidine Scrn NEGATIVE (NEGATIVE) 01/11/20 23:00 Ur Amphetamine Screen NEGATIVE (NEGATIVE) 01/11/20 23:00 U Methamphetamines Scrn NEGATIVE (NEGATIVE) 01/11/20 23:00 U Benzodiazepines Scrn NEGATIVE (NEGATIVE) 01/11/20 23:00 Urine Cocaine Screen NEGATIVE (NEGATIVE) 01/11/20 23:00 U Cannabinoids Screen NEGATIVE (NEGATIVE) 01/11/20 23:00 Ethyl Alcohol < 5.0 mg/dL 01/11/20 14:25 Coronavirus (PCR) NEGATIVE 01/11/20 14:45 Hepatitis A IgM Ab NON-REACTIVE (NON-REACTIVE) 01/19/20 05: Hep Bs Antigen NON-REACTIVE (NON-REACTIVE) 01/19/20 05: Hep B Core IgM Ab NON-REACTIVE (NON-REACTIVE) 01/19/20 05: Hepatitis C Antibody NON-REACTIVE (NON-REACTIVE) 01/19/20 05: Hep C Ab Signal/Cutoff 0.00 (<1.00) 01/19/20 05: Ref Lab Test Result REPORT 01/18/20 14:45 Blood Type A NEGATIVE 01/17/20 05:40 Antibody Screen NEGATIVE 01/17/20 05:40 Crossmatch IS Only See Detail 01/17/20 05:40 - Procedures Procedures: Procedures DRAINAGE OF PERITONEAL CAVITY, PERCUTANEOUS APPROACH (12/16/19)
[2020-01-25] MEDS ORDERED: FUROSEMIDE 20 MG TABLET PO SCH (12:18)
[2020-01-25] MEDS: oxyCODONE 5 MG TABLET PO PRN (19:03)
[2020-01-26] MEDS: SODIUM CHLORIDE FLUSH 0.9% 10 ML SYRINGE IVP SCH ×3 (01:32→15:37)
[2020-01-26 05:29] LABS: CALCIUM 8.5 mg/dL (8.5-10.3); CREATININE 0.8 mg/dL (0.4-1.0)
[2020-01-26] MEDS: PANTOPRAZOLE 40 MG TABLET PO SCH (06:33)
[2020-01-26] MEDS: SENNA 8.6 MG TABLET PO SCH (09:16)
[2020-01-26] MEDS: polyethylene glycoL 3350 17 GM PACKET PO SCH (09:16)
[2020-01-26] MEDS: THIAMINE 100 MG TABLET PO SCH (09:17)
[2020-01-26] MEDS: PRENATAL VITAMIN TABLET PO SCH (09:17)
[2020-01-26] MEDS: SPIRONOLACTONE 25 MG TABLET PO SCH (09:17)
[2020-01-26] MEDS: DOCUSATE SODIUM 250 MG CAPSULE PO SCH (09:17)
[2020-01-26] MEDS: HEPARIN 5,000 UNIT/ML VIAL SUBQ SCH ×2 (09:18→22:21)
[2020-01-26] MEDS ORDERED: LACTULOSE 10 GM /15 ML UDC PO PRN (09:57)
--- NOTE | 2020-01-26 12:40 | PROVIDER PROGRESS NOTE ---
Assessment/Plan - Problem List (1) Weakness Assessment/Plan: She continues to make slow strides in progress with PT and OT. The plan is for SNF placement, the final disposition is not yet known. (2) Liver cirrhosis, alcoholic Qualifiers: Ascites presence: with ascites Qualified Code(s): K70.31 - Alcoholic cirrhosis of liver with ascites Assessment/Plan: as per Hx. Spironolactone started today. (3) Hyponatremia Assessment/Plan: She has plateaued at serum sodium of 128. Will check BMP intermittently only. (4) Ascites Qualifiers: Ascites type: due to alcoholic cirrhosis Qualified Code(s): K70.31 - Alcoholic cirrhosis of liver with ascites Assessment/Plan: Yesterday she received Lasix. Today spironolactone daily has begun. Her BUN/creatinine have normalized indicating better intravascular fluid status therefore the diuretics were started. (5) Macrocytic anemia Assessment/Plan: Due to alcohol use. She is on vitamins and supplements. Hgb up to 8 today, without a transfusion. [place] H/H intermittently. Transfuse if Hgb 7 or lower, to give her ability to participate in rehab at SNF. (6) Alcohol abuse Assessment/Plan: As per Hx (7) Hypotension Assessment/Plan: Resolved - Current Meds Current Meds: Current Medications Generic Name Dose Route Start Last Admin Trade Name Freq PRN Reason Stop Dose Admin Acetaminophen 650 mg 01/11/20 15:56 01/24/20 18:08 Tylenol PO 650 mg Q4HR PRN Administration Pain 1 to 4 Docusate Sodium 250 - 500 mg 01/17/20 09:00 01/26/20 09:17 Colace 250mg Capsule PO 250 mg DAILY TANO Administration Heparin Sodium (Beef Lung) 30 - 50 unit 01/13/20 04:03 01/21/20 08:19 IVP 50 unit PRN PRN Administration Central Line Protocol (<24 hr) Heparin Sodium (Porcine) 5,000 unit 01/20/20 21:00 01/26/20 09:18 SUBQ 5,000 unit BID TANO Administration Ondansetron HCl 4 mg 01/11/20 15:56 01/22/20 03:59 Zofran Inj IVP 4 mg Q6HR PRN Administration Nausea / Vomiting Oxycodone HCl 5 mg 01/21/20 11:22 01/25/20 19:03 Roxicodone PO 5 mg Q4HR PRN Administration PAIN Pantoprazole Sodium 40 mg 01/12/20 07:00 01/26/20 06:33 Protonix PO 40 mg QDAC TANO Administration Polyethylene Glycol 17 gm 01/15/20 09:00 01/26/20 09:16 Miralax PO 17 gm DAILY TANO Administration Multivit/Folic Acid/Iron 1 tab 01/15/20 10:00 01/26/20 09:17 Trinatal Rx 1 PO 1 tab DAILYWM TANO Administration Senna 8.6 mg 01/16/20 21:37 01/16/20 21:53 Senokot PO 8.6 mg DAILY PRN Administration Constipation Senna 8.6 - 17.2 mg 01/17/20 09:00 01/26/20 09:16 Senokot PO 8.6 mg DAILY TANO Administration Sodium Chloride 10 ml 01/11/20 15:56 01/24/20 05:15 Normal Saline Flush 0.9% IVP 10 ml PRN PRN Administration NEEDED PER PROVIDER ORDERS Sodium Chloride 10 ml 01/11/20 17:00 01/26/20 09:17 Normal Saline Flush 0.9% IVP Not Given 0100,0900,1700 TANO Sodium Chloride 20 ml 01/13/20 04:03 01/24/20 05:14 Normal Saline Flush 0.9% IVP 20 ml PRN PRN Administration After Blood Draw Spironolactone 25 mg 01/26/20 09:00 01/26/20 09:17 Aldactone PO 25 mg DAILY TANO Administration Thiamine HCl 100 mg 01/15/20 10:00 01/26/20 09:17 Vitamin B-1 PO 100 mg DAILY TANO Administration - Lab Result Fish Bone Diagrams: 01/26/20 04:35 01/26/20 04:35 - Additional Planning My Orders: My Active Orders 01/26/20 09:00 Spironolactone [Aldactone] 25 mg PO DAILY 01/26/20 09:57 Lactulose [Enulose] 10 gm PO DAILY PRN 01/26/20 11:50 Miscellaenous Nursing Order [RC] QSHIFT Subjective - Subjective Patient Reports: Other (No new complaints) Objective Vital Signs: Vital Signs - 24 hr 01/25/20 01/25/20 01/26/20 15:35 23:19 08:00 Temperature 37.1 C 37.0 C 36.8 C Heart Rate [ 72 106 H Brachial] Heart Rate [ 103 H Monitoring electrodes] Respiratory 18 18 18 Rate Blood Pressure 115/59 L 103/63 100/63 [Right Brachial artery] O2 Saturation 100 97 100 Oxygen O2 Source [With Activity] Room air O2 Source Room air I&O (Last 24 Hrs): Intake and Output Totals x24h 01/24/20 01/25/20 01/26/20 23:59 23:59 23:59 Intake Total 950 200 100 Output Total 550 200 800 Balance 400 0 -700 General: Alert, Oriented x3 HEENT: Mucous membr. moist/pink, Other (Cachectic, icteric) Neck: Supple Neuro: Non Focal Cardiovascular: Regular rate Respiratory: No respiratory distress Abdomen: Other (Distended with tense ascites) Extremities: Other (!+ pre-tibial edema) - Results Results: Laboratory Results WBC 9.4 x10^3/uL (4.8-10.8) 01/24/20 05:05 RBC 2.14 10^6/uL (4.20-5.40) L 01/24/20 05:05 Hgb 8.0 g/dL (12.0-16.0) L 01/26/20 04:35 Hct 24.4 % (37.0-47.0) L 01/26/20 04:35 MCV 109.8 fL (81.0-99.0) H 01/24/20 05:05 MCH 35.0 pg (27.0-31.0) H 01/24/20 05:05 MCHC 31.9 g/dL (32.0-36.0) L 01/24/20 05:05 RDW 16.2 % (12.0-15.0) H 01/24/20 05:05 Plt Count 202 10^3/uL (130-450) 01/24/20 05:05 MPV 9.4 fL (7.9-10.8) 01/24/20 05:05 Neut # (Auto) 6.2 10^3/uL (1.5-6.6) 01/24/20 05:05 Lymph # (Auto) 1.6 10^3/uL (1.5-3.5) 01/24/20 05:05 [place] # (Auto) 1.2 10^3/uL (0.0-1.0) H 01/24/20 05:05 Eos # (Auto) 0.3 10^3/uL (0.0-0.7) 01/24/20 05:05 Baso # (Auto) 0.0 10^3/uL (0.0-0.1) 01/24/20 05:05 Absolute Nucleated RBC 0.00 x10^3/uL 01/24/20 05:05 Total Counted 100 01/18/20 05:35 Band Neuts % (Manual) 0 % (0-10) 01/18/20 05:35 Reactive Lymphs % (Man) 7 % 01/17/20 05:40 Abnorm Lymph % (Manual) 0 % 01/18/20 05:35 Metamyelocytes % 2 % (-0) H 01/18/20 05:35 Myelocytes % 1 % (-0) H 01/18/20 05:35 Nucleated RBC % 0.0 /100WBC 01/24/20 05:05 Neutrophils # (Manual) 8.4 10^3/uL (1.5-6.6) H 01/18/20 05:35 Lymphocytes # (Manual) 1.1 10^3/uL (1.5-3.5) L 01/18/20 05:35 Monocytes # (Manual) 0.8 10^3/uL (0.0-1.0) 01/18/20 05:35 Eosinophils # (Manual) 0.0 10^3/uL (0-0.7) 01/18/20 05:35 Basophils # (Manual) 0.0 10^3/uL (0-0.1) 01/18/20 05:35 Differential Comment MANUAL DIFFERENTIAL 01/18/20 05:35 Manual Slide Review Indicated 01/16/20 05:20 WBC Morphology NORMAL APPEARANCE (NORMAL) 01/16/20 05:20 Platelet Estimate NORMAL (130-450,000) (NORMAL) 01/18/20 05:35 Platelet Morphology NORMAL APPEARANCE (NORMAL) 01/16/20 05:20 RBC Morph Micro Appear 1+ HYPOCHROMASIA (NORMAL) 2+ MACROCYTOSIS (NORMAL) 01/14/20 04:15 RBC Morph Micro Appear 2+ MACROCYTOSIS (NORMAL) 1+ HYPOCHROMASIA (NORMAL) 01/15/20 05:05 RBC Morph Micro Appear 2+ MACROCYTOSIS (NORMAL) 1+ HYPOCHROMASIA (NORMAL) 01/15/20 05:05 RBC Morph Micro Appear 2+ HYPOCHROMASIA (NORMAL) 1+ MICROCYTOSIS (NORMAL) 01/16/20 05:20 RBC Morph Micro Appear 2+ HYPOCHROMASIA (NORMAL) 1+ MICROCYTOSIS (NORMAL) 01/16/20 05:20 RBC Morph Micro Appear 1+ ANISOCYTOSIS (NORMAL) 01/17/20 05:40 RBC Morph Micro Appear NORMAL APPEARANCE (NORMAL) 01/18/20 05:35 PT 18.4 secs (9.9-12.6) H 01/18/20 05:35 INR 1.7 (0.8-1.2) H 01/18/20 05:35 Whole Blood INR 1.4 (0.8-1.2) H 01/16/20 09:25 Sodium 128 mmol/L (135-145) L 01/26/20 04:35 Potassium 4.9 mmol/L (3.5-5.0) 01/26/20 04:35 Chloride 94 mmol/L (101-111) L 01/26/20 04:35 Carbon Dioxide 25 mmol/L (21-32) 01/26/20 04:35 Anion Gap 9.0 (6-13) 01/26/20 04:35 BUN 18 mg/dL (6-20) 01/26/20 04:35 Creatinine 0.8 mg/dL (0.4-1.0) 01/26/20 04:35 Estimated GFR (MDRD) 73 (>89) L 01/26/20 04:35 Glucose 103 mg/dL (70-100) H 01/26/20 04:35 Lactic Acid 1.7 mmol/L (0.5-2.2) 01/11/20 14:25 Calcium 8.5 mg/dL (8.5-10.3) 01/26/20 04:35 Phosphorus 3.9 mg/dL (2.5-4.6) 01/20/20 06:48 Magnesium 2.1 mg/dL (1.7-2.8) 01/20/20 06:48 Total Bilirubin 3.8 mg/dL (0.2-1.0) H 01/24/20 05:05 Direct Bilirubin 1.3 mg/dL (0.1-0.5) H 01/24/20 05:05 AST 37 IU/L (10-42) 01/24/20 05:05 ALT 26 IU/L (10-60) 01/24/20 05:05 Alkaline Phosphatase 102 IU/L (42-121) 01/24/20 05:05 Ammonia 39.2 umol/L (7-35) H 01/19/20 11:35 Lactate Dehydrogenase 89 IU/L (91-225) L 01/18/20 15:00 Total Protein 5.8 g/dL (6.7-8.2) L 01/24/20 05:05 Albumin 2.3 g/dL (3.2-5.5) L 01/24/20 05:05 Globulin 3.5 g/dL (2.1-4.2) 01/24/20 05:05 Albumin/Globulin Ratio 0.6 (1.0-2.2) L 01/17/20 05:40 Lipase 42 U/L (22-51) 01/11/20 14:25 TSH 3.96 uIU/mL (0.34-5.60) 01/20/20 06:48 Urine Color ORANGE 01/11/20 23:00 Urine Clarity CLEAR (CLEAR) 01/11/20 23:00 Urine pH 5.0 PH (5.0-7.5) 01/11/20 23:00 Ur Specific [place] 1.025 (1.002-1.030) 01/11/20 23:00 Urine Protein TRACE mg/dL (NEGATIVE) 01/11/20 23:00 Urine Glucose (UA) NEGATIVE mg/dL (NEGATIVE) 01/11/20 23:00 Urine Ketones TRACE mg/dL (NEGATIVE) 01/11/20 23:00 Urine Occult Blood NEGATIVE (NEGATIVE) 01/11/20 23:00 Urine Nitrite NEGATIVE (NEGATIVE) 01/11/20 23:00 Urine Bilirubin NEGATIVE (NEGATIVE) 01/11/20 23:00 Urine Urobilinogen 4 E.U./dL (NORMAL) H 01/11/20 23:00 Ur Leukocyte Esterase NEGATIVE (NEGATIVE) 01/11/20 23:00 Ur Microscopic Review NOT INDICATED 01/11/20 23:00 Urine Culture Comments NOT INDICATED 01/11/20 23:00 Fluid Source PERITONEAL 01/18/20 14:45 Fluid Color YELLOW 01/18/20 14:45 Fluid Clarity CLEAR 01/18/20 14:45 Fluid WBC 47 /mm^3 01/18/20 14:45 Fluid RBC 1000 /mm^3 01/18/20 14:45 Fluid Neutrophils % 17.0 % 01/18/20 14:45 Fluid Lymphocytes % 35.0 % 01/18/20 14:45 Fluid Monocytes % 15.0 % 01/18/20 14:45 Fluid Macrophages % 29.0 % 01/18/20 14:45 Fld Mesothelial Cell % 4.0 % 01/18/20 14:45 Nasal Screen MRSA (PCR) NEGATIVE (NEGATIVE) 01/12/20 08:15 Urine Opiates Screen NEGATIVE (NEGATIVE) 01/11/20 23:00 Ur Oxycodone Screen NEGATIVE (NEGATIVE) 01/11/20 23:00 Urine Methadone Screen NEGATIVE (NEGATIVE) 01/11/20 23:00 Ur Propoxyphene Screen NEGATIVE (NEGATIVE) 01/11/20 23:00 Ur Barbiturates Screen NEGATIVE (NEGATIVE) 01/11/20 23:00 Ur Tricyclics Screen NEGATIVE (NEGATIVE) 01/11/20 23:00 Ur Phencyclidine Scrn NEGATIVE (NEGATIVE) 01/11/20 23:00 Ur Amphetamine Screen NEGATIVE (NEGATIVE) 01/11/20 23:00 U Methamphetamines Scrn NEGATIVE (NEGATIVE) 01/11/20 23:00 U Benzodiazepines Scrn NEGATIVE (NEGATIVE) 01/11/20 23:00 Urine Cocaine Screen NEGATIVE (NEGATIVE) 01/11/20 23:00 U Cannabinoids Screen NEGATIVE (NEGATIVE) 01/11/20 23:00 Ethyl Alcohol < 5.0 mg/dL 01/11/20 14:25 Coronavirus (PCR) NEGATIVE 01/11/20 14:45 Hepatitis A IgM Ab NON-REACTIVE (NON-REACTIVE) 01/19/20 05: Hep Bs Antigen NON-REACTIVE (NON-REACTIVE) 01/19/20 05:29 Hep B Core IgM Ab NON-REACTIVE (NON-REACTIVE) 01/19/20 05:29 Hepatitis C Antibody NON-REACTIVE (NON-REACTIVE) 01/19/20 05:29 Hep C Ab Signal/Cutoff 0.00 (<1.00) 01/19/20 05:29 Ref Lab Test Result REPORT 01/18/20 14:45 Blood Type A NEGATIVE 01/17/20 05:40 Antibody Screen NEGATIVE 01/17/20 05:40 Crossmatch IS Only See Detail 01/17/20 05:40 - Procedures Procedures: Procedures DRAINAGE OF PERITONEAL CAVITY, PERCUTANEOUS APPROACH (12/16/19)
[2020-01-27] MEDS: oxyCODONE 5 MG TABLET PO PRN (02:41)
[2020-01-27] MEDS: SODIUM CHLORIDE FLUSH 0.9% 10 ML SYRINGE IVP SCH ×3 (02:44→16:04)
[2020-01-27] MEDS: PANTOPRAZOLE 40 MG TABLET PO SCH (07:34)
[2020-01-27] MEDS: PRENATAL VITAMIN TABLET PO SCH (07:35)
[2020-01-27] MEDS: polyethylene glycoL 3350 17 GM PACKET PO SCH (07:35)
[2020-01-27] MEDS: DOCUSATE SODIUM 250 MG CAPSULE PO SCH (07:35)
[2020-01-27] MEDS: THIAMINE 100 MG TABLET PO SCH (07:36)
[2020-01-27] MEDS: SPIRONOLACTONE 25 MG TABLET PO SCH (07:36)
[2020-01-27] MEDS: SENNA 8.6 MG TABLET PO SCH (07:36)
[2020-01-27] MEDS: HEPARIN 5,000 UNIT/ML VIAL SUBQ SCH ×2 (09:58→20:09)
--- NOTE | 2020-01-27 13:57 | PROVIDER PROGRESS NOTE ---
Assessment/Plan - Problem List (1) Weakness Assessment/Plan: She is making slow progress daily with PT. Transfer to a SNF is planned once a final discharge disposition is set up. Social work is arranging this. The latest information is that her ams [employer] insurance may create an individual agreement with [facility], but the earliest she may be able to go there is Wednesday (today is Sat of the weekend, and Wednesday is a holiday, ). (2) Liver cirrhosis, alcoholic Qualifiers: Ascites presence: with ascites Qualified Code(s): K70.31 - Alcoholic cirrhosis of liver with ascites Assessment/Plan: There is slightly less distention, ever since she got Lasix x1, three days ago and the Spironolactone daily for the last 2 days. (3) Hyponatremia Assessment/Plan: This is chronic. Will follow BMP intermittently (4) Ascites Qualifiers: Ascites type: due to alcoholic cirrhosis Qualified Code(s): K70.31 - Alcoholic cirrhosis of liver with ascites Assessment/Plan: Being managed with fluid restriction and Spironolactone (5) Macrocytic anemia Assessment/Plan: Stable at 7.5-8. Following CBC intermittently. (6) Alcohol abuse Assessment/Plan: As per Hx. - Current Meds Current Meds: Current Medications Generic Name Dose Route Start Last Admin Trade Name Freq PRN Reason Stop Dose Admin Acetaminophen 650 mg 01/11/20 15:56 01/24/20 18:08 Tylenol PO 650 mg Q4HR PRN Administration Pain 1 to 4 Docusate Sodium 250 - 500 mg 01/17/20 09:00 01/27/20 07:35 Colace 250mg Capsule PO 250 mg DAILY TANO Administration Heparin Sodium (Beef Lung) 30 - 50 unit 01/13/20 04:03 01/21/20 08:19 IVP 50 unit PRN PRN Administration Central Line Protocol (<24 hr) Heparin Sodium (Porcine) 5,000 unit 01/20/20 21:00 01/27/20 09:58 SUBQ 5,000 unit BID TANO Administration Lactulose 10 gm 01/26/20 09:57 01/26/20 14:09 Enulose PO 10 gm DAILY PRN Administration Constipation Ondansetron HCl 4 mg 01/11/20 15:56 01/22/20 03:59 Zofran Inj IVP 4 mg Q6HR PRN Administration Nausea / Vomiting Oxycodone HCl 5 mg 01/21/20 11:22 01/27/20 02:41 Roxicodone PO 5 mg Q4HR PRN Administration PAIN Pantoprazole Sodium 40 mg 01/12/20 07:00 01/27/20 07:34 Protonix PO 40 mg QDAC TANO Administration Polyethylene Glycol 17 gm 01/15/20 09:00 01/27/20 07:35 Miralax PO 17 gm DAILY TANO Administration Multivit/Folic Acid/Iron 1 tab 01/15/20 10:00 01/27/20 07:35 Trinatal Rx 1 PO 1 tab DAILYWM TANO Administration Senna 8.6 mg 01/16/20 21:37 01/16/20 21:53 Senokot PO 8.6 mg DAILY PRN Administration Constipation Senna 8.6 - 17.2 mg 01/17/20 09:00 01/27/20 07:36 Senokot PO 8.6 mg DAILY TANO Administration Sodium Chloride 10 ml 01/11/20 15:56 01/24/20 05:15 Normal Saline Flush 0.9% IVP 10 ml PRN PRN Administration NEEDED PER PROVIDER ORDERS Sodium Chloride 10 ml 01/11/20 17:00 01/27/20 07:43 Normal Saline Flush 0.9% IVP Not Given 0100,0900,1700 TANO Sodium Chloride 20 ml 01/13/20 04:03 01/24/20 05:14 Normal Saline Flush 0.9% IVP 20 ml PRN PRN Administration After Blood Draw Spironolactone 25 mg 01/26/20 09:00 01/27/20 07:36 Aldactone PO 25 mg DAILY TANO Administration Thiamine HCl 100 mg 01/15/20 10:00 01/27/20 07:36 Vitamin B-1 PO 100 mg DAILY TANO Administration - Lab Result Fish Bone Diagrams: 01/26/20 04:35 01/26/20 04:35 - Additional Planning My Orders: My Active Orders 01/28/20 05:00 BMP - BASIC METABOLIC PANEL [CHEM] DAILYLAB CBC - COMP BLD CT W/AUTO DIFF [HEME] DAILYLAB MAGNESIUM [CHEM] DAILYLAB Additional Planning Notes: No phys exam done. Non-billable rounding. Subjective - Subjective Nursing Reports: Other (Patient is able to walk from her recliner to the door with PT, using a walker, she is motivated.) Objective Vital Signs: Vital Signs - 24 hr 01/26/20 01/27/20 01/27/20 16:16 00:00 07:32 Temperature 36.8 C 36.9 C 36.6 C Heart Rate [ 103 H 102 H 104 H Brachial] Respiratory 18 18 17 Rate Blood Pressure 102/60 107/64 103/64 [Right Brachial artery] O2 Saturation 99 98 98 Oxygen O2 Source [With Activity] Room air O2 Source Room air I&O (Last 24 Hrs): Intake and Output Totals x24h 01/25/20 01/26/20 01/27/20 23:59 23:59 23:59 Intake Total 200 672 Output Total 200 1450 250 Balance 0 -778 -250 - Results Results: Laboratory Results WBC 9.4 x10^3/uL (4.8-10.8) 01/24/20 05:05 RBC 2.14 10^6/uL (4.20-5.40) L 01/24/20 05:05 Hgb 8.0 g/dL (12.0-16.0) L 01/26/20 04:35 Hct 24.4 % (37.0-47.0) L 01/26/20 04:35 MCV 109.8 fL (81.0-99.0) H 01/24/20 05:05 MCH 35.0 pg (27.0-31.0) H 01/24/20 05:05 MCHC 31.9 g/dL (32.0-36.0) L 01/24/20 05:05 RDW 16.2 % (12.0-15.0) H 01/24/20 05:05 Plt Count 202 10^3/uL (130-450) 01/24/20 05:05 MPV 9.4 fL (7.9-10.8) 01/24/20 05:05 Neut # (Auto) 6.2 10^3/uL (1.5-6.6) 01/24/20 05:05 Lymph # (Auto) 1.6 10^3/uL (1.5-3.5) 01/24/20 05:05 [place] # (Auto) 1.2 10^3/uL (0.0-1.0) H 01/24/20 05:05 Eos # (Auto) 0.3 10^3/uL (0.0-0.7) 01/24/20 05:05 Baso # (Auto) 0.0 10^3/uL (0.0-0.1) 01/24/20 05:05 Absolute Nucleated RBC 0.00 x10^3/uL 01/24/20 05:05 Total Counted 100 01/18/20 05:35 Band Neuts % (Manual) 0 % (0-10) 01/18/20 05:35 Reactive Lymphs % (Man) 7 % 01/17/20 05:40 Abnorm Lymph % (Manual) 0 % 01/18/20 05:35 Metamyelocytes % 2 % (-0) H 01/18/20 05:35 Myelocytes % 1 % (-0) H 01/18/20 05:35 Nucleated RBC % 0.0 /100WBC 01/24/20 05:05 Neutrophils # (Manual) 8.4 10^3/uL (1.5-6.6) H 01/18/20 05:35 Lymphocytes # (Manual) 1.1 10^3/uL (1.5-3.5) L 01/18/20 05:35 Monocytes # (Manual) 0.8 10^3/uL (0.0-1.0) 01/18/20 05:35 Eosinophils # (Manual) 0.0 10^3/uL (0-0.7) 01/18/20 05:35 Basophils # (Manual) 0.0 10^3/uL (0-0.1) 01/18/20 05:35 Differential Comment MANUAL DIFFERENTIAL 01/18/20 05:35 Manual Slide Review Indicated 01/16/20 05:20 WBC Morphology NORMAL APPEARANCE (NORMAL) 01/16/20 05:20 Platelet Estimate NORMAL (130-450,000) (NORMAL) 01/18/20 05:35 Platelet Morphology NORMAL APPEARANCE (NORMAL) 01/16/20 05:20 RBC Morph Micro Appear 1+ HYPOCHROMASIA (NORMAL) 2+ MACROCYTOSIS (NORMAL) 01/14/20 04:15 RBC Morph Micro Appear 2+ MACROCYTOSIS (NORMAL) 1+ HYPOCHROMASIA (NORMAL) 01/15/20 05:05 RBC Morph Micro Appear 2+ MACROCYTOSIS (NORMAL) 1+ HYPOCHROMASIA (NORMAL) 01/15/20 05:05 RBC Morph Micro Appear 2+ HYPOCHROMASIA (NORMAL) 1+ MICROCYTOSIS (NORMAL) 01/16/20 05:20 RBC Morph Micro Appear 2+ HYPOCHROMASIA (NORMAL) 1+ MICROCYTOSIS (NORMAL) 01/16/20 05:20 RBC Morph Micro Appear 1+ ANISOCYTOSIS (NORMAL) 01/17/20 05:40 RBC Morph Micro Appear NORMAL APPEARANCE (NORMAL) 01/18/20 05:35 PT 18.4 secs (9.9-12.6) H 01/18/20 05:35 INR 1.7 (0.8-1.2) H 01/18/20 05:35 Whole Blood INR 1.4 (0.8-1.2) H 01/16/20 09:25 Sodium 128 mmol/L (135-145) L 01/26/20 04:35 Potassium 4.9 mmol/L (3.5-5.0) 01/26/20 04:35 Chloride 94 mmol/L (101-111) L 01/26/20 04:35 Carbon Dioxide 25 mmol/L (21-32) 01/26/20 04:35 Anion Gap 9.0 (6-13) 01/26/20 04:35 BUN 18 mg/dL (6-20) 01/26/20 04:35 Creatinine 0.8 mg/dL (0.4-1.0) 01/26/20 04:35 Estimated GFR (MDRD) 73 (>89) L 01/26/20 04:35 Glucose 103 mg/dL (70-100) H 01/26/20 04:35 Lactic Acid 1.7 mmol/L (0.5-2.2) 01/11/20 14:25 Calcium 8.5 mg/dL (8.5-10.3) 01/26/20 04:35 Phosphorus 3.9 mg/dL (2.5-4.6) 01/20/20 06:48 Magnesium 2.1 mg/dL (1.7-2.8) 01/20/20 06:48 Total Bilirubin 3.8 mg/dL (0.2-1.0) H 01/24/20 05:05 Direct Bilirubin 1.3 mg/dL (0.1-0.5) H 01/24/20 05:05 AST 37 IU/L (10-42) 01/24/20 05:05 ALT 26 IU/L (10-60) 01/24/20 05:05 Alkaline Phosphatase 102 IU/L (42-121) 01/24/20 05:05 Ammonia 39.2 umol/L (7-35) H 01/19/20 11:35 Lactate Dehydrogenase 89 IU/L (91-225) L 01/18/20 15:00 Total Protein 5.8 g/dL (6.7-8.2) L 01/24/20 05:05 Albumin 2.3 g/dL (3.2-5.5) L 01/24/20 05:05 Globulin 3.5 g/dL (2.1-4.2) 01/24/20 05:05 Albumin/Globulin Ratio 0.6 (1.0-2.2) L 01/17/20 05:40 Lipase 42 U/L (22-51) 01/11/20 14:25 TSH 3.96 uIU/mL (0.34-5.60) 01/20/20 06:48 Urine Color ORANGE 01/11/20 23:00 Urine Clarity CLEAR (CLEAR) 01/11/20 23:00 Urine pH 5.0 PH (5.0-7.5) 01/11/20 23:00 Ur Specific [place] 1.025 (1.002-1.030) 01/11/20 23:00 Urine Protein TRACE mg/dL (NEGATIVE) 01/11/20 23:00 Urine Glucose (UA) NEGATIVE mg/dL (NEGATIVE) 01/11/20 23:00 Urine Ketones TRACE mg/dL (NEGATIVE) 01/11/20 23:00 Urine Occult Blood NEGATIVE (NEGATIVE) 01/11/20 23:00 Urine Nitrite NEGATIVE (NEGATIVE) 01/11/20 23:00 Urine Bilirubin NEGATIVE (NEGATIVE) 01/11/20 23:00 Urine Urobilinogen 4 E.U./dL (NORMAL) H 01/11/20 23:00 Ur Leukocyte Esterase NEGATIVE (NEGATIVE) 01/11/20 23:00 Ur Microscopic Review NOT INDICATED 01/11/20 23:00 Urine Culture Comments NOT INDICATED 01/11/20 23:00 Fluid Source PERITONEAL 01/18/20 14:45 Fluid Color YELLOW 01/18/20 14:45 Fluid Clarity CLEAR 01/18/20 14:45 Fluid WBC 47 /mm^3 01/18/20 14:45 Fluid RBC 1000 /mm^3 01/18/20 14:45 Fluid Neutrophils % 17.0 % 01/18/20 14:45 Fluid Lymphocytes % 35.0 % 01/18/20 14:45 Fluid Monocytes % 15.0 % 01/18/20 14:45 Fluid Macrophages % 29.0 % 01/18/20 14:45 Fld Mesothelial Cell % 4.0 % 01/18/20 14:45 Nasal Screen MRSA (PCR) NEGATIVE (NEGATIVE) 01/12/20 08:15 Urine Opiates Screen NEGATIVE (NEGATIVE) 01/11/20 23:00 Ur Oxycodone Screen NEGATIVE (NEGATIVE) 01/11/20 23:00 Urine Methadone Screen NEGATIVE (NEGATIVE) 01/11/20 23:00 Ur Propoxyphene Screen NEGATIVE (NEGATIVE) 01/11/20 23:00 Ur Barbiturates Screen NEGATIVE (NEGATIVE) 01/11/20 23:00 Ur Tricyclics Screen NEGATIVE (NEGATIVE) 01/11/20 23:00 Ur Phencyclidine Scrn NEGATIVE (NEGATIVE) 01/11/20 23:00 Ur Amphetamine Screen NEGATIVE (NEGATIVE) 01/11/20 23:00 U Methamphetamines Scrn NEGATIVE (NEGATIVE) 01/11/20 23:00 U Benzodiazepines Scrn NEGATIVE (NEGATIVE) 01/11/20 23:00 Urine Cocaine Screen NEGATIVE (NEGATIVE) 01/11/20 23:00 U Cannabinoids Screen NEGATIVE (NEGATIVE) 01/11/20 23:00 Ethyl Alcohol < 5.0 mg/dL 01/11/20 14:25 Coronavirus (PCR) NEGATIVE 01/11/20 14:45 Hepatitis A IgM Ab NON-REACTIVE (NON-REACTIVE) 01/19/20 05: Hep Bs Antigen NON-REACTIVE (NON-REACTIVE) 01/19/20 05: Hep B Core IgM Ab NON-REACTIVE (NON-REACTIVE) 01/19/20 05: Hepatitis C Antibody NON-REACTIVE (NON-REACTIVE) 01/19/20 05: Hep C Ab Signal/Cutoff 0.00 (<1.00) 01/19/20 05: Ref Lab Test Result REPORT 01/18/20 14:45 Blood Type A NEGATIVE 01/17/20 05:40 Antibody Screen NEGATIVE 01/17/20 05:40 Crossmatch IS Only See Detail 01/17/20 05:40 - Procedures Procedures: Procedures DRAINAGE OF PERITONEAL CAVITY, PERCUTANEOUS APPROACH (12/16/19)
[2020-01-28] MEDS: SODIUM CHLORIDE FLUSH 0.9% 10 ML SYRINGE IVP SCH ×3 (04:16→17:34)
[2020-01-28] MEDS: oxyCODONE 5 MG TABLET PO PRN (04:24)
[2020-01-28 05:32] LABS: BASOPHILS % (AUTO) 0.3 %; EOSINOPHILS # (AUTO) 0.1 10^3/uL (0.0-0.7); EOSINOPHILS % (AUTO) 1.9 %; LYMPHOCYTES # (AUTO) 0.9 10^3/uL (1.5-3.5); LYMPHOCYTES % (AUTO) 13.9 %; MEAN CORPUSCULAR HEMOGLOBIN 35.9 pg (27.0-31.0); MEAN CORPUSCULAR VOLUME 112.1 fL (81.0-99.0); MEAN PLATELET VOLUME 9.6 fL (7.9-10.8); MONOCYTES # (AUTO) 0.7 10^3/uL (0.0-1.0); MONOCYTES % (AUTO) 10.4 %; NEUTROPHILS # (AUTO) 4.7 10^3/uL (1.5-6.6); NEUTROPHILS % (AUTO) 73.2 %; PLT - PLATELET COUNT 236 10^3/uL (130-450); RED BLOOD COUNT 2.23 10^6/uL (4.20-5.40); RED CELL DISTRIBUTION WIDTH 15.9 % (12.0-15.0); WHITE BLOOD COUNT 6.4 x10^3/uL (4.8-10.8)
[2020-01-28 05:48] LABS: CALCIUM 8.8 mg/dL (8.5-10.3); CREATININE 0.8 mg/dL (0.4-1.0); MAGNESIUM 1.8 mg/dL (1.7-2.8)
[2020-01-28 06:04] LABS: PLATELET ESTIMATE, MANUAL NORMAL (130-450,000) (NORMAL); PLATELET MORPHOLOGY NORMAL APPEARANCE (NORMAL)
[2020-01-28] MEDS: PANTOPRAZOLE 40 MG TABLET PO SCH (06:33)
[2020-01-28] MEDS: HEPARIN 5,000 UNIT/ML VIAL SUBQ SCH ×2 (10:00→20:38)
[2020-01-28] MEDS: THIAMINE 100 MG TABLET PO SCH (10:06)
[2020-01-28] MEDS: SPIRONOLACTONE 25 MG TABLET PO SCH (10:06)
[2020-01-28] MEDS: PRENATAL VITAMIN TABLET PO SCH (10:06)
[2020-01-28] MEDS: SENNA 8.6 MG TABLET PO SCH (10:07)
[2020-01-28] MEDS: polyethylene glycoL 3350 17 GM PACKET PO SCH (10:07)
[2020-01-28] MEDS: DOCUSATE SODIUM 250 MG CAPSULE PO SCH (10:07)
--- NOTE | 2020-01-28 12:09 | PROVIDER PROGRESS NOTE ---
Assessment/Plan - Problem List (1) Weakness Assessment/Plan: Getting PT and awaiting placement in a SNF (2) Liver cirrhosis, alcoholic Qualifiers: Ascites presence: with ascites Qualified Code(s): K70.31 - Alcoholic cirrhosis of liver with ascites Assessment/Plan: On Thiamine, on Spironolactone (3) Hyponatremia Assessment/Plan: Chronic and stable with fluid restriction ordered Follow BMP intermittently (4) Ascites Qualifiers: Ascites type: due to alcoholic cirrhosis Qualified Code(s): K70.31 - Alcoholic cirrhosis of liver with ascites Assessment/Plan: On Spironolactone daily (5) Macrocytic anemia Assessment/Plan: Chronic and stable with Hgb 8 Follow CBC intermittently (6) Alcohol abuse Assessment/Plan: As per Hx - Current Meds Current Meds: Current Medications Generic Name Dose Route Start Last Admin Trade Name Freq PRN Reason Stop Dose Admin Acetaminophen 650 mg 01/11/20 15:56 01/24/20 18:08 Tylenol PO 650 mg Q4HR PRN Administration Pain 1 to 4 Docusate Sodium 250 - 500 mg 01/17/20 09:00 01/28/20 10:07 Colace 250mg Capsule PO Not Given DAILY TANO Heparin Sodium (Beef Lung) 30 - 50 unit 01/13/20 04:03 01/21/20 08:19 IVP 50 unit PRN PRN Administration Central Line Protocol (<24 hr) Heparin Sodium (Porcine) 5,000 unit 01/20/20 21:00 01/28/20 10:00 SUBQ 5,000 unit BID TANO Administration Lactulose 10 gm 01/26/20 09:57 01/26/20 14:09 Enulose PO 10 gm DAILY PRN Administration Constipation Ondansetron HCl 4 mg 01/11/20 15:56 01/22/20 03:59 Zofran Inj IVP 4 mg Q6HR PRN Administration Nausea / Vomiting Oxycodone HCl 5 mg 01/21/20 11:22 01/28/20 04:24 Roxicodone PO 5 mg Q4HR PRN Administration PAIN Pantoprazole Sodium 40 mg 01/12/20 07:00 01/28/20 06:33 Protonix PO 40 mg QDAC TANO Administration Polyethylene Glycol 17 gm 01/15/20 09:00 01/28/20 10:07 Miralax PO Not Given DAILY TANO Multivit/Folic Acid/Iron 1 tab 01/15/20 10:00 01/28/20 10:06 Trinatal Rx 1 PO 1 tab DAILYWM TANO Administration Senna 8.6 mg 01/16/20 21:37 01/16/20 21:53 Senokot PO 8.6 mg DAILY PRN Administration Constipation Senna 8.6 - 17.2 mg 01/17/20 09:00 01/28/20 10:07 Senokot PO Not Given DAILY TANO Sodium Chloride 10 ml 01/11/20 15:56 01/24/20 05:15 Normal Saline Flush 0.9% IVP 10 ml PRN PRN Administration NEEDED PER PROVIDER ORDERS Sodium Chloride 10 ml 01/11/20 17:00 01/28/20 10:07 Normal Saline Flush 0.9% IVP Not Given 0100,0900,1700 TANO Sodium Chloride 20 ml 01/13/20 04:03 01/24/20 05:14 Normal Saline Flush 0.9% IVP 20 ml PRN PRN Administration After Blood Draw Spironolactone 25 mg 01/26/20 09:00 01/28/20 10:06 Aldactone PO 25 mg DAILY TANO Administration Thiamine HCl 100 mg 01/15/20 10:00 01/28/20 10:06 Vitamin B-1 PO 100 mg DAILY TANO Administration - Lab Result Fish Bone Diagrams: 01/28/20 04:45 01/28/20 04:45 - Other Other Results/Comments: Non-billable rounding Objective Vital Signs: Vital Signs - 24 hr 01/27/20 01/27/20 01/28/20 15:14 23:35 07:53 Temperature 36.5 C 36.5 C 36.5 C Heart Rate [ 106 H 71 101 H Brachial] Respiratory 18 16 18 Rate Blood Pressure 120/70 102/59 L 107/66 [Right Brachial artery] O2 Saturation 100 100 97 Oxygen O2 Source [With Activity] Room air O2 Source Room air I&O (Last 24 Hrs): Intake and Output Totals x24h 01/26/20 01/27/20 01/28/20 23:59 23:59 23:59 Intake Total 672 470 100 Output Total 1450 900 200 Balance -778 -430 -100 - Results Results: Laboratory Results WBC 6.4 x10^3/uL (4.8-10.8) 01/28/20 04:45 RBC 2.23 10^6/uL (4.20-5.40) L 01/28/20 04:45 Hgb 8.0 g/dL (12.0-16.0) L 01/28/20 04:45 Hct 25.0 % (37.0-47.0) L 01/28/20 04:45 MCV 112.1 fL (81.0-99.0) H 01/28/20 04:45 MCH 35.9 pg (27.0-31.0) H 01/28/20 04:45 MCHC 32.0 g/dL (32.0-36.0) 01/28/20 04:45 RDW 15.9 % (12.0-15.0) H 01/28/20 04:45 Plt Count 236 10^3/uL (130-450) 01/28/20 04:45 MPV 9.6 fL (7.9-10.8) 01/28/20 04:45 Neut # (Auto) 4.7 10^3/uL (1.5-6.6) 01/28/20 04:45 Lymph # (Auto) 0.9 10^3/uL (1.5-3.5) L 01/28/20 04:45 [place] # (Auto) 0.7 10^3/uL (0.0-1.0) 01/28/20 04:45 Eos # (Auto) 0.1 10^3/uL (0.0-0.7) 01/28/20 04:45 Baso # (Auto) 0.0 10^3/uL (0.0-0.1) 01/28/20 04:45 Absolute Nucleated RBC 0.00 x10^3/uL 01/28/20 04:45 Total Counted 100 01/18/20 05:35 Band Neuts % (Manual) 0 % (0-10) 01/18/20 05:35 Reactive Lymphs % (Man) 7 % 01/17/20 05:40 Abnorm Lymph % (Manual) 0 % 01/18/20 05:35 Metamyelocytes % 2 % (-0) H 01/18/20 05:35 Myelocytes % 1 % (-0) H 01/18/20 05:35 Nucleated RBC % 0.0 /100WBC 01/28/20 04:45 Neutrophils # (Manual) 8.4 10^3/uL (1.5-6.6) H 01/18/20 05:35 Lymphocytes # (Manual) 1.1 10^3/uL (1.5-3.5) L 01/18/20 05:35 Monocytes # (Manual) 0.8 10^3/uL (0.0-1.0) 01/18/20 05:35 Eosinophils # (Manual) 0.0 10^3/uL (0-0.7) 01/18/20 05:35 Basophils # (Manual) 0.0 10^3/uL (0-0.1) 01/18/20 05:35 Differential Comment MANUAL DIFFERENTIAL 01/18/20 05:35 Manual Slide Review Indicated 01/28/20 04:45 WBC Morphology NORMAL APPEARANCE (NORMAL) 01/28/20 04:45 Platelet Estimate NORMAL (130-450,000) (NORMAL) 01/28/20 04:45 Platelet Morphology NORMAL APPEARANCE (NORMAL) 01/28/20 04:45 RBC Morph Micro Appear 2+ MACROCYTOSIS (NORMAL) 1+ HYPOCHROMASIA (NORMAL) 01/15/20 05:05 RBC Morph Micro Appear 2+ MACROCYTOSIS (NORMAL) 1+ HYPOCHROMASIA (NORMAL) 0 01/15/20 05:05 RBC Morph Micro Appear 2+ HYPOCHROMASIA (NORMAL) 1+ MICROCYTOSIS (NORMAL) 01/16/20 05:20 RBC Morph Micro Appear 2+ HYPOCHROMASIA (NORMAL) 1+ MICROCYTOSIS (NORMAL) 01/16/20 05:20 RBC Morph Micro Appear 1+ ANISOCYTOSIS (NORMAL) 01/17/20 05:40 RBC Morph Micro Appear NORMAL APPEARANCE (NORMAL) 01/18/20 05:35 RBC Morph Micro Appear 1+ MACROCYTOSIS (NORMAL) 1+ HYPOCHROMASIA (NORMAL) 01/28/20 04:45 RBC Morph Micro Appear 1+ MACROCYTOSIS (NORMAL) 1+ HYPOCHROMASIA (NORMAL) 01/28/20 04:45 PT 18.4 secs (9.9-12.6) H 01/18/20 05:35 INR 1.7 (0.8-1.2) H 01/18/20 05:35 Whole Blood INR 1.4 (0.8-1.2) H 01/16/20 09:25 Sodium 131 mmol/L (135-145) L 01/28/20 04:45 Potassium 4.0 mmol/L (3.5-5.0) 01/28/20 04:45 Chloride 98 mmol/L (101-111) L 01/28/20 04:45 Carbon Dioxide 25 mmol/L (21-32) 01/28/20 04:45 Anion Gap 8.0 (6-13) 01/28/20 04:45 BUN 16 mg/dL (6-20) 01/28/20 04:45 Creatinine 0.8 mg/dL (0.4-1.0) 01/28/20 04:45 Estimated GFR (MDRD) 73 (>89) L 01/28/20 04:45 Glucose 104 mg/dL (70-100) H 01/28/20 04:45 Lactic Acid 1.7 mmol/L (0.5-2.2) 01/11/20 14:25 Calcium 8.8 mg/dL (8.5-10.3) 01/28/20 04:45 Phosphorus 3.9 mg/dL (2.5-4.6) 01/20/20 06:48 Magnesium 1.8 mg/dL (1.7-2.8) 01/28/20 04:45 Total Bilirubin 3.8 mg/dL (0.2-1.0) H 01/24/20 05:05 Direct Bilirubin 1.3 mg/dL (0.1-0.5) H 01/24/20 05:05 AST 37 IU/L (10-42) 01/24/20 05:05 ALT 26 IU/L (10-60) 01/24/20 05:05 Alkaline Phosphatase 102 IU/L (42-121) 01/24/20 05:05 Ammonia 39.2 umol/L (7-35) H 01/19/20 11:35 Lactate Dehydrogenase 89 IU/L (91-225) L 01/18/20 15:00 Total Protein 5.8 g/dL (6.7-8.2) L 01/24/20 05:05 Albumin 2.3 g/dL (3.2-5.5) L 01/24/20 05:05 Globulin 3.5 g/dL (2.1-4.2) 01/24/20 05:05 Albumin/Globulin Ratio 0.6 (1.0-2.2) L 01/17/20 05:40 Lipase 42 U/L (22-51) 01/11/20 14:25 TSH 3.96 uIU/mL (0.34-5.60) 01/20/20 06:48 Urine Color ORANGE 01/11/20 23:00 Urine Clarity CLEAR (CLEAR) 01/11/20 23:00 Urine pH 5.0 PH (5.0-7.5) 01/11/20 23:00 Ur Specific [place] 1.025 (1.002-1.030) 01/11/20 23:00 Urine Protein TRACE mg/dL (NEGATIVE) 01/11/20 23:00 Urine Glucose (UA) NEGATIVE mg/dL (NEGATIVE) 01/11/20 23:00 Urine Ketones TRACE mg/dL (NEGATIVE) 01/11/20 23:00 Urine Occult Blood NEGATIVE (NEGATIVE) 01/11/20 23:00 Urine Nitrite NEGATIVE (NEGATIVE) 01/11/20 23:00 Urine Bilirubin NEGATIVE (NEGATIVE) 01/11/20 23:00 Urine Urobilinogen 4 E.U./dL (NORMAL) H 01/11/20 23:00 Ur Leukocyte Esterase NEGATIVE (NEGATIVE) 01/11/20 23:00 Ur Microscopic Review NOT INDICATED 01/11/20 23:00 Urine Culture Comments NOT INDICATED 01/11/20 23:00 Fluid Source PERITONEAL 01/18/20 14:45 Fluid Color YELLOW 01/18/20 14:45 Fluid Clarity CLEAR 01/18/20 14:45 Fluid WBC 47 /mm^3 01/18/20 14:45 Fluid RBC 1000 /mm^3 01/18/20 14:45 Fluid Neutrophils % 17.0 % 01/18/20 14:45 Fluid Lymphocytes % 35.0 % 01/18/20 14:45 Fluid Monocytes % 15.0 % 01/18/20 14:45 Fluid Macrophages % 29.0 % 01/18/20 14:45 Fld Mesothelial Cell % 4.0 % 01/18/20 14:45 Nasal Screen MRSA (PCR) NEGATIVE (NEGATIVE) 01/12/20 08:15 Urine Opiates Screen NEGATIVE (NEGATIVE) 01/11/20 23:00 Ur Oxycodone Screen NEGATIVE (NEGATIVE) 01/11/20 23:00 Urine Methadone Screen NEGATIVE (NEGATIVE) 01/11/20 23:00 Ur Propoxyphene Screen NEGATIVE (NEGATIVE) 01/11/20 23:00 Ur Barbiturates Screen NEGATIVE (NEGATIVE) 01/11/20 23:00 Ur Tricyclics Screen NEGATIVE (NEGATIVE) 01/11/20 23:00 Ur Phencyclidine Scrn NEGATIVE (NEGATIVE) 01/11/20 23:00 Ur Amphetamine Screen NEGATIVE (NEGATIVE) 01/11/20 23:00 U Methamphetamines Scrn NEGATIVE (NEGATIVE) 01/11/20 23:00 U Benzodiazepines Scrn NEGATIVE (NEGATIVE) 01/11/20 23:00 Urine Cocaine Screen NEGATIVE (NEGATIVE) 01/11/20 23:00 U Cannabinoids Screen NEGATIVE (NEGATIVE) 01/11/20 23:00 Ethyl Alcohol < 5.0 mg/dL 01/11/20 14:25 Coronavirus (PCR) NEGATIVE 01/11/20 14:45 Hepatitis A IgM Ab NON-REACTIVE (NON-REACTIVE) 01/19/20 05:29 Hep Bs Antigen NON-REACTIVE (NON-REACTIVE) 01/19/20 05:29 Hep B Core IgM Ab NON-REACTIVE (NON-REACTIVE) 01/19/20 05:29 Hepatitis C Antibody NON-REACTIVE (NON-REACTIVE) 01/19/20 05:29 Hep C Ab Signal/Cutoff 0.00 (<1.00) 01/19/20 05:29 Ref Lab Test Result REPORT 01/18/20 14:45 Blood Type A NEGATIVE 01/17/20 05:40 Antibody Screen NEGATIVE 01/17/20 05:40 Crossmatch IS Only See Detail 01/17/20 05:40 - Procedures Procedures: Procedures DRAINAGE OF PERITONEAL CAVITY, PERCUTANEOUS APPROACH (12/16/19)
[2020-01-29] MEDS: SODIUM CHLORIDE FLUSH 0.9% 10 ML SYRINGE IVP SCH ×3 (01:41→17:17)
[2020-01-29] MEDS: PANTOPRAZOLE 40 MG TABLET PO SCH (06:53)
[2020-01-29] MEDS: PRENATAL VITAMIN TABLET PO SCH (09:10)
[2020-01-29] MEDS: SENNA 8.6 MG TABLET PO SCH (09:10)
[2020-01-29] MEDS: THIAMINE 100 MG TABLET PO SCH (09:11)
[2020-01-29] MEDS: SPIRONOLACTONE 25 MG TABLET PO SCH (09:11)
[2020-01-29] MEDS: polyethylene glycoL 3350 17 GM PACKET PO SCH (09:11)
[2020-01-29] MEDS: DOCUSATE SODIUM 250 MG CAPSULE PO SCH ×2 (09:11→09:21)
[2020-01-29] MEDS: HEPARIN 5,000 UNIT/ML VIAL SUBQ SCH ×2 (09:12→21:14)
--- NOTE | 2020-01-29 12:07 | PROVIDER PROGRESS NOTE ---
Assessment/Plan - Problem List (1) Weakness Assessment/Plan: Patient is now here on day18. She is participating with PT and making slow progress. Placement to an SNF is being held up because of a discharge plan for long-term placement. Her [employer] group is working out in individual agreement with [place], this is still pending. (2) Liver cirrhosis, alcoholic Qualifiers: Ascites presence: with ascites Qualified Code(s): K70.31 - Alcoholic cirrhosis of liver with ascites Assessment/Plan: As per Hx. Patient does not require lactulose, except prn for constipation. Her LFTs, bilirubin and ammonia level are relatively stable. (3) Hyponatremia Assessment/Plan: The patient is chronically hyponatremic related to her cirrhosis and ascites. Her BMP is only checked intermittently. A fluid restriction per day is ordered. (4) Ascites Qualifiers: Ascites type: due to alcoholic cirrhosis Qualified Code(s): K70.31 - Alcoholic cirrhosis of liver with ascites Assessment/Plan: The patient required paracentesis nmany months ago and had it once during this hospitalization, for tense ascites. She also got intermittent IV albumin infusions earlier this hospitalization. Over the past week, Spironolactone daily was ordered and this is keeping the distention tolerable. It was not ordered earlier because she had marked hypotension, requiring iv pressors in the ICU. (5) Macrocytic anemia Assessment/Plan: She is getting her standard supplements. Hemoglobin has been stable at approximately 8. Her CBC is only checked intermittently. (6) Alcohol abuse Assessment/Plan: As per history At admission, Social Work saw her and the patient was interested in [facility], however her marked weakness prevented her from being discharged to any inpatient alcohol rehab center and now the plan is to go to SNF for PT rehab. She is therefore abstinent of alcohol for the past 18 days, and she also did not go through withdrawal at the beginning of this h ospitalization. - Current Meds Current Meds: Current Medications Generic Name Dose Route Start Last Admin Trade Name Freq PRN Reason Stop Dose Admin Acetaminophen 650 mg 01/11/20 15:56 01/24/20 18:08 Tylenol PO 650 mg Q4HR PRN Administration Pain 1 to 4 Docusate Sodium 250 - 500 mg 01/17/20 09:00 01/29/20 09:21 Colace 250mg Capsule PO Not Given DAILY TANO Heparin Sodium (Beef Lung) 30 - 50 unit 01/13/20 04:03 01/21/20 08:19 IVP 50 unit PRN PRN Administration Central Line Protocol (<24 hr) Heparin Sodium (Porcine) 5,000 unit 01/20/20 21:00 01/29/20 09:12 SUBQ 5,000 unit BID TANO Administration Lactulose 10 gm 01/26/20 09:57 01/26/20 14:09 Enulose PO 10 gm DAILY PRN Administration Constipation Ondansetron HCl 4 mg 01/11/20 15:56 01/22/20 03:59 Zofran Inj IVP 4 mg Q6HR PRN Administration Nausea / Vomiting Oxycodone HCl 5 mg 01/21/20 11:22 01/28/20 04:24 Roxicodone PO 5 mg Q4HR PRN Administration PAIN Pantoprazole Sodium 40 mg 01/12/20 07:00 01/29/20 06:53 Protonix PO 40 mg QDAC TANO Administration Polyethylene Glycol 17 gm 01/15/20 09:00 01/29/20 09:11 Miralax PO 17 gm DAILY TANO Administration Multivit/Folic Acid/Iron 1 tab 01/15/20 10:00 01/29/20 09:10 Trinatal Rx 1 PO 1 tab DAILYWM TANO Administration Senna 8.6 mg 01/16/20 21:37 01/16/20 21:53 Senokot PO 8.6 mg DAILY PRN Administration Constipation Senna 8.6 - 17.2 mg 01/17/20 09:00 01/29/20 09:10 Senokot PO 8.6 mg DAILY TANO Administration Sodium Chloride 10 ml 01/11/20 15:56 01/24/20 05:15 Normal Saline Flush 0.9% IVP 10 ml PRN PRN Administration NEEDED PER PROVIDER ORDERS Sodium Chloride 10 ml 01/11/20 17:00 01/29/20 07:52 Normal Saline Flush 0.9% IVP Not Given 0100,0900,1700 TANO Sodium Chloride 20 ml 01/13/20 04:03 01/24/20 05:14 Normal Saline Flush 0.9% IVP 20 ml PRN PRN Administration After Blood Draw Spironolactone 25 mg 01/26/20 09:00 01/29/20 09:11 Aldactone PO 25 mg DAILY TANO Administration Thiamine HCl 100 mg 01/15/20 10:00 01/29/20 09:11 Vitamin B-1 PO 100 mg DAILY TANO Administration - Lab Result Fish Bone Diagrams: 01/28/20 04:45 01/28/20 04:45 Subjective - Subjective Nursing Reports: Other (No complaints, Non-billable rounding was done today.) Objective Vital Signs: Vital Signs - 24 hr 01/28/20 01/28/20 01/29/20 15:42 23:45 09:14 Temperature 36.7 C 36.3 C L 36.7 C Heart Rate [ 101 H 104 H 104 H Brachial] Respiratory 20 16 16 Rate Blood Pressure 106/67 118/65 102/62 [Right Brachial artery] O2 Saturation 99 97 100 01/29/20 09:16 Temperature 36.7 C Heart Rate [ 103 H Brachial] Respiratory 16 Rate Blood Pressure 102/62 [Right Brachial artery] O2 Saturation 100 Oxygen O2 Source [With Activity] Room air O2 Source Room air I&O (Last 24 Hrs): Intake and Output Totals x24h 01/27/20 01/28/20 01/29/20 23:59 23:59 23:59 Intake Total 470 320 180 Output Total 900 600 200 Balance -430 -280 -20 - Results Results: Laboratory Results WBC 6.4 x10^3/uL (4.8-10.8) 01/28/20 04:45 RBC 2.23 10^6/uL (4.20-5.40) L 01/28/20 04:45 Hgb 8.0 g/dL (12.0-16.0) L 01/28/20 04:45 Hct 25.0 % (37.0-47.0) L 01/28/20 04:45 MCV 112.1 fL (81.0-99.0) H 01/28/20 04:45 MCH 35.9 pg (27.0-31.0) H 01/28/20 04:45 MCHC 32.0 g/dL (32.0-36.0) 01/28/20 04:45 RDW 15.9 % (12.0-15.0) H 01/28/20 04:45 Plt Count 236 10^3/uL (130-450) 01/28/20 04:45 MPV 9.6 fL (7.9-10.8) 01/28/20 04:45 Neut # (Auto) 4.7 10^3/uL (1.5-6.6) 01/28/20 04:45 Lymph # (Auto) 0.9 10^3/uL (1.5-3.5) L 01/28/20 04:45 [place] # (Auto) 0.7 10^3/uL (0.0-1.0) 01/28/20 04:45 Eos # (Auto) 0.1 10^3/uL (0.0-0.7) 01/28/20 04:45 Baso # (Auto) 0.0 10^3/uL (0.0-0.1) 01/28/20 04:45 Absolute Nucleated RBC 0.00 x10^3/uL 01/28/20 04:45 Total Counted 100 01/18/20 05:35 Band Neuts % (Manual) 0 % (0-10) 01/18/20 05:35 Reactive Lymphs % (Man) 7 % 01/17/20 05:40 Abnorm Lymph % (Manual) 0 % 01/18/20 05:35 Metamyelocytes % 2 % (-0) H 01/18/20 05:35 Myelocytes % 1 % (-0) H 01/18/20 05:35 Nucleated RBC % 0.0 /100WBC 01/28/20 04:45 Neutrophils # (Manual) 8.4 10^3/uL (1.5-6.6) H 01/18/20 05:35 Lymphocytes # (Manual) 1.1 10^3/uL (1.5-3.5) L 01/18/20 05:35 Monocytes # (Manual) 0.8 10^3/uL (0.0-1.0) 01/18/20 05:35 Eosinophils # (Manual) 0.0 10^3/uL (0-0.7) 01/18/20 05:35 Basophils # (Manual) 0.0 10^3/uL (0-0.1) 01/18/20 05:35 Differential Comment MANUAL DIFFERENTIAL 01/18/20 05:35 Manual Slide Review Indicated 01/28/20 04:45 WBC Morphology NORMAL APPEARANCE (NORMAL) 01/28/20 04:45 Platelet Estimate NORMAL (130-450,000) (NORMAL) 01/28/20 04:45 Platelet Morphology NORMAL APPEARANCE (NORMAL) 01/28/20 04:45 RBC Morph Micro Appear 2+ MACROCYTOSIS (NORMAL) 1+ HYPOCHROMASIA (NORMAL) 01/15/20 05:05 RBC Morph Micro Appear 2+ MACROCYTOSIS (NORMAL) 1+ HYPOCHROMASIA (NORMAL) 01/15/20 05:05 RBC Morph Micro Appear 2+ HYPOCHROMASIA (NORMAL) 1+ MICROCYTOSIS (NORMAL) 01/16/20 05:20 RBC Morph Micro Appear 2+ HYPOCHROMASIA (NORMAL) 1+ MICROCYTOSIS (NORMAL) 01/16/20 05:20 RBC Morph Micro Appear 1+ ANISOCYTOSIS (NORMAL) 01/17/20 05:40 RBC Morph Micro Appear NORMAL APPEARANCE (NORMAL) 01/18/20 05:35 RBC Morph Micro Appear 1+ MACROCYTOSIS (NORMAL) 1+ HYPOCHROMASIA (NORMAL) 01/28/20 04:45 RBC Morph Micro Appear 1+ MACROCYTOSIS (NORMAL) 1+ HYPOCHROMASIA (NORMAL) 0 01/28/20 04:45 PT 18.4 secs (9.9-12.6) H 01/18/20 05:35 INR 1.7 (0.8-1.2) H 01/18/20 05:35 Whole Blood INR 1.4 (0.8-1.2) H 01/16/20 09:25 Sodium 131 mmol/L (135-145) L 01/28/20 04:45 Potassium 4.0 mmol/L (3.5-5.0) 01/28/20 04:45 Chloride 98 mmol/L (101-111) L 01/28/20 04:45 Carbon Dioxide 25 mmol/L (21-32) 01/28/20 04:45 Anion Gap 8.0 (6-13) 01/28/20 04:45 BUN 16 mg/dL (6-20) 01/28/20 04:45 Creatinine 0.8 mg/dL (0.4-1.0) 01/28/20 04:45 Estimated GFR (MDRD) 73 (>89) L 01/28/20 04:45 Glucose 104 mg/dL (70-100) H 01/28/20 04:45 Lactic Acid 1.7 mmol/L (0.5-2.2) 01/11/20 14:25 Calcium 8.8 mg/dL (8.5-10.3) 01/28/20 04:45 Phosphorus 3.9 mg/dL (2.5-4.6) 01/20/20 06:48 Magnesium 1.8 mg/dL (1.7-2.8) 01/28/20 04:45 Total Bilirubin 3.8 mg/dL (0.2-1.0) H 01/24/20 05:05 Direct Bilirubin 1.3 mg/dL (0.1-0.5) H 01/24/20 05:05 AST 37 IU/L (10-42) 01/24/20 05:05 ALT 26 IU/L (10-60) 01/24/20 05:05 Alkaline Phosphatase 102 IU/L (42-121) 01/24/20 05:05 Ammonia 39.2 umol/L (7-35) H 01/19/20 11:35 Lactate Dehydrogenase 89 IU/L (91-225) L 01/18/20 15:00 Total Protein 5.8 g/dL (6.7-8.2) L 01/24/20 05:05 Albumin 2.3 g/dL (3.2-5.5) L 01/24/20 05:05 Globulin 3.5 g/dL (2.1-4.2) 01/24/20 05:05 Albumin/Globulin Ratio 0.6 (1.0-2.2) L 01/17/20 05:40 Lipase 42 U/L (22-51) 01/11/20 14:25 TSH 3.96 uIU/mL (0.34-5.60) 01/20/20 06:48 Urine Color ORANGE 01/11/20 23:00 Urine Clarity CLEAR (CLEAR) 01/11/20 23:00 Urine pH 5.0 PH (5.0-7.5) 01/11/20 23:00 Ur Specific [place] 1.025 (1.002-1.030) 01/11/20 23:00 Urine Protein TRACE mg/dL (NEGATIVE) 01/11/20 23:00 Urine Glucose (UA) NEGATIVE mg/dL (NEGATIVE) 01/11/20 23:00 Urine Ketones TRACE mg/dL (NEGATIVE) 01/11/20 23:00 Urine Occult Blood NEGATIVE (NEGATIVE) 01/11/20 23:00 Urine Nitrite NEGATIVE (NEGATIVE) 01/11/20 23:00 Urine Bilirubin NEGATIVE (NEGATIVE) 01/11/20 23:00 Urine Urobilinogen 4 E.U./dL (NORMAL) H 01/11/20 23:00 Ur Leukocyte Esterase NEGATIVE (NEGATIVE) 01/11/20 23:00 Ur Microscopic Review NOT INDICATED 01/11/20 23:00 Urine Culture Comments NOT INDICATED 01/11/20 23:00 Fluid Source PERITONEAL 01/18/20 14:45 Fluid Color YELLOW 01/18/20 14:45 Fluid Clarity CLEAR 01/18/20 14:45 Fluid WBC 47 /mm^3 01/18/20 14:45 Fluid RBC 1000 /mm^3 01/18/20 14:45 Fluid Neutrophils % 17.0 % 01/18/20 14:45 Fluid Lymphocytes % 35.0 % 01/18/20 14:45 Fluid Monocytes % 15.0 % 01/18/20 14:45 Fluid Macrophages % 29.0 % 01/18/20 14:45 Fld Mesothelial Cell % 4.0 % 01/18/20 14:45 Nasal Screen MRSA (PCR) NEGATIVE (NEGATIVE) 01/12/20 08:15 Urine Opiates Screen NEGATIVE (NEGATIVE) 01/11/20 23:00 Ur Oxycodone Screen NEGATIVE (NEGATIVE) 01/11/20 23:00 Urine Methadone Screen NEGATIVE (NEGATIVE) 01/11/20 23:00 Ur Propoxyphene Screen NEGATIVE (NEGATIVE) 01/11/20 23:00 Ur Barbiturates Screen NEGATIVE (NEGATIVE) 01/11/20 23:00 Ur Tricyclics Screen NEGATIVE (NEGATIVE) 01/11/20 23:00 Ur Phencyclidine Scrn NEGATIVE (NEGATIVE) 01/11/20 23:00 Ur Amphetamine Screen NEGATIVE (NEGATIVE) 01/11/20 23:00 U Methamphetamines Scrn NEGATIVE (NEGATIVE) 01/11/20 23:00 U Benzodiazepines Scrn NEGATIVE (NEGATIVE) 01/11/20 23:00 Urine Cocaine Screen NEGATIVE (NEGATIVE) 01/11/20 23:00 U Cannabinoids Screen NEGATIVE (NEGATIVE) 01/11/20 23:00 Ethyl Alcohol < 5.0 mg/dL 01/11/20 14:25 Coronavirus (PCR) NEGATIVE 01/11/20 14:45 Hepatitis A IgM Ab NON-REACTIVE (NON-REACTIVE) 01/19/20 05:29 Hep Bs Antigen NON-REACTIVE (NON-REACTIVE) 01/19/20 05:29 Hep B Core IgM Ab NON-REACTIVE (NON-REACTIVE) 01/19/20 05:29 Hepatitis C Antibody NON-REACTIVE (NON-REACTIVE) 01/19/20 05:29 Hep C Ab Signal/Cutoff 0.00 (<1.00) 01/19/20 05:29 Ref Lab Test Result REPORT 01/18/20 14:45 Blood Type A NEGATIVE 01/17/20 05:40 Antibody Screen NEGATIVE 01/17/20 05:40 Crossmatch IS Only See Detail 01/17/20 05:40 - Procedures Procedures: Procedures DRAINAGE OF PERITONEAL CAVITY, PERCUTANEOUS APPROACH (12/16/19)
[2020-01-30] MEDS: SODIUM CHLORIDE FLUSH 0.9% 10 ML SYRINGE IVP SCH ×2 (05:46→09:46)
[2020-01-30] MEDS: PANTOPRAZOLE 40 MG TABLET PO SCH (06:13)
[2020-01-30] MEDS: THIAMINE 100 MG TABLET PO SCH (09:47)
[2020-01-30] MEDS: SENNA 8.6 MG TABLET PO SCH (09:47)
[2020-01-30] MEDS: polyethylene glycoL 3350 17 GM PACKET PO SCH (09:47)
[2020-01-30] MEDS: PRENATAL VITAMIN TABLET PO SCH (09:47)
[2020-01-30] MEDS: DOCUSATE SODIUM 250 MG CAPSULE PO SCH (09:47)
[2020-01-30] MEDS: SPIRONOLACTONE 25 MG TABLET PO SCH (09:47)
[2020-01-30] MEDS: HEPARIN 5,000 UNIT/ML VIAL SUBQ SCH (09:47)
[2020-01-30] MEDS: oxyCODONE 5 MG TABLET PO PRN (11:12)
--- NOTE | 2020-01-30 11:41 | Discharge Plan ---
"Discharge Plan for SNF / [facility] - Discharge Plan And Transition Orders Problem Reviewed?: Yes Disposition: 03 SNF DC/Xfer Condition: Stable Allergies and Adverse Reactions: Allergies Allergy/AdvReac Type Severity Reaction Status Date / Time morphine Allergy Hallucinati Verified 01/11/20 13:59 ons Health Concerns: Middle-aged white female who has a history of alcoholism with liver failure that was recently discharged from the hospital and came back to our emergency room complaining of weakness and a fall. Fall was because of profound weakness. She was found to be hyponatremic, with ascites, and an elevated white cell count. Her treatment plan consisted of treatment of cirrhosis, hyponatremia, and physical therapy for severe weakness. She did not go through withdrawal. Plan of Treatment: 1. To remain off alcohol 2. To stabilize malnutrition with good food intake 3. To increase strength and endurance to be independent with activities of daily living. She is to go to [facility] for rehab. After that she will return to live in her motel room. Care Goals: To stay off alcohol, and maintain stabilization of alcoholic liver disease. She will need to follow-up with a primary care provider after discharge from [facility] and will be seen by Thanh Sam MD - SNF / [facility] Transition Orders Admit to (Facility): [facility] Under the care of (Name): Thanh Sam MD Discharge Diagnosis: 1. Alcoholic cirrhosis of liver with ascites 2. Generalized weakness 3. Hyponatremia 4. Macrocytic anemia 5. Chronic alcohol abuse 6. Elevated white cell count, resolved 7. Vaginitis, nonspecific Medicare Certification Statement: I certify that Post Hospital care home care is medically necessary on a continuing basis for any of the conditions for which she/he is receiving care during hospitalization. Notify PCP of admission and forward orders to primary provider for signature. Weight on admission and: Weekly Call PCP immediately if weight increases by: 2.2 kg Other Notification Orders: Call PCP immediately if patient develops dyspnea, chest pain/tightness or edema. House Bowel Program: Yes Additional Bowel Program Orders: If no BM after 2 days, nurse may give M.O.M. 30ml PO PRN and/or ducolax Supp 1 DE and/or RENATO 250mg P.O., and/or senna 1-2 tabs PO. On day 3 nurse may give repeat above order until residents constipation is resolved. Annual Influenza Vaccine (between May 07 and December 04): Yes Two-step PPD per [facility] [phone] or approved exception documents: Yes Lab Tests or X-ray Orders: BMP weekly to start February 04 Medication Orders: PLEASE REFER TO THE DISCHARGE MEDICATION LIST. Insulin Orders?: No - Medications New Prescriptions: oxyCODONE [Roxicodone] 5 mg PO Q4HR PRN #20 tablet PRN Reason: Pain Lactulose 10 gm PO DAILY #1 bottle - Diet Type: No added salt Texture: Regular Liquids: Thin May have monthly special meal: Yes - Therapies | Activity Therapy: Evaluation | Treat if indicated: PT, OT, Swallowing / ST Rehabilitation Potential: Return to independent living Activity: Activity as Tolerated Weight Bearing: Full Weight Assistance Devices: Walker"
[2020-01-30] MEDS ORDERED: metroNIDAZOLE 250 MG TABLET PO SCH (12:00)
[2020-01-30 14:17] VITALS: BP 105/69
--- NOTE | 2020-02-04 20:06 | DISCHARGE SUMMARY ---
Physician: Jenifer Harrison MD DATE OF ADMISSION: 01/11/2020 DATE OF DISCHARGE: 01/30/2020 DISCHARGE DIAGNOSES 1. Alcoholic cirrhosis of the liver with ascites. 2. Generalized weakness. 3. Hyponatremia. 4. Macrocytic anemia. 5. Chronic alcohol abuse. 6. Elevated white cell count, resolved. 7. Vaginitis, nonspecific. 8. Chronic tachycardia. 9. Chronic hypotension. DISCHARGE MEDICATIONS 1. Acetaminophen 650 every 4 hours as needed. 2. Roxicodone 5 mg every 4 hours as needed for pain. 3. Flagyl 500 every 8 hours until 02/04/2020. 4. Lactulose 10 grams daily. 5. vitamin daily. 6. Aldactone 25 mg daily. 7. Thiamine 100 mg daily. PRINCIPAL PROCEDURES 1. Chest x-rays on 01/11/2020 and 01/12/2020 having normal single views of the chest. Central line placement was noted on second chest x-ray and no pneumothorax. 2. Abdominal ultrasound with a large amount of ascites in all four quadrants. Ultrasound was done f or paracentesis. 3. Paracentesis 01/18/2020. 4. Blood cultures negative from 01/11/2020. 5. Anaerobic culture negative from ascitic fluid 01/18/2020. 6. Gram stain of ascitic fluid 01/18/2020 showed no organisms, a few white cells. 7. 01/21/2020, fecal occult blood stool positive. 8. Echocardiogram done for chronic tachycardia showed a hyperdynamic left ventricle with ejection fr action greater than 75%. Grossly normal valve structure and function. Mild pulmonary hypertension w ith a PASP of 43 mmHg. Normal right ventricular size and function. HOSPITAL COURSE: She is a 64-year-old white female who has a known history of chronic alcohol abuse. She had been admitted to the hospital 12/16/2019 for the same scenario. She is in a hotel, has con tinued to drink. Has become very weak and dizzy. She slid down out of her bed this morning and was unable to get back up. No antecedent fever or chills. No vomiting of blood. No bloody stool. Ana Luisa use she was so weak, she was brought to the hospital again. She was found to be hyponatremic, hypote nsive, elevated white cell count. Short of breath with exertion. Mild diffuse abdominal pain. She was placed in the hospital because of her profound weakness and to workup the hyponatremia to andrea marcelo sure we were not missing anything. We did worry about spontaneous bacterial peritonitis and she re ceived a short course of empiric antibiotic therapy. Paracentesis was negative. Malnutrition was ev ident and she was treated with dietary consult. At one point, she became very hypotensive with diure sis, required transfer to ICU with use of Levophed. She was transitioned out of the ICU after being started on steroids empirically and midodrine. At discharge, she did not need to be discharged on mi dodrine. She received 1 unit of blood. Received lactulose. Physical therapy. Was felt able to be discharged to her hotel room. However, Physical Therapy felt that rehab was indicated for her gerard marcelo of her weakness and need to increase her strength for activities of daily living. This led us to h ave avoidable days due to her insurance company then negotiating with several prison facilit ies about where to go. She was eventually discharged to [facility]. PHYSICAL EXAMINATION VITAL SIGNS: At discharge, temperature was 36.5, heart rate 101, blood pressure 105/69, respirations 17, and 100% on room air. She is 5 feet 10 inches tall and weighs 95.5 kg. HEENT: Gaunt neck and face. LUNGS: Diminished breath sounds at bases, but no crackles, rhonchi or wheezing. She does get easily short of breath when trying to get up. HEART: Regular rate and rhythm with a thumping PMI. ABDOMEN: The abdomen has a fluid wave, mildly tender diffusely, and she does complain of abdominal d istention and occasional nausea, but no rebound or guarding and normal bowel sounds are present. She is oriented to person, place, time and situation. She does get occasionally forgetful, tearful and sad. Urine is dark ten, and at discharge, she was complaining of copious thick white vaginal disch arge that she wanted treatment for. As such, she was started on Flagyl. EXTREMITIES: She has ecchymosis along her forearms and her shins from where she has bruise them. Gregg marcelo has has 3+ pitting edema of her legs. Skin is sallow in color and slightly jaundiced. She is discharged in stable condition with a poor prognosis. She understands MELD score is quite hig h and if she cannot successfully stop drinking, she has a high mortality rate. At discharge, the mary n is for her to return to her hotel room and brother and sister in [place] are also making arrangem ents to fly her back home to provide more service. Greater than 30 minutes was spent coordinating discharge. cc: Thanh Sam MD TD: 02/04/2020 18:48
== END 2020-01-30 14:44 | DRG 433 ==
LOC: EDUNIT# → ED 13:35 → MS2 15:56 → ICU 01-12 07:20 → MS2 01-15 13:30
PROVIDERS: ADMIT Nurse Practitioner Gerontology; ATTEND Specialist
PROC: 02H633Z Insertion of Infusion Device into Right Atrium, Percutaneous Approach (ICD-10-PCS; 2020-01-12)
PROC: 30243N1 Transfusion of Nonautologous Red Blood Cells into Central Vein, Percutaneous Approach (ICD-10-PCS; 2020-01-17)
PROC: 0W9G3ZZ Drainage of Peritoneal Cavity, Percutaneous Approach (ICD-10-PCS; principal; 2020-01-18)
DX: K70.31 Alcoholic cirrhosis of liver with ascites (principal); E87.1 Hypo-osmolality and hyponatremia; N17.9 Acute kidney failure, unspecified; E46 Unspecified protein-calorie malnutrition; K70.40 Alcoholic hepatic failure without coma; F10.10 Alcohol abuse, uncomplicated; I95.2 Hypotension due to drugs; T50.1X5A Adverse effect of loop [high-ceiling] diuretics, initial encounter; Y92.230 Patient room in hospital as the place of occurrence of the external cause; R00.0 Tachycardia, unspecified; D69.59 Other secondary thrombocytopenia; D72.829 Elevated white blood cell count, unspecified; D53.9 Nutritional anemia, unspecified; N76.0 Acute vaginitis; R79.1 Abnormal coagulation profile; R32 Unspecified urinary incontinence; Z74.09 Other reduced mobility; Z03.818 Encounter for observation for suspected exposure to other biological agents ruled out; Z68.30 Body mass index [BMI] 30.0-30.9, adult; Z59.0 Homelessness; Z63.0 Problems in relationship with spouse or partner
CPT/HCPCS: 36415; 71045; 76705; 80048; 80053; 80074; 80076; 80306; 80320; 81003; 82042; 82140; 82272; 82945; 83605; 83615; 83690; 83735; 84100; 84155; 84157; 84443; 85014; 85018; 85025; 85027; 85610; 86850; 86900; 86901; 86920; 87040; 87075; 87150; 87205; 87635; 88108; 88305; 89051; 93306; 96365; 97110; 97116; 97162; 97167; 97530; 99223; 99233; 99283; 99285; A6250; A9270; J3411; P9016; P9047; 81001; 81599; 82040; 87086

== ENCOUNTER 2020-02-05 08:00 | Outpatient (CLI) | payer MEDICAID ==
[2020-02-05 18:59] LABS: CALCIUM 8.7 mg/dL (8.5-10.3); CREATININE 0.7 mg/dL (0.4-1.0)
== END 2020-02-05 23:59 | disposition home or self-care (01) ==
LOC: LAB.R 08:00
DX: N19 Unspecified kidney failure (principal)
CPT/HCPCS: 80048

== ENCOUNTER 2020-02-21 08:30 | Outpatient (CLI) | payer MEDICAID ==
[2020-02-21 09:26] LABS: INR 1.5 (0.8-1.2)
== END 2020-02-21 23:59 | disposition home or self-care (01) ==
LOC: LAB.WCP 08:30
PROVIDERS: ATTEND Family Medicine
DX: K70.31 Alcoholic cirrhosis of liver with ascites (principal)
CPT/HCPCS: 85610

== ENCOUNTER 2020-02-22 11:48 | Outpatient (CLI) | payer MEDICAID ==
--- NOTE | 2020-02-22 16:09 | Ultrasound Report ---
PROCEDURE: Abdominal Paracentesis INDICATIONS: ASCITES TECHNIQUE: The indications, alternatives, benefits, risks, and complications of the procedure were explained to the patient. Written informed consent was obtained and placed in the chart. The abdomen and pelvis were examined sonographically, and an appropriate site was chosen for paracentesis. The skin was pre pared and draped in the usual sterile fashion, and 1% lidocaine was infiltrated from the skin down th rough the peritoneal surface. A 19-gauge catheter-covered needle was then introduced into the perito theodore space, the catheter was advanced and the needle was withdrawn, and thereafter peritoneal fluid w as withdrawn. The catheter was then removed and a dressing was applied. The fluid was discarded if the clinician did not order diagnostic testing of the fluid. COMPARISON: 01/17/2020 FINDINGS: Access site: Right lower quadrant Needle: One-Step centesis catheter with introducer needle. Fluid volume and description: 4.4 L of clear ten ascites. Fluid sent for diagnostic testing: Specimens were not sent for diagnostic testing per ordering provi gato's instruction. Medications: 1% lidocaine for local anaesthesia. Complications: None. IMPRESSION: 1. Successful ultrasound-guided paracentesis. Reviewed by: Chester Boyce MD on 02/22/2020 4:07 PM PDT Approved by: Chester Boyce MD on 02/22/2020 4:07 PM PDT Station ID: [id number]
== END 2020-02-22 11:49 | disposition home or self-care (01) ==
LOC: DI 11:48
PROVIDERS: ATTEND Nurse Practitioner
DX: K70.31 Alcoholic cirrhosis of liver with ascites (principal)
CPT/HCPCS: 49083

== ENCOUNTER 2020-03-19 08:00 | Outpatient (CLI) | payer MEDICAID ==
[2020-03-19 07:28] LABS: ALBUMIN 2.1 g/dL (3.2-5.5); ALBUMIN/GLOBULIN RATIO 0.6 (1.0-2.2); BASOPHILS % (AUTO) 0.8 %; BILIRUBIN,TOTAL 2.9 mg/dL (0.2-1.0); CALCIUM 9.1 mg/dL (8.5-10.3); CREATININE 0.6 mg/dL (0.4-1.0); EOSINOPHILS # (AUTO) 0.2 10^3/uL (0.0-0.7); EOSINOPHILS % (AUTO) 3.7 %; HGB - HEMOGLOBIN 9.3 g/dL (12.0-16.0); LYMPHOCYTES # (AUTO) 1.5 10^3/uL (1.5-3.5); LYMPHOCYTES % (AUTO) 30.2 %; MEAN CORPUSCULAR HGB CONC 32.4 g/dL (32.0-36.0); MEAN CORPUSCULAR VOLUME 95.7 fL (81.0-99.0); MONOCYTES # (AUTO) 0.7 10^3/uL (0.0-1.0); MONOCYTES % (AUTO) 14.3 %; NEUTROPHILS # (AUTO) 2.5 10^3/uL (1.5-6.6); NEUTROPHILS % (AUTO) 50.8 %; PLT - PLATELET COUNT 258 10^3/uL (130-450); RED CELL DISTRIBUTION WIDTH 15.9 % (12.0-15.0); TOTAL PROTEIN 5.8 g/dL (6.7-8.2); WHITE BLOOD COUNT 4.8 x10^3/uL (4.8-10.8)
== END 2020-03-19 23:59 | disposition home or self-care (01) ==
LOC: LAB.R 08:00
DX: K70.31 Alcoholic cirrhosis of liver with ascites (principal)
CPT/HCPCS: 80053; 82140; 85025

== ENCOUNTER 2020-03-26 05:20 | Outpatient (CLI) | payer MEDICAID ==
[2020-03-26 08:20] LABS: CREATININE 0.6 mg/dL (0.4-1.0)
== END 2020-03-26 23:59 | disposition home or self-care (01) ==
LOC: LAB.R 05:20
PROVIDERS: ATTEND Family Medicine
DX: K70.31 Alcoholic cirrhosis of liver with ascites (principal)
CPT/HCPCS: 80048

== ENCOUNTER 2020-04-26 15:00 | Outpatient (CLI) | payer MEDICAID | END 2020-04-26 23:59 | disposition home or self-care (01) | LOC: LAB.R 15:00 | DX: A08.11 Acute gastroenteropathy due to Norwalk agent (principal); A04.72 Enterocolitis due to Clostridium difficile, not specified as recurrent | CPT/HCPCS: 87493; 87798 ==

== ENCOUNTER 2020-05-15 08:00 | Outpatient (CLI) | payer MEDICAID ==
[2020-05-15 15:14] LABS: BASOPHILS % (AUTO) 0.5 %; EOSINOPHILS # (AUTO) 0.1 10^3/uL (0.0-0.7); EOSINOPHILS % (AUTO) 1.4 %; LYMPHOCYTES # (AUTO) 1.3 10^3/uL (1.5-3.5); LYMPHOCYTES % (AUTO) 23.6 %; MEAN CORPUSCULAR HEMOGLOBIN 33.6 pg (27.0-31.0); MEAN CORPUSCULAR HGB CONC 32.8 g/dL (32.0-36.0); MEAN CORPUSCULAR VOLUME 102.2 fL (81.0-99.0); MEAN PLATELET VOLUME 9.1 fL (7.9-10.8); MONOCYTES # (AUTO) 0.8 10^3/uL (0.0-1.0); MONOCYTES % (AUTO) 14.7 %; NEUTROPHILS # (AUTO) 3.4 10^3/uL (1.5-6.6); NEUTROPHILS % (AUTO) 59.4 %; PLT - PLATELET COUNT 324 10^3/uL (130-450); RED BLOOD COUNT 2.68 10^6/uL (4.20-5.40); RED CELL DISTRIBUTION WIDTH 15.6 % (12.0-15.0); WHITE BLOOD COUNT 5.6 x10^3/uL (4.8-10.8)
[2020-05-15 15:28] LABS: ALBUMIN/GLOBULIN RATIO 0.4 (1.0-2.2); BILIRUBIN,TOTAL 2.1 mg/dL (0.2-1.0); CALCIUM 10.1 mg/dL (8.5-10.3); CREATININE 0.7 mg/dL (0.4-1.0)
== END 2020-05-15 23:59 | disposition home or self-care (01) ==
LOC: LAB.R 08:00
PROVIDERS: ATTEND Family Medicine
DX: K70.31 Alcoholic cirrhosis of liver with ascites (principal); D53.9 Nutritional anemia, unspecified; E46 Unspecified protein-calorie malnutrition; E87.1 Hypo-osmolality and hyponatremia
CPT/HCPCS: 80053; 84134; 85025

== ENCOUNTER 2020-06-18 16:50 | Outpatient (CLI) | payer MEDICAID ==
[2020-06-18 17:05] LABS: CALCIUM 9.5 mg/dL (8.5-10.3); CREATININE 0.8 mg/dL (0.4-1.0)
== END 2020-06-18 23:59 | disposition home or self-care (01) ==
LOC: LAB.R 16:50
DX: K70.31 Alcoholic cirrhosis of liver with ascites (principal); E87.1 Hypo-osmolality and hyponatremia; I95.89 Other hypotension
CPT/HCPCS: 80048; 82105

== ENCOUNTER 2020-06-20 07:55 | Outpatient (CLI) | payer MEDICAID ==
[2020-06-20 08:36] LABS: CALCIUM 9.6 mg/dL (8.5-10.3); CREATININE 0.8 mg/dL (0.4-1.0)
== END 2020-06-20 23:59 | disposition home or self-care (01) ==
LOC: LAB.R 07:55
DX: D53.9 Nutritional anemia, unspecified (principal); M62.81 Muscle weakness (generalized); R97.8 Other abnormal tumor markers
CPT/HCPCS: 80048

== ENCOUNTER 2020-06-21 13:56 | Outpatient (CLI) | payer MEDICAID | END 2020-06-21 13:57 | disposition critical access hospital (66) | LOC: EMS 13:56 | PROVIDERS: ATTEND Surgery | DX: M79.605 Pain in left leg (principal); M79.604 Pain in right leg | CPT/HCPCS: A0425; A0429; A0999 ==

== ENCOUNTER 2020-06-21 14:02 | Emergency (ER) | payer MEDICAID ==
--- NOTE | 2020-06-21 14:06 | ED Physician Documentation ---
PD HPI LOWER EXT INJURY - Stated complaint Stated Complaint: BI LATERAL LEG PX - History obtained from History obtained from: Patient - History of Present Illness PD HPI LOW EXT INJURY LOCATION: Both, Lower leg Type of injury: Other (She does have history of liver cirrhosis and ascites with leg edema as well as dementia and is bedbound predominantly. She is having pain and tenderness in both lower legs and referred here for evaluation for blood clots.). No: Fall, Twist Where injury occurred: Other (jail facility) Timing - onset: How many days ago (couple of days of leg pains and increased swelling.) Timing - duration: Days Timing - details: Gradual onset, Still present Worsened by: Moving, Palpating Associated symptoms: Swelling. No: Weakness, Numbness Recently seen: Not recently seen Review of Systems Unable to obtain: Dementia, Other (info from SNF notes.) Constitutional: denies: Fever Cardiac: denies: Chest pain / pressure Respiratory: denies: Dyspnea GI: reports: Abdominal Swelling (chronic due to ascites). 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: None : Incontinence HEENT: Chronic vision loss Psych: Depression, Anxiety Musculoskeletal: Fatigue Derm: None - Past Surgical History General: Appendectomy - Present Medications Home Medications: Ambulatory Orders Medication Instructions Recorded Confirmed Acetaminophen [Tylenol] 650 mg PO Q4HR PRN tablet 01/30/20 Lactulose 10 gm PO DAILY #1 bottle 01/30/20 Vitamin [Trinatal Rx 1] 1 tab PO DAILYWM tablet 01/30/20 Spironolactone [Aldactone] 25 mg PO DAILY tablet 01/30/20 Thiamine [Vitamin B-1] 100 mg PO DAILY tablet 01/30/20 metroNIDAZOLE [Flagyl] 500 mg PO Q8HR tablet 01/30/20 oxyCODONE [Roxicodone] 5 mg PO Q4HR PRN #20 tablet 01/30/20 - Allergies Allergies/Adverse Reactions: Allergies Allergy/AdvReac Type Severity Reaction Status Date / Time morphine Allergy Hallucinati Verified 01/11/20 13:59 ons - Living Situation Living Situation: reports: Alone Living Arrangement: reports: detention - Social History Does the pt smoke?: No Smoking Status: Former smoker Does the pt drink ETOH?: Yes Does the pt have substance abuse?: No - POLST Patient has POLST: No POLST Status: Full Code PD ED PE NORMAL - Vitals Vital signs reviewed: Yes - General General: Other (She believes she lives at home and takes care of herself. She did not know who called the ambulance.). No: Well developed/nourished (very frail and thin) - Neck Neck: Supple, no meningeal sign - Cardiac Cardiac: RRR - Respiratory Respiratory: Clear bilaterally - Abdomen Abdomen: Other (Markedly distended without any general tenderness consistent with ascites.). No: Normal bowel sounds (diminished) - Derm Derm: Normal color, Warm and dry - Extremities Extremities: Other (1-2+ edema in both lower extremities up to the knees. There is tenderness in both legs. No redness or rash noted.) - Neuro Neuro: No motor deficit. No: Alert and oriented X 3 (to person only, but is awake and conversant. ) Results - Vitals Vitals: Vital Signs - 24 hr 06/21/20 06/21/20 06/21/20 14:07 14:20 16:12 Temperature 36.8 C 36.8 C 36.2 C L Heart Rate 107 H 106 H 106 H Respiratory 25 H 18 13 Rate Blood Pressure 107/75 108/76 105/71 O2 Saturation 94 94 96 Oxygen O2 Source [With Activity] Room air O2 Source Room air - Labs Labs: Laboratory Tests 06/21/20 06/21/20 06/21/20 15:00 15:00 15:00 WBC 6.9 RBC 2.71 L Hgb 8.6 L Hct 27.3 L MCV 100.7 H MCH 31.7 H MCHC 31.5 L RDW 15.5 H Plt Count 326 MPV 8.7 Neut # (Auto) 4.0 Lymph # (Auto) 1.8 [place] # (Auto) 1.0 Eos # (Auto) 0.1 Baso # (Auto) 0.0 Absolute Nucleated RBC 0.00 Nucleated RBC % 0.0 PT 15.0 H INR 1.4 H APTT 36.3 H Sodium 131 L Potassium 4.0 Chloride 100 L Carbon Dioxide 23 Anion Gap 8.0 BUN 23 H Creatinine 0.8 Estimated GFR (MDRD) 73 L Glucose 111 H Calcium 9.6 Magnesium 1.6 L Total Bilirubin 1.6 H AST 19 ALT 12 Alkaline Phosphatase 76 Ammonia Total Protein 6.6 L Albumin 2.1 L Globulin 4.5 H Albumin/Globulin Ratio 0.5 L Lipase 37 06/21/20 15:00 WBC RBC Hgb Hct MCV MCH MCHC RDW Plt Count MPV Neut # (Auto) Lymph # (Auto) [place] # (Auto) Eos # (Auto) Baso # (Auto) Absolute Nucleated RBC Nucleated RBC % PT INR APTT Sodium Potassium Chloride Carbon Dioxide Anion Gap BUN Creatinine Estimated GFR (MDRD) Glucose Calcium Magnesium Total Bilirubin AST ALT Alkaline Phosphatase Ammonia 46.8 H Total Protein Albumin Globulin Albumin/Globulin Ratio Lipase - Rads (name of study) duplex bilateral lower legs Radiology: Prelim report reviewed (negative for DVT), See rad report PD MEDICAL DECISION MAKING - ED course Complexity details: reviewed results (no DVT), considered differential (eval for DT. Not on statins. Can check basic chem panel. ), d/w patient Departure - Departure Disposition: 01 Home, Self Care Clinical Impression: Leg edema Leg pain Qualifiers: Laterality: bilateral Qualified Code(s): M79.604 - Pain in right leg Liver cirrhosis, alcoholic Qualifiers: Ascites presence: with ascites Qualified Code(s): K70.31 - Alcoholic cirrhosis of liver with ascites Condition: Stable Record reviewed to determine appropriate education?: Yes Instructions: ED Muscle Pain Leg Cramps Comments: Negative duplex ultrasound so there are no clots in the legs. Continue medications if needed for discomfort. Consider Renard wraps for the swelling and elevating of the legs.
[2020-06-21] MEDS ORDERED: oxyCODONE 5 MG TABLET PO STA (14:38)
[2020-06-21 15:09] LABS: BASOPHILS % (AUTO) 0.6 %; EOSINOPHILS # (AUTO) 0.1 10^3/uL (0.0-0.7); HGB - HEMOGLOBIN 8.6 g/dL (12.0-16.0); LYMPHOCYTES # (AUTO) 1.8 10^3/uL (1.5-3.5); LYMPHOCYTES % (AUTO) 26.1 %; MEAN CORPUSCULAR HEMOGLOBIN 31.7 pg (27.0-31.0); MEAN CORPUSCULAR HGB CONC 31.5 g/dL (32.0-36.0); MEAN CORPUSCULAR VOLUME 100.7 fL (81.0-99.0); MEAN PLATELET VOLUME 8.7 fL (7.9-10.8); NEUTROPHILS % (AUTO) 57.9 %; PLT - PLATELET COUNT 326 10^3/uL (130-450); RED BLOOD COUNT 2.71 10^6/uL (4.20-5.40); RED CELL DISTRIBUTION WIDTH 15.5 % (12.0-15.0); WHITE BLOOD COUNT 6.9 x10^3/uL (4.8-10.8)
[2020-06-21 15:22] LABS: ALBUMIN 2.1 g/dL (3.2-5.5); ALBUMIN/GLOBULIN RATIO 0.5 (1.0-2.2); BILIRUBIN,TOTAL 1.6 mg/dL (0.2-1.0); CALCIUM 9.6 mg/dL (8.5-10.3); CREATININE 0.8 mg/dL (0.4-1.0); MAGNESIUM 1.6 mg/dL (1.7-2.8); TOTAL PROTEIN 6.6 g/dL (6.7-8.2)
[2020-06-21 15:38] LABS: INR 1.4 (0.8-1.2)
[2020-06-21 15:45] LABS: PARTIAL THROMBOPLASTIN TIME 36.3 secs (24.9-33.3)
--- NOTE | 2020-06-21 16:01 | Ultrasound Report ---
PROCEDURE: Duplex Ext Veins Bilateral INDICATIONS: Leg swelling TECHNIQUE: Real-time imaging, as well as color and pulse Doppler interrogation, were performed of the deep veins of both legs from the inguinal ligament to the popliteal fossa. COMPARISON: None FINDINGS: Pitting edema in the bilateral lower extremities as reported by the stencil cutter machine. The deep veins are normally compressible, and free of intraluminal thrombus. Color and pulse Doppler demonstr ate normal phasic intravascular flow. There is normal augmentation response to distal compression ma neuver. IMPRESSION: No sonographic evidence of DVT. Bilateral pitting lower to be edema is reported by the stencil cutter machine. Correlate for evidence of heart f ailure or other causes of volume overload. Reviewed by: Nick Christiansen MD on 06/21/2020 3:59 PM PDT Approved by: Nick Christiansen MD on 06/21/2020 3:59 PM PDT Station ID: [id number]
[2020-06-21 17:40] VITALS: BP 106/70
== END 2020-06-21 17:38 | disposition home or self-care (01) ==
LOC: EDUNIT# → ED 14:02
DX: M79.604 Pain in right leg (principal); M79.605 Pain in left leg; R60.0 Localized edema; K70.31 Alcoholic cirrhosis of liver with ascites; F03.90 Unspecified dementia, unspecified severity, without behavioral disturbance, psychotic disturbance, mood disturbance, and anxiety; Z87.891 Personal history of nicotine dependence; Z74.01 Bed confinement status
CPT/HCPCS: 36415; 80053; 82140; 83690; 83735; 85025; 85610; 85730; 93970; 99284; A9270

== ENCOUNTER 2020-06-21 17:38 | Outpatient (CLI) | payer MEDICAID | END 2020-06-21 17:39 | disposition home or self-care (01) | LOC: EMS 17:38 | PROVIDERS: ATTEND Surgery | DX: F03.90 Unspecified dementia, unspecified severity, without behavioral disturbance, psychotic disturbance, mood disturbance, and anxiety (principal) | CPT/HCPCS: A0425; A0428 ==

== ENCOUNTER 2020-07-06 21:30 | Outpatient (CLI) | payer MEDICAID ==
[2020-07-06 21:47] LABS: BASOPHILS % (AUTO) 0.4 %; EOSINOPHILS # (AUTO) 0.1 10^3/uL (0.0-0.7); EOSINOPHILS % (AUTO) 0.7 %; HGB - HEMOGLOBIN 8.5 g/dL (12.0-16.0); LYMPHOCYTES # (AUTO) 1.6 10^3/uL (1.5-3.5); LYMPHOCYTES % (AUTO) 20.5 %; MEAN CORPUSCULAR HEMOGLOBIN 32.2 pg (27.0-31.0); MEAN CORPUSCULAR HGB CONC 31.8 g/dL (32.0-36.0); MEAN CORPUSCULAR VOLUME 101.1 fL (81.0-99.0); MONOCYTES % (AUTO) 13.2 %; NEUTROPHILS % (AUTO) 64.9 %; PLT - PLATELET COUNT 369 10^3/uL (130-450); RED BLOOD COUNT 2.64 10^6/uL (4.20-5.40); RED CELL DISTRIBUTION WIDTH 15.4 % (12.0-15.0); WHITE BLOOD COUNT 7.7 x10^3/uL (4.8-10.8)
[2020-07-06 22:06] LABS: ALBUMIN 1.9 g/dL (3.2-5.5); ALBUMIN/GLOBULIN RATIO 0.5 (1.0-2.2); BILIRUBIN,TOTAL 1.2 mg/dL (0.2-1.0); CALCIUM 9.5 mg/dL (8.5-10.3); CREATININE 0.9 mg/dL (0.4-1.0); TOTAL PROTEIN 6.1 g/dL (6.7-8.2)
== END 2020-07-06 23:59 | disposition home or self-care (01) ==
LOC: LAB.R 21:30
PROVIDERS: ATTEND Family Medicine
DX: K70.31 Alcoholic cirrhosis of liver with ascites (principal)
CPT/HCPCS: 80053; 82140; 85025

== ENCOUNTER 2020-07-23 15:00 | Outpatient (CLI) | payer MEDICAID ==
[2020-07-23 15:35] LABS: BASOPHILS % (AUTO) 0.3 %; EOSINOPHILS % (AUTO) 0.3 %; LYMPHOCYTES % (AUTO) 5.5 %; MEAN CORPUSCULAR HEMOGLOBIN 33.5 pg (27.0-31.0); MEAN CORPUSCULAR HGB CONC 32.3 g/dL (32.0-36.0); MEAN CORPUSCULAR VOLUME 103.8 fL (81.0-99.0); MEAN PLATELET VOLUME 8.9 fL (7.9-10.8); MONOCYTES % (AUTO) 9.2 %; PLT - PLATELET COUNT 348 10^3/uL (130-450); RED BLOOD COUNT 2.39 10^6/uL (4.20-5.40); RED CELL DISTRIBUTION WIDTH 15.5 % (12.0-15.0)
[2020-07-23 15:44] LABS: ABNORMAL LYMPHS % (MANUAL) 0 %
[2020-07-23 15:45] LABS: ALBUMIN 1.9 g/dL (3.2-5.5); ALBUMIN/GLOBULIN RATIO 0.4 (1.0-2.2); BILIRUBIN,TOTAL 2.6 mg/dL (0.2-1.0); CREATININE 1.2 mg/dL (0.4-1.0); TOTAL PROTEIN 6.5 g/dL (6.7-8.2)
[2020-07-23 16:24] LABS: BAND NEUTROPHILS % (MANUAL) 2 %; LYMPHOCYTES # (MANUAL) 1.1 10^3/uL (1.5-3.5); LYMPHOCYTES % (MANUAL) 5 %; MONOCYTES # (MANUAL) 0.8 10^3/uL (0.0-1.0)
[2020-07-23 16:25] LABS: DIFFERENTIAL COMMENT MANUAL DIFFERENTIAL; PLATELET ESTIMATE, MANUAL NORMAL (130-450,000) (NORMAL); PLATELET MORPHOLOGY NORMAL APPEARANCE (NORMAL); RBC MORPHOLOGY (MULTIPLE) 1+ MACROCYTOSIS (NORMAL)
== END 2020-07-23 23:59 | disposition home or self-care (01) ==
LOC: LAB.R 15:00
DX: G93.40 Encephalopathy, unspecified (principal); N19 Unspecified kidney failure; E46 Unspecified protein-calorie malnutrition; E87.1 Hypo-osmolality and hyponatremia; K70.31 Alcoholic cirrhosis of liver with ascites; D72.829 Elevated white blood cell count, unspecified
CPT/HCPCS: 80053; 82140; 85025

== ENCOUNTER 2020-07-24 10:30 | Outpatient (CLI) | payer MEDICAID ==
--- NOTE | 2020-07-24 13:16 | CONSULTATION NOTE ---
Palliative Care Follow Up - Referral Referring Provider: Dr. 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 The patient was initially seen by palliative care for initial consultation while hospitalized in January 2020 due to worsening clinical condition with cirrhotic liver failure and ascites with underlying poor prognosis. Upon discharge from the hospital in January 2020 she transition to [facility] for continued care and management. The patient has had continued abdominal distention and facility PCP has been working with [facility] and obtainment of paracentesis due to the patient's ascites. She is presently on furosemide 80 mg daily and spironolactone 100 mg daily. She has been followed by gastroenterology from [facility], Dr. Eden Shoemaker. Last visit via telemedicine indicated that she should be on a fluid and salt restriction and proceed with paracentesis if medical management fails. Also recommended to consider TIP S procedure for current paracentesis despite optimal medical therapy. The patient is having minimal oral intake recently and continues to decline per nursing staff. Staff noted on 04/16 that she developed a sacral ulcer approximately 1 cm x 1 cm that progressed significantly in several days time and is presently measuring 11 x 6 cm and is eschar and appearance of a Eyad ulcer. The patient has had increased sedation sleeping throughout the day and her oxycodone was held prior to dressing change yesterday LUNGS: Clear to auscultation. Breath sounds equal bilaterally. No wheezes, rales, or rhonchi. Recent lab work obtained on 07/23/2020 that demonstrates WBC 21 with neutrophils elevated and was started on rocephin 1gram IM for skin infection to sacral ulcer that is presently receiving santyl application without debridement. The patient has reported pain with movement and is typically comfortable with no change in position. She has oxycodone 2.5 mg ordered to be used every 6 hours as needed for pain and 5 mg every 6 hours if moderate to severe pain at the present time. Nursing staff report that the patient has been reluctant to take anything other than acetaminophen until recently. Due to her sensitivity to touch and movement she was initiated on gabapentin for neuropathic pain. The patient was seen during dressing change and after dressing change when unable to participate adequately in history and discussion and history was obtained from previous medical records as well as nursing staff. The patient herself was moaning lately in discomfort to her sacral area after dressing change and unable to appreciate her comments due to soft speech and noted weakness. Past Medical History: Patient has a past medical history of cirrhosis with ascites, incontinence, chronic vision loss, depression, anxiety, fatigue, Thrombocytopenia, macrocytic anemia, hyponatremia, history of alcohol abuse. 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 She has a history of alcohol abuse prior to her admission to [facility]. She has a sister, Mars Hernandez [phone] in [place] who is an RN and has been reported at her DPOA. The patient transition to [facility] after her last hospital admission in January 2020. Given the patient's presents fatigue and sedation unable to get a clear further history at the present time. Medications/Allergies - Medications Home Medications: Ambulatory Orders Medication Instructions Recorded Confirmed Acetaminophen [Tylenol] 650 mg PO Q4HR PRN tablet 01/30/20 Vitamin [Trinatal Rx 1] 1 tab PO DAILYWM tablet 01/30/20 Thiamine [Vitamin B-1] 100 mg PO DAILY tablet 01/30/20 07/24/20 Bisacodyl Supp [Dulcolax Supp] 10 mg HI DAILY PRN 07/24/20 07/24/20 Furosemide [Lasix] 80 mg PO DAILY 07/24/20 07/24/20 Gabapentin [Neurontin] 300 mg PO BID 07/24/20 07/24/20 Lactulose 10 gm PO BID 07/24/20 Lidocaine Gel 4 % TP DAILY 07/24/20 Magnesium Hydroxide [Milk of 30 ml PO DAILY PRN 07/24/20 07/24/20 Magnesia] Spironolactone [Aldactone] 100 mg PO DAILY 07/24/20 cefTRIAXone [Rocephin 1 gram] 1 g IM DAILY MDD x7 days 07/24/20 07/24/20 oxyCODONE [Roxicodone] 2.5 mg PO Q6H PRN 07/24/20 - Allergies Allergies/Adverse Reactions: Allergies Allergy/AdvReac Type Severity Reaction Status Date / Time morphine Allergy Hallucinati Verified 01/11/20 13:59 ons Review of Systems - Constitutional Constitutional: reports: Fatigue, Weakness (bedbound), Poor appetite - Ears, Nose & Throat Ears, Nose & Throat: reports: Other (poor dentition) - Cardiovascular Cardiovascular: denies: Chest pain - Respiratory Respiratory: denies: Cough - Gastrointestinal Gastrointestinal: reports: Abdominal distention, Poor appetite. denies: Constipation, Vomiting - Genitourinary Genitourinary: reports: Incontinence - Musculoskeletal Musculoskeletal: reports: Assistive devices, Transfer issues, Other (pain to sacrum and pain with touch) - Integumentary Integumentary: reports: Other (sacral wound) - Neurological Neurological: reports: General weakness, Memory problems - Psychiatric Psychiatric: reports: Depression, Anxiety - Endocrine Endocrine: denies: Diabetes type 2 - Hematologic/Lymphatic Hematologic/Lymph: Anemia - All Other Systems All Other Systems: reports: Reviewed and negative (Review of systems is limited due to patient's underlying clinical condition of lethargy and inability to adequately understand the words the patient is articulating. Review of systems is supplemented by facility staff due to the patient's clinical condition.) Physical Exam - Vital Signs Temperature: 37.4 C Pulse Rate: 115 O2 Saturation: 95 (on RA at rest) Blood Pressure: 147/80 (right wrist cuff) - Physical Exam General Appearance: positive: Mild distress, Lethargic, Other (appears older than stated age and chroniclly ill appearing) Eyes Bilateral: positive: Normal inspection ENT: positive: Dry mucous membranes, Other (poor dentition, b/l temporal wasting) Neck: positive: Trachea midline Cardiovascular: positive: No murmur, Tachycardia (as just had dressing change preformed) Abdomen: positive: Nml bowel sounds, Tenderness, Distended Skin: positive: Wound (to sacrum 11cm x 6 cm of eschar tissue with mild odor noted), Other (+generalized dryness; scattered tattos) Extremities: positive: No pedal edema Neurologic/Psychiatric: positive: Other (Anable to assess orientation due to lethargy and discomfort) Palliative Care Performance Status: The patient is bedbound. Minimal oral intake. Recent abrupt development of sacral ulcer with appearance of a Eyad ulcer. - Palliative Care Discussion: Patient has experienced further clinical decline and has leukocytosis in the setting of a sacral ulcer with the appearance of a Eyad ulcer that may have led to infection. She is presently on Rocephin 1 g IM for the next 7 days for intervention. She is pending for a paracentesis had [facility] later this week for her abdominal ascites. Her ammonia level has increased and given her noted lethargy would benefit from increase in her lactulose dosing. Given her lack of oral intake and continual decline she has an overall poor prognosis. Facility PCP, Dr. Post spoke to the patient's sister/DPOAMars yesterday requesting that the patient be DN AR with comfort measures. Facility staff report that when the patient was more alert she strongly stated that her sister, Mars is to act as her DPOA had make healthcare decisions for her as high would "get what was needed." Results - Lab Results Lab results reviewed: Yes Lab and Imaging Results: 07/23/2020 Sodium 134, potassium 4.8, BUN 45, creatinine 1.2, estimated GFR 46, AST 15, ALT 11, alk phos 85, ammonia level 52.3, total protein 6.5, albumin 1.9, next WBC 22, platelet 348, neutrophil 19.1 Impression and Recommendations - Palliative Care Impression: 64-year-old woman who is seen in follow-up today for cirrhosis liver failure with ascites, new sacral ulcer, failure to thrive and continued decline. She has had increased lethargy with decreased oral intake and is essentially bedbound. She is presently being treated for underlying skin infection due to her sacral ulcer that has the appearance of a Eyad ulcer. Patient's PCP has been in contact with her sister/DPOA who has indicated to focus on comfort measures and to have the patient be DN AR. The patient is presently lethargic and is unable to participate in clinical decision-making. Palliative care offered support to patient's PCP and facility staff to work on optimizing patient's comfort and quality of life. Recommendations/Counseling Done: 1. Cirrhosis of liver with ascites. Patient has abdominal distention indicative of ascites. Facility has worked with [facility] and she is scheduled for paracentesis later this week. She continues on spironolactone and furosemide for management of her serous ascites but is clearly with a functional decline with failure to thrive and poor prognosis. Elevated ammonia level and we will therefore in crease lactulose administration to 10 g twice daily. It would be appropriate to have a discussion with the patient's sister and stated DPOA in regards to transition to hospice services with the patient's clinical decline and as the patient's sister/DPOA has expressed to the patient's PCP, Dr. Post that she wishes to have the patient focus with comfort measures and be DN AR. 2. Chronic pain. Multifactorial. Patient essentially bedbound due to hyperalgesia and chronic pain. She has been resistant to taking opioid medication until recently. Staff report that she has responded well to oxycodone 2.5 mg as needed and prior to dressing changes. Patient's primary CASHIER CREDIT Carlos is reinstating oxycodone 5 mg prior to dressing changes daily to optimize the patient's comfort level. May need to continue to titrate oxycodone dosage as the patient may transition closer towards end of life. Would benefit from hospice services and placement of a mini C catheter if she is no longer able to take in medications by mouth. 3. Sacral wound, likely Eyad ulcer. Patient with discomfort to sacral area due to ulcer. To have initiated lidocaine gel to the site to decrease discomfort. Primary CASHIER CREDIT switching from Santyl to Medihoney application daily. Ultimately, if aggressive measures were wanted this area needs debridement given the amount of eschar tissue. Given the patient's underlying protein calorie malnutrition due to failure to thrive and cirrhosis of the liver this would be difficult to have of adequate healing. 4. Failure to thrive in the setting of cirrhosis of liver with ascites. Patient with minimal oral intake and albumin level of 1.9 and total protein 6.5. Continues with protein supplementation with minimal oral intake reported by staff. Continue supportive care. 5. Advance care planning. The patient has previously displayed very little insight into the severity of her illness and given her lethargy she is unable to participate in any advance care planning today. Therefore, the medical decision making falls to her sister and stated DPOA per facility report, Ty. Ty has expressed to PCP Dr. Post that she wishes for the patient to be DN AR with comfort measures. This HOT METAL MIXER OPERATOR has left 2 messages for the sister at [phone] to complete POLST and discuss further interventions and introduce hospice services and awaiting return call back. Time Spent: Total time spent 45 minutes with greater than 50% of this spent in counseling and coordination of care with nursing, patient and PCPs Dr. Post and YESI Gonzalez, review of pain and symptom management and anticipatory guidance. Two messages have been left with patient's sister and stated ANIYAH, Mars Hernandez [phone]. Disclaimer: The chart note was formulated using voice recognition technology and unfortunately sound alike errors may occur.
== END 2020-07-24 10:31 | disposition home or self-care (01) ==
LOC: PC 10:30
PROVIDERS: ATTEND Nurse Practitioner Family
DX: Z51.5 Encounter for palliative care (principal); K70.31 Alcoholic cirrhosis of liver with ascites; G89.29 Other chronic pain; L89.159 Pressure ulcer of sacral region, unspecified stage; E46 Unspecified protein-calorie malnutrition; R62.7 Adult failure to thrive; D72.829 Elevated white blood cell count, unspecified
CPT/HCPCS: 99310